=== PATIENT | female | born 1965 | race Caucasian/White ===

== ENCOUNTER 2020-05-30 15:02 | Inpatient (IN) | payer MEDICAID, SELFPAY ==
[2020-05-30] VITALS (7 sets, daily range): BP systolic 109–140; BP diastolic 75–98; PULSE 68–125; RESP 21–35; TEMP 36.6–37.3; O2SAT 91–97; BMI 31.2
--- NOTE | 2020-05-30 15:45 | ECG_ITS ---
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: : [id number] Requested By: Derrick Aguilar Order Number: [id number] Reading MD: HEMA MASON Measurements Intervals [place] Rate: 116 P: 50 MI: 116 QRS: 10 QRSD: 81 T: 3 QT: 279 QTc: 388 Interpretive Statements SINUS TACHYCARDIA WITH SHORT MI INTERVAL MODERATE ST DEPRESSION [0.05+ mV ST DEPRESSION] Compared to ECG 04/20/2019 11:45:52 Short MI interval now present ST (T wave) deviation now present Sinus rhythm no longer present Electronically Signed On 05-30-2020 19:27:54 [employer]AFFING [employer]CH MANAGER by HEMA MASON [email or web address]
--- NOTE | 2020-05-30 15:51 | XRR_ITS ---
PROCEDURE INFORMATION: Exam: XR Chest, 1 View Exam date and time: 05/30/2020 3:54 PM Age: 55 years old Clinical indication: Cough and dyspnea; Additional info: Dyspnea/cough TECHNIQUE: Imaging protocol: XR of the chest Views: 1 view. COMPARISON: CR Chest 1 [place] [id number] 12/14/2017 6:08 PM FINDINGS: Lungs: Bilateral nonspecific infiltrates, left worse than right. The left-sided infiltrate is predominantly airspace disease. The right-sided infiltrate appears mostly interstitial with mild airspace disease at the right lung base. Pleural space: No pleural effusion or pneumothorax noted. Heart/Mediastinum: No cardiomegaly. Bones/joints: Unremarkable. XR/XR chest 1V portable [id number] IMPRESSION: 1. Bilateral nonspecific infiltrates, left worse than right. 2. These infiltrates are new when compared to the previous study.
--- NOTE | 2020-05-30 15:54 | W.ED.SOB ---
Documented by User: Derrick Joyner DO 05/31/20 10:27 HPI - SOB/Dyspnea General: Chief Complaint: Shortness of Breath/Dyspnea Stated Complaint: SOB/ LOW O2 SATS Time Seen by Provider: 05/30/20 15:37 History of Present Illness: HPI Narrative: 55-year-old female presents to the emergency room and tested positive for Covid on 05/13. She is having increasing she reports shortness of breath and nonproductive cough she evidently dropped to 68% on her oxygen saturation on room air. She was recently thought to have pneumonia. Patient has a history of dementia. MD elicited complaint: shortness of breath and cough Pertinent past history: diabetes and other (Dementia) Context: recent illness (COVID-19) Severity: severe Exacerbating factors: exertion and coughing Relieving factors: oxygen and rest Known history of: diabetes Treatment prior to arrival: oxygen Review of Systems General: Reports: ROS unobtainable due to medical condition PFSH ED PFSH: Medical History (Updated 05/31/20 @ 02:17 by Staci Calvillo) B12 deficiency COPD (chronic obstructive pulmonary disease) Dementia GERD (gastroesophageal reflux disease) History of DVT (deep vein thrombosis) Insulin dependent type 2 diabetes mellitus Intellectual disability Surgical History (Updated 05/30/20 @ 23:11 by Teodoro Juarez MD) History of ankle surgery Family History (Updated 05/30/20 @ 23:12 by Teodoro Juarez MD) Grandmother Cancer Breast, lung, cervical Mother Gunshot wound Social History (Updated 05/30/20 @ 23:13 by Teodoro Juarez MD) Smoking and tobacco status: former smoker Alcohol intake: never Substance/Drug Use: never Physical Exam Const: COMMON NORMALS: no acute distress GENERAL APPEARANCE: cooperative and comfortable ORIENTATION/CONSCIOUSNESS: Yes awake, Yes oriented to person, Yes oriented to place and Yes oriented to time HENMT: COMMON NORMALS: normocephalic, atraumatic and hearing grossly normal bilaterally HEAD & SCALP: normocephalic and atraumatic Eye: COMMON NORMALS: Equal, round and reactive pupils present, EOMs intact bilaterally, conjunctivae normal and no scleral icterus CONJUNCTIVA: Yes conjunctivae normal PUPIL: Yes Equal, round and reactive pupils present Neck/C-Spine: COMMON NORMALS: full ROM, no lymphadenopathy, supple and no JVD Lymph: LYMPHATIC: no lymphadenopathy noted and no lymphedema noted Resp: AUSCULTATION: rhonchi and wheezes Cardio: COMMON NORMALS: no JVD, regular rhythm and No murmurs present (Cardio) RATE: tachycardic RHYTHM: regular rhythm GI: COMMON NORMALS: Soft to palpation and No hepatosplenomegaly present AUSCULTATION: Yes normoactive bowel sounds PALPATION: Yes Soft to palpation, No Tenderness to palpation present (GI), No Guarding due to palpation present (GI) and Yes No hepatosplenomegaly present Extremity: COMMON NORMALS: normal to inspection, capillary refill normal, no clubbing, cyanosis or edema, no calf tenderness and no pedal edema Neuro: SENSORIUM/ORIENTATION: Yes oriented to person, Yes oriented to place and Yes oriented to time Skin: COMMON NORMALS: no rashes or lesions noted GENERAL SKIN EXAM: no rashes or lesions noted Course Vital Signs: Vital signs: Vital Signs Temperature 99.4 F 05/31/20 08:00 Pulse Rate 109 H 05/31/20 08:28 Respiratory Rate 24 H 05/31/20 08:28 Blood Pressure 114/71 05/31/20 08:00 Pulse Oximetry 93 05/31/20 08:28 MDM - SOB/Dyspnea MDM Narrative: Medical decision making narrative: Case turned over to Dr. Zaidi at change of shift suspect patient has COVID-[address] pending. See his notes for final diagnosis and disposition. Lab Data: Labs: Lab Results 05/30/20 05/30/20 05/30/20 Range/Units 16:15 16:15 16:15 WBC 12.0 H (4.0-10.0) 10^3/ uL RBC 4.65 (4.1-5.3) 10^6/u L Hgb 12.7 (11.5-15.3) g/dL Hct 43.5 (37.0-47.0) % MCV 93.5 (81-99) fL MCH 27.3 L (28.0-34.0) pg MCHC 29.2 L (30.0-36.0) g/dL RDW 16.6 H (12.1-15.1) % Plt Count 173 (130-400) 10^3/c mm MPV 10.9 H (7.4-10.4) fL Neut % (Auto) 78.8 % Lymph % (Auto) 12.0 % [place] % (Auto) 8.2 % Eos % (Auto) 0.0 % Baso % (Auto) 0.2 % Neut # (Auto) 9.43 H (1.8-7.7) 10^3/u L Lymph # (Auto) 1.4 (0.8-4.8) 10^3/u L [place] # (Auto) 1.0 H (0.2-0.9) 10^3/u L Eos # (Auto) 0.0 (0.0-0.8) 10^3/u L Baso # (Auto) 0.0 (0.0-0.1) 10^3/u L Nucleated RBC % (a uto) 0 % Nucleated RBCs # 0.0 /100WBC Fibrinogen (174-498) mg/dL D-Dimer (0-0.59) ug/mIFE U Specimen Type Sample Site ABG pH (7.35-7.45) ABG pCO2 (35-45) mmHg ABG pO2 (80.0-100.0) mmH g ABG HCO3 (22-26) mmol/L ABG Base Excess (-2.0-2.0) mmol/ L Kamran Test Hematocrit (37-47) % O2 Delivery Device O2 Liters/Min % FiO2 % Digital Communications Manager ID Sodium 144 (136-145) mmol/L Potassium 4.6 (3.5-5.1) mmol/L Chloride 102 (98-107) mmol/L Carbon Dioxide 34 H (22-29) mmol/L Anion Gap 12.6 (5-19) BUN 9 (6-20) mg/dL Creatinine 0.5 (0.5-0.9) mg/dL GFR Calculation 128.1 (90-130) mL/min Glucose 91 (65-115) mg/dL Calculated Osmolal ity 296 H (285-295) mOsm/k g Lactic Acid (0.5-2.2) mmol/L Calcium 8.7 (8.5-10.5) mg/dL Ferritin 124 (15-150) ng/mL Total Bilirubin 0.3 (0.15-1.2) mg/dL AST 27 (0-32) U/L ALT 16 (0-33) U/L Alkaline Phosphata se 148 H (35-105) IU/L Creatine Kinase 72 (26-192) U/L Troponin T Baselin e 1329 H* (0-10) ng/L Troponin T 120 Min [place] (0-10) ng/L Delta Troponin T (0-10) ABS# Troponin T Hi Sens 6Hr (0-10) ng/L Troponin T Hi Sens 6Hr Delta (0-12) ng/L C-Reactive Protein 79.7 H (0.0-4.9) mg/L Total Protein 6.8 (6.6-8.7) g/dL Albumin 2.7 L (3.5-5.2) g/dL Globulin 4.1 (1.3-4.6) g/dL Urine Color (Yellow) Urine Appearance (CLEAR) Urine pH (5-7) Ur Specific Gravit y (1.005-1.030) Urine Protein (Negative) Urine Glucose (UA) (Normal) Urine Ketones (Negative) Urine Blood (Negative) Urine Nitrate (Negative) Urine Bilirubin (Negative) Urine Urobilinogen (Negative) mg/dL Ur Leukocyte Alka ase (Negative) Urine RBC (0-2) /hpf Urine WBC (0-5) /hpf Ur Squamous Epith Cells (0-5) /hpf Amorphous Sediment Urine Bacteria (NONE) /hpf Influenza Type A A g (Negative) Influenza Type B A g (Negative) 05/30/20 05/30/20 05/30/20 Range/Units 16:15 18:25 18:25 WBC (4.0-10.0) 10^3/ uL RBC (4.1-5.3) 10^6/u L Hgb (11.5-15.3) g/dL Hct (37.0-47.0) % MCV (81-99) fL MCH (28.0-34.0) pg MCHC (30.0-36.0) g/dL RDW (12.1-15.1) % Plt Count (130-400) 10^3/c mm MPV (7.4-10.4) fL Neut % (Auto) % Lymph % (Auto) % [place] % (Auto) % Eos % (Auto) % Baso % (Auto) % Neut # (Auto) (1.8-7.7) 10^3/u L Lymph # (Auto) (0.8-4.8) 10^3/u L [place] # (Auto) (0.2-0.9) 10^3/u L Eos # (Auto) (0.0-0.8) 10^3/u L Baso # (Auto) (0.0-0.1) 10^3/u L Nucleated RBC % (a uto) % Nucleated RBCs # /100WBC Fibrinogen 527 H (174-498) mg/dL D-Dimer 10.88 H (0-0.59) ug/mIFE U Specimen Type Sample Site ABG pH (7.35-7.45) ABG pCO2 (35-45) mmHg ABG pO2 (80.0-100.0) mmH g ABG HCO3 (22-26) mmol/L ABG Base Excess (-2.0-2.0) mmol/ L Kamran Test Hematocrit (37-47) % O2 Delivery Device O2 Liters/Min % FiO2 % Digital Communications Manager ID Sodium (136-145) mmol/L Potassium (3.5-5.1) mmol/L Chloride (98-107) mmol/L Carbon Dioxide (22-29) mmol/L Anion Gap (5-19) BUN (6-20) mg/dL Creatinine (0.5-0.9) mg/dL GFR Calculation (90-130) mL/min Glucose (65-115) mg/dL Calculated Osmolal ity (285-295) mOsm/k g Lactic Acid 1.2 (0.5-2.2) mmol/L Calcium (8.5-10.5) mg/dL Ferritin (15-150) ng/mL Total Bilirubin (0.15-1.2) mg/dL AST (0-32) U/L ALT (0-33) U/L Alkaline Phosphata se (35-105) IU/L Creatine Kinase (26-192) U/L Troponin T Baselin e (0-10) ng/L Troponin T 120 Min [place] 1397 H (0-10) ng/L Delta Troponin T 68 H* (0-10) ABS# Troponin T Hi Sens 6Hr (0-10) ng/L Troponin T Hi Sens 6Hr Delta (0-12) ng/L C-Reactive Protein (0.0-4.9) mg/L Total Protein (6.6-8.7) g/dL Albumin (3.5-5.2) g/dL Globulin (1.3-4.6) g/dL Urine Color (Yellow) Urine Appearance (CLEAR) Urine pH (5-7) Ur Specific Gravit y (1.005-1.030) Urine Protein (Negative) Urine Glucose (UA) (Normal) Urine Ketones (Negative) Urine Blood (Negative) Urine Nitrate (Negative) Urine Bilirubin (Negative) Urine Urobilinogen (Negative) mg/dL Ur Leukocyte Alka ase (Negative) Urine RBC (0-2) /hpf Urine WBC (0-5) /hpf Ur Squamous Epith Cells (0-5) /hpf Amorphous Sediment Urine Bacteria (NONE) /hpf Influenza Type A A g (Negative) Influenza Type B A g (Negative) 05/30/20 05/30/20 05/30/20 Range/Units 19:20 19:26 22:02 WBC (4.0-10.0) 10^3/ uL RBC (4.1-5.3) 10^6/u L Hgb (11.5-15.3) g/dL Hct (37.0-47.0) % MCV (81-99) fL MCH (28.0-34.0) pg MCHC (30.0-36.0) g/dL RDW (12.1-15.1) % Plt Count (130-400) 10^3/c mm MPV (7.4-10.4) fL Neut % (Auto) % Lymph % (Auto) % [place] % (Auto) % Eos % (Auto) % Baso % (Auto) % Neut # (Auto) (1.8-7.7) 10^3/u L Lymph # (Auto) (0.8-4.8) 10^3/u L [place] # (Auto) (0.2-0.9) 10^3/u L Eos # (Auto) (0.0-0.8) 10^3/u L Baso # (Auto) (0.0-0.1) 10^3/u L Nucleated RBC % (a uto) % Nucleated RBCs # /100WBC Fibrinogen (174-498) mg/dL D-Dimer (0-0.59) ug/mIFE U Specimen Type Sample Site ABG pH (7.35-7.45) ABG pCO2 (35-45) mmHg ABG pO2 (80.0-100.0) mmH g ABG HCO3 (22-26) mmol/L ABG Base Excess (-2.0-2.0) mmol/ L Kamran Test Hematocrit (37-47) % O2 Delivery Device O2 Liters/Min % FiO2 % Digital Communications Manager ID Sodium (136-145) mmol/L Potassium (3.5-5.1) mmol/L Chloride (98-107) mmol/L Carbon Dioxide (22-29) mmol/L Anion Gap (5-19) BUN (6-20) mg/dL Creatinine (0.5-0.9) mg/dL GFR Calculation (90-130) mL/min Glucose (65-115) mg/dL Calculated Osmolal ity (285-295) mOsm/k g Lactic Acid (0.5-2.2) mmol/L Calcium (8.5-10.5) mg/dL Ferritin (15-150) ng/mL Total Bilirubin (0.15-1.2) mg/dL AST (0-32) U/L ALT (0-33) U/L Alkaline Phosphata se (35-105) IU/L Creatine Kinase (26-192) U/L Troponin T Baselin e (0-10) ng/L Troponin T 120 Min [place] (0-10) ng/L Delta Troponin T (0-10) ABS# Troponin T Hi Sens 6Hr 1270 H (0-10) ng/L Troponin T Hi Sens 6Hr Delta -59 L (0-12) ng/L C-Reactive Protein (0.0-4.9) mg/L Total Protein (6.6-8.7) g/dL Albumin (3.5-5.2) g/dL Globulin (1.3-4.6) g/dL Urine Color Yellow (Yellow) Urine Appearance Cloudy (CLEAR) Urine pH 5 (5-7) Ur Specific Gravit y 1.020 (1.005-1.030) Urine Protein 1+ H (Negative) Urine Glucose (UA) Norm (Normal) Urine Ketones Negative (Negative) Urine Blood 3+ H (Negative) Urine Nitrate Negative (Negative) Urine Bilirubin Neg (Negative) Urine Urobilinogen Norm (Negative) mg/dL Ur Leukocyte Alka ase Negative (Negative) Urine RBC Too numerous to c nt H (0-2) /hpf Urine WBC None (0-5) /hpf Ur Squamous Epith Cells 0-4 H (0-5) /hpf Amorphous Sediment Not Reportable Urine Bacteria 2+ H (NONE) /hpf Influenza Type A A g Negative (Negative) Influenza Type B A g Negative (Negative) 05/30/20 Range/Units 23:30 WBC (4.0-10.0) 10^3/ uL RBC (4.1-5.3) 10^6/u L Hgb (11.5-15.3) g/dL Hct (37.0-47.0) % MCV (81-99) fL MCH (28.0-34.0) pg MCHC (30.0-36.0) g/dL RDW (12.1-15.1) % Plt Count (130-400) 10^3/c mm MPV (7.4-10.4) fL Neut % (Auto) % Lymph % (Auto) % [place] % (Auto) % Eos % (Auto) % Baso % (Auto) % Neut # (Auto) (1.8-7.7) 10^3/u L Lymph # (Auto) (0.8-4.8) 10^3/u L [place] # (Auto) (0.2-0.9) 10^3/u L Eos # (Auto) (0.0-0.8) 10^3/u L Baso # (Auto) (0.0-0.1) 10^3/u L Nucleated RBC % (a uto) % Nucleated RBCs # /100WBC Fibrinogen (174-498) mg/dL D-Dimer (0-0.59) ug/mIFE U Specimen Type Arterial Sample Site Radial, left ABG pH 7.34 L (7.35-7.45) ABG pCO2 66.5 H* (35-45) mmHg ABG pO2 62.1 L (80.0-100.0) mmH g ABG HCO3 35.7 H (22-26) mmol/L ABG Base Excess 7.6 H (-2.0-2.0) mmol/ L Kamran Test Pos Hematocrit 39.8 (37-47) % O2 Delivery Device Nc O2 Liters/Min 6.0 % FiO2 44.0 % Digital Communications Manager ID [email or web address] Sodium (136-145) mmol/L Potassium (3.5-5.1) mmol/L Chloride (98-107) mmol/L Carbon Dioxide (22-29) mmol/L Anion Gap (5-19) BUN (6-20) mg/dL Creatinine (0.5-0.9) mg/dL GFR Calculation (90-130) mL/min Glucose (65-115) mg/dL Calculated Osmolal ity (285-295) mOsm/k g Lactic Acid (0.5-2.2) mmol/L Calcium (8.5-10.5) mg/dL Ferritin (15-150) ng/mL Total Bilirubin (0.15-1.2) mg/dL AST (0-32) U/L ALT (0-33) U/L Alkaline Phosphata se (35-105) IU/L Creatine Kinase (26-192) U/L Troponin T Baselin e (0-10) ng/L Troponin T 120 Min [place] (0-10) ng/L Delta Troponin T (0-10) ABS# Troponin T Hi Sens 6Hr (0-10) ng/L Troponin T Hi Sens 6Hr Delta (0-12) ng/L C-Reactive Protein (0.0-4.9) mg/L Total Protein (6.6-8.7) g/dL Albumin (3.5-5.2) g/dL Globulin (1.3-4.6) g/dL Urine Color (Yellow) Urine Appearance (CLEAR) Urine pH (5-7) Ur Specific Gravit y (1.005-1.030) Urine Protein (Negative) Urine Glucose (UA) (Normal) Urine Ketones (Negative) Urine Blood (Negative) Urine Nitrate (Negative) Urine Bilirubin (Negative) Urine Urobilinogen (Negative) mg/dL Ur Leukocyte Alka ase (Negative) Urine RBC (0-2) /hpf Urine WBC (0-5) /hpf Ur Squamous Epith Cells (0-5) /hpf Amorphous Sediment Urine Bacteria (NONE) /hpf Influenza Type A A g (Negative) Influenza Type B A g (Negative) Discharge Plan Discharge Patient Disposition: Admitted As Inpatient Admit Provider: Teodoro Juarez Clinical Impression: Pneumonia due to COVID-19 virus Condition: Stable Discharge Date/Time: 05/31/20 01:00 Sign Out Sign Out Data: Patient Sign Out occurred on 05/30/20 at 18:57. Patient's care was discussed, and care was transferred from to Staci Calvillo. Coding Level of Care Code ED Driver License Technician for Chg Fwd Exam Comprehensive Documented by User: Staci Calvillo 05/31/20 02:17 HPI - SOB/Dyspnea General: Chief Complaint: Shortness of Breath/Dyspnea Stated Complaint: SOB/ LOW O2 SATS Time Seen by Provider: 05/30/20 15:37 PFSH ED PFSH: Medical History (Updated 05/31/20 @ 02:17 by Staci Calvillo) B12 deficiency COPD (chronic obstructive pulmonary disease) Dementia GERD (gastroesophageal reflux disease) History of DVT (deep vein thrombosis) Insulin dependent type 2 diabetes mellitus Intellectual disability Surgical History (Updated 05/30/20 @ 23:11 by Teodoro Juarez MD) History of ankle surgery Family History (Updated 05/30/20 @ 23:12 by Teodoro Juarez MD) Grandmother Cancer Breast, lung, cervical Mother Gunshot wound Social History (Updated 05/30/20 @ 23:13 by Teodoro Juarez MD) Smoking and tobacco status: former smoker Alcohol intake: never Substance/Drug Use: never Course Vital Signs: Vital signs: Vital Signs Temperature 99.4 F 05/31/20 08:00 Pulse Rate 109 H 05/31/20 08:28 Respiratory Rate 24 H 05/31/20 08:28 Blood Pressure 114/71 05/31/20 08:00 Pulse Oximetry 93 05/31/20 08:28 MDM - SOB/Dyspnea MDM Narrative: Medical decision making narrative: Case turned over to me at change of shift from Dr. Joyner. Please see his note for his history, physical exam and medical decision-making notes. Patient's chest x-ray is CT scan reveals severe viral pneumonitis. No sign of PE. I endorsed the case to Dr. Cohen who agrees to admit for further evaluation and care. Lab Data: Attestation: I reviewed the patient's lab results. Labs: Lab Results 05/30/20 05/30/20 05/30/20 Range/Units 16:15 16:15 16:15 WBC 12.0 H (4.0-10.0) 10^3/ uL RBC 4.65 (4.1-5.3) 10^6/u L Hgb 12.7 (11.5-15.3) g/dL Hct 43.5 (37.0-47.0) % MCV 93.5 (81-99) fL MCH 27.3 L (28.0-34.0) pg MCHC 29.2 L (30.0-36.0) g/dL RDW 16.6 H (12.1-15.1) % Plt Count 173 (130-400) 10^3/c mm MPV 10.9 H (7.4-10.4) fL Neut % (Auto) 78.8 % Lymph % (Auto) 12.0 % [place] % (Auto) 8.2 % Eos % (Auto) 0.0 % Baso % (Auto) 0.2 % Neut # (Auto) 9.43 H (1.8-7.7) 10^3/u L Lymph # (Auto) 1.4 (0.8-4.8) 10^3/u L [place] # (Auto) 1.0 H (0.2-0.9) 10^3/u L Eos # (Auto) 0.0 (0.0-0.8) 10^3/u L Baso # (Auto) 0.0 (0.0-0.1) 10^3/u L Nucleated RBC % (a uto) 0 % Nucleated RBCs # 0.0 /100WBC Fibrinogen (174-498) mg/dL D-Dimer (0-0.59) ug/mIFE U Specimen Type Sample Site ABG pH (7.35-7.45) ABG pCO2 (35-45) mmHg ABG pO2 (80.0-100.0) mmH g ABG HCO3 (22-26) mmol/L ABG Base Excess (-2.0-2.0) mmol/ L Kamran Test Hematocrit (37-47) % O2 Delivery Device O2 Liters/Min % FiO2 % Digital Communications Manager ID Sodium 144 (136-145) mmol/L Potassium 4.6 (3.5-5.1) mmol/L Chloride 102 (98-107) mmol/L Carbon Dioxide 34 H (22-29) mmol/L Anion Gap 12.6 (5-19) BUN 9 (6-20) mg/dL Creatinine 0.5 (0.5-0.9) mg/dL GFR Calculation 128.1 (90-130) mL/min Glucose 91 (65-115) mg/dL Calculated Osmolal ity 296 H (285-295) mOsm/k g Lactic Acid (0.5-2.2) mmol/L Calcium 8.7 (8.5-10.5) mg/dL Ferritin 124 (15-150) ng/mL Total Bilirubin 0.3 (0.15-1.2) mg/dL AST 27 (0-32) U/L ALT 16 (0-33) U/L Alkaline Phosphata se 148 H (35-105) IU/L Creatine Kinase 72 (26-192) U/L Troponin T Baselin e 1329 H* (0-10) ng/L Troponin T 120 Min [place] (0-10) ng/L Delta Troponin T (0-10) ABS# Troponin T Hi Sens 6Hr (0-10) ng/L Troponin T Hi Sens 6Hr Delta (0-12) ng/L C-Reactive Protein 79.7 H (0.0-4.9) mg/L Total Protein 6.8 (6.6-8.7) g/dL Albumin 2.7 L (3.5-5.2) g/dL Globulin 4.1 (1.3-4.6) g/dL Urine Color (Yellow) Urine Appearance (CLEAR) Urine pH (5-7) Ur Specific Gravit y (1.005-1.030) Urine Protein (Negative) Urine Glucose (UA) (Normal) Urine Ketones (Negative) Urine Blood (Negative) Urine Nitrate (Negative) Urine Bilirubin (Negative) Urine Urobilinogen (Negative) mg/dL Ur Leukocyte Alka ase (Negative) Urine RBC (0-2) /hpf Urine WBC (0-5) /hpf Ur Squamous Epith Cells (0-5) /hpf Amorphous Sediment Urine Bacteria (NONE) /hpf Influenza Type A A g (Negative) Influenza Type B A g (Negative) 05/30/20 05/30/20 05/30/20 Range/Units 16:15 18:25 18:25 WBC (4.0-10.0) 10^3/ uL RBC (4.1-5.3) 10^6/u L Hgb (11.5-15.3) g/dL Hct (37.0-47.0) % MCV (81-99) fL MCH (28.0-34.0) pg MCHC (30.0-36.0) g/dL RDW (12.1-15.1) % Plt Count (130-400) 10^3/c mm MPV (7.4-10.4) fL Neut % (Auto) % Lymph % (Auto) % [place] % (Auto) % Eos % (Auto) % Baso % (Auto) % Neut # (Auto) (1.8-7.7) 10^3/u L Lymph # (Auto) (0.8-4.8) 10^3/u L [place] # (Auto) (0.2-0.9) 10^3/u L Eos # (Auto) (0.0-0.8) 10^3/u L Baso # (Auto) (0.0-0.1) 10^3/u L Nucleated RBC % (a uto) % Nucleated RBCs # /100WBC Fibrinogen 527 H (174-498) mg/dL D-Dimer 10.88 H (0-0.59) ug/mIFE U Specimen Type Sample Site ABG pH (7.35-7.45) ABG pCO2 (35-45) mmHg ABG pO2 (80.0-100.0) mmH g ABG HCO3 (22-26) mmol/L ABG Base Excess (-2.0-2.0) mmol/ L Kamran Test Hematocrit (37-47) % O2 Delivery Device O2 Liters/Min % FiO2 % Digital Communications Manager ID Sodium (136-145) mmol/L Potassium (3.5-5.1) mmol/L Chloride (98-107) mmol/L Carbon Dioxide (22-29) mmol/L Anion Gap (5-19) BUN (6-20) mg/dL Creatinine (0.5-0.9) mg/dL GFR Calculation (90-130) mL/min Glucose (65-115) mg/dL Calculated Osmolal ity (285-295) mOsm/k g Lactic Acid 1.2 (0.5-2.2) mmol/L Calcium (8.5-10.5) mg/dL Ferritin (15-150) ng/mL Total Bilirubin (0.15-1.2) mg/dL AST (0-32) U/L ALT (0-33) U/L Alkaline Phosphata se (35-105) IU/L Creatine Kinase (26-192) U/L Troponin T Baselin e (0-10) ng/L Troponin T 120 Min [place] 1397 H (0-10) ng/L Delta Troponin T 68 H* (0-10) ABS# Troponin T Hi Sens 6Hr (0-10) ng/L Troponin T Hi Sens 6Hr Delta (0-12) ng/L C-Reactive Protein (0.0-4.9) mg/L Total Protein (6.6-8.7) g/dL Albumin (3.5-5.2) g/dL Globulin (1.3-4.6) g/dL Urine Color (Yellow) Urine Appearance (CLEAR) Urine pH (5-7) Ur Specific Gravit y (1.005-1.030) Urine Protein (Negative) Urine Glucose (UA) (Normal) Urine Ketones (Negative) Urine Blood (Negative) Urine Nitrate (Negative) Urine Bilirubin (Negative) Urine Urobilinogen (Negative) mg/dL Ur Leukocyte Alka ase (Negative) Urine RBC (0-2) /hpf Urine WBC (0-5) /hpf Ur Squamous Epith Cells (0-5) /hpf Amorphous Sediment Urine Bacteria (NONE) /hpf Influenza Type A A g (Negative) Influenza Type B A g (Negative) 05/30/20 05/30/20 05/30/20 Range/Units 19:20 19:26 22:02 WBC (4.0-10.0) 10^3/ uL RBC (4.1-5.3) 10^6/u L Hgb (11.5-15.3) g/dL Hct (37.0-47.0) % MCV (81-99) fL MCH (28.0-34.0) pg MCHC (30.0-36.0) g/dL RDW (12.1-15.1) % Plt Count (130-400) 10^3/c mm MPV (7.4-10.4) fL Neut % (Auto) % Lymph % (Auto) % [place] % (Auto) % Eos % (Auto) % Baso % (Auto) % Neut # (Auto) (1.8-7.7) 10^3/u L Lymph # (Auto) (0.8-4.8) 10^3/u L [place] # (Auto) (0.2-0.9) 10^3/u L Eos # (Auto) (0.0-0.8) 10^3/u L Baso # (Auto) (0.0-0.1) 10^3/u L Nucleated RBC % (a uto) % Nucleated RBCs # /100WBC Fibrinogen (174-498) mg/dL D-Dimer (0-0.59) ug/mIFE U Specimen Type Sample Site ABG pH (7.35-7.45) ABG pCO2 (35-45) mmHg ABG pO2 (80.0-100.0) mmH g ABG HCO3 (22-26) mmol/L ABG Base Excess (-2.0-2.0) mmol/ L Kamran Test Hematocrit (37-47) % O2 Delivery Device O2 Liters/Min % FiO2 % Digital Communications Manager ID Sodium (136-145) mmol/L Potassium (3.5-5.1) mmol/L Chloride (98-107) mmol/L Carbon Dioxide (22-29) mmol/L Anion Gap (5-19) BUN (6-20) mg/dL Creatinine (0.5-0.9) mg/dL GFR Calculation (90-130) mL/min Glucose (65-115) mg/dL Calculated Osmolal ity (285-295) mOsm/k g Lactic Acid (0.5-2.2) mmol/L Calcium (8.5-10.5) mg/dL Ferritin (15-150) ng/mL Total Bilirubin (0.15-1.2) mg/dL AST (0-32) U/L ALT (0-33) U/L Alkaline Phosphata se (35-105) IU/L Creatine Kinase (26-192) U/L Troponin T Baselin e (0-10) ng/L Troponin T 120 Min [place] (0-10) ng/L Delta Troponin T (0-10) ABS# Troponin T Hi Sens 6Hr 1270 H (0-10) ng/L Troponin T Hi Sens 6Hr Delta -59 L (0-12) ng/L C-Reactive Protein (0.0-4.9) mg/L Total Protein (6.6-8.7) g/dL Albumin (3.5-5.2) g/dL Globulin (1.3-4.6) g/dL Urine Color Yellow (Yellow) Urine Appearance Cloudy (CLEAR) Urine pH 5 (5-7) Ur Specific Gravit y 1.020 (1.005-1.030) Urine Protein 1+ H (Negative) Urine Glucose (UA) Norm (Normal) Urine Ketones Negative (Negative) Urine Blood 3+ H (Negative) Urine Nitrate Negative (Negative) Urine Bilirubin Neg (Negative) Urine Urobilinogen Norm (Negative) mg/dL Ur Leukocyte Al[place] a[place] Negative (Negative) Urine RBC Too numerous to c nt H (0-2) /hpf Urine WBC None (0-5) /hpf Ur Squamous Epith Cells 0-4 H (0-5) /hpf Amorphous Sediment Not Reportable Urine Bacteria 2+ H (NONE) /hpf Influenza Type A A g Negative (Negative) Influenza Type B A g Negative (Negative) 05/30/20 Range/Units 23:30 WBC (4.0-10.0) 10^3/ uL RBC (4.1-5.3) 10^6/u L Hgb (11.5-15.3) g/dL Hct (37.0-47.0) % MCV (81-99) fL MCH (28.0-34.0) pg MCHC (30.0-36.0) g/dL RDW (12.1-15.1) % Plt Count (130-400) 10^3/c mm MPV (7.4-10.4) fL Neut % (Auto) % Lymph % (Auto) % [place] % (Auto) % Eos % (Auto) % Baso % (Auto) % Neut # (Auto) (1.8-7.7) 10^3/u L Lymph # (Auto) (0.8-4.8) 10^3/u L [place] # (Auto) (0.2-0.9) 10^3/u L Eos # (Auto) (0.0-0.8) 10^3/u L Baso # (Auto) (0.0-0.1) 10^3/u L Nucleated RBC % (a uto) % Nucleated RBCs # /100WBC Fibrinogen (174-498) mg/dL D-Dimer (0-0.59) ug/mIFE U Specimen Type Arterial Sample Site Radial, left ABG pH 7.34 L (7.35-7.45) ABG pCO2 66.5 H* (35-45) mmHg ABG pO2 62.1 L (80.0-100.0) mmH g ABG HCO3 35.7 H (22-26) mmol/L ABG Base Excess 7.6 H (-2.0-2.0) mmol/ L Kamran Test Pos Hematocrit 39.8 (37-47) % O2 Delivery Device Nc O2 Liters/Min 6.0 % FiO2 44.0 % Digital Communications Manager ID [email or web address] Sodium (136-145) mmol/L Potassium (3.5-5.1) mmol/L Chloride (98-107) mmol/L Carbon Dioxide (22-29) mmol/L Anion Gap (5-19) BUN (6-20) mg/dL Creatinine (0.5-0.9) mg/dL GFR Calculation (90-130) mL/min Glucose (65-115) mg/dL Calculated Osmolal ity (285-295) mOsm/k g Lactic Acid (0.5-2.2) mmol/L Calcium (8.5-10.5) mg/dL Ferritin (15-150) ng/mL Total Bilirubin (0.15-1.2) mg/dL AST (0-32) U/L ALT (0-33) U/L Alkaline Phosphata se (35-105) IU/L Creatine Kinase (26-192) U/L Troponin T Baselin e (0-10) ng/L Troponin T 120 Min [place] (0-10) ng/L Delta Troponin T (0-10) ABS# Troponin T Hi Sens 6Hr (0-10) ng/L Troponin T Hi Sens 6Hr Delta (0-12) ng/L C-Reactive Protein (0.0-4.9) mg/L Total Protein (6.6-8.7) g/dL Albumin (3.5-5.2) g/dL Globulin (1.3-4.6) g/dL Urine Color (Yellow) Urine Appearance (CLEAR) Urine pH (5-7) Ur Specific Gravit y (1.005-1.030) Urine Protein (Negative) Urine Glucose (UA) (Normal) Urine Ketones (Negative) Urine Blood (Negative) Urine Nitrate (Negative) Urine Bilirubin (Negative) Urine Urobilinogen (Negative) mg/dL Ur Leukocyte [place] a[place] (Negative) Urine RBC (0-2) /hpf Urine WBC (0-5) /hpf Ur Squamous Epith Cells (0-5) /hpf Amorphous Sediment Urine Bacteria (NONE) /hpf Influenza Type A A g (Negative) Influenza Type B A g (Negative) Imaging Data^: CXR: Attestation: I personally reviewed and interpreted this imaging study as follows: My impression: Bilateral infiltrates much worse on the left than right. CT Chest: Radiologist's impression: [place] [id number] CT Scan Report Signed Patient: Emmanuel Corral Unit #: [id number] : 1965 Age/Sex: 55 / F ADM Date: 05/30/20 Loc: ER Room/Bed: Attending Dr: Ordering Provider/Ordering MD: Derrick Joyner DO Date of Service: 05/30/20 Procedure(s): CT angio chest PE protcl [id number] Accession Number(s): [id number] Report Number: [id number] PROCEDURE INFORMATION: Exam: CT Angiography Chest With Contrast Exam date and time: 05/30/2020 7:04 PM Age: 55 years old Clinical indication: Abnormal findings; Abnormal diagnostic tests; Elevated d-dimer; Other: Hypoxia; Additional info: Elevated d dimer, hypoxia TECHNIQUE: Imaging protocol: Computed tomographic angiography of the chest with intravenous contrast. 3D rendering (Not supervised by radiologist): MIP and/or 3D reconstructed images were created by the technologist. Radiation optimization: All CT scans at this facility use at least one of these dose optimization techniques: automated exposure control; mA and/or kV adjustment per patient size (includes targeted exams where dose is matched to clinical indication); or iterative reconstruction. Contrast material: VISI; Contrast volume: 84 ml; Contrast route: INTRAVENOUS (IV); COMPARISON: CR XR chest 1V portable [id number] 05/30/2020 4:57 PM RADIATION DOSE METRICS: Total DLP (mGy-cm): 620.33 FINDINGS: Limitations: The study is limited due to patient respiratory motion. This precludes evaluation of the peripheral pulmonary arteries. Pulmonary arteries: The central pulmonary arteries and primary branches are well opacified. No filling defects to suggest pulmonary embolism. The peripheral arteries are not well demonstrated. Aorta: No aortic aneurysm. No aortic dissection. Veins: There is an IVC filter present. Lungs: Nonspecific pulmonary infiltrates throughout both lungs. The largest infiltrate involves the entire left upper lobe. This is consistent with nonspecific pneumonia. Pleural space: No pleural effusion demonstrated. Heart: No cardiomegaly. No pericardial effusion. Lymph nodes: Calcified subcarinal and right hilar lymph nodes, consistent with old granulomatous disease. Bones/joints: Unremarkable. No acute fracture. Soft tissues: Unremarkable. CT/CT angio chest PE protcl [id number] IMPRESSION: 1. The study is limited due to patient respiratory motion. This precludes evaluation of the peripheral pulmonary arteries. 2. No evidence of pulmonary embolism, within the technical limits of the study. 3. No evidence of aortic dissection. 4. Extensive nonspecific pulmonary infiltrates throughout both lungs. The largest infiltrate involves the entire left upper lobe. This is consistent with nonspecific pneumonia. Radiation Dose CTDIVOL = (mGy): DLP = 620.33 (mGy-cm) Dictated By: Pito Becerril MD Signed By: Pito Becerril MD Signed Date/Time: 05/30/202101 DD/ 00 EKG Data^: EKG 1: Attestation: I personally reviewed and interpreted this EKG as follows: EKG Interpretation Date: 05/30/20 EKG interpretation time: 16:31 Interpretation: Sinus tachycardia at 116 beats a minute, no acute ST-T wave changes. EKG 2: Attestation: I personally reviewed and interpreted this EKG as follows: EKG Interpretation Date: 05/30/20 EKG interpretation time: 18:30 Interpretation: Sinus tachycardia at 102 beats a minute, no acute ST-T wave changes. Discharge Plan Discharge Patient Disposition: Admitted As Inpatient Admit Provider: Teodoro Juarez Clinical Impression: Pneumonia due to COVID-19 virus Condition: Stable Discharge Date/Time: 05/31/20 01:00 Sign Out Sign Out Data: Patient Sign Out occurred on 05/30/20 at 18:57. Patient's care was discussed, and care was transferred from to [facility]. Coding Level of Care Code ED Driver License Technician for Chg Fwd Exam Comprehensive
[2020-05-30 16:45] LABS: Basophils % 0.2 %; Hematocrit 43.5 % (37.0-47.0); Hemoglobin 12.7 g/dL (11.5-15.3); Lymphocytes # 1.4 10^3/uL (0.8-4.8); Mean Corpuscular HGB Conc 29.2 g/dL (30.0-36.0); Mean Corpuscular Hemoglobin 27.3 pg (28.0-34.0); Mean Corpuscular Volume 93.5 fL (81-99); Mean Platelet Volume 10.9 fL (7.4-10.4); Monocytes % 8.2 %; Neutrophils # 9.43 10^3/uL (1.8-7.7); Neutrophils % 78.8 %; Nucleated Red Blood Cells % 0 %; Platelet Count 173 10^3/cmm (130-400); Red Blood Count 4.65 10^6/uL (4.1-5.3); Red Cell Distribution Width 16.6 % (12.1-15.1)
[2020-05-30 17:03] LABS: Fibrinogen 527 mg/dL (174-498)
[2020-05-30 17:12] LABS: D Dimer 10.88 ug/mIFEU (0-0.59)
--- NOTE | 2020-05-30 17:15 | CTR_ITS ---
PROCEDURE INFORMATION: Exam: CT Angiography Chest With Contrast Exam date and time: 05/30/2020 7:04 PM Age: 55 years old Clinical indication: Abnormal findings; Abnormal diagnostic tests; Elevated d-dimer; Other: Hypoxia; Additional info: Elevated d dimer, hypoxia TECHNIQUE: Imaging protocol: Computed tomographic angiography of the chest with intravenous contrast. 3D rendering (Not supervised by radiologist): MIP and/or 3D reconstructed images were created by the technologist. Radiation optimization: All CT scans at this facility use at least one of these dose optimization techniques: automated exposure control; mA and/or kV adjustment per patient size (includes targeted exams where dose is matched to clinical indication); or iterative reconstruction. Contrast material: VISI; Contrast volume: 84 ml; Contrast route: INTRAVENOUS (IV); COMPARISON: CR XR chest 1V portable [id number] 05/30/2020 4:57 PM RADIATION DOSE METRICS: Total DLP (mGy-cm): 620.33 FINDINGS: Limitations: The study is limited due to patient respiratory motion. This precludes evaluation of the peripheral pulmonary arteries. Pulmonary arteries: The central pulmonary arteries and primary branches are well opacified. No filling defects to suggest pulmonary embolism. The peripheral arteries are not well demonstrated. Aorta: No aortic aneurysm. No aortic dissection. Veins: There is an IVC filter present. Lungs: Nonspecific pulmonary infiltrates throughout both lungs. The largest infiltrate involves the entire left upper lobe. This is consistent with nonspecific pneumonia. Pleural space: No pleural effusion demonstrated. Heart: No cardiomegaly. No pericardial effusion. Lymph nodes: Calcified subcarinal and right hilar lymph nodes, consistent with old granulomatous disease. Bones/joints: Unremarkable. No acute fracture. Soft tissues: Unremarkable. CT/CT angio chest PE protcl [id number] IMPRESSION: 1. The study is limited due to patient respiratory motion. This precludes evaluation of the peripheral pulmonary arteries. 2. No evidence of pulmonary embolism, within the technical limits of the study. 3. No evidence of aortic dissection. 4. Extensive nonspecific pulmonary infiltrates throughout both lungs. The largest infiltrate involves the entire left upper lobe. This is consistent with nonspecific pneumonia. Radiation Dose CTDIVOL = (mGy): DLP = 620.33 (mGy-cm)
[2020-05-30 17:26] LABS: Troponin(5th) Baseline 1329 ng/L (0-10)
--- NOTE | 2020-05-30 17:45 | ECG_ITS ---
[facility] Test Date: 2020-05-30 Pat Name: Emmanuel Corral Department: Room: Gender: Female Company Secretary: : 1965 Requested By: Derrick Aguilar Order Number: [id number] Reading MD: HEMA MASON Measurements Intervals [place] Rate: 110 P: 55 HI: 116 QRS: 15 QRSD: 85 T: 18 QT: 291 QTc: 394 Interpretive Statements SINUS TACHYCARDIA WITH SHORT HI INTERVAL MINIMAL ST DEPRESSION [0.025+ mV ST DEPRESSION] ABNORMAL RHYTHM ECG INTERPRETATION BASED ON A DEFAULT AGE OF 40 YEARS Compared to ECG 05/30/2020 16:31:24 No significant changes Electronically Signed On 05-30-2020 19:31:13 SPORTS INSTRUCTOR by HEMA MASON [id number]
[2020-05-30 17:50] LABS: Alanine Aminotransferase 16 U/L (0-33); Albumin Level 2.7 g/dL (3.5-5.2); Alkaline Phosphatase 148 IU/L (35-105); Blood Urea Nitrogen 9 mg/dL (6-20); C Reactive Protein 79.7 mg/L (0.0-4.9); Calcium 8.7 mg/dL (8.5-10.5); Carbon Dioxide 34 mmol/L (22-29); Chloride 102 mmol/L (98-107); Creatine Phosphokinase 72 U/L (26-192); Creatinine Clr Calc Pharmacy 113.0512; Ferritin 124 ng/mL (15-150); Globulin 4.1 g/dL (1.3-4.6); Glomerular Filtration Rate 128.1 mL/min (90-130); Glucose 91 mg/dL (65-115); Osmolality Calculated 296 mOsm/kg (285-295); Sodium 144 mmol/L (136-145); Total Bilirubin 0.3 mg/dL (0.15-1.2); Total Protein 6.8 g/dL (6.6-8.7)
[2020-05-30 18:19] LABS: Anion Gap 12.6 (5-19); Aspartate Amino Transferase 27 U/L (0-32); Potassium 4.6 mmol/L (3.5-5.1)
[2020-05-30 19:06] LABS: Lactic Sepsis W/Reflex 1.2 mmol/L (0.5-2.2)
[2020-05-30] MEDS: diphenhydrAMINE 50 mg/mL SDV 1mL IVP (19:07)
[2020-05-30] MEDS: enoxaparin 80 mg/0.8 mL Syringe 70 MG SUBCUT (19:09)
[2020-05-30] MEDS: hydrocortisone 100 mg/2 mL SDV IVP (19:10)
--- NOTE | 2020-05-30 19:10 | PC.NURSE ---
Received report from RAHAT Rogers.
[2020-05-30] MEDS: piperacillin-tazobactam 3.375 GM in sodium chloride 0.9% (plus) 50 ML IV (19:12)
[2020-05-30 19:13] LABS: Troponin 5 2HR Delta 68 ABS# (0-10)
[2020-05-30 19:14] LABS: Troponin 5 2HR 1397 ng/L (0-10)
[2020-05-30] MEDS: levofloxacin-dextrose 5 % 750 MG/150 ML PREMIX 100 MG IV (19:15)
--- NOTE | 2020-05-30 19:48 | PC.NURSE ---
family continues to call about pt's status. Took names Maria Teresa Sousa at [phone] and Maria Teresa Lars/changed her name to Zora Sousa [phone]. Requested family to assign one person to call and stated to both we would call them back once we get information to give.
--- NOTE | 2020-05-30 19:52 | PC.NURSE ---
Notified provider no IV access, per radiology. Unable to access via radiology. 2nd RN to attempt IV with ultrasound
[2020-05-30 20:03] LABS: Influenza A by IFA Negative (Negative); Influenza B by IFA Negative (Negative)
[2020-05-30 20:06] LABS: Add Urine Microscopic? YES; Bilirubin Urine Neg (Negative); Blood Urine 3+ (Negative); Glucose Urine UA Norm (Normal); Ketones Urine Negative (Negative); Leukocyte Esterase Urine Negative (Negative); Nitrate Urine Negative (Negative); Protein Urine 1+ (Negative); Urine Appearance Cloudy (CLEAR); Urine Color Yellow (Yellow); Urobilinogen Urine Norm (Negative); pH Urine 5 (5-7)
[2020-05-30 20:07] LABS: Add Urine Culture? Yes; Bacteria Urine 2+ /hpf; RBC Urine TOO NUMEROUS TO CNT /hpf (0-2); Squamous Epithelial Cell Urine 0-4 /hpf (0-5)
--- NOTE | 2020-05-30 20:27 | PC.NURSE ---
[facility] UPDATED ON PATIENT STATUS WHEN FACILITY CALLED
[2020-05-30] MEDS: iodixanol 320 mg/mL 100mL Btl IV (20:37)
--- NOTE | 2020-05-30 21:45 | ECG_ITS ---
[facility] Test Date: 2020-05-30 Pat Name: Emmanuel Corral Department: Room: Gender: Female Airport Clerk: : 1965 Requested By: Derrick Aguilar Order Number: [id number] Colby MD: Zulay Cannon M.D. Measurements Intervals [place] Rate: 112 P: 63 NC: 114 QRS: 40 QRSD: 85 T: 40 QT: 294 QTc: 402 Interpretive Statements SINUS TACHYCARDIA WITH SHORT NC INTERVAL ABNORMAL RHYTHM ECG Compared to ECG 05/30/2020 18:30:43 ST (T wave) deviation no longer present Electronically Signed On 05-31-2020 11:37:23 COSMETIC ASSEMBLER by Zulay Cannon M.D. [id number]
--- NOTE | 2020-05-30 21:50 | PC.NURSE ---
Call to Maria Teresa Sousa at [phone]. updated sister on Hypoxia and positive for PNA, questionable [place] vs Cardiomegaly per provider.
--- NOTE | 2020-05-30 22:11 | PC.NURSE ---
EKG done at 2205 and shown to ER doctor
[2020-05-30 22:37] LABS: Troponin 5 6HR 1270 ng/L (0-10); Troponin 5 6HR Delta -59 ng/L (0-12)
[2020-05-30] MEDS: dexamethasone 4 mg/mL INJ 6 MG IVP (22:41)
--- NOTE | 2020-05-30 23:06 | P.HP_ITS ---
Providers/Chief Complaint Primary Care Provider: Carlos Conroy MD Chief Complaint: SOB/ LOW O2 SATS History of Present Illness Emmanuel Corral is a 55 year old female with a past medical history of intellectual disability from anoxic injury, chronic resident of [facility], can carry out conversations, is quite independent, has a history of DVT status post IVC filter placement, B12 deficiency, COPD not oxygen dependent, GERD, due to concerns for thrombocytopenia, insulin-dependent type 2 diabetes mellitus, vitamin D deficiency, major depressive disorder, who presents [facility] due to hypoxia, cough, fevers, shortness of breath, fatigue, malaise, chills. Patient was diagnosed with COVID-19 on around May 13, since then she has had low-grade fevers, chills, has required up to 4 L of oxygen. According to nurse over the last few days, she has had increased shortness of breath with at rest and exertion, just has been feeling well, low-grade fevers, chills, poor appetite. They did a chest x-ray which showed findings concerning for pneumonia so she was brought to the emergency room for further evaluation. During my evaluation, patient does not know what is wrong with her, she is confused, she does follow commands such as squeezing my fingers, wiggling her toes, but she does not really answer appropriately later questioning, most of the history was obtained through long term staff. Review of Systems General: Reports: ROS unobtainable due to medical condition Const: Reports: fever(s), chills, fatigue and malaise Card: Denies: chest pain or palpitations Resp: Reports: dyspnea and non-productive cough GI: Denies: abdominal pain Medications/Allergies Home Medications Medication Instructions Recorded Confirmed Last Taken Type acetaminophen 325 mg PO QID PRN 05/30/20 05/30/20 Unknown History albuterol sulfate 2.5 mg INHALATION Q4H PRN 05/30/20 05/30/20 Unknown History atorvastatin 10 mg PO DAILY 05/30/20 05/30/20 05/30/20 History bisacodyl 5 mg PO DAILY PRN 05/30/20 05/30/20 Unknown History bisacodyl 10 mg RI DAILY PRN 05/30/20 05/30/20 Unknown History budesonide-formoterol [Symbicort] 2 puff INHALATION BID 05/30/20 05/30/20 05/30/20 History cyanocobalamin (vitamin B-12) 1,000 mcg PO DAILY 05/30/20 05/30/20 05/30/20 History escitalopram oxalate 10 mg PO DAILY 05/30/20 05/30/20 05/30/20 History guaifenesin [Tussin] 200 mg PO Q4H PRN 05/30/20 05/30/20 Unknown History hydrocodone-acetaminophen 1 tab PO Q8H PRN 05/30/20 05/30/20 05/30/20 History insulin NPH isoph U-100 human See Rx Instructions .ROUTE .COMPLEX 05/30/20 05/30/20 05/30/20 History [Novolin N Flexpen] insulin glargine [Lantus Solostar See Rx Instructions .ROUTE .COMPLEX 05/30/20 05/30/20 Unknown History U-100 Insulin] levothyroxine 100 mcg PO DAILY 05/30/20 05/30/20 05/30/20 History lorazepam 0.5 mg PO TID 05/30/20 05/30/20 05/30/20 History magnesium hydroxide [Milk of 400 mg PO DAILY PRN 05/30/20 05/30/20 Unknown History Magnesia] metformin 1,000 mg PO BID 05/30/20 05/30/20 05/30/20 History nystatin 1 applic TOPICAL BID 05/30/20 05/30/20 05/30/20 History pantoprazole 20 mg PO DAILY 05/30/20 05/30/20 05/30/20 History sennosides-docusate sodium 1 tab-cap PO DAILY 05/30/20 05/30/20 05/30/20 History [Senna-S] sodium phosphates [Enema 118 ml RI DAILY PRN 05/30/20 05/30/20 Unknown History Disposable] Allergies Allergy/AdvReac Type Severity Reaction Status Date / Time Iodine and Iodide Containing Allergy Unknown Unknown Unverified 04/29/20 09:31 Produc iodine Allergy Unknown Unverified 04/29/20 09:31 PFSH Acute PFSH: Medical History (Updated 05/30/20 @ 23:19 by Teodoro Juarez MD) B12 deficiency COPD (chronic obstructive pulmonary disease) Dementia GERD (gastroesophageal reflux disease) History of DVT (deep vein thrombosis) Insulin dependent type 2 diabetes mellitus Intellectual disability Surgical History (Updated 05/30/20 @ 23:11 by Teodoro Juarez MD) History of ankle surgery Family History (Updated 05/30/20 @ 23:12 by Teodoro Juarez MD) Grandmother Cancer Breast, lung, cervical Mother Gunshot wound Social History (Updated 05/30/20 @ 23:13 by Teodoro Juarez MD) Smoking and tobacco status: former smoker Alcohol intake: never Substance/Drug Use: never Vitals/I&O/Wt Last Vital Signs Temp 97.8 F 05/30/20 20:00 Pulse 112 H 05/30/20 22:00 Resp 24 H 05/30/20 22:00 BP 123/87 05/30/20 22:00 Pulse Ox 96 05/30/20 21:00 05/30/20 05/30/20 05/31/20 14:59 22:59 06:59 Intake Total 50 / 50 Balance 50 / 50 Weight last 48 hrs Weight 72.575 kg Physical Exam Const: COMMON NORMALS: no acute distress GENERAL APPEARANCE: cooperative and comfortable NUTRITIONAL APPEARANCE: obese ORIENTATION/CONSCIOUSNESS: Yes awake, Yes oriented to person and Yes confused; not oriented to place and not oriented to time HENMT: COMMON NORMALS: normocephalic HEAD & SCALP: normocephalic Eye: COMMON NORMALS: Equal, round and reactive pupils present and EOMs intact bilaterally GENERAL EYE: appearance normal, both eyes and all related structures PUPIL: Yes Equal, round and reactive pupils present Neck/C-Spine: COMMON NORMALS: full ROM, no lymphadenopathy, no JVD and Thyroid normal Lymph: LYMPHATIC: no lymphadenopathy noted Resp: COMMON NORMALS: normal respiratory effort, No retractions and No use of accessory muscles AUSCULTATION: crackles, rales and wheezes Cardio: COMMON NORMALS: no JVD, regular rate, regular rhythm, S1 normal heart sound present, S2 normal heart sound present, No gallops present (Cardio), No clicks present (Cardio) and No murmurs present (Cardio) RATE: tachycardic RHYTHM: regular rhythm HEART SOUNDS: S1 normal heart sound present and S2 normal heart sound present GI: COMMON NORMALS: Normal to inspection, nondistended, normoactive bowel sounds present, Soft to palpation, non-tender and No hepatosplenomegaly present PALPATION: Yes Soft to palpation and Yes No hepatosplenomegaly present Extremity: COMMON NORMALS: normal to inspection, full ROM and no pedal edema Neuro: COMMON NORMALS: moves all extremities OTHER: Confused, does follow some commands such as squeezing my fingers bilaterally, wiggling her toes Data : 05/30/20 16:15 05/30/20 16:15 Micro: Microbiology 05/30/20 18:25 Blood Culture - Preliminary Blood SPECIMEN COLLECTED A&P Assessment and plan (1) Acute respiratory failure with hypoxia: -Secondary to COVID-19, pneumonitis, pneumonia -CT angiogram shows significant left upper lobe infiltrate, extensive non specific pulmonary infiltrates throughout both lungs -No pulmonary emboli, does have a history of left lower extremity DVT, has finished anticoagulant therapy, high risk of thromboembolism -Flu negative -No ABG obtained by ER staff -WBC 12, fibrinogen 527, D-dimer 10.88 PLAN: -Admit to VICU -Full code -Given patient's CT findings, she is a high risk of intubation -We will monitor respiratory status closely -Daily chest x-rays, daily ABGs, daily EKGs monitor QT -Decadron -remesdvir -Broad-spectrum antibiotics vancomycin, Zosyn, azithromycin -Full dose Lovenox, given high risk of thromboembolism -Advair, Symbicort, albuterol -Oxygen therapy -Lasix 40 mg IV daily Status: Acute (2) Myocarditis due to COVID-19 virus: -Baseline troponin XIII 29, 120-minute 1397, delta 68, 6-hour 1270, delta 6-hour 59 -Sinus tachycardia, minimal ST depressions in anterior leads plan; -Aspirin, statin, Coreg -Telemetry monitoring -Daily EKGs -Order cardiac echocardiogram -Cardiology on consult -On therapeutic Lovenox Status: Acute (3) Pneumonia due to COVID-19 virus: Status: Acute (4) NSTEMI (non-ST elevated myocardial infarction): Status: Acute (5) GERD (gastroesophageal reflux disease): Status: Acute (6) Insulin dependent type 2 diabetes mellitus: -Low-dose sliding scale Status: Acute (7) Presence of IVC filter: Status: Acute (8) B12 deficiency: Status: Acute (9) Intellectual disability: Status: Acute (10) COPD (chronic obstructive pulmonary disease): Status: Acute (11) Septic encephalopathy: We will need to monitor mental status closely, Status: Acute Attestations Medical Necessity Statement*: Patient requires hospitalization, inpatient, greater than 2 midnights, for acute respiratory failure with hypoxia secondary COVID-19, myocarditis, septic encephalopathy, Coding Level of Care Code Acute Hand Silvering Supervisor for g Fwd Diagnoses Acute respiratory failure with hypoxia J96.01 Myocarditis due to COVID-19 virus U07.1; I40.0 Pneumonia due to COVID-19 virus U07.1; J12.89 NSTEMI (non-ST elevated myocardial infarction) I21.4 GERD (gastroesophageal reflux disease) K21.9 Insulin dependent type 2 diabetes mellitus E11.9; Z79.4 Presence of IVC filter Z95.828 B12 deficiency E53.8 Intellectual disability F79 COPD (chronic obstructive pulmonary disease) J44.9 Septic encephalopathy G93.41
[2020-05-30 23:42] LABS: ABG PH Result 7.34 (7.35-7.45); Arterial Blood Gas Hematocrit 39.8 % (37-47); Base Excess ABG 7.6 mmol/L (-2.0-2.0); Blood Gas Allen Test Pos; Blood Gas Sample Site Radial, left; Blood Gas Sample Type Arterial; HCO3 ABG 35.7 mmol/L (22-26); Oxygen Device NC; PO2 ABG 62.1 mmHg (80.0-100.0)
[2020-05-30 23:44] LABS: ABG PCO2 66.5 mmHg (35-45)
[2020-05-31] VITALS (119 sets, daily range): BP systolic 105–142; BP diastolic 71–95; PULSE 88–123; RESP 19–27; TEMP 37.1–37.4; O2SAT 88–100
--- NOTE | 2020-05-31 00:39 | PC.NURSE ---
Report to RAHAT Adame
[2020-05-31] MEDS: albuterol 8 gm MDI 1 PUFF INHALATION ×5 (01:41→19:19)
--- NOTE | 2020-05-31 02:26 | PC.PHAR ---
Pharmacokinetic dosing service Date: 05/31/20 Time: 229 Objective: Patient: Emmanuel Corral Floor: ICU 19-3 Age: 55 yo Serum creatinine: 0.5 mg/dL Height: 60.0 Inches Weight (kg): 72.575 Diagnosis: Relevant medical/social history: Cultures and sensitivities: Other labs: Assessment: IBW (kg): 45.50 Dosing wt(kg): 72.575 Estimated Creatinine clearance (ml/min): 91.3 CRCL method: Cockcroft and Gault using ibw(default). Drug selected: Vancomycin Loading dose (mg): 0 Vd (liters): 65.3 (factor used: 0.9 L/kg) Justen (hr-1): 0.080 Half life (hrs): 8.66 Recommended dose: 1250 mg Interval: 12 hrs Infusion time (hrs): 1.5 Predicted peak (mcg/mL): 29.2 Predicted trough (mcg/mL): 12.61 Total body weight is being used for vancomycin dosing. Renal function is stable [ ] /unstable [ ] Recommendations: Give Vancomycin 1250 mg q 12 hrs with an expected Cpeak of 29.2 mcg/ml and an expected Ctrough of 12.61 mcg/ml Renal dosing of other antibiotics (review renal dosing of other medications and list guidelines here): Thank you for the consult, will continue to follow. Signature: [facility]
[2020-05-31] MEDS: aspirin 81 mg EC Tablet PO (02:44)
[2020-05-31] MEDS: FUROsemide 10 mg/mL SDV 4mL 40 MG IVP (02:44)
[2020-05-31] MEDS: carvedilol 3.125 mg Tablet PO ×3 (02:44→18:18)
[2020-05-31] MEDS: azithromycin 500 MG in sodium chloride 0.9% 250 ML 250 MG IV (02:45)
[2020-05-31] MEDS: pantoprazole 40 mg SDV IVP (02:45)
[2020-05-31 04:19] LABS: ABG PCO2 50.8 mmHg (35-45); ABG PH Result 7.45 (7.35-7.45); Arterial Blood Gas Hematocrit 39.2 % (37-47); Base Excess ABG 9.5 mmol/L (-2.0-2.0); Blood Gas Allen Test Pos; Blood Gas Operator Identificat HARKR; Blood Gas Sample Site Radial, right; Blood Gas Sample Type Arterial; HCO3 ABG 35.1 mmol/L (22-26); Oxygen Device BIPAP
[2020-05-31 04:58] LABS: Basophils % 0.2 %; Hemoglobin 11.8 g/dL (11.5-15.3); Lymphocytes # 0.5 10^3/uL (0.8-4.8); Lymphocytes % 6.3 %; Mean Corpuscular HGB Conc 28.8 g/dL (30.0-36.0); Mean Corpuscular Hemoglobin 26.7 pg (28.0-34.0); Mean Corpuscular Volume 92.8 fL (81-99); Mean Platelet Volume 11.6 fL (7.4-10.4); Monocytes # 0.1 10^3/uL (0.2-0.9); Monocytes % 1.3 %; Neutrophils # 7.74 10^3/uL (1.8-7.7); Neutrophils % 91.3 %; Nucleated Red Blood Cells % 0 %; Platelet Count 155 10^3/cmm (130-400); Red Blood Count 4.42 10^6/uL (4.1-5.3); Red Cell Distribution Width 16.1 % (12.1-15.1); White Blood Count 8.5 10^3/uL (4.0-10.0)
[2020-05-31 05:18] LABS: Lactic Sepsis W/Reflex 1.3 mmol/L (0.5-2.2)
[2020-05-31 05:28] LABS: Alanine Aminotransferase 14 U/L (0-33); Albumin Level 2.7 g/dL (3.5-5.2); Alkaline Phosphatase 152 IU/L (35-105); Aspartate Amino Transferase 22 U/L (0-32); Blood Urea Nitrogen 9 mg/dL (6-20); C Reactive Protein 70.9 mg/L (0.0-4.9); Calcium 8.3 mg/dL (8.5-10.5); Carbon Dioxide 34 mmol/L (22-29); Chloride 96 mmol/L (98-107); Creatinine Clr Calc Pharmacy 113.0512; Globulin 3.8 g/dL (1.3-4.6); Glomerular Filtration Rate 128.1 mL/min (90-130); Glucose 334 mg/dL (65-115); Magnesium 1.7 mg/dL (1.7-2.3); Osmolality Calculated 308 mOsm/kg (285-295); Phosphorus 3.5 mg/dL (2.5-4.5); Sodium 143 mmol/L (136-145); Total Bilirubin 0.2 mg/dL (0.15-1.2); Total Protein 6.5 g/dL (6.6-8.7)
[2020-05-31 05:37] LABS: Anion Gap 17.7 (5-19); Potassium 4.7 mmol/L (3.5-5.1)
[2020-05-31 05:40] LABS: NT Pro B Type Natriuretic Pept 5032 pg/mL (0-125); Procalcitonin 0.22 ng/mL (0-0.5)
[2020-05-31 05:42] LABS: INR 1.11 (0.8-1.2)
--- NOTE | 2020-05-31 06:00 | ECG_ITS ---
[facility] ED Test Date: 2020-05-31 Pat Name: Emmanuel Corral Department: Room: ICU19 Gender: Female Product Development Engineer: : 1965 Requested By: Teodoro Juarez Order Number: [id number] Colby MD: Zulay Cannon M.D. Measurements Intervals [place] Rate: 110 P: 55 WV: 114 QRS: 22 QRSD: 76 T: 53 QT: 306 QTc: 416 Interpretive Statements SINUS TACHYCARDIA WITH SHORT [place] INTERVAL LOW QRS VOLTAGE IN PRECORDIAL LEADS [QRS DEFLECTION < 1.0 mV IN CHEST LEADS] MINIMAL ST DEPRESSION [0.025+ mV ST DEPRESSION] Compared to ECG 05/30/2020 22:04:41 Low QRS voltage now present ST (T wave) deviation now present Electronically Signed On 05-31-2020 11:33:53 HAND II THERMAL CUTTER by Zulay Cannon M.D. [id number]
[2020-05-31] MEDS: piperacillin-tazobactam 3.375 GM in sodium chloride 0.9% (plus) 50 ML IV ×4 (06:44→22:44)
--- NOTE | 2020-05-31 07:00 | XRR_ITS ---
PROCEDURE INFORMATION: Exam: XR Chest, 1 View Exam date and time: 05/31/2020 5:41 AM Age: 55 years old Clinical indication: Shortness of breath; Patient HX: Covid+; Additional info: SOB TECHNIQUE: Imaging protocol: XR of the chest Views: 1 view. COMPARISON: CR XR chest 1V portable [id number] 05/30/2020 4:57 PM FINDINGS: The heart size is normal. Bilateral heterogenous lung infiltrates are seen more marked on the left side. Some improvement is seen since previous examination. The costophrenic angles are clear. XR/XR chest 1V portable [id number] IMPRESSION: Some improvement is seen.
[2020-05-31 07:16] LABS: Slide Review Slide Review Perform
[2020-05-31 07:42] LABS: Glucose Point of Care 342 mg/dL (70-110)
[2020-05-31] MEDS: enoxaparin 80 mg/0.8 mL Syringe 70 MG SUBCUT ×2 (08:20→18:18)
[2020-05-31] MEDS: atorvastatin 40 mg Tablet PO (09:32)
[2020-05-31] MEDS: cyanocobalamin 1,000 mcg Tablet 1000 MCG PO (09:32)
[2020-05-31] MEDS: dexamethasone 4 mg/mL INJ 6 MG IVP (09:33)
[2020-05-31] MEDS: levothyroxine 100 mcg Tablet PO (09:33)
[2020-05-31] MEDS: escitalopram 10 mg Tablet PO (09:33)
[2020-05-31] MEDS: LORazepam 0.5 mg Tablet PO ×3 (09:35→21:03)
[2020-05-31 11:51] LABS: Glucose Point of Care 258 mg/dL (70-110)
--- NOTE | 2020-05-31 11:55 | PC.RESP ---
Pt on bipap and intolerant of coming off mask at this time
--- NOTE | 2020-05-31 11:56 | PC.RESP ---
Pt on bipap and intolerant of coming off mask at this time
--- NOTE | 2020-05-31 14:17 | P.PN_ITS ---
Subjective Subjective: Interval history: She is sitting up in bed. CPAP mask is on. She reports she is doing well. Denies any chest pain or pressure. Denies shortness of breath. Denies nausea or vomiting. When asked if she could eat something says yes, but may be later . Reported she got a little bit anxious when BiPAP mask was removed earlier, and requested from us to be put on, even though saturation was good. Vitals/I&O/Wt Last Vital Signs Temp 99.4 F 05/31/20 08:00 Pulse 88 05/31/20 12:00 Resp 22 H 05/31/20 12:00 BP 105/79 05/31/20 12:00 Pulse Ox 94 05/31/20 12:00 05/30/20 05/31/20 05/31/20 22:59 06:59 14:59 Intake Total 50 / 50 410.208 / 460.208 50 / 50 Output Total 1999 / 1999 Balance 50 / 50 -1589.792 / -1539.792 50 / 50 Weight last 48 hrs Weight 72.575 kg Physical Exam Const: COMMON NORMALS: no acute distress and patient oriented x3 HENMT: COMMON NORMALS: oropharynx normal TEETH & GINGIVA: Yes edentulous Neck/C-Spine: COMMON NORMALS: no JVD Resp: COMMON NORMALS: normal respiratory effort and clear to auscultation bilaterally AUSCULTATION: clear to auscultation bilaterally and bronchial breath sounds (coarse) Cardio: COMMON NORMALS: no JVD, regular rhythm, S1 normal heart sound present, S2 normal heart sound present and No murmurs present (Cardio) RHYTHM: regular rhythm HEART SOUNDS: S1 normal heart sound present and S2 normal heart sound present GI: COMMON NORMALS: Normal to inspection, nondistended, normoactive bowel sounds present, Soft to palpation and non-tender PALPATION: Yes Soft to palpation Extremity: COMMON NORMALS: no joint enlargement and no pedal edema Neuro: COMMON NORMALS: patient oriented x3 and moves all extremities Skin: COMMON NORMALS: no rashes or lesions noted GENERAL SKIN EXAM: no rashes or lesions noted Urinary Catheter Management^: Riley: Cath Placed During This Visit: yes Reason for Continuing Indwelling Catheter: Acute Urinary Retention or Obstruction Urinary Catheter Date of Insertion: 05/30/20 Urinary Catheter Time of Insertion: 23:30 Data : 05/31/20 04:05 05/31/20 04:05 Micro: Microbiology 05/30/20 20:20 Blood Culture - Preliminary Blood SPECIMEN COLLECTED 05/30/20 18:25 Blood Culture - Preliminary Blood SPECIMEN COLLECTED A&P Assessment and plan (1) Acute respiratory failure with hypoxia: Subjectively she reports she is doing okay. Currently on NIPPV. Tolerating well. In fact actually requested to be put back on as feels more comfortable with it when it was taken off for short time, even though saturation was actually doing okay. We will continue to monitor, wean down as tolerating. Continue remdesivir, Decadron. Left upper lobe pneumonia, continue empiric antibiotics. Follow-up cultures. Does not appear to be edematous. Discussed with her zhou of court. She was concerned that she gets edematous frequently, discussed with her she is on standing Lasix ordered for now. We will continue to monitor volume status. She mentions she has had recurrent pneumonia in the past. Had a very prolonged admission here several years ago. Continue anticoagulation. Reassess D-dimer tomorrow. Leukocytosis resolved. COVID-19, pneumonitis, pneumonia -CT angiogram shows significant left upper lobe infiltrate, extensive nonspecific pulmonary infiltrates throughout both lungs -No pulmonary emboli, does have a history of left lower extremity DVT, has finished anticoagulant therapy, high risk of thromboembolism -Flu negative Prone if tolerating. -Advair, Symbicort, albuterol Status: Acute (2) Myocarditis due to COVID-19 virus: Discussed with cardiology. They are following up. Pending echocardiogram assessment. EKG is not highly suggestive of myopericarditis. Stress-induced cardiomyopathy? Does not appear to be in active CHF currently. Her guardian notes propensity to fluid retention. Currently on Lasix, for now will continue, monitor I&O. At this time continue anticoagulation, aspirin, statin, beta-finn. -Telemetry monitoring -Daily EKGs Status: Acute (3) Pneumonia due to COVID-19 virus: Reported diagnosed on 05/13 Status: Acute (4) NSTEMI (non-ST elevated myocardial infarction): Possible NSTEMI. As above. Status: Acute (5) GERD (gastroesophageal reflux disease): Status: Acute (6) Insulin dependent type 2 diabetes mellitus: -Low-dose sliding scale Status: Acute (7) Presence of IVC filter: Status: Acute (8) B12 deficiency: Status: Acute (9) Intellectual disability: Status: Acute (10) COPD (chronic obstructive pulmonary disease): Status: Acute (11) Septic encephalopathy: She is currently awake, alert, does appear to get anxious around easily. Treat underlying conditions as above. Reassured, reorient if needed. Ativan as needed for anxiety. Status: Acute Attestations Medical Necessity Statement*: Continue admission for assessment management of acute respite failure with pneumonia, COVID-19 severe illness, possible myocarditis, possible non-STEMI, with history of DVT, COPD, diabetes and a number of other comorbidities. 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
--- NOTE | 2020-05-31 16:00 | PC.NURSE ---
Physician notified that patient tolerated prone position for 30 minutes and moved herself to a side lying position. Patient's IV is inaccessible and antibiotics are stopped. Physician notified as vancomycin will meed to be retimed.
--- NOTE | 2020-05-31 17:00 | PC.NURSE ---
Call placed to Dr. Strong regarding inabilty to gain new IV access after multiple attempts by 3 RN and use of ultrasound.
[2020-05-31 17:29] LABS: Glucose Point of Care 271 mg/dL (70-110)
--- NOTE | 2020-05-31 17:40 | PC.NURSE ---
Call placed to patient 's zhou of court, Maria Teresa Sousa, to obtain consent for PICC line.
--- NOTE | 2020-05-31 18:19 | P.CONIM_ITS ---
Providers/Reason For Consult Consulting Physican/Specialty*: Dr. Cannon. Cardiology Reason for Consult*: Elevated troponin, COVID + Attending Physician: Phillip Strong Primary Care Provider: Carlos Conroy MD History of Present Illness History of Present Illness Emmanuel Corral is a 55 year old female with past medical history of intellectual disability from anoxic injury, history of DVT status post IVC filter placement, h/o B12 deficiency, COPD not oxygen dependent, GERD, insulin- dependent type 2 diabetes mellitus, h/o vitamin D deficiency and major depressive disorder. She lives at [facility] and presented to [facility] due to cough, fever, shortness of breath. She was diagnosed with COVID- 19 on May 13. History was obtained mostly from chart. She had a chest x-ray which showed possible pneumonia. She has not had any documented chest pains. Her troponin T on arrival was 1329--> at 2hr 1397--> at 6 hr of 1270 and hence I have been asked to evaluate the patient. She received ASA, lovenox in ER. CTA chest was done and did not show any PE. Review of Systems General: Reports: 10 or more systems reviewed and unremarkable except in HPI and below Const: Reports: fever(s), chills and fatigue Eyes: Denies: change in vision ENMT: Denies: epistaxis Card: Denies: chest pain or edema Resp: Reports: dyspnea GI: Denies: abdominal pain or hematochezia : Denies: hematuria Psych: Reports: anxiety Meds/Allergies Home Medications and Allergies Home Medications Medication Instructions Recorded Confirmed Last Taken Type acetaminophen 325 mg PO QID PRN 05/30/20 05/30/20 Unknown History albuterol sulfate 2.5 mg INHALATION Q4H PRN 05/30/20 05/30/20 Unknown History atorvastatin 10 mg PO DAILY 05/30/20 05/30/20 05/30/20 History bisacodyl 5 mg PO DAILY PRN 05/30/20 05/30/20 Unknown History bisacodyl 10 mg NV DAILY PRN 05/30/20 05/30/20 Unknown History budesonide-formoterol [Symbicort] 2 puff INHALATION BID 05/30/20 05/30/20 05/30/20 History cyanocobalamin (vitamin B-12) 1,000 mcg PO DAILY 05/30/20 05/30/20 05/30/20 History escitalopram oxalate 10 mg PO DAILY 05/30/20 05/30/20 05/30/20 History guaifenesin [Tussin] 200 mg PO Q4H PRN 05/30/20 05/30/20 Unknown History hydrocodone-acetaminophen 1 tab PO Q8H PRN 05/30/20 05/30/20 05/30/20 History insulin NPH isoph U-100 human See Rx Instructions .ROUTE .COMPLEX 05/30/20 05/30/20 05/30/20 History [Novolin N Flexpen] insulin glargine [Lantus Solostar See Rx Instructions .ROUTE .COMPLEX 05/30/20 05/30/20 Unknown History U-100 Insulin] levothyroxine 100 mcg PO DAILY 05/30/20 05/30/20 05/30/20 History lorazepam 0.5 mg PO TID 05/30/20 05/30/20 05/30/20 History magnesium hydroxide [Milk of 400 mg PO DAILY PRN 05/30/20 05/30/20 Unknown History Magnesia] metformin 1,000 mg PO BID 05/30/20 05/30/20 05/30/20 History nystatin 1 applic TOPICAL BID 05/30/20 05/30/20 05/30/20 History pantoprazole 20 mg PO DAILY 05/30/20 05/30/20 05/30/20 History sennosides-docusate sodium 1 tab-cap PO DAILY 05/30/20 05/30/20 05/30/20 History [Senna-S] sodium phosphates [Enema 118 ml NV DAILY PRN 05/30/20 05/30/20 Unknown History Disposable] Allergies Allergy/AdvReac Type Severity Reaction Status Date / Time Iodine and Iodide Containing Allergy Unknown Unknown Verified 05/31/20 01:45 Produc iodine Allergy Unknown Verified 05/31/20 01:45 Current Medications Current Medications Generic Name Dose Route Start Last Admin Trade Name Freq PRN Reason Stop Dose Admin Albuterol Sulfate 1 puff 05/31/20 01:34 05/31/20 16:13 Ventolin INHALATION 1 puff Q4H.RESPIRATORY BRYSON Administration Aspirin 81 mg 05/31/20 01:34 05/31/20 02:44 Aspirin Ec PO 81 mg Q24H BRYSON Administration Atorvastatin Calcium 40 mg 05/31/20 09:00 05/31/20 09:32 Lipitor PO 40 mg DAILY BRYSON Administration Carvedilol 3.125 mg 05/31/20 02:00 05/31/20 18:18 Coreg PO 3.125 mg BID BRYSON Administration Cyanocobalamin 1,000 mcg 05/31/20 09:00 05/31/20 09:32 Vitamin B-12 PO 1,000 mcg DAILY BRYSON Administration Dexamethasone 6 mg 05/31/20 09:00 05/31/20 09:33 Decadron IVP 6 mg Q24H BRYSON Administration Enoxaparin Sodium 70 mg 05/31/20 07:00 05/31/20 18:18 Lovenox SUBCUT 70 mg Q12H BRYSON Administration Escitalopram Oxalate 10 mg 05/31/20 09:00 05/31/20 09:33 Lexapro PO 10 mg DAILY BRYSON Administration Furosemide 40 mg 05/31/20 02:30 05/31/20 02:44 Lasix IVP 40 mg Q24H BRYSON Administration Azithromycin 500 mg/ Sodium 250 mls @ 250 mls/hr 05/31/20 02:00 05/31/20 02:45 Chloride IV 250 mls/hr Q24H BRYSON Administration Protocol Piperacillin Sod/Tazobactam 50 mls @ 12.5 mls/hr 05/31/20 03:00 05/31/20 14:21 Sod 3.375 gm/ Sodium Chloride IV 12.5 mls/hr Q8H BRYSON Administration Protocol Vancomycin HCl 1,250 mg/ 250 mls @ 250 mls/hr 05/31/20 03:00 05/31/20 05:25 Sodium Chloride IV Infused Q12H BRYSON Infusion Insulin Aspart 0 unit 05/31/20 08:00 05/31/20 18:17 Novolog SUBCUT 8 unit TIDWM BRYSON Administration Protocol Levothyroxine Sodium 100 mcg 05/31/20 09:00 05/31/20 09:33 Synthroid PO 100 mcg DAILY BRYSON Administration Lorazepam 0.5 mg 05/31/20 09:00 05/31/20 14:21 Ativan PO 0.5 mg TID BRYSON Administration Pantoprazole Sodium 40 mg 05/31/20 01:34 05/31/20 02:45 Protonix IVP 40 mg Q24H BRYSON Administration Fluticasone/Salmeterol 1 puff 05/31/20 08:00 05/31/20 08:23 Advair Diskus 100-50 INHALATION 1 puff BID.RESPIRATORY BRYSON Administration PFSH Acute PFSH: Medical History B12 deficiency COPD (chronic obstructive pulmonary disease) Dementia GERD (gastroesophageal reflux disease) History of DVT (deep vein thrombosis) Insulin dependent type 2 diabetes mellitus Intellectual disability Surgical History History of ankle surgery Family History Grandmother Cancer Breast, lung, cervical Mother Gunshot wound Social History Smoking and tobacco status: former smoker Alcohol intake: never Substance/Drug Use: never Vitals/I&O/Wt Last Vital Signs Temp 99.4 F 05/31/20 08:00 Pulse 109 H 05/31/20 16:18 Resp 20 H 05/31/20 16:15 BP 105/79 05/31/20 12:00 Pulse Ox 91 05/31/20 16:18 05/31/20 05/31/20 05/31/20 06:59 14:59 22:59 Intake Total 410.208 / 460.208 50 / 50 Output Total 1999 Balance -1589.792 / -1539.792 50 / 50 Weight last 48 hrs Weight 160 lb Physical Exam Urinary Catheter Management^: Riley: Cath Placed During This Visit: yes Reason for Continuing Indwelling Catheter: Acute Urinary Retention or Obstruction Urinary Catheter Date of Insertion: 05/30/20 Urinary Catheter Time of Insertion: 23:30 Data Micro: Micro: Microbiology 05/30/20 20:20 Blood Culture - Pr eliminary Blood SPECIMEN [facility] 05/30/20 18:25 Blood Culture - Pr eliminary Blood SPECIMEN [facility] Imaging^: Other Imaging: I personally reviewed and interpreted this imaging study as follows: My impression: CTA chest IMPRESSION: 1. The study is limited due to patient respiratory motion. This precludes evaluation of the peripheral pulmonary arteries. 2. No evidence of pulmonary embolism, within the technical limits of the study. 3. No evidence of aortic dissection. 4. Extensive nonspecific pulmonary infiltrates throughout both lungs. The largest infiltrate involves the entire left upper lobe. This is consistent with nonspecific pneumonia. Radiologist's impression: CXR (05/30/20) IMPRESSION: 1. Bilateral nonspecific infiltrates, left worse than right. 2. These infiltrates are new when compared to the previous study. CXR (05/31/20) FINDINGS: The heart size is normal. Bilateral heterogenous lung infiltrates are seen more marked on the left side. Some improvement is seen since previous examination. The costophrenic angles are clear. A&P Assessment and plan (1) Acute respiratory failure with hypoxia: Currently on NC and BiPaP. Status: Acute (2) Pneumonia due to COVID-19 virus: Being managed by primary team Status: Acute (3) NSTEMI (non-ST elevated myocardial infarction): Elevated troponin. Initial EKG with sinus tachycardia with short NV interval with mild ST depression in anterolateral leads. This resolved on subsequent EKG's. -No CP. Concern for viral myocarditis vs Takotsubo cardiomyopathy vs NSTEMI. -continue current medications. -f/u on echo. Further changes based on clinical progression and echo findings. Status: Acute (4) Insulin dependent type 2 diabetes mellitus: Status: Acute (5) COPD (chronic obstructive pulmonary disease): Status: Acute Additional A&P Information Tachycardia H/o Intellectual diasbility Chronic [place] resident FRANCESCO Hopper Thank you for allowing me to participate in patient's care. Please feel free to call with questions or concerns Consult Attestations Medical Necessity Statement: As per primary team Coding Level of Care Code Acute Airbrush Painter for [facility] Fwchristiane Diagnoses Acute respiratory failure with hypoxia J96.01 Pneumonia due to COVID-19 virus U07.1; J12.89 NSTEMI (non-ST elevated myocardial infarction) I21.4 Insulin dependent type 2 diabetes mellitus E11.9; Z79.4 COPD (chronic obstructive pulmonary disease) J44.9
[2020-05-31] MEDS: LORazepam 2 mg/mL INJ 1 mL 1 MG IM (18:32)
[2020-05-31] MEDS: LORazepam 0.5 mg Tablet 1 MG PO (18:32)
--- NOTE | 2020-05-31 18:32 | PC.NURSE ---
I witnessed Rosi waste 1mg ativan which was half of the IM order.
--- NOTE | 2020-05-31 19:12 | PC.NURSE ---
Midline placed, ready for use. Primary nurse notified.
[2020-05-31 21:12] LABS: Glucose Point of Care 264 mg/dL (70-110)
[2020-06-01] VITALS (118 sets, daily range): BP systolic 103–147; BP diastolic 59–119; PULSE 81–116; RESP 16–24; TEMP 36.2–37.1; O2SAT 85–100
[2020-06-01] MEDS: pantoprazole 40 mg SDV IVP (02:33)
[2020-06-01] MEDS: FUROsemide 10 mg/mL SDV 4mL 40 MG IVP (02:34)
[2020-06-01] MEDS: azithromycin 500 MG in sodium chloride 0.9% 250 ML 250 MG IV (02:34)
[2020-06-01] MEDS: albuterol 8 gm MDI 1 PUFF INHALATION ×4 (03:18→19:55)
[2020-06-01 03:55] LABS: ABG PH Result 7.45 (7.35-7.45); Base Excess ABG 16.4 mmol/L (-2.0-2.0); Blood Gas Sample Type Arterial; HCO3 ABG 43.6 mmol/L (22-26); PO2 ABG 64.3 mmHg (80.0-100.0)
[2020-06-01 03:59] LABS: Blood Gas Sample Site Radial, left; Oxygen Device BIPAP
[2020-06-01 04:00] LABS: ABG PCO2 63.3 mmHg (35-45)
--- NOTE | 2020-06-01 06:00 | ECG_ITS ---
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 Measurements Intervals Keo Rate: 99 P: 63 NV: 121 QRS: 32 QRSD: 89 T: 3 QT: 327 QTc: 420 Interpretive Statements SINUS RHYTHM NONSPECIFIC ST & T-WAVE ABNORMALITY Compared to ECG 05/31/2020 05:57:12 T-wave abnormality now present Sinus tachycardia no longer present Short NV interval no longer present ST (T wave) deviation no longer present Electronically Signed On 06-01-2020 9:27:04 CHILD PSYCHOLOGY TEACHER by Zulay Cannon M.D. [id number]
[2020-06-01 06:09] LABS: Glucose Point of Care 209 mg/dL (70-110)
[2020-06-01] MEDS: piperacillin-tazobactam 3.375 GM in sodium chloride 0.9% (plus) 50 ML IV ×3 (06:13→21:13)
[2020-06-01 06:20] LABS: Basophils % 0.2 %; Hematocrit 40.3 % (37.0-47.0); Hemoglobin 11.5 g/dL (11.5-15.3); Lymphocytes # 1.6 10^3/uL (0.8-4.8); Lymphocytes % 16.2 %; Mean Corpuscular HGB Conc 28.5 g/dL (30.0-36.0); Mean Corpuscular Hemoglobin 26.7 pg (28.0-34.0); Mean Corpuscular Volume 93.7 fL (81-99); Mean Platelet Volume 10.7 fL (7.4-10.4); Monocytes # 0.8 10^3/uL (0.2-0.9); Monocytes % 8.1 %; Neutrophils # 7.39 10^3/uL (1.8-7.7); Neutrophils % 74.9 %; Nucleated Red Blood Cells % 0 %; Platelet Count 162 10^3/cmm (130-400); Red Cell Distribution Width 16.3 % (12.1-15.1); White Blood Count 9.9 10^3/uL (4.0-10.0)
[2020-06-01 06:31] LABS: INR 1.15 (0.8-1.2)
[2020-06-01] MEDS: enoxaparin 80 mg/0.8 mL Syringe 70 MG SUBCUT ×2 (06:32→17:32)
[2020-06-01 06:40] LABS: Lactic Sepsis W/Reflex 1.6 mmol/L (0.5-2.2)
[2020-06-01 06:41] LABS: D Dimer 3.39 ug/mIFEU (0-0.59)
[2020-06-01 06:46] LABS: Alanine Aminotransferase 11 U/L (0-33); Albumin Level 2.7 g/dL (3.5-5.2); Alkaline Phosphatase 129 IU/L (35-105); Anion Gap 11.5 (5-19); Aspartate Amino Transferase 18 U/L (0-32); Blood Urea Nitrogen 14 mg/dL (6-20); C Reactive Protein 36.4 mg/L (0.0-4.9); Calcium 8.5 mg/dL (8.5-10.5); Chloride 99 mmol/L (98-107); Globulin 3.6 g/dL (1.3-4.6); Glomerular Filtration Rate 103.8 mL/min (90-130); Glucose 219 mg/dL (65-115); Magnesium 1.8 mg/dL (1.7-2.3); Osmolality Calculated 313 mOsm/kg (285-295); Phosphorus 2.8 mg/dL (2.5-4.5); Potassium 3.5 mmol/L (3.5-5.1); Sodium 148 mmol/L (136-145); Total Bilirubin 0.2 mg/dL (0.15-1.2); Total Protein 6.3 g/dL (6.6-8.7)
[2020-06-01 06:51] LABS: NT Pro B Type Natriuretic Pept 2384 pg/mL (0-125)
--- NOTE | 2020-06-01 07:01 | PC.NURSE ---
Report to RAHAT Gunn.
[2020-06-01 07:35] LABS: Glucose Point of Care 212 mg/dL (70-110)
[2020-06-01 08:02] LABS: Carbon Dioxide 41 mmol/L (22-29)
[2020-06-01] MEDS: atorvastatin 40 mg Tablet PO (09:50)
[2020-06-01] MEDS: dexamethasone 4 mg/mL INJ 6 MG IVP (09:51)
[2020-06-01] MEDS: cyanocobalamin 1,000 mcg Tablet 1000 MCG PO (09:51)
[2020-06-01] MEDS: carvedilol 3.125 mg Tablet PO ×2 (09:51→17:31)
[2020-06-01] MEDS: escitalopram 10 mg Tablet PO (09:52)
[2020-06-01] MEDS: LORazepam 0.5 mg Tablet PO ×3 (09:53→21:13)
[2020-06-01] MEDS: levothyroxine 100 mcg Tablet PO (09:53)
--- NOTE | 2020-06-01 10:00 | USCV_ITS ---
Emmanuel Corral Age: 55 Gender: F : 1965 Exam Date: 05/31/2020 16:08 Ordering Phys: Teodoro Juarez MD Technologist: Tigist Matt [place] [facility] [place]: NSTEMI, ? Pericarditis BP: 123 / 74 HR: 96 Rhythm: Sinus Technical Quality: Technically difficult study MEASUREMENTS (Male / Female) Normal Values 2D ECHO LV Diastolic Diameter PLAX 2.7 cm 4.2 - 5.9 / 3.9 - 5.3 cm LV Systolic Diameter PLAX 1.6 cm LV Chamber Size 3.8 cm IVS Diastolic Thickness 1.6 cm 0.6 - 1.0 / 0.6 - 0.9 cm IVS Systolic Thickness 1.9 cm LVPW Diastolic Thickness 1.3 cm 0.6 - 1.0 / 0.6 - 0.9 cm LVPW Systolic Thickness 1.2 cm RV Chamber Size 2.2 cm LVOT Diameter 1.7 cm LV Ejection Fraction 2D Teich 72.8 % LA Diameter 3.1 cm LA Width 2.9 cm LA Height 4.5 cm RA Width 2.2 cm RA Height 4.3 cm Aorta at Sinotubular Diameter 2.2 cm M-MODE LV Diastolic Diameter MM 4.5 cm 4.2 - 5.9 / 3.9 - 5.3 cm LV Systolic Diameter MM 2.4 cm LV Ejection Fraction MM Teich 77.5 % IVS Diastolic Thickness MM 0.9 cm 0.6 - 1.0 / 0.6 - 0.9 cm IVS Systolic Thickness MM 1.4 cm LVPW Diastolic Thickness MM 1.1 cm 0.6 - 1.0 / 0.6 - 0.9 cm LVPW Systolic Thickness MM 1.2 cm Aortic Annulus Diameter 2.8 cm LA Ao Ratio MM 1.4 MV E Point Septal Separation 0.4 cm DOPPLER AV Peak Velocity 115.0 cm/s LVOT Peak Velocity 79.0 cm/s AV Area Cont Eq vti 1.7 cm squared AV Area Cont Eq pk 1.6 cm squared MV Area PHT 3.5 cm squared Mitral E to A Ratio 1.1 MV E' Velocity 52.0 cm/s Mitral E to MV E' Ratio 17.6 Mitral E to LV E' Lateral Ratio 19.3 Mitral E to LV E' Septal Ratio 16.1 TR Peak Velocity 0.0 cm/s TR Peak Gradient 0.0 mmHg TR Mean Velocity 0.0 cm/s TR Mean Gradient 0.0 mmHg TR Velocity Time Integral 0.0 cm TV Peak E Velocity 76.3 cm/s Right Atrial Pressure 15.0 mmHg Pulmonary Artery Systolic Pressu 15.0 mmHg PV Peak Velocity 56.0 cm/s RV Acceleration Time 0.1 s RV Ejection Time 0.2 s RV AcT/ET 0.2 FINDINGS Left Ventricle Normal left ventricular cavity size. Normal left ventricular systolic function. Left ventricular ejection fraction is estimated at 55 %. Although no diagnostic regional wall motion abnormality could be identified, this possibility cannot be completely excluded. Indeterminate diastolic dysfunction. Right Ventricle Normal right ventricular size and systolic function. Right ventricular systolic pressure 15 mmHg. Right Atrium Right atrium not well visualized. Left Atrium Left atrium not well visualized. Mitral Valve Structurally normal mitral valve. No mitral valve stenosis. Trace mitral valve regurgitation. Aortic Valve Structurally normal trileaflet aortic valve. No aortic valve stenosis. No aortic valve regurgitation. Tricuspid Valve Structurally normal tricuspid valve. Pulmonic Valve Pulmonic valve not well visualized. Trace pulmonary valve regurgitation. Pericardium There is possible small pericardial effusion along right ventricle. No evidence of hemodynamic compromise. Aorta Normal sized aortic root. CONCLUSIONS 1.This is a technically very difficult study. 2. Normal left ventricular cavity size and systolic function. Left ventricular ejection fraction is estimated at 55 %. Although no diagnostic regional wall motion abnormality could be identified, this possibility cannot be completely excluded. Indeterminate diastolic dysfunction. 3. Normal pulmonary artery pressure. 4. There is possible small pericardial effusion along right ventricle. No evidence of hemodynamic compromise. 5. No prior similar studies to compare. Zulay Cannon MD (Electronically Signed) Final Date: 02 June 2020 08:00 S
[2020-06-01 11:46] LABS: Glucose Point of Care 323 mg/dL (70-110)
--- NOTE | 2020-06-01 12:30 | PC.NURSE ---
Pt taken off bipap and put on 15 L high flow
[2020-06-01 17:16] LABS: Glucose Point of Care 395 mg/dL (70-110)
--- NOTE | 2020-06-01 19:01 | PC.NURSE ---
Levaquin trough drawn
--- NOTE | 2020-06-01 19:19 | PM.PN ---
Subjective Subjective: Interval history: Today she reports she is doing all right. Denies any chest pain. Has some intermittent cough. Denies nausea. Denies headache. Vitals/I&O/Wt Last Vital Signs Temp 97.1 F L 06/01/20 04:00 Pulse 97 06/01/20 18:15 Resp 18 06/01/20 16:30 BP 103/59 06/01/20 18:15 Pulse Ox 94 06/01/20 18:15 06/01/20 06/01/20 06/01/20 06:59 14:59 22:59 Intake Total 50 / 460 750 / 750 460 / 1210 Output Total 2100 / 3380 Balance -2050 / -2920 750 / 750 460 / 1210 Physical Exam Const: COMMON NORMALS: no acute distress and patient oriented x3 GENERAL APPEARANCE: cooperative HENMT: COMMON NORMALS: oropharynx normal TEETH & GINGIVA: Yes edentulous Neck/C-Spine: COMMON NORMALS: no JVD Resp: COMMON NORMALS: normal respiratory effort and clear to auscultation bilaterally AUSCULTATION: clear to auscultation bilaterally, crackles (Minimal crackle at right base) and bronchial breath sounds Cardio: COMMON NORMALS: no JVD, regular rhythm, S1 normal heart sound present, S2 normal heart sound present and No murmurs present (Cardio) RHYTHM: regular rhythm HEART SOUNDS: S1 normal heart sound present and S2 normal heart sound present GI: COMMON NORMALS: Normal to inspection, nondistended, normoactive bowel sounds present, Soft to palpation and non-tender PALPATION: Yes Soft to palpation Extremity: COMMON NORMALS: no joint enlargement and no pedal edema OTHER: R arm PICC with some bruising at insertion site. No bleeding. No erythema. Neuro: COMMON NORMALS: patient oriented x3 and moves all extremities Skin: COMMON NORMALS: no rashes or lesions noted GENERAL SKIN EXAM: no rashes or lesions noted Urinary Catheter Management^: Riley: Cath Placed During This Visit: yes Reason for Continuing Indwelling Catheter: Accurate Measurement of Urinary Output in Critically Ill Patients Urinary Catheter Date of Insertion: 05/30/20 Urinary Catheter Time of Insertion: 23:30 Data : 06/01/20 06:00 06/01/20 06:00 Micro: Microbiology 05/30/20 19:20 Urine Culture - Preliminary Urine,Clean Catch 05/30/20 20:20 Blood Culture - Preliminary Blood NEGATIVE TO DATE 05/30/20 18:25 Blood Culture - Preliminary Blood NEGATIVE TO DATE A&P Assessment and plan (1) Acute respiratory failure with hypoxia: Subjectively she is doing well. With some hypercapnia noted on ABG this morning. Was continued on BiPAP. Later switched to 10 L high flow cannula. D-dimer is better today. CRP is down. Continue remdesivir, Decadron. Continue anticoagulation. Continue taper down oxygen as tolerating. BiPAP support as needed. Discussed with zhou of court. Prone if tolerating. Reassess volume status with daily Lasix. Measure weight. I&O. -Advair, Symbicort, albuterol Left upper lobe pneumonia, continue empiric antibiotics. Follow-up cultures. Blood culture so far negative. Sputum culture on collected. Check urine bacterial antigens. Leukocytosis resolved. Continued severe COVID-19, pneumonitis, pneumonia -CT angiogram shows significant left upper lobe infiltrate, extensive nonspecific pulmonary infiltrates throughout both lungs -No pulmonary emboli, does have a history of left lower extremity DVT, has finished anticoagulant therapy, high risk of thromboembolism -Flu negative Hx recurrent pneumonia in the past. Had a very prolonged admission here several years ago. Status: Acute (2) Myocarditis due to COVID-19 virus: Discussed with cardiology. Small pericardial effusion noted on echo. No RWMA. From cardiology perspective anticoagulation could be discontinued within 48 hours, however, may continue depending on pulmonary considerations. Her guardian notes propensity to fluid retention. Currently on Lasix, for now will continue, monitor I&O. At this time continue anticoagulation, aspirin, statin, beta-finn. -Telemetry monitoring Status: Acute (3) Pneumonia due to COVID-19 virus: Reported diagnosed on 05/13 Status: Acute (4) NSTEMI (non-ST elevated myocardial infarction): Possible NSTEMI. As above. Status: Acute (5) GERD (gastroesophageal reflux disease): Status: Acute (6) Insulin dependent type 2 diabetes mellitus: -Low-dose sliding scale Status: Acute (7) Presence of IVC filter: Status: Acute (8) B12 deficiency: Status: Acute (9) Intellectual disability: Status: Acute (10) COPD (chronic obstructive pulmonary disease): Status: Acute (11) Septic encephalopathy: Resolved. She is currently awake, alert, does appear to get anxious around easily. Treat underlying conditions as above. Reassured, reorient if needed. Ativan as needed for anxiety. Status: Acute Additional A&P Information PICC line right arm placed due to lost IV access on 05/31 Attestations Medical Necessity Statement*: Continue admission for assessment management of acute hypoxic respiratory failure, severe COVID-19 pneumonia, possible bacterial pneumonia, possible non-STEMI. With underlying COPD, history of VTE, intellectual disability, and other comorbidities. Coding Level of Care Code Acute [place] Shade Assembler for [facility] Fwd Diagnoses Acute respiratory failure with hypoxia J96.01 Myocarditis due to COVID-19 virus U07.1; I40.0 Pneumonia due to COVID-19 virus U07.1; J12.89 NSTEMI (non-ST elevated myocardial infarction) I21.4 GERD (gastroesophageal reflux disease) K21.9 Insulin dependent type 2 diabetes mellitus E11.9; Z79.4 Presence of IVC filter Z95.828 B12 deficiency E53.8 Intellectual disability F79 COPD (chronic obstructive pulmonary disease) J44.9 Septic encephalopathy G93.41
[2020-06-01 19:34] LABS: Vancomycin Trough 18.7 ug/mL (10-15)
--- NOTE | 2020-06-01 21:32 | P.PN_ITS ---
Subjective Subjective: Interval history: Patient was on HFNC at the time of examination. She is hard to understand Medications: Reviewed: Yes Medication Review Details: Current Medications Acetaminophen (Tylenol) 650 mg PO Q6H PRN PRN Reason: Mild/Mod Pain Or Temp >/= 101 Hydrocodone Bitart/Acetaminophen ([place] 5-325 Mg) 1 tab PO Q8H PRN PRN Reason: Pain Albuterol/Ipratropium (Duoneb) 3 ml INHALATION Q6H.RESPIRATORY [facility] Last Admin: 06/01/20 21:54 Dose: Not Given Documented by: Albuterol/Ipratropium (Duoneb) 3 ml INHALATION Q4H PRN PRN Reason: SHORTNESS OF BREATH Aspirin (Aspirin Ec) 81 mg PO Q24H [facility] Last Admin: 06/01/20 02:33 Dose: Not Given Documented by: Atorvastatin Calcium (Lipitor) 40 mg PO DAILY [facility] Last Admin: 06/01/20 09:50 Dose: 40 mg Documented by: Carvedilol (Coreg) 3.125 mg PO BID [facility] Last Admin: 06/01/20 17:31 Dose: 3.125 mg Documented by: Cyanocobalamin (Vitamin B-12) 1,000 mcg PO DAILY [facility] Last Admin: 06/01/20 09:51 Dose: 1,000 mcg Documented by: Dexamethasone (Decadron) 6 mg IVP Q24H [facility] Last Admin: 06/01/20 09:51 Dose: 6 mg Documented by: Dextrose (D50w) 25 ml IVP ONCE PRN; Protocol PRN Reason: hypoglycemia protocol Dextrose (D50w) 50 ml IVP PRN PRN; Protocol PRN Reason: hypoglycemia protocol Enoxaparin Sodium (Lovenox) 70 mg SUBCUT Q12H [facility] Last Admin: 06/01/20 17:32 Dose: 70 mg Documented by: Escitalopram Oxalate (Lexapro) 10 mg PO DAILY [facility] Last Admin: 06/01/20 09:52 Dose: 10 mg Documented by: Furosemide (Lasix) 40 mg IVP Q24H [facility] Last Admin: 06/01/20 02:34 Dose: 40 mg Documented by: Glucagon (Glucagen) 1 mg IM ONCE PRN; Protocol PRN Reason: Adult Acute Hypoglycemia Prot. Guaifenesin (Robitussin Oral Liq) 200 mg PO Q4H PRN PRN Reason: unknown remdesivir (EUA) 100 mg/ (Sodium Chloride) 100 mls @ 100 mls/hr IV Q24H [facility] Stop: 06/03/20 23:14 Last Admin: 06/01/20 21:20 Dose: 100 mls/hr Documented by: Azithromycin 500 mg/ Sodium (Chloride) 250 mls @ 250 mls/hr IV Q24H [facility]; Pro tocol Last Admin: 06/01/20 02:34 Dose: 250 mls/hr Documented by: Dextrose (D5w) 500 mls @ 100 mls/hr IV ONCE PRN; Protocol PRN Reason: Adult Acute Hypoglycemia Prot Piperacillin Sod/Tazobactam (Sod 3.375 gm/ Sodium Chloride) 50 mls @ 12.5 mls/hr IV Q8H [facility]; Protocol Last Admin: 06/01/20 21:13 Dose: 12.5 mls/hr Documented by: Vancomycin HCl 1,250 mg/ (Sodium Chloride) 250 mls @ 250 mls/hr IV Q12H [facility] Last Admin: 06/01/20 20:08 Dose: 250 mls/hr Documented by: Insulin Aspart (Novolog) 0 unit SUBCUT TIDWM [facility]; Protocol Last Admin: 06/01/20 17:31 Dose: 10 unit Documented by: Levothyroxine Sodium (Synthroid) 100 mcg PO DAILY [facility] Last Admin: 06/01/20 09:53 Dose: 100 mcg Documented by: Lorazepam (Ativan) 0.5 mg PO TID [facility] Last Admin: 06/01/20 21:13 Dose: 0.5 mg Documented by: Lorazepam (Ativan) 1 mg IM ONCE PRN PRN Reason: ANXIETY Last Admin: 05/31/20 18:32 Dose: 1 mg Documented by: Naloxone HCl (Narcan) 0.1 mg IVP Q2M PRN PRN Reason: OPIATERV Ondansetron HCl (Zofran) 4 mg IVP Q8H PRN PRN Reason: vomiting, or N/V if npo Pantoprazole Sodium (Protonix) 40 mg IVP Q24H [facility] Last Admin: 06/01/20 02:33 Dose: 40 mg Documented by: Fluticasone/Salmeterol (Advair Diskus 100-50) 1 puff INHALATION BID.RESPIRATORY [facility] Last Admin: 06/01/20 19:55 Dose: 1 puff Documented by: Vitals/I&O/Wt Last Vital Signs Temp 97.1 F L 06/01/20 04:00 Pulse 86 06/01/20 19:55 Resp 16 06/01/20 19:55 BP 103/59 06/01/20 18:15 Pulse Ox 98 06/01/20 19:55 06/01/20 06/01/20 06/01/20 06:59 14:59 22:59 Intake Total 50 / 560 1000 / 1000 510 / 1510 Output Total 2100 / 3380 Balance -2050 / -2820 1000 / 1000 510 / 1510 Physical Exam Narrative: EXAM NARRATIVE: GEN: obese woman laying in bed Neck: short , thick neck Chest: CTA anterior, no rales or wheezes CVS: s1, S2+, No murmur, rub or gallop Ext: warm to touch, no edema or clubbing 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: answering simple questions and following commands, difficult to understand Urinary Catheter Management^: Riley: Cath Placed During This Visit: yes Reason for Continuing Indwelling Catheter: Accurate Measurement of Urinary Output in Critically Ill Patients Urinary Catheter Date of Insertion: 05/30/20 Urinary Catheter Time of Insertion: 23:30 Data : 06/01/20 06:00 06/01/20 06:00 Other Labs: Laboratory Tests 05/30/20 05/30/20 05/31/20 16:15 23:30 04:08 Fibrinogen 527 H D-Dimer 10.88 H ABG pH 7.34 L 7.45 ABG pCO2 66.5 H* 50.8 H ABG pO2 62.1 L 75.0 L ABG HCO3 35.7 H 35.1 H O2 Delivery Device Nc Bipap FiO2 44.0 45.0 Micro: Microbiology 05/30/20 19:20 Urine Culture - Preliminary Urine,Clean Catch 05/30/20 20:20 Blood Culture - Preliminary Blood NEGATIVE TO DATE 05/30/20 18:25 Blood Culture - Preliminary Blood NEGATIVE TO DATE A&P Assessment and plan (1) Acute respiratory failure with hypoxia: Currently on HFNC and BiPaP. Status: Acute (2) Pneumonia due to COVID-19 virus: Being managed by primary team Status: Acute (3) NSTEMI (non-ST elevated myocardial infarction): Elevated troponin. Initial EKG with sinus tachycardia with short VA interval with mild ST depression in anterolateral leads. This resolved on subsequent EKG's. -No CP. Concern for viral myopericarditis. Likely NSTEMI type 2. -continue current medications. -No events on telemetry. Status: Acute (4) Insulin dependent type 2 diabetes mellitus: Status: Acute (5) COPD (chronic obstructive pulmonary disease): Status: Acute Additional A&P Information Tachycardia H/o Intellectual diasbility Chronic [place] resident FRANCESCO Hopper Thank you for allowing me to participate in patient's care. Please feel free to call with questions or concerns Attestations Medical Necessity Statement*: As per primary team Time Spent in Patient Care: 16 - 35 minutes Coding Level of Care Code Acute Post Production Assistant for g Fwd Diagnoses Acute respiratory failure with hypoxia J96.01 Pneumonia due to COVID-19 virus U07.1; J12.89 NSTEMI (non-ST elevated myocardial infarction) I21.4 Insulin dependent type 2 diabetes mellitus E11.9; Z79.4 COPD (chronic obstructive pulmonary disease) J44.9
[2020-06-02] VITALS (58 sets, daily range): BP systolic 106–168; BP diastolic 61–87; PULSE 72–105; RESP 16–27; TEMP 36.2–37.2; O2SAT 78–100; BMI 31.2
[2020-06-02] MEDS: azithromycin 500 MG in sodium chloride 0.9% 250 ML 250 MG IV (01:55)
[2020-06-02] MEDS: aspirin 81 mg EC Tablet PO (01:56)
[2020-06-02] MEDS: pantoprazole 40 mg SDV IVP (01:56)
--- NOTE | 2020-06-02 06:00 | ECG_ITS ---
[facility] ED Test Date: 2020-06-02 Pat Name: Emmanuel Corral Department: Room: ICU19 Gender: Female Mold Making Supervisor: : 1965 Requested By: Teodoro Juarez Order Number: [id number] Colby MD: Zulay Cannon M.D. Measurements Intervals [place] Rate: 86 P: 53 FL: 123 QRS: 22 QRSD: 88 T: -1 QT: 344 QTc: 413 Interpretive Statements SINUS RHYTHM Compared to ECG 06/01/2020 03:59:17 T-wave abnormality no longer present Electronically Signed On 06-02-2020 8:21:29 CHEMISTRY SPECIALIST by Zulay Cannon M.D. [id number]
[2020-06-02 06:10] LABS: Basophils % 0.3 %; Hematocrit 36.3 % (37.0-47.0); Hemoglobin 10.7 g/dL (11.5-15.3); Lymphocytes # 1.5 10^3/uL (0.8-4.8); Lymphocytes % 19.5 %; Mean Corpuscular HGB Conc 29.5 g/dL (30.0-36.0); Mean Corpuscular Volume 91.7 fL (81-99); Mean Platelet Volume 11.1 fL (7.4-10.4); Monocytes # 0.6 10^3/uL (0.2-0.9); Neutrophils # 5.48 10^3/uL (1.8-7.7); Neutrophils % 71.8 %; Nucleated Red Blood Cells % 0 %; Platelet Count 160 10^3/cmm (130-400); Red Blood Count 3.96 10^6/uL (4.1-5.3); Red Cell Distribution Width 16.2 % (12.1-15.1); White Blood Count 7.6 10^3/uL (4.0-10.0)
[2020-06-02 06:16] LABS: ABG PCO2 61.8 mmHg (35-45); ABG PH Result 7.44 (7.35-7.45); Base Excess ABG 14.9 mmol/L (-2.0-2.0); HCO3 ABG 41.6 mmol/L (22-26); PO2 ABG 62.2 mmHg (80.0-100.0)
[2020-06-02 06:17] LABS: Blood Gas Allen Test P; Blood Gas Sample Site LEFT RADIAL; Blood Gas Sample Type ARTERIAL; Oxygen Device NC
[2020-06-02 06:18] LABS: Arterial Blood Gas Hematocrit 33.7 % (37-47)
[2020-06-02] MEDS: piperacillin-tazobactam 3.375 GM in sodium chloride 0.9% (plus) 50 ML IV ×3 (06:27→20:55)
[2020-06-02] MEDS: enoxaparin 80 mg/0.8 mL Syringe 70 MG SUBCUT ×2 (06:27→18:24)
[2020-06-02 06:32] LABS: Lactic Sepsis W/Reflex 1.9 mmol/L (0.5-2.2)
[2020-06-02 06:33] LABS: INR 1.17 (0.8-1.2)
[2020-06-02 06:34] LABS: Fibrinogen 479 mg/dL (174-498)
[2020-06-02 06:37] LABS: D Dimer 2.83 ug/mIFEU (0-0.59)
[2020-06-02 06:57] LABS: Alanine Aminotransferase 8 U/L (0-33); Albumin Level 2.6 g/dL (3.5-5.2); Alkaline Phosphatase 112 IU/L (35-105); Anion Gap 12.7 (5-19); Aspartate Amino Transferase 16 U/L (0-32); Blood Urea Nitrogen 21 mg/dL (6-20); Calcium 7.7 mg/dL (8.5-10.5); Carbon Dioxide 39 mmol/L (22-29); Chloride 100 mmol/L (98-107); Globulin 2.7 g/dL (1.3-4.6); Glomerular Filtration Rate 36.1 mL/min (90-130); Glucose 217 mg/dL (65-115); Magnesium 1.9 mg/dL (1.7-2.3); Osmolality Calculated 316 mOsm/kg (285-295); Phosphorus 4.6 mg/dL (2.5-4.5); Potassium 3.7 mmol/L (3.5-5.1); Sodium 148 mmol/L (136-145); Total Bilirubin 0.2 mg/dL (0.15-1.2); Total Protein 5.3 g/dL (6.6-8.7)
[2020-06-02 07:00] LABS: Thyroid Stimulating Hormone 0.28 uIU/mL (0.27-4.20)
[2020-06-02 07:51] LABS: Glucose Point of Care 194 mg/dL (70-110)
[2020-06-02 08:26] LABS: Procalcitonin 0.25 ng/mL (0-0.5)
[2020-06-02 08:27] LABS: NT Pro B Type Natriuretic Pept 4150 pg/mL (0-125); Procalcitonin 0.24 ng/mL (0-0.5)
[2020-06-02 08:37] LABS: Iron 26 ug/dL (37-145); Percent Saturation 15.3 % (20-50); Total Iron Binding Capacity 169 mcg/dl; Unsaturated Iron Binding 143 ug/dL (112-347)
[2020-06-02 08:38] LABS: Creatine Phosphokinase 33 U/L (26-192); Ferritin 109 ng/mL (15-150); Lactate Dehydrogenase 305 U/L (135-214)
[2020-06-02] MEDS: cyanocobalamin 1,000 mcg Tablet 1000 MCG PO (08:53)
[2020-06-02] MEDS: levothyroxine 100 mcg Tablet PO (08:53)
[2020-06-02] MEDS: escitalopram 10 mg Tablet PO (08:53)
[2020-06-02] MEDS: carvedilol 3.125 mg Tablet PO (08:53)
[2020-06-02] MEDS: guaiFENesin 100 mg/5 mL UDC 10 mL 200 MG PO (08:54)
[2020-06-02] MEDS: zinc gluconate 50 mg Tablet PO (09:03)
[2020-06-02] MEDS: LORazepam 0.5 mg Tablet PO ×3 (09:03→20:55)
[2020-06-02] MEDS: ascorbic acid 500 mg Tablet PO (09:03)
[2020-06-02] MEDS: benzonatate 100 mg Capsule PO ×3 (09:03→20:55)
[2020-06-02] MEDS: dexamethasone 4 mg/mL INJ 6 MG IVP (09:04)
[2020-06-02] MEDS: ipratropium-albuterol 3 mL Neb INHALATION (09:41)
[2020-06-02 11:30] LABS: Glucose Point of Care 206 mg/dL (70-110)
--- NOTE | 2020-06-02 12:11 | P.PN_ITS ---
Subjective Subjective: Interval history: No complaints overnight. Hospital course and labs noted. During the course of the day he reported we know down to 3 L nasal cannula high flow to maintain saturation 90%. She denies any nausea, vomiting, headache. As per the nurse patient is having good oral intake. Denies any nausea, vomiting, headache. Vitals/I&O/Wt Last Vital Signs Temp 98.9 F 06/02/20 10:36 Pulse 74 06/02/20 10:30 Resp 26 H 06/02/20 09:15 BP 108/67 06/02/20 10:30 Pulse Ox 100 06/02/20 10:30 06/01/20 06/02/20 06/02/20 22:59 06:59 14:59 Intake Total 970 / 1970 290 / 2260 1350 / 1350 Output Total 1999 Balance -1030 / -30 290 / 260 1350 / 1350 Weight last 48 hrs Weight 72.575 kg Physical Exam Const: COMMON NORMALS: no acute distress and patient oriented x3 GENERAL APPEARANCE: cooperative and comfortable NUTRITIONAL APPEARANCE: obese ORIENTATION/CONSCIOUSNESS: Yes awake, Yes oriented to person and Yes confused; not oriented to place and not oriented to time HENMT: COMMON NORMALS: normocephalic and oropharynx normal HEAD & SCALP: normocephalic TEETH & GINGIVA: Yes edentulous Eye: COMMON NORMALS: Equal, round and reactive pupils present and EOMs intact bilaterally GENERAL EYE: appearance normal, both eyes and all related structures PUPIL: Yes Equal, round and reactive pupils present Neck/C-Spine: COMMON NORMALS: full ROM, no lymphadenopathy, no JVD and Thyroid normal THYROID: Thyroid normal Lymph: LYMPHATIC: no lymphadenopathy noted Resp: COMMON NORMALS: normal respiratory effort, No retractions, No use of accessory muscles and clear to auscultation bilaterally AUSCULTATION: clear to auscultation bilaterally, crackles (Minimal crackle at right base), rales, wheezes and bronchial breath sounds Cardio: COMMON NORMALS: no JVD, regular rate, regular rhythm, S1 normal heart sound present, S2 normal heart sound present, No gallops present (Cardio), No clicks present (Cardio) and No murmurs present (Cardio) RATE: regular rate and tachycardic RHYTHM: regular rhythm HEART SOUNDS: S1 normal heart sound present and S2 normal heart sound present GI: COMMON NORMALS: Normal to inspection, nondistended, normoactive bowel sounds present, Soft to palpation, non-tender and No hepatosplenomegaly present PALPATION: Yes Soft to palpation and Yes No hepatosplenomegaly present Extremity: COMMON NORMALS: normal to inspection, full ROM, no joint enlargement and no pedal edema OTHER: R arm PICC with some bruising at insertion site. No bleeding. No erythema. Neuro: COMMON NORMALS: patient oriented x3 and moves all extremities SENSORIUM/ORIENTATION: Yes oriented to person, No oriented to place and No oriented to time OTHER: Confused, does follow some commands such as squeezing my fingers bilaterally, wiggling her toes Skin: COMMON NORMALS: no rashes or lesions noted GENERAL SKIN EXAM: no rashes or lesions noted Urinary Catheter Management^: Riley: Cath Placed During This Visit: yes Reason for Continuing Indwelling Catheter: Accurate Measurement of Urinary Output in Critically Ill Patients Urinary Catheter Date of Insertion: 05/30/20 Urinary Catheter Time of Insertion: 23:30 Data : 06/02/20 05:30 06/02/20 05:30 Micro: Microbiology 05/30/20 19:20 Urine Culture - Final Urine,Clean Catch 06/02/20 02:18 Bacterial Antigens - Final Urine,Clean Catch 06/02/20 02:18 Legionella Urinary Antigen - Final Urine Catheterized A&P Assessment and plan (1) Acute respiratory failure with hypoxia: C/w Remdesevir. Dexamethasone 6 mg IV daily. Vit C and Zinc Advair, Symbicort, albuterol. Wean keeping SPO2 over 90% Monitor inflammatory markers C/w lovenox at 1mg/kg Body weight Q12h.Will switch to eliquis tomorrow and continue for atleast 2 weeks on discharge. Procal negative. Afebrile, no leukocytosis. Will d/c vanc and zosyn. Check MRSA swab. C/w Azithromycin. Continue to monitor. Status: Acute (2) Pneumonia due to COVID-19 virus: Reported diagnosed on 05/13 Status: Acute (3) COPD (chronic obstructive pulmonary disease): Status: Acute (4) Myocarditis due to COVID-19 virus: Discussed with cardiology. Small pericardial effusion noted on echo. No RWMA. From cardiology perspective anticoagulation could be discontinued within 48 hours, however, may continue depending on pulmonary considerations. Status: Acute (5) Insulin dependent type 2 diabetes mellitus: Mod dose insulin scale. Lantus 15 U SQ QAM. Continue to monitor Status: Acute (6) Septic encephalopathy: Resolved. She is currently awake, alert, does appear to get anxious around easily. Treat underlying conditions as above. Reassured, reorient if needed. Ativan as needed for anxiety. Status: Acute (7) Hypernatremia: FW deficit 2.1 L. Most likely 2/2 dehydration. Start on d51/2 NS @ 50 cc/hr monitor for fluid overload. Check BMP Q12h Status: Acute (8) DELORES (acute kidney injury): Baseline normal. Creat 1.5 today. Medication reconciliation done for Nephrotoxic drugs. Check urine creat, urine lytes. Fluids as above. Status: Acute (9) B12 deficiency: Status: Acute (10) Intellectual disability: Status: Acute (11) NSTEMI (non-ST elevated myocardial infarction): Possible NSTEMI. As above. Status: Acute (12) GERD (gastroesophageal reflux disease): Status: Acute (13) Presence of IVC filter: Status: Acute Additional A&P Information PICC line right arm placed due to lost IV access on 05/31 FC Protonix for PUD ppx Lovenox for DVT PPx Swallow eval and advance diet accordingly. Attestations Medical Necessity Statement*: Hypoxia 2/2 COVID, hypernatremia, DELORES Time Spent in Patient Care: Greater than 35 minutes Coding Level of Care Code Acute Craft Manager for g Fwd Exam Comprehensive Diagnoses Acute respiratory failure with hypoxia J96.01 Pneumonia due to COVID-19 virus U07.1; J12.89 COPD (chronic obstructive pulmonary disease) J44.9 Myocarditis due to COVID-19 virus U07.1; I40.0 Insulin dependent type 2 diabetes mellitus E11.9; Z79.4 Septic encephalopathy G93.41 Hypernatremia E87.0 DELORES (acute kidney injury) N17.9 B12 deficiency E53.8 Intellectual disability F79 NSTEMI (non-ST elevated myocardial infarction) I21.4 GERD (gastroesophageal reflux disease) K21.9 Presence of IVC filter Z95.828
[2020-06-02] MEDS: dextrose 5%-sod chloride 0.45% 1,000 ML 50 ML IV (13:36)
[2020-06-02 14:48] LABS: Influenza A by IFA Negative (Negative); Influenza B by IFA Negative (Negative)
[2020-06-02 16:14] LABS: Glucose Point of Care 220 mg/dL (70-110)
[2020-06-02] MEDS: ferrous gluconate 324 mg Tablet PO (18:23)
[2020-06-02] MEDS: HYDROcodone-acetaminophen 5-325 mg Tablet 1 TAB PO (19:29)
[2020-06-02] MEDS: atorvastatin 40 mg Tablet PO (20:55)
[2020-06-02 21:19] LABS: Glucose Point of Care 369 mg/dL (70-110)
[2020-06-03] VITALS (25 sets, daily range): BP systolic 131–190; BP diastolic 72–102; PULSE 83–113; RESP 15–29; TEMP 36.7–37.4; O2SAT 88–98
[2020-06-03 00:19] LABS: Glucose Point of Care 217 mg/dL (70-110)
[2020-06-03] MEDS: aspirin 81 mg EC Tablet PO (01:35)
[2020-06-03] MEDS: pantoprazole 40 mg SDV IVP (01:35)
[2020-06-03] MEDS: azithromycin 500 MG in sodium chloride 0.9% 250 ML 250 MG IV (02:33)
[2020-06-03 04:15] LABS: Glucose Point of Care 130 mg/dL (70-110)
[2020-06-03 05:32] LABS: D Dimer 2.53 ug/mIFEU (0-0.59)
[2020-06-03 05:46] LABS: Alanine Aminotransferase 8 U/L (0-33); Albumin Level 2.5 g/dL (3.5-5.2); Alkaline Phosphatase 110 IU/L (35-105); Anion Gap 10.9 (5-19); Aspartate Amino Transferase 19 U/L (0-32); Basophils % 0.3 %; Blood Urea Nitrogen 28 mg/dL (6-20); Calcium 7.7 mg/dL (8.5-10.5); Carbon Dioxide 36 mmol/L (22-29); Chloride 99 mmol/L (98-107); Fibrinogen 422 mg/dL (174-498); Globulin 3.3 g/dL (1.3-4.6); Glomerular Filtration Rate 24.5 mL/min (90-130); Glucose 135 mg/dL (65-115); Hematocrit 36.2 % (37.0-47.0); Hemoglobin 10.5 g/dL (11.5-15.3); Lymphocytes # 1.6 10^3/uL (0.8-4.8); Lymphocytes % 21.9 %; Mean Corpuscular Hemoglobin 26.6 pg (28.0-34.0); Mean Corpuscular Volume 91.6 fL (81-99); Mean Platelet Volume 10.9 fL (7.4-10.4); Monocytes # 0.6 10^3/uL (0.2-0.9); Monocytes % 8.4 %; Neutrophils # 5.16 10^3/uL (1.8-7.7); Nucleated Red Blood Cells % 0 %; Osmolality Calculated 304 mOsm/kg (285-295); Platelet Count 168 10^3/cmm (130-400); Red Blood Count 3.95 10^6/uL (4.1-5.3); Sodium 143 mmol/L (136-145); Total Bilirubin 0.2 mg/dL (0.15-1.2); Total Protein 5.8 g/dL (6.6-8.7); White Blood Count 7.5 10^3/uL (4.0-10.0)
[2020-06-03] MEDS: piperacillin-tazobactam 3.375 GM in sodium chloride 0.9% (plus) 50 ML IV ×3 (05:58→20:50)
--- NOTE | 2020-06-03 06:00 | XR_ITS ---
WS: [id number] XR chest 1V portable [id number] REASON FOR EXAM: covid FINDINGS: Comparison examination 05/31/2020. Previously defined infiltrative changes in both lungs show increasing density and confluence. No new findings. XR/XR chest 1V portable [id number] IMPRESSION: Progression of the infiltrative changes in both lungs as above.
[2020-06-03 06:08] LABS: Potassium 2.9 mmol/L (3.5-5.1)
[2020-06-03 06:09] LABS: C Reactive Protein 36.2 mg/L (0.0-4.9); Chol HDL Ratio 2.52 mg/dL (0.0-4.40); Cholesterol 83 mg/dL (0-200); Creatine Phosphokinase 35 U/L (26-192); Ferritin 92 ng/mL (15-150); HDL Cholesterol 33 mg/dL (60-100); LDL Cholesterol Calculated 20 mg/dL (50-129); Lactate Dehydrogenase 299 U/L (135-214); NT Pro B Type Natriuretic Pept 5772 pg/mL (0-125); Triglycerides 150 mg/dL (0-150); VLDL Cholestrol Calculation 30 mg/dL (0-30)
[2020-06-03] MEDS: insulin glargine 100 units/1 mL 15 UNIT SUBCUT (06:36)
[2020-06-03] MEDS: enoxaparin 80 mg/0.8 mL Syringe 70 MG SUBCUT ×2 (06:37→18:29)
[2020-06-03 06:50] LABS: Estmated Average Glucose 200; Hemoglobin A1C 8.6 % (4.0-6.0)
[2020-06-03] MEDS: levothyroxine 100 mcg Tablet PO (07:14)
[2020-06-03] MEDS: ascorbic acid 500 mg Tablet PO (07:43)
[2020-06-03] MEDS: benzonatate 100 mg Capsule PO ×3 (07:43→20:50)
[2020-06-03] MEDS: ferrous gluconate 324 mg Tablet PO ×2 (07:43→17:16)
[2020-06-03] MEDS: cyanocobalamin 1,000 mcg Tablet 1000 MCG PO (07:44)
[2020-06-03] MEDS: LORazepam 0.5 mg Tablet PO ×3 (07:44→20:50)
[2020-06-03] MEDS: zinc gluconate 50 mg Tablet PO (07:44)
[2020-06-03] MEDS: dexamethasone 4 mg/mL INJ 6 MG IVP (07:44)
[2020-06-03] MEDS: escitalopram 10 mg Tablet PO (07:44)
[2020-06-03 07:55] LABS: Glucose Point of Care 129 mg/dL (70-110)
[2020-06-03] MEDS: dextrose 5%-sod chloride 0.45% 1,000 ML 50 ML IV (10:33)
--- NOTE | 2020-06-03 11:00 | PC.NURSE ---
Assumed care of this patient from RAHAT Gurrola, at this time.
--- NOTE | 2020-06-03 11:06 | P.PN_ITS ---
Subjective Subjective: Interval history: No complaints overnight. Hospital course and labs noted. During the course of the day he reported we know down to 3 L nasal cannula high flow to maintain saturation 90%. She denies any nausea, vomiting, headache. As per the nurse patient is having good oral intake. Denies any nausea, vomiting, headache. Vitals/I&O/Wt Last Vital Signs Temp 99.4 F 06/03/20 07:56 Pulse 89 06/03/20 08:51 Resp 16 06/03/20 08:51 BP 132/83 06/03/20 07:56 Pulse Ox 92 06/03/20 08:51 06/02/20 06/03/20 06/03/20 22:59 06:59 14:59 Intake Total 1110 / 2700 550 / 3250 1410 / 1410 Output Total 1875 / 1875 850 / 2725 550 / 550 Balance -765 / 825 -300 / 525 860 / 860 Weight last 48 hrs Weight 84 kg Weight 72.575 kg Physical Exam Urinary Catheter Management^: Riley: Cath Placed During This Visit: yes Reason for Continuing Indwelling Catheter: Accurate Measurement of Urinary Outpu t in Critically Ill Patients Urinary Catheter Date of Insertion: 05/30/20 Urinary Catheter Time of Insertion: 23:30 Data : 06/03/20 04:10 06/03/20 04:10 Micro: Microbiology 06/02/20 10:20 MRSA Culture - Final Nose 05/30/20 19:20 Urine Culture - Final Urine,Clean Catch 06/02/20 02:18 Bacterial Antigens - Final Urine,Clean Catch 06/02/20 02:18 Legionella Urinary Antigen - Final Urine Catheterized A&P Assessment and plan (1) Acute respiratory failure with hypoxia: Status: Acute (2) Pneumonia due to COVID-19 virus: Reported diagnosed on 05/13 Status: Acute (3) COPD (chronic obstructive pulmonary disease): Status: Acute (4) Myocarditis due to COVID-19 virus: Appreciate cardiology recommendations. Small pericardial effusion noted on echo. No RWMA. From cardiology perspective anticoagulation could be discontinued within 48 hours, however, may continue depending on pulmonary considerations. Status: Acute (5) Insulin dependent type 2 diabetes mellitus: Blood sugars better controlled. Continue with mod dose insulin scale. Lantus 15 U SQ QAM. Continue to monitor Status: Acute (6) Septic encephalopathy: Resolved. She is currently awake, alert, does appear to get anxious around easily. Treat underlying conditions as above. Reassured, reorient if needed. Ativan as needed for anxiety. Status: Acute (7) Hypernatremia: Resolving. Sodium down to 143 today. Most likely 2/2 dehydration. Continue with D5 half NS at 75 cc/h. Monitor for fluid overload. Check BMP Q12h Status: Acute (8) DELORES (acute kidney injury): Baseline normal. Creatinine worsening today to 2.1. Most likely secondary to severe COVID-19 infection along with dehydration and ATN from contrast-induced nephropathy. Patient did have CTA on admission. Medication reconciliation done for Nephrotoxic drugs. Check urine creat, urine lytes. Fluids as above. Status: Acute (9) Hypertension: Status: Acute (10) NSTEMI (non-ST elevated myocardial infarction): Possible NSTEMI. As above. Status: Acute (11) Intellectual disability: Status: Acute (12) Presence of IVC filter: Status: Acute (13) GERD (gastroesophageal reflux disease): Status: Acute Additional A&P Information Hypoxia because of COVID-19 pneumonia: Patient is improving. Currently she is on 2 to 3 L of oxygen supplementation to maintain a saturation more than 90% oksana th at rest and on minimal activity with physical therapy. Continue with dexamethasone 6 mg IV daily. We will switch over to prednisone tomorrow. Advair, Spiriva. Vitamin C, zinc. We will try to wean off oxygen as possible. Stop remdesivir as patient's creatinine is worsening. Patient has already received 4 days of antiviral treatment. Pulmonary toilet with incentive spirometry and flutter valve. Procal negative. Afebrile, no leukocytosis. Will d/c vanc and zosyn. Check MRSA swab. C/w Azithromycin. Continue to monitor. Hypertension: Goal blood pressure less than 140/90 mmHg. Start patient amlodipine 5 mg and metoprolol 25 mg twice daily. We will continue to monitor. Hypokalemia: Potassium 40 mEq oral PICC line right arm placed due to lost IV access on 05/31 Protonix for PUD ppx Lovenox for DVT PPx Dysphagia 1 diet. Patient's care discussed in detail with her sister Ms Blakely. All the questions were answered. Discharge planning: If patient continues to do well can plan to discharge in next 2 to 3 days back to [facility]. Attestations Medical Necessity Statement*: Patient requires continued hospitalization for treatment of hypoxia because of COVID-19 pneumonia. Time Spent in Patient Care: Greater than 35 minutes (>than 50% of time spent in counselling and/or direct pt care on unit) . Coding Level of Care Code Acute Flag Maker for [facility] Fwd Diagnoses Acute respiratory failure with hypoxia J96.01 Pneumonia due to COVID-19 virus U07.1; J12.89 COPD (chronic obstructive pulmonary disease) J44.9 Myocarditis due to COVID-19 virus U07.1; I40.0 Insulin dependent type 2 diabetes mellitus E11.9; Z79.4 Septic encephalopathy G93.41 Hypernatremia E87.0 DELORES (acute kidney injury) N17.9 Hypertension I10 NSTEMI (non-ST elevated myocardial infarction) I21.4 Intellectual disability F79 Presence of IVC filter Z95.828 GERD (gastroesophageal reflux disease) K21.9
[2020-06-03 11:08] LABS: Glucose Point of Care 213 mg/dL (70-110)
[2020-06-03] MEDS: potassium chloride ER 10 mEq Tablet 40 MEQ PO (11:14)
[2020-06-03] MEDS: amlodipine 10 mg Tablet 5 MG PO (11:15)
[2020-06-03] MEDS: metoprolol tartrate 25 mg Tablet PO (15:49)
[2020-06-03 16:31] LABS: Glucose Point of Care 562 mg/dL (70-110)
[2020-06-03 16:42] LABS: Glucose Point of Care 568 mg/dL (70-110)
[2020-06-03 18:25] LABS: Urine Creatinine 22 mg/dL (28-217)
[2020-06-03 18:47] LABS: Potassium, Radom Urine 6 mmol/L; Urine Random Chloride 29 mmol/L; Urine Random Sodium 48 mmol/L
[2020-06-03 20:26] LABS: Glucose Point of Care 451 mg/dL (70-110)
[2020-06-03] MEDS: atorvastatin 40 mg Tablet PO (20:50)
[2020-06-03 23:22] LABS: Glucose Point of Care 305 mg/dL (70-110)
[2020-06-04] VITALS (20 sets, daily range): BP systolic 96–161; BP diastolic 60–115; PULSE 77–95; RESP 17–24; TEMP 36.1–36.8; O2SAT 87–100
[2020-06-04] MEDS: aspirin 81 mg EC Tablet PO (01:16)
[2020-06-04] MEDS: pantoprazole 40 mg SDV IVP (01:17)
[2020-06-04] MEDS: dextrose 5%-sod chloride 0.45% 1,000 ML 75 ML IV ×2 (02:14→17:25)
[2020-06-04 04:07] LABS: C Reactive Protein 32.9 mg/L (0.0-4.9); Creatine Phosphokinase 44 U/L (26-192); Ferritin 86 ng/mL (15-150); Lactate Dehydrogenase 321 U/L (135-214); NT Pro B Type Natriuretic Pept 6486 pg/mL (0-125)
[2020-06-04 04:29] LABS: Fibrinogen 580 mg/dL (174-498)
[2020-06-04 05:07] LABS: Glucose Point of Care 59 mg/dL (70-110)
[2020-06-04 05:07] LABS: Glucose Point of Care 63 mg/dL (70-110)
[2020-06-04] MEDS: piperacillin-tazobactam 3.375 GM in sodium chloride 0.9% (plus) 50 ML IV ×3 (05:10→20:31)
[2020-06-04] MEDS: dextrose 50% syringe 50 mL IVP (05:48)
--- NOTE | 2020-06-04 06:37 | PC.NURSE ---
Addendum entered by Aida Alford RN 06/04/20 07:30: Pt allowed this RN to recheck her BS--was 116--and to give her Lovenox and Lantus shots. Day RN Padmini diaz. Original Note: Pt alert to self only. Fariha. Was up in chair at start of shift. Inc of mod amt loose brown stool. Inc care done and pt assisted w 1 into bed. Is much stronger today than yesterday. Riley intact and draining cloudy yellow/peach urine. BS checks q 4h. Given insulin per protocol at 2000 and 2400 for a total of 26 units. The next check was 59; recheck 63. Given 1/2 amp D50 this AM as she refused to either drink or eat anything. Is wanting to go home--keeps asking to go home and keeps removing her O2 cannula, her O2 sensor has been replaced x3. Reused her Synthroid and Lantus. Will pass onto day shift RN.
[2020-06-04] MEDS: enoxaparin 80 mg/0.8 mL Syringe 70 MG SUBCUT (07:28)
[2020-06-04 07:30] LABS: Glucose Point of Care 116 mg/dL (70-110)
[2020-06-04] MEDS: guaiFENesin 100 mg/5 mL UDC 10 mL 200 MG PO ×2 (09:47→17:28)
[2020-06-04] MEDS: amlodipine 10 mg Tablet 5 MG PO (09:49)
[2020-06-04] MEDS: dexamethasone 4 mg/mL INJ 6 MG IVP (09:50)
[2020-06-04] MEDS: cyanocobalamin 1,000 mcg Tablet 1000 MCG PO (09:50)
[2020-06-04] MEDS: zinc gluconate 50 mg Tablet PO (09:51)
[2020-06-04] MEDS: escitalopram 10 mg Tablet PO (09:53)
[2020-06-04] MEDS: ascorbic acid 500 mg Tablet PO (09:53)
[2020-06-04] MEDS: benzonatate 100 mg Capsule PO ×3 (09:53→20:31)
[2020-06-04] MEDS: ferrous gluconate 324 mg Tablet PO ×2 (09:53→17:28)
[2020-06-04] MEDS: metoprolol tartrate 25 mg Tablet PO ×2 (09:54→17:26)
[2020-06-04] MEDS: LORazepam 0.5 mg Tablet PO ×3 (09:56→20:31)
[2020-06-04 12:14] LABS: Glucose Point of Care 335 mg/dL (70-110)
--- NOTE | 2020-06-04 12:52 | PC.NURSE ---
PATIENTS BS 116 THIS AM DID NOT TREAT WITH NOVALOG. SHE ATE LIGHTLY AT BREAKFAST, SHE STOOLED ON THE BED AND IN THE CHAIR BEFORE 10 AM. SHE GOT UP TO TOILET WITH OT AND WALKED THE HALLS ON 3 LITERS WITH PT BUT ONCE SHE SAT DOWN SHE COULD NOT MAINTAIN SATS AND OVER THE NEXT HOUR I NEEDED TO GO UP TO 8 LITERS TO MAINTAIN A SAT ABOVE 90.
--- NOTE | 2020-06-04 15:13 | P.PN_ITS ---
Subjective Subjective: Interval history: No acute events overnight. Today morning on examination patient is on 3 L nasal cannula saturating 95% sitting in chair. She did test desaturate after walking 100 feet with physical therapy to 88% when she required 6 L high flow nasal cannula to maintain a saturation. She denies any nausea, vomiting, headache, dizziness. Her appetite is good. Her vitals are stable. Vitals/I&O/Wt Last Vital Signs Temp 98.2 F 06/04/20 12:00 Pulse 89 06/04/20 11:00 Resp 24 H 06/04/20 12:00 BP 96/60 06/04/20 12:00 Pulse Ox 88 L 06/04/20 12:51 06/04/20 06/04/20 06/04/20 06:59 14:59 22:59 Intake Total 1255 / 4430 400 / 400 Output Total 1450 / 3925 Balance -195 / 505 400 / 400 Weight last 48 hrs Weight 85.684 kg Weight 84 kg Physical Exam Const: COMMON NORMALS: no acute distress and patient oriented x3 GENERAL APPEARANCE: cooperative and comfortable NUTRITIONAL APPEARANCE: obese ORIENTATION/CONSCIOUSNESS: Yes awake, Yes oriented to person and Yes confused; not oriented to place and not oriented to time HENMT: COMMON NORMALS: normocephalic and oropharynx normal HEAD & SCALP: normocephalic TEETH & GINGIVA: Yes edentulous Eye: COMMON NORMALS: Equal, round and reactive pupils present and EOMs intact bilaterally GENERAL EYE: appearance normal, both eyes and all related struct ures PUPIL: Yes Equal, round and reactive pupils present Neck/C-Spine: COMMON NORMALS: full ROM, no lymphadenopathy, no JVD and Thyroid normal THYROID: Thyroid normal Lymph: LYMPHATIC: no lymphadenopathy noted Resp: COMMON NORMALS: normal respiratory effort, No retractions, No use of accessory muscles and clear to auscultation bilaterally AUSCULTATION: clear to auscultation bilaterally, crackles (Minimal crackle at right base), rales, wheezes and bronchial breath sounds Cardio: COMMON NORMALS: no JVD, regular rate, regular rhythm, S1 normal heart sound present, S2 normal heart sound present, No gallops present (Cardio), No clicks present (Cardio) and No murmurs present (Cardio) RATE: regular rate and tachycardic RHYTHM: regular rhythm HEART SOUNDS: S1 normal heart sound present and S2 normal heart sound present GI: COMMON NORMALS: Normal to inspection, nondistended, normoactive bowel sounds present, Soft to palpation, non-tender and No hepatosplenomegaly present PALPATION: Yes Soft to palpation and Yes No hepatosplenomegaly present Extremity: COMMON NORMALS: normal to inspection, full ROM, no joint enlargement and no pedal edema OTHER: R arm PICC with some bruising at insertion site. No bleeding. No erythema. Neuro: COMMON NORMALS: patient oriented x3 and moves all extremities SENSORIUM/ORIENTATION: Yes oriented to person, No oriented to place and No oriented to time OTHER: Confused, does follow some commands such as squeezing my fingers bilaterally, wiggling her toes Skin: COMMON NORMALS: no rashes or lesions noted GENERAL SKIN EXAM: no rashes or lesions noted Urinary Catheter Management^: Riley: Cath Placed During This Visit: yes Reason for Continuing Indwelling Catheter: Accurate Measurement of Urinary Output in Critically Ill Patients Urinary Catheter Date of Insertion: 05/30/20 Urinary Catheter Time of Insertion: 23:30 Data : 06/03/20 04:10 06/03/20 04:10 Micro: Microbiology 06/02/20 10:20 MRSA Culture - Final Nose A&P Assessment and plan (1) Acute respiratory failure with hypoxia: Status: Acute (2) Pneumonia due to COVID-19 virus: Reported diagnosed on 05/13 Status: Acute (3) COPD (chronic obstructive pulmonary disease): Status: Acute (4) Myocarditis due to COVID-19 virus: Appreciate cardiology recommendations. Small pericardial effusion noted on echo. No RWMA. From cardiology perspective anticoagulation could be discontinued within 48 hours, however, may continue depending on pulmonary considerations. Status: Acute (5) Insulin dependent type 2 diabetes mellitus: Blood sugars better controlled. Continue with mod dose insulin scale. Lantus 15 U SQ QAM. Continue to monitor Status: Acute (6) Septic encephalopathy: Resolved. She is currently awake, alert, does appear to get anxious arou nd easily. Treat underlying conditions as above. Reassured, reorient if needed. Ativan as needed for anxiety. Status: Acute (7) Hypernatremia: Resolving. Sodium down to 143 today. Most likely 2/2 dehydration. Continue with D5 half NS at 75 cc/h. Monitor for fluid overload. Check BMP Q12h Status: Acute (8) DELORES (acute kidney injury): Baseline normal. Creatinine worsening today to 2.1. Most likely secondary to severe COVID-19 infection along with dehydration and ATN from contrast-induced nephropathy. Patient did have CTA on admission. Medication reconciliation done for Nephrotoxic drugs. Check urine creat, urine lytes. Fluids as above. Status: Acute (9) Hypertension: Status: Acute (10) NSTEMI (non-ST elevated myocardial infarction): Possible NSTEMI. As above. Status: Acute (11) Intellectual disability: Status: Acute (12) Presence of IVC filter: Status: Acute (13) GERD (gastroesophageal reflux disease): Status: Acute Additional A&P Information Hypoxia because of COVID-19 pneumonia: Patient is improving. Currently she is on 3 L of oxygen supplementation to maintain a saturation more than 90% both at rest and on minimal activity with physical therapy. Continue with dexamethasone 6 mg IV daily. Advair, Spiriva. Vitamin C, zinc. We will try to wean off oxygen as possible. Stop remdesivir as patient's creatinine is worsening. Patient has already received 4 days of antiviral treatment. Pulmonary toilet with incentive spirometry and flutter valve. Procal negative. Afebrile, no leukocytosis. Patient has finished a course of IV antibiotics. We will continue to monitor. Hypertension: Goal blood pressure less than 140/90 mmHg. Continue with amlodipine 5 mg and metoprolol 25 mg twice daily. We will continue to monitor. Hypokalemia: Potassium 40 mEq oral PICC line right arm placed due to lost IV access on 05/31 FC Protonix for PUD ppx Lovenox for DVT PPx Dysphagia 1 diet. Patient's care discussed in detail with her sister Ms Blakely. All the questions were answered. Discharge planning: If patient continues to do well can plan to discharge in next 2 to 3 days back to [facility]. Plan: Transfer to the floors. Continue with dexamethasone. We will switch to Lovenox to oral Eliquis 5 mg twice daily. We will try to wean off oxygen as possible keeping saturation over 90%. If patient continues to do well can plan to discharge back to [facility] within next 48 hours. Continue to monitor inflammatory markers. Attestations Medical Necessity Statement*: Patient needs further hospitalization for management of hypoxia because of COVID-19 pneumonia Time Spent in Patient Care: Greater than 35 minutes (>than 50% of time spent in counselling and/or direct pt care on unit) . Coding Level of Care Code Acute Commercial Reporter for [facility] Fwd Diagnoses Acute respiratory failure with hypoxia J96.01 Pneumonia due to COVID-19 virus U07.1; J12.89 COPD (chronic obstructive pulmonary disease) J44.9 Myocarditis due to COVID-19 virus U07.1; I40.0 Insulin dependent type 2 diabetes mellitus E11.9; Z79.4 Septic encephalopathy G93.41 Hypernatremia E87.0 DELORES (acute kidney injury) N17.9 Hypertension I10 NSTEMI (non-ST elevated myocardial infarction) I21.4 Intellectual disability F79 Presence of IVC filter Z95.828 GERD (gastroesophageal reflux disease) K21.9
[2020-06-04 16:36] LABS: D Dimer 2.19 ug/mIFEU (0-0.59)
[2020-06-04 17:23] LABS: Glucose Point of Care 371 mg/dL (70-110)
--- NOTE | 2020-06-04 19:20 | PC.NURSE ---
ABOUT 2 HR AFTER HER PT WALK HER SATS STARTED TO IMPROVE AND WE COULD WEAN HER BACK TO 4 LITERS. SHE ATE A GOOD DINNER. ANTICIPATE TRANSFER .
[2020-06-04 20:00] LABS: Glucose Point of Care 364 mg/dL (70-110)
[2020-06-04] MEDS: atorvastatin 40 mg Tablet PO (20:31)
[2020-06-04] MEDS: apixaban 5 mg Tablet PO (22:43)
[2020-06-05] VITALS (9 sets, daily range): BP systolic 103–157; BP diastolic 57–82; PULSE 77–95; RESP 18–22; TEMP 36.4–37.1; O2SAT 90–96
[2020-06-05 00:49] LABS: Glucose Point of Care 186 mg/dL (70-110)
[2020-06-05 00:54] LABS: Basophils % 0.1 %; Hematocrit 37.2 % (37.0-47.0); Hemoglobin 10.7 g/dL (11.5-15.3); Lymphocytes # 1.1 10^3/uL (0.8-4.8); Lymphocytes % 16.1 %; Mean Corpuscular HGB Conc 28.8 g/dL (30.0-36.0); Mean Corpuscular Hemoglobin 26.5 pg (28.0-34.0); Mean Corpuscular Volume 92.1 fL (81-99); Mean Platelet Volume 11.1 fL (7.4-10.4); Monocytes # 0.7 10^3/uL (0.2-0.9); Neutrophils # 5.14 10^3/uL (1.8-7.7); Neutrophils % 73.4 %; Nucleated Red Blood Cells % 0 %; Platelet Count 172 10^3/cmm (130-400); Red Blood Count 4.04 10^6/uL (4.1-5.3); Red Cell Distribution Width 15.7 % (12.1-15.1)
[2020-06-05 01:15] LABS: Alanine Aminotransferase 6 U/L (0-33); Albumin Level 2.5 g/dL (3.5-5.2); Alkaline Phosphatase 106 IU/L (35-105); Anion Gap 10.5 (5-19); Aspartate Amino Transferase 27 U/L (0-32); Blood Urea Nitrogen 32 mg/dL (6-20); Carbon Dioxide 32 mmol/L (22-29); Chloride 103 mmol/L (98-107); Globulin 3.3 g/dL (1.3-4.6); Glucose 210 mg/dL (65-115); Osmolality Calculated 307 mOsm/kg (285-295); Potassium 3.5 mmol/L (3.5-5.1); Sodium 142 mmol/L (136-145); Total Bilirubin 0.2 mg/dL (0.15-1.2); Total Protein 5.8 g/dL (6.6-8.7)
[2020-06-05] MEDS: aspirin 81 mg EC Tablet PO (01:21)
[2020-06-05] MEDS: pantoprazole 40 mg SDV IVP (01:22)
[2020-06-05 04:25] LABS: Glucose Point of Care 165 mg/dL (70-110)
[2020-06-05 04:33] LABS: Basophils % 0.2 %; Hematocrit 35.1 % (37.0-47.0); Hemoglobin 10.1 g/dL (11.5-15.3); Lymphocytes # 1.2 10^3/uL (0.8-4.8); Mean Corpuscular HGB Conc 28.8 g/dL (30.0-36.0); Mean Corpuscular Hemoglobin 26.6 pg (28.0-34.0); Mean Corpuscular Volume 92.4 fL (81-99); Mean Platelet Volume 11.1 fL (7.4-10.4); Monocytes # 0.6 10^3/uL (0.2-0.9); Neutrophils % 71.5 %; Nucleated Red Blood Cells % 0 %; Platelet Count 165 10^3/cmm (130-400); Red Cell Distribution Width 15.7 % (12.1-15.1); White Blood Count 6.4 10^3/uL (4.0-10.0)
[2020-06-05 05:04] LABS: Alanine Aminotransferase 8 U/L (0-33); Albumin Level 2.3 g/dL (3.5-5.2); Alkaline Phosphatase 98 IU/L (35-105); Anion Gap 11.3 (5-19); Aspartate Amino Transferase 14 U/L (0-32); Blood Urea Nitrogen 34 mg/dL (6-20); C Reactive Protein 24.5 mg/L (0.0-4.9); Carbon Dioxide 32 mmol/L (22-29); Chloride 107 mmol/L (98-107); Creatine Phosphokinase 221 U/L (26-192); Ferritin 78 ng/mL (15-150); Glucose 174 mg/dL (65-115); Lactate Dehydrogenase 265 U/L (135-214); Osmolality Calculated 316 mOsm/kg (285-295); Potassium 3.3 mmol/L (3.5-5.1); Sodium 147 mmol/L (136-145); Total Bilirubin 0.2 mg/dL (0.15-1.2); Total Protein 5.3 g/dL (6.6-8.7)
[2020-06-05 05:16] LABS: Fibrinogen 565 mg/dL (174-498)
[2020-06-05 05:18] LABS: D Dimer 1.58 ug/mIFEU (0-0.59)
[2020-06-05] MEDS: piperacillin-tazobactam 3.375 GM in sodium chloride 0.9% (plus) 50 ML IV ×3 (05:23→21:32)
[2020-06-05] MEDS: levothyroxine 100 mcg Tablet PO (05:57)
[2020-06-05] MEDS: insulin glargine 100 units/1 mL 15 UNIT SUBCUT (05:57)
--- NOTE | 2020-06-05 06:00 | XR_ITS ---
WS: [id number] Portable AP upright chest, 06/05/2020 Clinical Data: covid Comparison: Portable chest, 06/03/2020 Findings: The bilateral lung opacities remain the same. There is less opacity in the right upper lobe than in the remainder of the lungs. The heart remains enlarged. Monitor leads are on the chest wall. XR/XR chest 1V portable [id number] Impression: No change in bilateral lung opacities.
[2020-06-05 08:54] LABS: Glucose Point of Care 106 mg/dL (70-110)
[2020-06-05] MEDS: amlodipine 10 mg Tablet 5 MG PO (09:43)
[2020-06-05] MEDS: benzonatate 100 mg Capsule PO ×3 (09:43→21:27)
[2020-06-05] MEDS: apixaban 5 mg Tablet PO ×2 (09:43→17:15)
[2020-06-05] MEDS: ascorbic acid 500 mg Tablet PO (09:43)
[2020-06-05] MEDS: escitalopram 10 mg Tablet PO (09:43)
[2020-06-05] MEDS: LORazepam 0.5 mg Tablet PO ×3 (09:43→21:29)
[2020-06-05] MEDS: cyanocobalamin 1,000 mcg Tablet 1000 MCG PO (09:43)
[2020-06-05] MEDS: zinc gluconate 50 mg Tablet PO (09:43)
[2020-06-05] MEDS: metoprolol tartrate 25 mg Tablet PO ×2 (09:43→17:16)
[2020-06-05] MEDS: ferrous gluconate 324 mg Tablet PO ×2 (09:44→17:16)
[2020-06-05] MEDS: dexamethasone 4 mg/mL INJ 6 MG IVP (09:44)
[2020-06-05] MEDS: potassium chloride ER 20 mEq Tablet 40 MEQ PO (09:47)
[2020-06-05 12:27] LABS: Glucose Point of Care 290 mg/dL (70-110)
--- NOTE | 2020-06-05 13:37 | PM.PN ---
Subjective Subjective: Interval history: This morning patient was examined, she is sitting up in bed actually smiling, she is very happy, says that she is doing okay, has no complaints, overnight remains afebrile, still on 3 L nasal cannula, Vitals/I&O/Wt Last Vital Signs Temp 98.8 F 06/05/20 12:00 Pulse 84 06/05/20 12:00 Resp 20 H 06/05/20 12:00 BP 103/57 06/05/20 12:00 Pulse Ox 93 06/05/20 12:00 06/04/20 06/05/20 06/05/20 22:59 06:59 14:59 Intake Total 1200 / 1600 50 / 1650 170 / 170 Output Total 3300 / 3300 850 / 4150 Balance -2100 / -1700 -800 / -2500 170 / 170 Weight last 48 hrs Weight 83.461 kg Weight 85.684 kg Physical Exam Const: COMMON NORMALS: no acute distress GENERAL APPEARANCE: cooperative and comfortable NUTRITIONAL APPEARANCE: obese ORIENTATION/CONSCIOUSNESS: Yes oriented to person; not oriented to place and not oriented to time HENMT: COMMON NORMALS: normocephalic HEAD & SCALP: normocephalic Eye: COMMON NORMALS: Equal, round and reactive pupils present and EOMs intact bilaterally GENERAL EYE: appearance normal, both eyes and all related structures PUPIL: Yes Equal, round and reactive pupils present Neck/C-Spine: COMMON NORMALS: no JVD and Thyroid normal THYROID: Thyroid normal Lymph: LYMPHATIC: no lymphadenopathy noted Resp: COMMON NORMALS: normal respiratory effort, No retractions, No use of accessory muscles and clear to auscultation bilaterally AUSCULTATION: clear to auscultation bilaterally Cardio: COMMON NORMALS: no JVD, regular rate, regular rhythm, S1 normal heart sound present and S2 normal heart sound present RATE: regular rate RHYTHM: regular rhythm HEART SOUNDS: S1 normal heart sound present and S2 normal heart sound present GI: COMMON NORMALS: Normal to inspection, nondistended, normoactive bowel sounds present, Soft to palpation, non-tender, No hepatosplenomegaly present, no masses and no bruits PALPATION: Yes Soft to palpation and Yes No hepatosplenomegaly present Extremity: COMMON NORMALS: capillary refill normal, no clubbing, cyanosis or edema, no calf tenderness and no pedal edema Neuro: COMMON NORMALS: moves all extremities SENSORIUM/ORIENTATION: Yes alert, Yes oriented to person, No oriented to place and No oriented to time OTHER: Confused, does follow some commands such as squeezing my fingers bilaterally, wiggling her toes Urinary Catheter Management^: Riley: Cath Placed During This Visit: yes Reason for Continuing Indwelling Catheter: Accurate Measurement of Urinary Output in Critically Ill Patients Urinary Catheter Date of Insertion: 05/30/20 Urinary Catheter Time of Insertion: 23:30 Data : 06/05/20 04:20 06/05/20 04:20 Micro: Microbiology 05/30/20 20:20 Blood Culture - Final Blood NO GROWTH AFTER 5 DAYS 05/30/20 18:25 Blood Culture - Final Blood NO GROWTH AFTER 5 DAYS A&P Assessment and plan (1) Acute respiratory failure with hypoxia: Status: Acute (2) Pneumonia due to COVID-19 virus: Reported diagnosed on 05/13 Status: Acute (3) COPD (chronic obstructive pulmonary disease): Status: Acute (4) Myocarditis due to COVID-19 virus: Appreciate cardiology recommendations. Small pericardial effusion noted on echo. No RWMA. From cardiology perspective anticoagulation could be discontinued within 48 hours, however, may continue depending on pulmonary considerations. Status: Acute (5) Insulin dependent type 2 diabetes mellitus: Blood sugars better controlled. Continue with mod dose insulin scale. Lantus 15 U SQ QAM. Continue to monitor Status: Acute (6) Septic encephalopathy: Resolved. She is currently awake, alert, does appear to get anxious around easily. Treat underlying conditions as above. Reassured, reorient if needed. Ativan as needed for anxiety. Status: Acute (7) Hypernatremia: Resolving. Sodium down to 143 today. Most likely 2/2 dehydration. Continue with D5 half NS at 75 cc/h. Monitor for fluid overload. Check BMP Q12h Status: Acute (8) DELORES (acute kidney injury): Baseline normal. Creatinine worsening today to 2.1. Most likely secondary to severe COVID-19 infection along with dehydration and ATN from contrast-induced nephropathy. Patient did have CTA on admission. Medication reconciliation done for Nephrotoxic drugs. Check urine creat, urine lytes. Fluids as above. Status: Acute (9) Hypertension: Status: Acute (10) NSTEMI (non-ST elevated myocardial infarction): Possible NSTEMI. As above. Status: Acute (11) Intellectual disability: Status: Acute (12) Presence of IVC filter: Status: Acute (13) GERD (gastroesophageal reflux disease): Status: Acute Additional A&P Information Hypoxia because of COVID-19 pneumonia: Significantly better, actually sitting up in bed smiling, alert, awake. Currently she is on 3 L of oxygen supplementation to maintain a saturation more than 90% both at rest and on minimal activity with physical therapy. on Zosyn for pneumonia, aspiration pneumonia Continue with dexamethasone 6 mg IV daily. Remdesivir was stopped due to worsening creatinine, received 4 days of treatment On Eliquis 5 mg twice daily Advair, Spiriva. Vitamin C, zinc. We will try to wean off oxygen as possible. Pulmonary toilet with incentive spirometry and flutter valve. Procal negative. Afebrile, no leukocytosis. Patient has finished a course of IV antibiotics. We will continue to monitor. Monitor inflammatory markers D-dimer, fibrinogen Anemia, hemoglobin 10.1, likely secondary to Covid pneumonia, no overt signs of bleeding, continue to monitor, is on Eliquis 5 mg twice daily Myocarditis secondary to COVID-19, -Echo showed ejection fraction 55%, Although no diagnostic regional wall motion abnormality could be identified, this possibility cannot be completely excluded. -6-hour troponin 1270, delta was 59 -On aspirin, statin, beta-finn, Eliquis -Cardiology on consult Hypertension: Goal blood pressure less than 140/90 mmHg. Continue with amlodipine 5 mg and metoprolol 25 mg twice daily. We will continue to monitor. Hypokalemia: Potassium 40 mEq oral today PICC line right arm placed due to lost IV access on 05/31 FC Protonix for PUD ppx Lovenox for DVT PPx Dysphagia 1 diet. Patient's care discussed in detail with her sister Ms Blakely. All the questions were answered. Discharge planning: If patient continues to do well can plan to discharge in next 2 to 3 days back to [facility]. Plan: Continue antibiotics, continue Decadron, encouraged to get up out of bed, encourage ambulation, monitor hemoglobin, monitor respiratory status, plan for discharge in the next 24 to 48 hours Attestations Medical Necessity Statement*: Patient requires hospitalization for acute respiratory failure with hypoxia secondary to COVID-19, myocarditis Coding Level of Care Code Acute Pre Parole Counseling Aide for [facility] Fwd Diagnoses Acute respiratory failure with hypoxia J96.01 Pneumonia due to COVID-19 virus U07.1; J12.89 COPD (chronic obstructive pulmonary disease) J44.9 Myocarditis due to COVID-19 virus U07.1; I40.0 Insulin dependent type 2 diabetes mellitus E11.9; Z79.4 Septic encephalopathy G93.41 Hypernatremia E87.0 DELORES (acute kidney injury) N17.9 Hypertension I10 NSTEMI (non-ST elevated myocardial infarction) I21.4 Intellectual disability F79 Presence of IVC filter Z95.828 GERD (gastroesophageal reflux disease) K21.9
[2020-06-05 17:58] LABS: Glucose Point of Care 405 mg/dL (70-110)
[2020-06-05 21:10] LABS: Glucose Point of Care 435 mg/dL (70-110)
[2020-06-05] MEDS: atorvastatin 40 mg Tablet PO (21:27)
[2020-06-06] VITALS (8 sets, daily range): BP systolic 101–141; BP diastolic 59–73; PULSE 71–91; RESP 18–22; TEMP 36.7–37.3; O2SAT 86–98
[2020-06-06 01:10] LABS: Glucose Point of Care 167 mg/dL (70-110)
[2020-06-06] MEDS: aspirin 81 mg EC Tablet PO (01:25)
[2020-06-06] MEDS: pantoprazole 40 mg SDV IVP (01:27)
[2020-06-06 04:54] LABS: Alanine Aminotransferase 10 U/L (0-33); Albumin Level 2.8 g/dL (3.5-5.2); Alkaline Phosphatase 106 IU/L (35-105); Aspartate Amino Transferase 31 U/L (0-32); Blood Urea Nitrogen 34 mg/dL (6-20); C Reactive Protein 14.6 mg/L (0.0-4.9); Calcium 8.6 mg/dL (8.5-10.5); Carbon Dioxide 34 mmol/L (22-29); Chloride 113 mmol/L (98-107); Glucose 53 mg/dL (65-115); Magnesium 2.2 mg/dL (1.7-2.3); Osmolality Calculated 323 mOsm/kg (285-295); Phosphorus 3.1 mg/dL (2.5-4.5); Sodium 154 mmol/L (136-145); Total Bilirubin 0.2 mg/dL (0.15-1.2); Total Protein 5.8 g/dL (6.6-8.7)
[2020-06-06 04:59] LABS: Basophils % 0.2 %; Hematocrit 38.7 % (37.0-47.0); Hemoglobin 11.1 g/dL (11.5-15.3); Lymphocytes # 1.6 10^3/uL (0.8-4.8); Lymphocytes % 19.7 %; Mean Corpuscular HGB Conc 28.7 g/dL (30.0-36.0); Mean Corpuscular Hemoglobin 26.5 pg (28.0-34.0); Mean Corpuscular Volume 92.4 fL (81-99); Mean Platelet Volume 11.3 fL (7.4-10.4); Monocytes # 0.8 10^3/uL (0.2-0.9); Monocytes % 9.7 %; Neutrophils # 5.81 10^3/uL (1.8-7.7); Nucleated Red Blood Cells % 0 %; Platelet Count 169 10^3/cmm (130-400); Red Blood Count 4.19 10^6/uL (4.1-5.3); Red Cell Distribution Width 15.8 % (12.1-15.1); White Blood Count 8.3 10^3/uL (4.0-10.0)
[2020-06-06 05:03] LABS: NT Pro B Type Natriuretic Pept 5322 pg/mL (0-125)
[2020-06-06] MEDS: levothyroxine 100 mcg Tablet PO (05:19)
[2020-06-06] MEDS: piperacillin-tazobactam 3.375 GM in sodium chloride 0.9% (plus) 50 ML IV ×3 (05:19→21:59)
[2020-06-06 06:36] LABS: Glucose Point of Care 86 mg/dL (70-110)
[2020-06-06 06:36] LABS: Glucose Point of Care 59 mg/dL (70-110)
--- NOTE | 2020-06-06 07:00 | XR_ITS ---
WS: [id number] Portable AP upright chest, 06/06/2020 Clinical Data: sob Comparison: Portable chest, 06/05/2020 Findings: The bilateral lung opacities remain the same. Again there is less opacity in the right uppe r lobe. Heart remains enlarged. Monitor leads are on the chest wall. XR/XR chest 1V portable [id number] Impression: No change from yesterday's portable chest.
[2020-06-06 09:13] LABS: Procalcitonin 0.21 ng/mL (0-0.5)
[2020-06-06] MEDS: ferrous gluconate 324 mg Tablet PO ×2 (10:44→18:44)
[2020-06-06] MEDS: metoprolol tartrate 25 mg Tablet PO ×2 (10:44→18:45)
[2020-06-06] MEDS: cyanocobalamin 1,000 mcg Tablet 1000 MCG PO (10:44)
[2020-06-06] MEDS: apixaban 5 mg Tablet PO ×2 (10:45→18:44)
[2020-06-06] MEDS: zinc gluconate 50 mg Tablet PO (10:45)
[2020-06-06] MEDS: pantoprazole DR 40 mg Tablet PO (10:45)
[2020-06-06] MEDS: LORazepam 0.5 mg Tablet PO ×3 (10:45→21:59)
[2020-06-06] MEDS: benzonatate 100 mg Capsule PO ×3 (10:45→21:59)
[2020-06-06] MEDS: escitalopram 10 mg Tablet PO (10:45)
[2020-06-06] MEDS: ascorbic acid 500 mg Tablet PO (10:45)
[2020-06-06] MEDS: amlodipine 10 mg Tablet 5 MG PO (10:46)
[2020-06-06] MEDS: dexamethasone 4 mg/mL INJ 6 MG IVP (11:41)
[2020-06-06] MEDS: dextrose 5% 1,000 ML 100 ML IV ×2 (11:41→22:00)
[2020-06-06 12:32] LABS: Glucose Point of Care 177 mg/dL (70-110)
--- NOTE | 2020-06-06 13:45 | P.PN_ITS ---
Subjective Subjective: Interval history: Patient was examined this morning, she is eating breakfast, she is a bit anxious, she says she wants to get out of the hospital, states that she is doing fine otherwise, no fevers overnight, Vitals/I&O/Wt Last Vital Signs Temp 98.6 F 06/06/20 12:00 Pulse 71 06/06/20 12:00 Resp 18 06/06/20 12:00 BP 101/70 06/06/20 12:00 Pulse Ox 95 06/06/20 12:00 06/05/20 06/06/20 06/06/20 22:59 06:59 14:59 Intake Total 170 / 340 1250 / 1590 240 / 240 Output Total 2700 / 2700 Balance 170 / 340 -1450 / -1110 240 / 240 Weight last 48 hrs Weight 83.943 kg Weight 83.461 kg Physical Exam Const: COMMON NORMALS: no acute distress and alert GENERAL APPEARANCE: cooperative and comfortable NUTRITIONAL APPEARANCE: obese ORIENTATION/CONSCIOUSNESS: Yes awake, Yes oriented to person and Yes confused; not oriented to place and not oriented to time HENMT: COMMON NORMALS: normocephalic HEAD & SCALP: normocephalic Eye: COMMON NORMALS: Equal, round and reactive pupils present and EOMs intact bilaterally GENERAL EYE: appearance normal, both eyes and all related structures PUPIL: Yes Equal, round and reactive pupils present Neck/C-Spine: COMMON NORMALS: no JVD and Thyroid normal THYROID: Thyroid normal Lymph: LYMPHATIC: no lymphadenopathy noted Resp: COMMON NORMALS: normal respiratory effort, No retractions, No use of accessory muscles and clear to auscultation bilaterally AUSCULTATION: clear to auscultation bilaterally Cardio: COMMON NORMALS: no JVD, regular rate, regular rhythm, S1 normal heart sound present and S2 normal heart sound present RATE: regular rate RHYTHM: regular rhythm HEART SOUNDS: S1 normal heart sound present and S2 normal heart sound present GI: COMMON NORMALS: Normal to inspection, nondistended, normoactive bowel sounds present, Soft to palpation, non-tender, No hepatosplenomegaly present, no masses and no bruits PALPATION: Yes Soft to palpation and Yes No hepatosplenomegaly present Extremity: COMMON NORMALS: capillary refill normal, no clubbing, cyanosis or edema, no calf tenderness and no pedal edema Neuro: COMMON NORMALS: moves all extremities SENSORIUM/ORIENTATION: Yes alert, Yes oriented to person, No oriented to place and No oriented to time OTHER: Confused, does follow some commands such as squeezing my fingers bilaterally, wiggling her toes Urinary Catheter Management^: Riley: Cath Placed During This Visit: yes Reason for Continuing Indwelling Catheter: Acute Urinary Retention or Obstruction Urinary Catheter Date of Insertion: 05/30/20 Urinary Catheter Time of Insertion: 23:30 Data : 06/06/20 03:20 06/06/20 03:20 A&P Assessment and plan (1) Acute respiratory failure with hypoxia: Status: Acute (2) Pneumonia due to COVID-19 virus: Reported diagnosed on 05/13 Status: Acute (3) COPD (chronic obstructive pulmonary disease): Status: Acute (4) Myocarditis due to COVID-19 virus: Appreciate cardiology recommendations. Small pericardial effusion noted on echo. No RWMA. From cardiology perspective anticoagulation could be discontinued within 48 hours, however, may continue depending on pulmonary considerations. Status: Acute (5) Insulin dependent type 2 diabetes mellitus: Blood sugars better controlled. Continue with mod dose insulin scale. Lantus 15 U SQ QAM. Continue to monitor Status: Acute (6) Septic encephalopathy: Resolved. She is currently awake, alert, does appear to get anxious around easily. Treat underlying conditions as above. Reassured, reorient if needed. Ativan as needed for anxiety. Status: Acute (7) Hypernatremia: Resolving. Sodium down to 143 today. Most likely 2/2 dehydration. Continue with D5 half NS at 75 cc/h. Monitor for fluid overload. Check BMP Q12h Status: Acute (8) DELORES (acute kidney injury): Baseline normal. Creatinine worsening today to 2.1. Most likely secondary to severe COVID-19 infection along with dehydration and ATN from contrast-induced nephropathy. Patient did have CTA on admission. Medication reconciliation done for Nephrotoxic drugs. Check urine creat, urine lytes. Fluids as above. Status: Acute (9) Hypertension: Status: Acute (10) NSTEMI (non-ST elevated myocardial infarction): Possible NSTEMI. As above. Status: Acute (11) Intellectual disability: Status: Acute (12) Presence of IVC filter: Status: Acute (13) GERD (gastroesophageal reflux disease): Status: Acute Additional A&P Information Hypoxia because of COVID-19 pneumonia: Significantly better, actually sitting up in bed smiling, alert, awake. Currently she is on 3 L of oxygen supplementation to maintain a saturation more than 90% both at rest and on minimal activity with physical therapy. on Zosyn for pneumonia, aspiration pneumonia Continue with dexamethasone 6 mg IV daily. Remdesivir was stopped due to worsening creatinine, received 4 days of treatment On Eliquis 5 mg twice daily Advair, Spiriva. Vitamin C, zinc. We will try to wean off oxygen as possible. Pulmonary toilet with incentive spirometry and flutter valve. Procal negative. Afebrile, no leukocytosis. Patient has finished a course of IV antibiotics. We will continue to monitor. Monitor inflammatory markers D-dimer, fibrinogen Hypovolemic hypernatremia: Free water deficit roughly 2 L, serum sodium 154, start D5 water at 100 cc an hour, serum sodiums every 6 hours, stop after serum sodium less than 145 Anemia, hemoglobin 11.1, likely secondary to Covid pneumonia, no overt signs of bleeding, continue to monitor, is on Eliquis 5 mg twice daily Myocarditis secondary to COVID-19, -Echo showed ejection fraction 55%, Although no diagnostic regional wall motion abnormality could be identified, this possibility cannot be completely excluded. -6-hour troponin 1270, delta was 59 -On aspirin, statin, beta-finn, Eliquis -Cardiology on consult Hypertension: Goal blood pressure less than 140/90 mmHg. Continue with amlodipine 5 mg and metoprolol 25 mg twice daily. We will c ontinue to monitor. Hypokalemia: Resolved 4.0 PICC line right arm placed due to lost IV access on 05/31 FC Protonix for PUD ppx Lovenox for DVT PPx Dysphagia 1 diet. Patient's care discussed in detail with her sister Ms Blakely. All the questions were answered. Plan: Continue antibiotics, continue Decadron, encouraged to get up out of bed, encourage ambulation, monitor hemoglobin, monitor respiratory status, on D5 water for hypernatremia, hopefully discharge the next 24 to 48 hours Attestations Medical Necessity Statement*: Patient requires hospitalization due to COVID-19 pneumonia, acute respiratory failure, hypernatremia Coding Level of Care Code Acute Health Claims Examiner for [facility] Maria G Diagnoses Acute respiratory failure with hypoxia J96.01 Pneumonia due to COVID-19 virus U07.1; J12.89 COPD (chronic obstructive pulmonary disease) J44.9 Myocarditis due to COVID-19 virus U07.1; I40.0 Insulin dependent type 2 diabetes mellitus E11.9; Z79.4 Septic encephalopathy G93.41 Hypernatremia E87.0 DELORES (acute kidney injury) N17.9 Hypertension I10 NSTEMI (non-ST elevated myocardial infarction) I21.4 Intellectual disability F79 Presence of IVC filter Z95.828 GERD (gastroesophageal reflux disease) K21.9
[2020-06-06 18:15] LABS: Glucose Point of Care 301 mg/dL (70-110)
[2020-06-06 19:07] LABS: Sodium 144 mmol/L (136-145)
[2020-06-06] MEDS: atorvastatin 40 mg Tablet PO (21:59)
[2020-06-06 22:09] LABS: Glucose Point of Care 207 mg/dL (70-110)
[2020-06-07] VITALS: BP 128/70; PULSE 72; RESP 17; TEMP 36.7; O2SAT 92
[2020-06-07 00:45] LABS: Glucose Point of Care 193 mg/dL (70-110)
[2020-06-07] MEDS: aspirin 81 mg EC Tablet PO (00:57)
[2020-06-07 01:37] LABS: Sodium 148 mmol/L (136-145)
[2020-06-07 04:00] VITALS: BP 105/70; PULSE 66; RESP 18; TEMP 36.9; O2SAT 98
[2020-06-07 05:00] LABS: Glucose Point of Care 108 mg/dL (70-110)
[2020-06-07] MEDS: levothyroxine 100 mcg Tablet PO (05:30)
[2020-06-07] MEDS: piperacillin-tazobactam 3.375 GM in sodium chloride 0.9% (plus) 50 ML IV (05:30)
--- NOTE | 2020-06-07 06:00 | XRR_ITS ---
PROCEDURE INFORMATION: Exam: XR Chest, 1 View Exam date and time: 06/06/2020 11:59 PM Age: 55 years old Clinical indication: Dyspnea; Additional info: Covid TECHNIQUE: Imaging protocol: XR of the chest Views: 1 view. COMPARISON: CR XR chest 1V portable [id number] 06/06/2020 6:01 AM FINDINGS: Lungs: There are prominent extensive pulmonary infiltrates throughout the left lung but specially in the upper lobe. There is also prominent infiltration in the right base. Allowing for differences in patient positioning these infiltrates have not significantly changed since 06/06/2020. Pleural space: Unremarkable. No pleural effusion. No pneumothorax. Heart/Mediastinum: The cardiac silhouette is enlarged but unchanged. Bones/joints: Unremarkable. XR/XR chest 1V portable [id number] IMPRESSION: 1. Stable cardiomegaly. 2. Extensive bilateral pulmonary infiltrates especially in the left lung. No significant change.
[2020-06-07 06:03] LABS: Basophils % 0.3 %; Hematocrit 35.3 % (37.0-47.0); Hemoglobin 10.4 g/dL (11.5-15.3); Lymphocytes # 1.6 10^3/uL (0.8-4.8); Lymphocytes % 21.3 %; Mean Corpuscular HGB Conc 29.5 g/dL (30.0-36.0); Mean Corpuscular Hemoglobin 26.5 pg (28.0-34.0); Mean Corpuscular Volume 89.8 fL (81-99); Mean Platelet Volume 11.4 fL (7.4-10.4); Monocytes # 0.6 10^3/uL (0.2-0.9); Monocytes % 7.9 %; Neutrophils # 5.18 10^3/uL (1.8-7.7); Neutrophils % 70.2 %; Nucleated Red Blood Cells % 0 %; Platelet Count 173 10^3/cmm (130-400); Red Blood Count 3.93 10^6/uL (4.1-5.3); Red Cell Distribution Width 15.7 % (12.1-15.1); White Blood Count 7.4 10^3/uL (4.0-10.0)
[2020-06-07 06:56] LABS: Alanine Aminotransferase 8 U/L (0-33); Albumin Level 2.6 g/dL (3.5-5.2); Alkaline Phosphatase 95 IU/L (35-105); Anion Gap 11.2 (5-19); Aspartate Amino Transferase 16 U/L (0-32); Blood Urea Nitrogen 28 mg/dL (6-20); C Reactive Protein 8.7 mg/L (0.0-4.9); Calcium 8.2 mg/dL (8.5-10.5); Carbon Dioxide 30 mmol/L (22-29); Chloride 106 mmol/L (98-107); Globulin 2.8 g/dL (1.3-4.6); Glucose 113 mg/dL (65-115); Magnesium 1.8 mg/dL (1.7-2.3); Osmolality Calculated 304 mOsm/kg (285-295); Phosphorus 3.5 mg/dL (2.5-4.5); Potassium 3.2 mmol/L (3.5-5.1); Sodium 144 mmol/L (136-145); Total Bilirubin 0.2 mg/dL (0.15-1.2); Total Protein 5.4 g/dL (6.6-8.7)
[2020-06-07 08:00] VITALS: BP 115/74; PULSE 67; RESP 18; TEMP 37.2; O2SAT 96
[2020-06-07 09:17] LABS: NT Pro B Type Natriuretic Pept 3786 pg/mL (0-125); Procalcitonin 0.14 ng/mL (0-0.5)
[2020-06-07 09:27] LABS: Sodium 144 mmol/L (136-145)
[2020-06-07 12:00] VITALS: BP 120/71; PULSE 68; RESP 18; TEMP 37.1; O2SAT 97
[2020-06-07] MEDS: zinc gluconate 50 mg Tablet PO (12:24)
[2020-06-07] MEDS: ascorbic acid 500 mg Tablet PO (12:24)
[2020-06-07] MEDS: cyanocobalamin 1,000 mcg Tablet 1000 MCG PO (12:24)
[2020-06-07] MEDS: ferrous gluconate 324 mg Tablet PO (12:25)
[2020-06-07] MEDS: apixaban 5 mg Tablet PO (12:25)
[2020-06-07] MEDS: benzonatate 100 mg Capsule PO (12:25)
[2020-06-07] MEDS: pantoprazole DR 40 mg Tablet PO (12:27)
[2020-06-07] MEDS: escitalopram 10 mg Tablet PO (12:27)
[2020-06-07] MEDS: metoprolol tartrate 25 mg Tablet PO (12:27)
[2020-06-07] MEDS: amlodipine 10 mg Tablet 5 MG PO (12:27)
[2020-06-07 12:28] LABS: Glucose Point of Care 284 mg/dL (70-110)
[2020-06-07] MEDS: dexamethasone 4 mg/mL INJ 6 MG IVP (12:29)
--- NOTE | 2020-06-07 12:39 | PM.DCS ---
Discharge Providers Date of Admission: 05/31/20 00:25 Date of Discharge: June 07, 2020 Attending Provider at Admission: Teodoro Juarez MD Attending Provider at Discharge: Teodoro Juarez MD Primary Care Provider: Carlos Conroy MD Diagnoses at Discharge Discharge Diagnosis (1) Acute respiratory failure with hypoxia: Status: Acute (2) Pneumonia due to COVID-19 virus: Status: Acute (3) COPD (chronic obstructive pulmonary disease): Status: Acute (4) Myocarditis due to COVID-19 virus: Status: Acute (5) Insulin dependent type 2 diabetes mellitus: Status: Acute (6) Septic encephalopathy: Status: Acute (7) Hypernatremia: Status: Acute (8) DELORES (acute kidney injury): Status: Acute (9) Hypertension: Status: Acute (10) NSTEMI (non-ST elevated myocardial infarction): Status: Acute (11) Intellectual disability: Status: Acute (12) Presence of IVC filter: Status: Acute (13) GERD (gastroesophageal reflux disease): Status: Acute Reason for Visit Reason for Visit: SOB/ LOW O2 [facility] Hospital Course Hospital Course This is a 55-year-old female with past medical history of 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, history of DVT status post IVC filter placement, B12 deficiency, COPD not on oxygen, GERD, insulin-dependent type 2 diabetes mellitus, vitamin D deficiency, major depressive disorder, who presents to [facility] due to hypoxia, cough, fevers, shortness of breath, fatigue, malaise, chills. Patient tested positive for COVID-19 on May 13 Patient was admitted to the Covid ICU, for acute hypoxic respiratory failure secondary to COVID-19 pneumonia, secondary bacterial pneumonia, septic encephalopathy, received Decadron, remdesivir, Eliquis, oxygen therapy, broad-spectrum antibiotic therapy, aggressive pulmonary toilet, Advair, Spiriva, albuterol. Patient clinically improved, she only received 4 days of remdesivir due to developing acute kidney injury. Patient was de-escalated to the general medical floors, she clinically did well, discharged on Spiriva, Symbicort, albuterol, Augmentin, prednisone taper, 3 L oxygen.. Of note I have discharged patient on Eliquis 2.5 mg twice daily for hypercoagulability related to COVID-19, reassess need at 3 months, and possibly could be discontinued. During her hospitalization, she also developed myocarditis/pericarditis from COVID-19, echo showed EF of 55%, no regional wall motion abnormalities, 6-hour troponin 1270, she had no complaints of chest pain, kept on aspirin, statin, beta-finn, Eliquis. Patient will be discharged with previous medications, with close follow-up with cardiology in 1 month. Patient developed acute kidney injury during her hospitalization, likely related to hypovolemia, and sepsis, continues to have robust urine output, creatinine on discharge 2.3, urine output on discharge 3350cc. Avoid nephrotoxic agents, avoid Lasix, for now monitor serum creatinine, monitor urine output During her hospitalization she also developed hypovolemic hyponatremia, likely secondary to hypovolemia and dehydration as above, corrected with D5 water, serum sodium at discharge 145 Physical Exam Const: COMMON NORMALS: no acute distress and patient oriented x3 HENMT: COMMON NORMALS: normocephalic HEAD & SCALP: normocephalic Neck/C-Spine: COMMON NORMALS: no JVD Resp: COMMON NORMALS: normal respiratory effort, No retractions, No use of accessory muscles and clear to auscultation bilaterally AUSCULTATION: clear to auscultation bilaterally Cardio: COMMON NORMALS: no JVD, regular rate, regular rhythm, S1 normal heart sound present and S2 normal heart sound present RATE: regular rate RHYTHM: regular rhythm HEART SOUNDS: S1 normal heart sound present and S2 normal heart sound present GI: COMMON NORMALS: Normal to inspection, nondistended, normoactive bowel sounds present, Soft to palpation, non-tender, No hepatosplenomegaly present, no masses and no bruits PALPATION: Yes Soft to palpation and Yes No hepatosplenomegaly present Extremity: COMMON NORMALS: capillary refill normal, no clubbing, cyanosis or edema, no calf tenderness and no pedal edema Neuro: COMMON NORMALS: patient oriented x3 Psych: COMMON NORMALS: mental status grossly normal Urinary Catheter Management^: Riley: Cath Placed During This Visit: yes Reason for Continuing Indwelling Catheter: Accurate Measurement of Urinary Output in Critically Ill Patients Urinary Catheter Date of Insertion: 05/30/20 Urinary Catheter Time of Insertion: 23:30 Discharge Data Data Completed and Pending: Completed Studies During Hospitalization Category Date Time Status CT angio chest PE protcl [id number] Stat Cat Scan 11/06/20 17:15 Completed XR chest 1V elliott ble [id number] Q48H Exams 06/03/20 06:00 Completed XR chest 1V elliott ble [id number] Q48H Exams 06/05/20 06:00 Completed XR chest 1V elliott ble [id number] Q48H Exams 06/07/20 06:00 Completed XR chest 1V elliott ble [id number] Routine Exams 05/31/20 07:00 Completed XR chest 1V elliott ble [id number] Routine Exams 06/06/20 07:00 Completed XR chest 1V elliott ble [id number] Stat Exams 05/30/20 15:51 Completed CV echo complete* [id number] Routine Ultrasound 06/01/20 10:00 Completed Pending at discharge Category Date Time Status Arterial Blood Ga s W/O Coox AM LABS Lab 06/02/20 03:25 Results C Reactive Protei n AM LABS Lab 06/08/20 04:00 Ordered Complete Blood Co unt w/Auto AM LABS Lab 06/08/20 04:00 Ordered Comprehensive Met abolic Panel AM LA BS Lab 06/08/20 04:00 Ordered Magnesium AM LABS Lab 06/08/20 04:00 Ordered NT Pro B Type Brianne riuretic Pept QAM Lab 06/08/20 06:00 Ordered Phosphorus AM LAB S Lab 06/08/20 04:00 Ordered Procalcitonin AM LABS Lab 06/08/20 04:00 Ordered Sputum Culture an d Gram Stain Stat Lab 05/30/20 15:51 Uncollected Labs from last 24 hours 06/07/20 06/07/20 06/07/20 11:51 05:37 05:37 WBC RBC Hgb Hct MCV MCH MCHC RDW Plt Count MPV Neut % (Auto) Lymph % (Auto) [place] % (Auto) Eos % (Auto) Baso % (Auto) Neut # (Auto) Lymph # (Auto) [place] # (Auto) Eos # (Auto) Baso # (Auto) Nucleated RBC % (a uto) Nucleated RBCs # Sodium 144 144 Potassium 3.2 L Chloride 106 Carbon Dioxide 30 H Anion Gap 11.2 BUN 28 H Creatinine 2.3 H GFR Calculation 22.0 L Glucose 113 POC Glucose 284 Calculated Osmolal ity 304 H Calcium 8.2 L Phosphorus 3.5 Magnesium 1.8 Total Bilirubin 0.2 AST 16 ALT 8 Alkaline Phosphata se 95 C-Reactive Protein 8.7 H NT-Pro-B Natriuret Pep 3786 H Total Protein 5.4 L Albumin 2.6 L Globulin 2.8 Procalcitonin 0.14 06/07/20 06/07/20 06/07/20 05:37 04:56 00:35 WBC 7.4 RBC 3.93 L Hgb 10.4 L Hct 35.3 L MCV 89.8 MCH 26.5 L MCHC 29.5 L RDW 15.7 H Plt Count 173 MPV 11.4 H Neut % (Auto) 70.2 Lymph % (Auto) 21.3 [place] % (Auto) 7.9 Eos % (Auto) 0.0 Baso % (Auto) 0.3 Neut # (Auto) 5.18 Lymph # (Auto) 1.6 [place] # (Auto) 0.6 Eos # (Auto) 0.0 Baso # (Auto) 0.0 Nucleated RBC % (a uto) 0 Nucleated RBCs # 0.0 Sodium 148 H Potassium Chloride Carbon Dioxide Anion Gap BUN Creatinine GFR Calculation Glucose POC Glucose 108 Calculated Osmolal ity Calcium Phosphorus Magnesium Total Bilirubin AST ALT Alkaline Phosphata se C-Reactive Protein NT-Pro-B Natriuret Pep Total Protein Albumin Globulin Procalcitonin 06/07/20 06/06/20 06/06/20 00:28 22:00 18:35 WBC RBC Hgb Hct MCV MCH MCHC RDW Plt Count MPV Neut % (Auto) Lymph % (Auto) [place] % (Auto) Eos % (Auto) Baso % (Auto) Neut # (Auto) Lymph # (Auto) [place] # (Auto) Eos # (Auto) Baso # (Auto) Nucleated RBC % (a uto) Nucleated RBCs # Sodium 144 Potassium Chloride Carbon Dioxide Anion Gap BUN Creatinine GFR Calculation Glucose POC Glucose 193 207 Calculated Osmolal ity Calcium Phosphorus Magnesium Total Bilirubin AST ALT Alkaline Phosphata se C-Reactive Protein NT-Pro-B Natriuret Pep Total Protein Albumin Globulin Procalcitonin 06/06/20 16:47 WBC RBC Hgb Hct MCV MCH MCHC RDW Plt Count MPV Neut % (Auto) Lymph % (Auto) [place] % (Auto) Eos % (Auto) Baso % (Auto) Neut # (Auto) Lymph # (Auto) [place] # (Auto) Eos # (Auto) Baso # (Auto) Nucleated RBC % (a uto) Nucleated RBCs # Sodium Potassium Chloride Carbon Dioxide Anion Gap BUN Creatinine GFR Calculation Glucose POC Glucose 301 Calculated Osmolal ity Calcium Phosphorus Magnesium Total Bilirubin AST ALT Alkaline Phosphata se C-Reactive Protein NT-Pro-B Natriuret Pep Total Protein Albumin Globulin Procalcitonin Vitals: Last Vital Signs Temp 98.9 F 06/07/20 08:00 Pulse 67 06/07/20 08:00 Resp 18 06/07/20 08:00 BP 115/74 06/07/20 08:00 Pulse Ox 96 06/07/20 08:00 Discharge Plan Discharge Patient Disposition: Xfer SNF Condition: Stable Prescriptions: New aspirin 81 mg Tablet,Delayed Release (Dr/Ec) 81 mg PO Q24H 30 Days Qty: 30 RF: 0 Vitamin C 500 mg Tablet 500 mg PO DAILY 30 Days Qty: 30 RF: 0 amlodipine 10 mg Tablet 5 mg PO DAILY 30 Days Qty: 30 RF: 0 benzonatate 100 mg Capsule 100 mg PO TID PRN (Reason: cough) 30 Days Qty: 30 RF: 0 Eliquis 5 mg Tablet 2.5 mg PO BID 30 Days Qty: 30 RF: 0 Advair Diskus 100-50 mcg/dose Blister With Device 1 ea inhalation BID.RESPIRATORY Qty: 60 RF: 0 ferrous gluconate 324 mg (37.5 mg iron) Tablet 324 mg PO BIDWM 30 Days Qty: 30 RF: 0 Levemir U-100 Insulin 100 unit/mL Solution 10 unit SUBCUT Q12H Qty: 10 RF: 0 Novolog U-100 Insulin aspart 100 unit/mL Solution See Rx Instructions .ROUTE .COMPLEX Qty: 10 RF: 0 pantoprazole 40 mg Tablet,Delayed Release (Dr/Ec) 40 mg PO DAILY 30 Days Qty: 30 RF: 0 metoprolol tartrate 25 mg Tablet 25 mg PO BID 30 Days Qty: 60 RF: 0 Spiriva with HandiHaler 18 mcg Capsule, W/Inhalation Device 18 mcg inhalation DAILY.RESPIRATORY Qty: 30 RF: 0 Augmentin 875-125 mg tablet 1 tab PO Q12H 7 Days Qty: 14 RF: 0 prednisone 10 mg tablet See Rx Instructions .ROUTE .COMPLEX Qty: 53 RF: 0 Continued acetaminophen 325 mg Tablet 325 mg PO QID PRN (Reason: Pain) RF: 0 Senna-S 8.6-50 mg Tablet 1 tab-cap PO DAILY RF: 0 pantoprazole 20 mg Tablet,Delayed Release (Dr/Ec) 20 mg PO DAILY RF: 0 lorazepam 0.5 mg Tablet 0.5 mg PO TID RF: 0 Milk of Magnesia 400 mg/5 mL Suspension 400 mg PO DAILY PRN (Reason: Constipation) RF: 0 bisacodyl 10 mg Suppository 10 mg ME DAILY PRN (Reason: Constipation) RF: 0 Enema Disposable 19-7 gram/118 mL Enema 118 ml ME DAILY PRN (Reason: cinstipation) RF: 0 Symbicort 80-4.5 mcg/actuation Hfa Aerosol Inhaler 2 puff INHALATION BID RF: 0 albuterol sulfate 2.5 mg /3 mL (0.083 %) Solution For Nebulization 2.5 mg INHALATION Q4H PRN (Reason: unknown) RF: 0 atorvastatin 10 mg Tablet 10 mg PO DAILY RF: 0 hydrocodone-acetaminophen 5-325 mg Tablet 1 tab PO Q8H PRN (Reason: Pain) RF: 0 cyanocobalamin (vitamin B-12) 1,000 mcg Tablet 1,000 mcg PO DAILY RF: 0 Tussin 100 mg/5 mL Liquid 200 mg PO Q4H PRN (Reason: unknown) RF: 0 levothyroxine 100 mcg Tablet 100 mcg PO DAILY RF: 0 nystatin 100,000 unit/gram Cream 1 applic TOPICAL BID RF: 0 bisacodyl 5 mg Tablet,Delayed Release (Dr/Ec) 5 mg PO DAILY PRN (Reason: Constipation) RF: 0 escitalopram oxalate 10 mg Tablet 10 mg PO DAILY RF: 0 metformin 1,000 mg Tablet Extended Release 24hr 1,000 mg PO BID RF: 0 Discontinued Novolin N Flexpen 100 unit/mL (3 mL) Insulin Pen See Rx Instructions .ROUTE .COMPLEX RF: 0 Lantus Solostar U-100 Insulin 100 unit/mL (3 mL) Insulin Pen See Rx Instructions .ROUTE .COMPLEX RF: 0 Discharge Orders: Discharge Order (Routine); Ordered 06/07/20 Ordered By: Teodoro Juarez Other Ambulatory Orders: Complete Blood Count w/Auto (Routine) Timeframe: 1 Day Location: Determined by Patient Ordered By: Teodoro Juarez Comprehensive Metabolic Panel (Routine) Timeframe: 1 Day Facility: [facility] - Location: Lab - Main Lab Ordered By: Teodoro Juarez Referrals: [facility] [Outside] Zulay Canonn MD [Physician] - 1 month (COVID-19 myopericarditis) Discharge Diet: Cardiac Discharge Activity: Resume usual activity Activity Restrictions/Additional Instructions: -Continue to hydrate well -Monitor blood sugars 3 times daily, moderate dose sliding scale, Levemir 10 units twice daily -Prednisone taper -Monitor for fevers -Continue Augmentin for the next 7 days -Monitor serum sodium, creatinine -Eliquis 2.5 mg twice daily for hypercoagulability prophylaxis for COVID-19, consider stopping after 3 months of therapy Needs to follow-up with cardiology for COVID-19 myocarditis/pericarditis Discharge Attestations Time Spent in Discharge Care*: less than 30 min Quality Metrics Clinical Quality Measures During this hospital stay, did patient experience: None Coding Level of Care Code 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
--- NOTE | 2020-06-07 15:38 | PC.NURSE ---
SHIFT SUMMARY PLAN IS FOR PT TO DISCHARGE TO [facility]. PT APPEARS TO BE DOING WELL TODAY. PT HAS EATEN A GOOD AMOUNT WITH HELP FROM STAFF. PT HAS HAD NO COMPLAINTS OF PAIN AND HAS NOT APPEARED TO BE AGITATED TODAY. PT HAS BEEN UP TO THE CHAIR, WATCHING TV. THE DOCTOR COME IN AND EXAMINED HER AND DECIDED TO D/C HER TODAY. LATIF CATHETER WAS REMOVED AND INTACT. MIDLINE WAS REMOVED AND INTACT AND SEMI-OCCLUSIVE DRESSING WAS APPLIED AND BLEEDING STOPPED, NO HARDNESS UNDERNEATH THE SITE NOTED. REPORT WAS CALLED AT APPROXIMATELY 1450 TO RAHAT JUDGE AT [facility]. PT IS READY FOR D/C PENDING RIDE. WILL CONTINUE TO MONITOR.
[2020-06-07 15:52] VITALS: BP 123/71; PULSE 71; RESP 18; TEMP 36.9; O2SAT 96
[2020-06-07 17:50] VITALS: BP 123/71; PULSE 71; RESP 18; TEMP 36.9; O2SAT 96
== END 2020-06-07 14:50 | disposition skilled nursing facility (03) | DRG 177 ==
LOC: ER 18:57 → ICU 05-31 00:25 → MEDSURG 06-04 22:00
PROVIDERS: Family Medicine; Internal Medicine; Student in an Organized Health Care Education/Training Program; Admitting Provider Family Medicine; Emergency Provider Emergency Medicine; PCP Internal Medicine Gastroenterology; Visit Provider Family Medicine
DX: U07.1 COVID-19 (principal); J12.89 Other viral pneumonia; J96.01 Acute respiratory failure with hypoxia; I40.0 Infective myocarditis; I21.4 Non-ST elevation (NSTEMI) myocardial infarction; J15.9 Unspecified bacterial pneumonia; N17.0 Acute kidney failure with tubular necrosis; G93.41 Metabolic encephalopathy; G93.1 Anoxic brain damage, not elsewhere classified; E87.1 Hypo-osmolality and hyponatremia; F79 Unspecified intellectual disabilities; Z86.718 Personal history of other venous thrombosis and embolism; Z95.828 Presence of other vascular implants and grafts; E53.8 Deficiency of other specified B group vitamins; J44.9 Chronic obstructive pulmonary disease, unspecified; Z99.81 Dependence on supplemental oxygen; K21.9 Gastro-esophageal reflux disease without esophagitis; D69.6 Thrombocytopenia, unspecified; Z79.4 Long term (current) use of insulin; E11.9 Type 2 diabetes mellitus without complications; E55.9 Vitamin D deficiency, unspecified; F32.9 Major depressive disorder, single episode, unspecified; F03.90 Unspecified dementia, unspecified severity, without behavioral disturbance, psychotic disturbance, mood disturbance, and anxiety; Z87.891 Personal history of nicotine dependence; Z79.891 Long term (current) use of opiate analgesic; D64.9 Anemia, unspecified; N14.1 Nephropathy induced by other drugs, medicaments and biological substances; T50.8X5A Adverse effect of diagnostic agents, initial encounter; E86.0 Dehydration
CPT/HCPCS: 12345; 36415; 36416; 36569; 36592; 36600; 51702; 71045; 71275; 80053; 80061; 80202; 81001; 82436; 82550; 82570; 82728; 82803; 82962; 83036; 83540; 83550; 83605; 83615; 83735; 83880; 84100; 84133; 84145; 84295; 84300; 84443; 84484; 85025; 85378; 85384; 85610; 86140; 86403; 87040; 87086; 87449; 87641; 87804; 92526; 92610; 93005; 93306; 94640; 94660; 94760; 96372; 96375; 97110; 97161; 97167; 97530; 97535; 99284; 99291; C9113; J0456; J1100; J1200; J1650; J1720; J1815 ×2; J1940; J1956; J2060; J2543; J3370; J3535; J7050; J7799; Q9967

== ENCOUNTER 2020-07-28 14:23 | Outpatient (CLI) | payer MEDICAID, SELFPAY ==
[2020-07-28 14:38] LABS: Basophils % 0.3 %; Hematocrit 30.8 % (37.0-47.0); Lymphocytes # 1.5 10^3/uL (0.8-4.8); Lymphocytes % 16.7 %; Mean Corpuscular HGB Conc 29.2 g/dL (30.0-36.0); Mean Corpuscular Hemoglobin 29.4 pg (28.0-34.0); Mean Corpuscular Volume 100.7 fL (81-99); Mean Platelet Volume 10.2 fL (7.4-10.4); Monocytes # 0.6 10^3/uL (0.2-0.9); Monocytes % 6.7 %; Neutrophils # 6.61 10^3/uL (1.8-7.7); Neutrophils % 75.2 %; Nucleated Red Blood Cells % 0.2 %; Platelet Count 271 10^3/cmm (130-400); Red Blood Count 3.06 10^6/uL (4.1-5.3); White Blood Count 8.8 10^3/uL (4.0-10.0)
[2020-07-28 15:08] LABS: Alanine Aminotransferase 10 U/L (0-33); Albumin Level 2.9 g/dL (3.5-5.2); Alkaline Phosphatase 138 IU/L (35-105); Anion Gap 13.1 (5-19); Aspartate Amino Transferase 14 U/L (0-32); Blood Urea Nitrogen 9 mg/dL (6-20); Calcium 8.3 mg/dL (8.5-10.5); Carbon Dioxide 29 mmol/L (22-29); Chloride 101 mmol/L (98-107); Globulin 3.1 g/dL (1.3-4.6); Glomerular Filtration Rate 103.8 mL/min (90-130); Glucose 337 mg/dL (65-115); Osmolality Calculated 300 mOsm/kg (285-295); Potassium 4.1 mmol/L (3.5-5.1); Sodium 139 mmol/L (136-145); Total Bilirubin 0.3 mg/dL (0.15-1.2)
[2020-07-28 17:08] LABS: NT Pro B Type Natriuretic Pept 2354 pg/mL (0-125)
== END 2020-07-28 14:24 | disposition home or self-care (01) ==
LOC: LAB 14:25
PROVIDERS: Family Medicine; Visit Provider Internal Medicine
DX: I50.9 Heart failure, unspecified (principal)
CPT/HCPCS: 80053; 83880; 85025

== ENCOUNTER 2021-04-13 13:26 | Outpatient (CLI) | payer MEDICAID, SELFPAY ==
[2021-04-13 14:38] LABS: Anion Gap 15.6 (5-19); Blood Urea Nitrogen 18 mg/dL (6-20); Calcium 8.6 mg/dL (8.5-10.5); Carbon Dioxide 32 mmol/L (22-29); Chloride 98 mmol/L (98-107); Glomerular Filtration Rate 74.5 mL/min (90-130); Glucose 90 mg/dL (65-115); NT Pro B Type Natriuretic Pept 4954 pg/mL (0-125); Osmolality Calculated 295 mOsm/kg (285-295); Potassium 3.6 mmol/L (3.5-5.1); Sodium 142 mmol/L (136-145)
== END 2021-04-13 13:27 | disposition home or self-care (01) ==
LOC: LAB 13:30
PROVIDERS: PCP Nurse Practitioner Family; Visit Provider Nurse Practitioner Family
DX: R06.02 Shortness of breath (principal)
CPT/HCPCS: 80048; 83880

== ENCOUNTER 2021-11-16 08:56 | Outpatient (CLI) | payer MEDICAID, SELFPAY ==
--- NOTE | 2021-11-16 09:04 | FL_ITS ---
WS: [id number] Modified barium swallow, 11/16/2021 Clinical Data: Other dysphagia Comparison: None. Fluoroscopy time: 2min [id number] # of spot films: 0 Findings: The patient had difficulty in chewing. There are multiple swallows to clear residues with solids and there is premature spillage. The pharynx demonstrated minimal residue in the piriformis with trace pe netration but no aspiration FL/FL barium swallow modifd [id number] Impression: 1. Chewing difficulty. 2. Premature spillage. 3. Minimal residue in the piriformis with a trace trace of penetration.
== END 2021-11-16 08:57 | disposition home or self-care (01) ==
PROVIDERS: PCP Nurse Practitioner Family; Visit Provider Nurse Practitioner Family
DX: R13.10 Dysphagia, unspecified (principal)
CPT/HCPCS: 74230; 92611

== ENCOUNTER 2022-04-13 18:30 | Emergency (ER) | payer MEDICAID, SELFPAY ==
[2022-04-13] VITALS (9 sets, daily range): BP systolic 76–175; BP diastolic 45–90; PULSE 98–120; RESP 16–18; TEMP 36.8; O2SAT 97–100; BMI 29.2
--- NOTE | 2022-04-13 18:44 | CTR_ITS ---
PROCEDURE INFORMATION: Exam: CT Abdomen And Pelvis Without Contrast Exam date and time: 04/13/2022 7:51 PM Age: 56 years old Clinical indication: Abdominal pain; Patient HX: Bilateral flank pain; Additional info: Abd pain TECHNIQUE: Imaging protocol: Computed tomography of the abdomen and pelvis without contrast. Radiation optimization: All CT scans at this facility use at least one of these dose optimization techniques: automated exposure control; mA and/or kV adjustment per patient size (includes targeted exams where dose is matched to clinical indication); or iterative reconstruction. COMPARISON: CT abdomen pelvis wo con [id number] 04/03/2019 2:34 AM RADIATION DOSE METRICS: Total DLP (mGy-cm): 959.24 FINDINGS: Liver: Mild hepatomegaly with steatosis. No cirrhosis. Gallbladder and bile ducts: Mild extrahepatic bile duct dilatation with CBD measuring 10 mm proximally (versus 7 mm previously) and 6 mm distally. Pancreas: Normal. No ductal dilation. Spleen: Normal. No splenomegaly. Adrenal glands: Normal. No mass. Kidneys and ureters: There is minimal right hydronephrosis and minimal right hydroureter to the level of UVJ which could be related to partial right UVJ obstruction. Stomach and bowel: See Soft tissues finding. Appendix: No evidence of appendicitis. Intraperitoneal space: See Soft tissues finding. Vasculature: IVC filter with the tip near the or renal vein origin. Lymph nodes: No enlarged lymph nodes. Urinary bladder: Distended urinary bladder with mild diffuse wall thickening however there is also a discrete nodular soft tissue density at the right posterolateral bladder wall which may represent bladder neoplasm, measuring 2.7 by 1.8 cm. Another area of mild bladder wall thickening versus high-density luminal dependent debris in the left posterior aspect is also present. Reproductive: Unremarkable as visualized. Bones/joints: No acute fracture. Soft tissues: Exam is limited due to streak artifacts arising from patient's arms. Next item calcified granuloma right lung base. Again seen is midline ventral hernia containing fat and small bowel. Mildly distended small bowel is noted in the hernia sac which may represent partial obstruction/intermittent incarceration. Clinical correlation is needed. The hernia sac size now measures about 13 by 8 cm, increased in size versus prior exam of 10.4 x 5 cm. Moderate stool burden. No obvious bowel wall thickening however assessment is limited due to lack of contrast. Next item no free air or drainable fluid collection. CT/CT abdomen pelvis wo con [id number] IMPRESSION: 1. Comparison CT 04/03/2019. Somewhat limited exam due to lack of contrast. 2. New focal right posterior bladder wall thickening which is somewhat suspicious for bladder neoplasm. There is possible mild partial right UVJ obstruction resulting in minimal right hydronephrosis and right hydroureter. Urologic consultation should be considered for cystoscopy. Assessment by CT urogram with and without IV contrast may also be considered. 3. Midline ventral hernia containing fat and small bowel with mild small bowel distension. This may represent partial obstruction/incarceration. No free air or pneumatosis. Surgical consultation may also be considered. 4. Mild hepatomegaly with mild steatosis. 5. Extrahepatic biliary ductal dilatation which could be related to normal status post cholecystectomy. This has slightly increased since prior exam and distal CBD obstruction cannot be excluded. Clinical/LFT correlation should be obtained. Followup imaging may also be considered if clinically indicated. COMMENTS: For patients with an IVC filter, recommend assessment for a management plan for the patient's IVC filter. If there is no established management plan, recommend referral to an interventional clinician on a nonemergent basis for evaluation.
--- NOTE | 2022-04-13 18:57 | ED_ITS ---
HPI - General Adult General: Chief complaint: Vaginal Bleeding Stated complaint: abd pain,vag bleeding Time Seen by Provider: 04/13/22 18:33 History of Present Illness: 56-year-old female sent in with some abdominal pain and vaginal bleeding. Patient comes to the retirement and has some underlying developmental delay. half-way reports that last night she started act like she was having abdominal pain and having some vaginal bleeding. Patient asked like her stomach cramps and is having pain with it. Patient herself denies any pain. Patient just states that she wants to go home however do not believe she understands the situation. No reports of fevers chills cough or other systemic complaints. Patient has known abdominal hernias that are unchanged. Review of Systems General: Reports: ROS unobtainable due to mental status GI: Reports: abdominal pain : Reports: vaginal bleeding and pelvic pain PFS ED PFSH: Medical History (Updated 04/13/22 @ 21:33 by Ruben Hu DO) B12 deficiency COPD (chronic obstructive pulmonary disease) Dementia GERD (gastroesophageal reflux disease) History of DVT (deep vein thrombosis) Hypertension Insulin dependent type 2 diabetes mellitus Intellectual disability Surgical History History of ankle surgery Family History Grandmother Cancer Breast, lung, cervical Mother Gunshot wound Social History Smoking and tobacco status: former smoker Alcohol intake: never Physical Exam Const: COMMON NORMALS: alert EXAM LIMITATIONS: behavioral limitations HENMT: COMMON NORMALS: hearing grossly normal bilaterally and moist oral mucous membranes Resp: COMMON NORMALS: normal respiratory effort, No use of accessory muscles and clear to auscultation bilaterally AUSCULTATION: clear to auscultation bilaterally Cardio: COMMON NORMALS: regular rhythm RATE: tachycardic RHYTHM: regular rhythm GI: COMMON NORMALS: Soft to palpation PALPATION: Yes Soft to palpation, Yes Hernia present and Yes Other GI palpation findings present (Patient seems to be tensing up with abdominal pain. ) : EXTERNAL FEMALE EXAM: Yes Hernia present Extremity: COMMON NORMALS: full ROM and capillary refill normal Neuro: SENSORIUM/ORIENTATION: Yes alert OTHER: Patient with developmental delay but at baseline per EMS Psych: COMMON NORMALS: cooperative Course Vital Signs: Vital signs: Vital Signs Temperature 98.3 F 04/13/22 18:34 Pulse Rate 99 04/13/22 22:47 Respiratory Rate 16 04/13/22 21:39 Blood Pressure 97/56 04/13/22 22:47 Pulse Oximetry 100 04/13/22 22:47 Oxygen Delivery Me thod 04/13/22 22:47 Oxygen Flow Rate 3 04/13/22 22:47 MDM - General Adult Medical Decision Making Patient's bleeding is urinary incontinence. Patient with significant hematuria and likely urinary tract infection. Patient CT shows concerning bladder mass. Patient will be discharged back to the retirement with antibiotics and recommendation to follow-up with urology in the next couple days for recheck and further outpatient evaluation. Patient stable upon discharge Lab Data : 04/13/22 19:20 04/13/22 19:20 Radiology Impressions Abdomen/Pelvis CT 04/13/22 18:44 IMPRESSION: 1. Comparison CT 04/03/2019. Somewhat limited exam due to lack of contrast. 2. New focal right posterior bladder wall thickening which is somewhat suspicious for bladder neoplasm. There is possible mild partial right UVJ obstruction resulting in minimal right hydronephrosis and right hydroureter. Urologic consultation should be considered for cystoscopy. Assessment by CT urogram with and without IV contrast may also be considered. 3. Midline ventral hernia containing fat and small bowel with mild small bowel distension. This may represent partial obstruction/incarceration. No free air or pneumatosis. Surgical consultation may also be considered. 4. Mild hepatomegaly with mild steatosis. 5. Extrahepatic biliary ductal dilatation which could be related to normal status post cholecystectomy. This has slightly increased since prior exam and distal CBD obstruction cannot be excluded. Clinical/LFT correlation should be obtained. Followup imaging may also be considered if clinically indicated. COMMENTS: For patients with an IVC filter, recommend assessment for a management plan for the patient's IVC filter. If there is no established management plan, recommend referral to an interventional clinician on a nonemergent basis for evaluation. Laboratory Results WBC 24.1 10^3/uL (4.0-10.0) H 04/13/22 19:20 RBC 4.56 10^6/uL (4.1-5.3) 04/13/22 19:20 Hgb 14.1 g/dL (11.5-15.3) 04/13/22 19:20 Hct 42.2 % (37.0-47.0) 04/13/22 19:20 MCV 92.5 fl (81-99) 04/13/22 19:20 MCH 30.9 pg (28.0-34.0) 04/13/22 19:20 MCHC 33.4 g/dL (30.0-36.0) 04/13/22 19:20 RDW 13.8 % (12.1-15.1) 04/13/22 19:20 Plt Count 223 10^3/cmm (130-400) 04/13/22 19:20 MPV 10.7 fL (7.4-10.4) H 04/13/22 19:20 Neut % (Auto) 88.2 % 04/13/22 19:20 Lymph % (Auto) 6.0 % 04/13/22 19:20 Collier % (Auto) 4.2 % 04/13/22 19:20 Eos % (Auto) 0.0 % 04/13/22 19:20 Baso % (Auto) 0.3 % 04/13/22 19:20 Neut # (Auto) 21.23 10^3/uL (1.8-7.7) H 04/13/22 19:20 Lymph # (Auto) 1.4 10^3/uL (0.8-4.8) 04/13/22 19:20 Collier # (Auto) 1.0 10^3/uL (0.2-0.9) H 04/13/22 19:20 Eos # (Auto) 0.0 10^3/uL (0.0-0.8) 04/13/22 19:20 Baso # (Auto) 0.1 10^3/uL (0.0-0.1) 04/13/22 19:20 Nucleated RBC % (auto) 0 % 04/13/22: Nucleated RBCs # 0.0 /100WBC 04/13/22 19:20 Sodium 137 mmol/L (136-145) 04/13/22 19:20 Potassium 4.6 mmol/L (3.5-5.1) 04/13/22 19:20 Chloride 93 mmol/L (98-107) L 04/13/22 19:20 Carbon Dioxide 28 mmol/L (22-29) 04/13/22 19:20 Anion Gap 20.6 (5-19) H 04/13/22 19:20 BUN 35 mg/dL (6-20) H 04/13/22 19:20 Creatinine 1.3 mg/dL (0.5-0.9) H 04/13/22 19:20 GFR Calculation 42.4 mL/min (90-130) L 04/13/22 19:20 Glucose 352 mg/dL (65-115) H 04/13/22 19:20 Calculated Osmolality 306 mOsm/kg (285-295) H 04/13/22 19:20 Calcium 9.0 mg/dL (8.5-10.5) 04/13/22 19:20 Total Bilirubin 0.3 mg/dL (0.15-1.2) 04/13/22 19:20 AST 17 U/L (0-32) 04/13/22 19:20 ALT 10 U/L (0-33) 04/13/22 19:20 Alkaline Phosphatase 138 U/L (35-105) H 04/13/22 19:20 Total Protein 7.3 g/dL (6.6-8.7) 04/13/22 19:20 Albumin 3.8 g/dL (3.5-5.2) 04/13/22 19:20 Globulin 3.5 g/dL (1.3-4.6) 04/13/22 19:20 Urine Color Cancelled 04/13/22 21:04 Urine Appearance Cancelled 04/13/22 21:04 Urine pH Cancelled 04/13/22 21:04 Ur Specific Agency Cancelled 04/13/22 21:04 Urine Protein Cancelled 04/13/22 21:04 Urine Glucose (UA) Cancelled 04/13/22 21:04 Urine Ketones Cancelled 04/13/22 21:04 Urine Blood Cancelled 04/13/22 21:04 Urine Nitrate Cancelled 04/13/22 21:04 Urine Bilirubin Cancelled 04/13/22 21:04 Prot Sulfosalicylic Acd Cancelled 04/13/22 21:04 Urine Urobilinogen Cancelled 04/13/22 21:04 Ur Leukocyte Esterase Cancelled 04/13/22 21:04 Discharge Plan Discharge Patient Disposition: Home Clinical Impression: UTI (urinary tract infection), Abnormal radiologic findings on diagnostic imaging of renal pelvis, ureter, or bladder Condition: Stable Prescriptions: New cephalexin 500 mg capsule 500 mg PO Q6H 7 Days Qty: 28 0RF No Action acetaminophen 325 mg Tablet 325 mg PO QID PRN (Reason: Pain) Rx Instructions: pt unable to confirm medications. Confirmed medications with her medication list from [facility] and [facility]. Senna-S 8.6-50 mg Tablet 1 tab-cap PO DAILY Rx Instructions: pt unable to confirm medications. Confirmed medications with her medication list from [facility] and [facility]. pantoprazole 20 mg Tablet,Delayed Release (Dr/Ec) 20 mg PO DAILY Rx Instructions: pt unable to confirm medications. Confirmed medications with her medication list from [facility] and [facility]. lorazepam 0.5 mg Tablet 0.5 mg PO TID Rx Instructions: pt unable to confirm medications. Confirmed medications with her medication list from [facility] and [facility]. Milk of Magnesia 400 mg/5 mL Suspension 400 mg PO DAILY PRN (Reason: Constipation) Rx Instructions: pt unable to confirm medications. i was speaking with [facility] from [facility] about her medications when their computer went down. i am going by the sep, but the times might not be exact. bisacodyl 10 mg Suppository 10 mg AL DAILY PRN (Reason: Constipation) Rx Instructions: pt unable to confirm medications. Confirmed medications with her medication list from [facility] and [facility]. Enema Disposable 19-7 gram/118 mL Enema 118 ml AL DAILY PRN (Reason: cinstipation) Rx Instructions: pt unable to confirm medications. Confirmed medications with her medication list from [facility] and [facility]. Symbicort 80-4.5 mcg/actuation Hfa Aerosol Inhaler 2 puff INHALATION BID Rx Instructions: pt unable to confirm medications. Confirmed medications with her medication list from [facility] and [facility]. albuterol sulfate 2.5 mg /3 mL (0.083 %) Solution For Nebulization 2.5 mg INHALATION Q4H PRN (Reason: unknown) Rx Instructions: pt unable to confirm medications. Confirmed medications with her medication list from [facility] and [facility]. atorvastatin 10 mg Tablet 10 mg PO DAILY Rx Instructions: pt unable to confirm medications. Confirmed medications with her medication list from [facility] and [facility]. hydrocodone-acetaminophen 5-325 mg Tablet 1 tab PO Q8H PRN (Reason: Pain) Rx Instructions: pt unable to confirm medications. Confirmed medications with her medication list from [facility] and [facility]. cyanocobalamin (vitamin B-12) 1,000 mcg Tablet 1,000 mcg PO DAILY Rx Instructions: pt unable to confirm medications. Confirmed medications with her medication list from [facility] and [facility]. Tussin 100 mg/5 mL Liquid 200 mg PO Q4H PRN (Reason: unknown) Rx Instructions: pt unable to confirm medications. Confirmed medications with her medication list from [facility] and [facility]. levothyroxine 100 mcg Tablet 100 mcg PO DAILY Rx Instructions: pt unable to confirm medications. Confirmed medications with her medication list from [facility] and [facility]. nystatin 100,000 unit/gram Cream 1 applic TOPICAL BID Rx Instructions: pt unable to confirm medications. Confirmed medications with her medication list from [facility] and [facility]. bisacodyl 5 mg Tablet,Delayed Release (Dr/Ec) 5 mg PO DAILY PRN (Reason: Constipation) Rx Instructions: pt unable to confirm medications. Confirmed medications with her medication list from [facility] and [facility]. escitalopram oxalate 10 mg Tablet 10 mg PO DAILY Rx Instructions: pt unable to confirm medications. Confirmed medications with her medication list from [facility] and [facility]. metformin 1,000 mg Tablet Extended Release 24hr 1,000 mg PO BID Rx Instructions: pt unable to confirm medications. Confirmed medications with her medication list from [facility] and [facility]. Advair Diskus 100-50 mcg/dose Blister With Device 1 ea inhalation BID.RESPIRATORY Qty: 60 0RF Levemir U-100 Insulin 100 unit/mL Solution 10 unit SUBCUT Q12H Qty: 10 0RF Novolog U-100 Insulin aspart 100 unit/mL Solution See Rx Instructions .ROUTE .COMPLEX Qty: 10 0RF Rx Instructions: Moderate dose sliding scale, subcut, 3 times daily with meals Spiriva with HandiHaler 18 mcg Capsule, W/Inhalation Device 18 mcg inhalation DAILY.RESPIRATORY Qty: 30 0RF prednisone 10 mg tablet See Rx Instructions .ROUTE .COMPLEX Qty: 53 0RF Rx Instructions: 4 tabs a day for 5 days, 3 tabs a day for 5 days, 2 tabs a day for 5 days, 1 tab a day for 5 days, 0.5 tabs a day for 5 days Discharge Orders: Discharge ED (Routine); Ordered 04/13/22 Ordered By: Ruben Hu Referrals: Kaitlynn Almonte CLINICAL STAFF EDUCATOR [Primary Care Provider] - Discharge Diet: Advance as tolerated Discharge Activity: Resume usual activity Patient Instructions: Phenazopyridine (By mouth) (Pyridium, Pyridiate, Azo Standard), Urinary Tract Infection in Women (DC), Opioid Safety, Pain Management Activity Restrictions/Additional Instructions: Please make follow-up with a urologist in the next couple days for review of abnormal imaging and further management as directed by urology Encourage plenty of fluids Coding Level of Care Code ED Board Hammer Operator for Chg Fwd Exam Detailed
[2022-04-13] MEDS: morphine 4 mg/mL SDV 1 mL 2 MG IVP (19:24)
[2022-04-13] MEDS: ondansetron 2 mg/ML SDV 2 mL 4 MG IVP (19:24)
[2022-04-13] MEDS: sodium chloride 0.9% 1,000 ML 999 ML IV ×2 (19:25→21:54)
[2022-04-13 19:26] LABS: Basophils # 0.1 10^3/uL (0.0-0.1); Basophils % 0.3 %; Hematocrit 42.2 % (37.0-47.0); Hemoglobin 14.1 g/dL (11.5-15.3); Lymphocytes # 1.4 10^3/uL (0.8-4.8); Mean Corpuscular HGB Conc 33.4 g/dL (30.0-36.0); Mean Corpuscular Hemoglobin 30.9 pg (28.0-34.0); Mean Corpuscular Volume 92.5 fl (81-99); Mean Platelet Volume 10.7 fL (7.4-10.4); Monocytes % 4.2 %; Neutrophils # 21.23 10^3/uL (1.8-7.7); Neutrophils % 88.2 %; Nucleated Red Blood Cells % 0 %; Platelet Count 223 10^3/cmm (130-400); Red Blood Count 4.56 10^6/uL (4.1-5.3); Red Cell Distribution Width 13.8 % (12.1-15.1); White Blood Count 24.1 10^3/uL (4.0-10.0)
[2022-04-13 19:45] LABS: Alanine Aminotransferase 10 U/L (0-33); Albumin Level 3.8 g/dL (3.5-5.2); Alkaline Phosphatase 138 U/L (35-105); Anion Gap 20.6 (5-19); Aspartate Amino Transferase 17 U/L (0-32); Blood Urea Nitrogen 35 mg/dL (6-20); Carbon Dioxide 28 mmol/L (22-29); Chloride 93 mmol/L (98-107); Globulin 3.5 g/dL (1.3-4.6); Glomerular Filtration Rate 42.4 mL/min (90-130); Glucose 352 mg/dL (65-115); Osmolality Calculated 306 mOsm/kg (285-295); Potassium 4.6 mmol/L (3.5-5.1); Sodium 137 mmol/L (136-145); Total Bilirubin 0.3 mg/dL (0.15-1.2); Total Protein 7.3 g/dL (6.6-8.7)
--- NOTE | 2022-04-13 21:08 | PC.NURSE ---
Assisted pt to bedside commode. Pt tolerated well. Brief changed. Brief saturated with what appears to be bloody urine with foul smell. MD notified. Family at bedside updated.
--- NOTE | 2022-04-13 21:10 | PC.NURSE ---
Call from lab stating urine so bad it wont even read it. notified.
[2022-04-13] MEDS: cefTRIAXone 1,000 MG in sodium chloride 0.9% (plus) 50 ML 100 MG IV (21:33)
[2022-04-13] MEDS: ketorolac 30 mg/mL INJ 15 MG IVP (21:33)
--- NOTE | 2022-04-13 21:42 | PC.NURSE ---
Discharge order given, however BP was 84/55. Repeat was 91/52. MD and charge nurse notified. Holding DC at this time.
--- NOTE | 2022-04-14 00:23 | PC.NURSE ---
Brief changed and pt repositioned. Tolerated well. Pt is awake, alert and follows commands. Alert to person and .
--- NOTE | 2022-04-14 00:30 | PC.NURSE ---
Report called to Martina nurse at [facility]. Verbalized understanding
[2022-04-14 00:54] VITALS: BP 92/56; RESP 16; O2SAT 98
== END 2022-04-14 00:56 | disposition home or self-care (01) ==
PROVIDERS: Emergency Provider Student in an Organized Health Care Education/Training Program; PCP Nurse Practitioner Family
DX: N39.0 Urinary tract infection, site not specified (principal); R93.41 Abnormal radiologic findings on diagnostic imaging of renal pelvis, ureter, or bladder; Z87.891 Personal history of nicotine dependence; J44.9 Chronic obstructive pulmonary disease, unspecified; F03.90 Unspecified dementia, unspecified severity, without behavioral disturbance, psychotic disturbance, mood disturbance, and anxiety; I10 Essential (primary) hypertension; E11.9 Type 2 diabetes mellitus without complications
CPT/HCPCS: 74176; 80053; 85025; 96361; 96365; 96375; 99285; J0696; J1885; J2270; J2405; J7030

== ENCOUNTER 2022-05-04 13:26 | Outpatient (CLI) | payer MEDICAID, SELFPAY ==
[2022-05-04 13:50] LABS: Basophils # 0.1 10^3/uL (0.0-0.1); Basophils % 0.4 %; Hematocrit 43.3 % (37.0-47.0); Hemoglobin 14.5 g/dL (11.5-15.3); Lymphocytes % 25.7 %; Mean Corpuscular HGB Conc 33.5 g/dL (30.0-36.0); Mean Corpuscular Hemoglobin 31.3 pg (28.0-34.0); Mean Corpuscular Volume 93.5 fl (81-99); Mean Platelet Volume 11.3 fL (7.4-10.4); Monocytes # 0.9 10^3/uL (0.2-0.9); Monocytes % 5.7 %; Neutrophils # 10.36 10^3/uL (1.8-7.7); Neutrophils % 67.5 %; Nucleated Red Blood Cells % 0 %; Platelet Count 188 10^3/cmm (130-400); Red Blood Count 4.63 10^6/uL (4.1-5.3); Red Cell Distribution Width 13.8 % (12.1-15.1); White Blood Count 15.4 10^3/uL (4.0-10.0)
[2022-05-04 14:37] LABS: Potassium 4.2 mmol/L (3.5-5.1)
== END 2022-05-04 13:27 | disposition home or self-care (01) ==
LOC: LAB 13:27
PROVIDERS: PCP Nurse Practitioner Family; Visit Provider Nurse Practitioner Family
DX: Z01.89 Encounter for other specified special examinations (principal)
CPT/HCPCS: 84132; 85025

== ENCOUNTER 2022-05-11 10:28 | Inpatient (IN) | payer MEDICAID, SELFPAY ==
[2022-05-11] VITALS (10 sets, daily range): BP systolic 104–169; BP diastolic 65–97; PULSE 110–119; RESP 16–18; TEMP 36.2–36.6; O2SAT 90–97; BMI 26.4; BMI 33.5
--- NOTE | 2022-05-11 10:33 | ECG_ITS ---
[facility] Test Date: 2022-05-11 Pat Name: Emmanuel Corral Department: Room: Gender: Female Merchandise Clerk: : 1965 Requested By: Derrick Aguilar Order Number: [id number] Colby MD: Zulay Cannon M.D. Measurements Intervals [place] Rate: 114 P: 58 VA: 129 QRS: -4 QRSD: 77 T: 61 QT: 289 QTc: 398 Interpretive Statements SINUS TACHYCARDIA POSSIBLE LEFT ATRIAL ENLARGEMENT [-0.1mV P-WAVE IN V1/V2] INFERIOR MYOCARDIAL INFARCTION , PROBABLY OLD [40+ ms Q WAVE AND/OR ST/T ABNORMALITY IN II/aVF] Compared to ECG 06/02/2020 03:41:25 Myocardial infarct finding now present Sinus rhythm no longer present Electronically Signed On 05-12-2022 5:53:31 CDT by Zulay Cannon M.D. [id number]
--- NOTE | 2022-05-11 10:34 | CT_ITS ---
WS: [id number] CT ABDOMEN PELVIS TECHNIQUE: Contrast-enhanced CT of the abdomen and pelvis with coronal and sagittal reformatted image s. CLINICAL INFORMATION: abd pain COMPARISON: CT April 13, 2022 DLP: 757.[address] scans at [facility] use at least one of these dose optimization techniques: automated e xposure control; mA and/or kV adjustment per patient size (includes targeted exams where dose is matc hed to clinical indication); or iterative reconstruction. FINDINGS:[place] ventral abdominal wall hernia appears similar to the prior examinations with herni ation of small and large bowel loops. Evidence of obstruction with proximal small bowel dilatation an d air-fluid levels. Diffuse thickening and enhancement involving some of the herniated bowel loops wi th associated fluid and edema. No perforation or free air. Diffuse fatty infiltration the liver. Prior cholecystectomy. Lung bases are well aerated. Normal sple en. Normal GE junction. Stomach appears normal. Proximal duodenum appears normal. Intussusception inv olving the 2nd portion the duodenum. Distal duodenum is normal in appearance. This was likely present on previous examinations better seen today with contrast. This can be further evaluated with endosco py. Adrenal glands are normal. Normal renal parenchymal enhancement. Moderate RIGHT hydronephrosis has pr ogressed compared to previous. Hydroureter. Ureter is dilated to the UVJ. Diffuse bladder wall thicke eduardo with enhancement. No visualized obstructing renal or ureteral calculi. Diffuse bladder wall thic kening with nodular configuration eccentric to the RIGHT suspicious for obstructing bladder neoplasm. This can be further evaluated with cystoscopy. This is progressed compared to prior examinations. No hydronephrosis in the LEFT kidney. Normal caliber abdominal aorta. Celiac and SMA are patent. Adre nal glands are normal. Small bilateral renal cysts. Normal portal vein and splenic vein. IVC filter. CT/CT abdomen pelvis w con* [id number] IMPRESSION: 1. Wide mouth incarcerated ventral abdominal wall hernia with evidence of prox imal small bowel obstruction. In addition herniated bowel loops demonstrate wal l thickening with surrounding edema and mucosal enhancement. No perforation. 2. Diffuse circumferential enhancing bladder wall thickening suspicious for bl adder neoplasm. This appears to result in obstruction of the RIGHT ureter with moderate RIGHT hydronephrosis progressed compared to previous. More focal RIGHT eccentric bladder wall mass measuring 1.6 x 1.4 CM obstructs the RIGHT ureter compatible with neoplasm. Recommend further evaluation with cystoscopy. 3. Intussusception involving the 2nd portion of the duodenum likely present on prior examinations. This may be incidental but can be followed up with endosco py. 4. Prior cholecystectomy.
--- NOTE | 2022-05-11 11:08 | ED_ITS ---
HPI - GI Bleed General: Chief complaint: GI Bleed Stated complaint: GI bleed Time Seen by Provider: 05/11/22 10:31 Source: family and EMS Mode of arrival: EMS History of Present Illness: 56-year-old female who has severe mental dis ability is not able to answer any questions or provide any history all history is from old records retirement reports and EMS reports. She is brought to the emergency room with a complaint of coffee-ground emesis at the retirement. No hematochezia no melena. She has not had any bowel movements for some time. She normally is able to have adequate p.o. intake but has had significantly decrea sed p.o. intake and seemed to be in more pain. 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 Dementia Depression Epilepsy GERD (gastroesophageal reflux disease) History of DVT (deep vein thrombosis) Hypertension Hypothyroidism Insulin dependent type 2 diabetes mellitus Intellectual disability Mild intermittent asthma Mixed hyperlipidemia Presence of IVC filter Ventral hernia Vitamin D deficiency Surgical History History of ankle surgery History of cholecystectomy Family History Grandmother Cancer Breast, lung, cervical Mother Gunshot wound Social History Smoking and tobacco status: former smoker Alcohol intake: never Physical Exam HENMT: COMMON NORMALS: normocephalic and atraumatic HEAD & SCALP: normocephalic and atraumatic Resp: COMMON NORMALS: normal respiratory effort, No retractions, No use of accessory muscles and clear to auscultation bilaterally AUSCULTATION: clear to auscultation bilaterally Cardio: COMMON NORMALS: regular rate, regular rhythm and No murmurs present (Cardio) RATE: regular rate RHYTHM: regular rhythm GI: COMMON NORMALS: No hepatosplenomegaly present INSPECTION: Yes abdominal distension and Yes visible herniation AUSCULTATION: Yes Absent bowel sounds PALPATION: No Tenderness to palpation present (GI), No Guarding due to palpation present (GI) and Yes No hepatosplenomegaly present PERCUSSION: tympanic to percussion Extremity: COMMON NORMALS: normal to inspection, capillary refill normal, no clubbing, cyanosis or edema, no calf tenderness and no pedal edema Skin: COMMON NORMALS: no rashes or lesions noted GENERAL SKIN EXAM: no rashes or lesions noted Course Vital Signs: Vital signs: Vital Signs Temperature 99.4 F 05/14/22 03:32 Pulse Rate 83 05/14/22 03:32 Respiratory Rate 18 05/14/22 03:32 Blood Pressure 99/63 05/14/22 03:32 Pulse Oximetry 91 05/14/22 03:32 Oxygen Delivery Me thod 05/14/22 03:32 Oxygen Flow Rate 2 05/11/22 15:50 MDM - GI Bleed Medical Decision Making Also beenSmall bowel obstruction. There is a evidence of intussusception but it appears to have been chronic its been denied identified in the past. She also has an incarcerated ventral hernia chronic. Moderate acute kidney injury with bladder mass causing hydronephrosis concerning for nephrolithiasis. NG placed in the emergency room with sedation to so patient will tolerate. We will admit consult surgery and urology. Medical Records I reviewed the patient's medical records. Lab Data I reviewed the patient's lab results. : 05/13/22 02:03 05/14/22 04:54 Radiology Impressions Abdomen/Pelvis CT 05/11/22 10:34 IMPRESSION: 1. Wide mouth incarcerated ventral abdominal wall hernia with evidence of proximal small bowel obstruction. In addition herniated bowel loops demonstrate wall thickening with surrounding edema and mucosal enhancement. No perforation. 2. Diffuse circumferential enhancing bladder wall thickening suspicious for bladder neoplasm. This appears to result in obstruction of the RIGHT ureter with moderate RIGHT hydronephrosis progressed compared to previous. More focal RIGHT eccentric bladder wall mass measuring 1.6 x 1.4 CM obstructs the RIGHT ureter co mpatible with neoplasm. Recommend further evaluation with cystoscopy. 3. Intussusception involving the 2nd portion of the duodenum likely present on prior examinations. This may be incidental but can be followed up with endoscopy. 4. Prior cholecystectomy. Chest X-Ray 05/12/22 10:26 IMPRESSION: Tip of the nasogastric tube projects on the body of the stomach. Abdomen X-Ray 05/12/22 13:45 IMPRESSION: No complete obstruction identified. Nonspecific bowel gas pattern. COMMENTS: For patients with an IVC filter, recommend assessment for a management plan for the patient's IVC filter. If there is no established management plan, recommend referral to an interventional clinician on a nonemergent basis for evaluation. KUB X-Ray 05/13/22 04:00 IMPRESSION: Interval progression of contrast material in the colon, as noted above. No abnormal dilatation of small bowel loops. COMMENTS: For patients with an IVC filter, recommend assessment for a management plan for the patient's IVC filter. If there is no established management plan, recommend referral to an interventional clinician on a nonemergent basis for evaluation. Laboratory Results WBC 21.9 10^3/uL (4.0-10.0) H 05/11/22 11:10 RBC 5.03 10^6/uL (4.1-5.3) 05/11/22 11:10 Hgb 15.5 g/dL (11.5-15.3) H 05/11/22 11:10 Hct 46.3 % (37.0-47.0) 05/11/22 11:10 MCV 92.0 fl (81-99) 05/11/22 11:10 MCH 30.8 pg (28.0-34.0) 05/11/22 11:10 MCHC 33.5 g/dL (30.0-36.0) 05/11/22 11:10 RDW 13.6 % (12.1-15.1) 05/11/22 11:10 Plt Count 299 10^3/cmm (130-400) 05/11/22 11:10 MPV 11.2 fL (7.4-10.4) H 05/11/22 11:10 Neut % (Auto) 80.7 % 05/11/22 11:10 Lymph % (Auto) 12.1 % 05/11/22 11:10 [place] % (Auto) 5.8 % 05/11/22 11:10 Eos % (Auto) 0.0 % 05/11/22 11:10 Baso % (Auto) 0.2 % 05/11/22 11:10 Neut # (Auto) 17.69 10^3/uL (1.8-7.7) H 05/11/22 11:10 Lymph # (Auto) 2.6 10^3/uL (0.8-4.8) 05/11/22 11:10 [place] # (Auto) 1.3 10^3/uL (0.2-0.9) H 05/11/22 11:10 Eos # (Auto) 0.0 10^3/uL (0.0-0.8) 05/11/22 11:10 Baso # (Auto) 0.0 10^3/uL (0.0-0.1) 05/11/22 11:10 Nucleated RBC % (auto) 0 % 05/11/22 11:10 Nucleated RBCs # 0.0 /100WBC 05/11/22 11:10 PT 13.60 SECONDS (12.1-14.9) 05/11/22 11:10 INR 1.01 (0.8-1.2) 05/11/22 11:10 APTT 22.6 SECONDS (23.9-36.7) L 05/11/22 11:10 Sodium 132 mmol/L (136-145) L 05/11/22 11:10 Potassium 6.4 mmol/L (3.5-5.1) H 05/11/22 11:10 Chloride 88 mmol/L (98-107) L 05/11/22 11:10 Carbon Dioxide 29 mmol/L (22-29) 05/11/22 11:10 Anion Gap 21.4 (5-19) H 05/11/22 11:10 BUN 58 mg/dL (6-20) H 05/11/22 11:10 Creatinine 2.1 mg/dL (0.5-0.9) H 05/11/22 11:10 GFR Calculation 24.4 mL/min (90-130) L 05/11/22 11:10 Glucose 160 mg/dL (65-115) H 05/11/22 11:10 Calculated Osmolality 294 mOsm/kg (285-295) 05/11/22 11:10 Calcium 9.4 mg/dL (8.5-10.5) 05/11/22 11:10 Total Bilirubin 0.7 mg/dL (0.15-1.2) 05/11/22 11:10 AST 16 U/L (0-32) 05/11/22 11:10 ALT 8 U/L (0-33) 05/11/22 11:10 Alkaline Phosphatase 122 U/L (35-105) H 05/11/22 11:10 Total Protein 7.2 g/dL (6.6-8.7) 05/11/22 11:10 Albumin 4.1 g/dL (3.5-5.2) 05/11/22 11:10 Globulin 3.1 g/dL (1.3-4.6) 05/11/22 11:10 Discharge Plan Discharge Patient Disposition: Admitted As Inpatient Admit Provider: Melissa Kent Clinical Impression: Small bowel obstruction, DELORES (acute kidney injury), Intussusception, Incarcerated ventral hernia, Mass of bladder Condition: Stable Discharge Diet: GI Soft Coding Level of Care Code ED [place] Shift Superintendent for Chg Maria G
[2022-05-11 11:20] LABS: Basophils % 0.2 %; Hematocrit 46.3 % (37.0-47.0); Hemoglobin 15.5 g/dL (11.5-15.3); Lymphocytes # 2.6 10^3/uL (0.8-4.8); Lymphocytes % 12.1 %; Mean Corpuscular HGB Conc 33.5 g/dL (30.0-36.0); Mean Corpuscular Hemoglobin 30.8 pg (28.0-34.0); Mean Platelet Volume 11.2 fL (7.4-10.4); Monocytes # 1.3 10^3/uL (0.2-0.9); Monocytes % 5.8 %; Neutrophils # 17.69 10^3/uL (1.8-7.7); Neutrophils % 80.7 %; Nucleated Red Blood Cells % 0 %; Platelet Count 299 10^3/cmm (130-400); Red Blood Count 5.03 10^6/uL (4.1-5.3); Red Cell Distribution Width 13.6 % (12.1-15.1); White Blood Count 21.9 10^3/uL (4.0-10.0)
[2022-05-11 11:34] LABS: INR 1.01 (0.8-1.2); Partial Thromboplastin Time 22.6 SECONDS (23.9-36.7)
[2022-05-11 11:39] LABS: Alanine Aminotransferase 8 U/L (0-33); Albumin Level 4.1 g/dL (3.5-5.2); Alkaline Phosphatase 122 U/L (35-105); Blood Urea Nitrogen 58 mg/dL (6-20); Calcium 9.4 mg/dL (8.5-10.5); Carbon Dioxide 29 mmol/L (22-29); Chloride 88 mmol/L (98-107); Globulin 3.1 g/dL (1.3-4.6); Glomerular Filtration Rate 24.4 mL/min (90-130); Glucose 160 mg/dL (65-115); Osmolality Calculated 294 mOsm/kg (285-295); Sodium 132 mmol/L (136-145); Total Bilirubin 0.7 mg/dL (0.15-1.2); Total Protein 7.2 g/dL (6.6-8.7)
[2022-05-11 11:41] LABS: Anion Gap 21.4 (5-19); Aspartate Amino Transferase 16 U/L (0-32); Potassium 6.4 mmol/L (3.5-5.1)
[2022-05-11] MEDS: diphenhydrAMINE 50 mg/mL SDV 1mL IVP (12:01)
[2022-05-11] MEDS: sodium chloride 0.9% 1,000 ML 999 ML IV ×3 (12:45→15:02)
[2022-05-11] MEDS: iohexol 350 mg/mL 100 mL Btl IV (12:49)
[2022-05-11] MEDS: midazolam 1 mg/mL INJ 2 mL IVP (14:00)
[2022-05-11] MEDS: morphine 4 mg/mL SDV 1 mL 2 MG IVP (14:00)
[2022-05-11] MEDS: midazolam 1 mg/mL INJ 2 mL 2 MG IVP (15:02)
--- NOTE | 2022-05-11 15:19 | PC.PHAR ---
PT IS [facility] [place] [facility] [place] MEDS EXCEPT FOR INSULIN-METOPROLOL [id number]-OLOLPATADINE SOLUTION
[2022-05-11] MEDS: calcium chloride 10% Syr 10 mL 2 GM IVP (15:25)
[2022-05-11] MEDS: sodium bicarbonate 8.4% 1 mEq/mL 50mL Syr 100 MEQ IVP (15:34)
[2022-05-11] MEDS: dextrose 10% 1,000 ML 50 ML IV (15:44)
[2022-05-11] MEDS: insulin regular-human 100 units/1 mL 10 UNIT IVP (15:44)
[2022-05-11 15:51] LABS: Glucose Point of Care 81 mg/dL (70-110)
--- NOTE | 2022-05-11 16:15 | P.HP_ITS ---
Providers/Chief Complaint Admitting Physician: Melissa Kent MD Primary Care Provider: Kaitlynn Almonte NP Chief Complaint: Vomiting fecal material History of Present Illness Emmanuel Corral is a 56 year old female with intellectual disability/cognitive age around 5 or 6 along with dementia with behavioral disturbance who presented to the emergency room after witnessed episode of vomiting of fecal material this morning. I spoke with the nurse at [facility] where she is in the special care unit. They described that at baseline its not unusual for Maggie to vomit after drinking a large volume of liquids quickly which she is prone to do. Over the last week or so however she has had episodes of vomiting that did not appear to be definitively within her usual pattern off and on. Her vital signs had been stable and recurrent episodes of vomiting (that were not just clear liquids as per her usual) did not occur within the same day. This morning however she had 1 episode of emesis before breakfast. This was followed later this morning by an episode of emesis of what appeared to be fecal material. The nurse described as like diarrhea . No blood was noted. Her belly may be a bit more distended than baseline. No report of any fever. Unclear exactly when her last bowel movement was. History is not able to be obtained from Mrs. Lovett herself. Facility records and prior hospital records were reviewed in addition to speaking with staff. Work-up in the emergency room revealed evidence of partial small bowel obstruction proximal to a chronic ventral hernia with some incarcerated bowel. In addition she had bladder wall thickening and an apparent bladder mass with right ureter obstruction and hydronephrosis. Acute kidney injury was also identified. She is being admitted for further evaluation and treatment as indicated. Review of Systems General: Reports: ROS unobtainable due to mental status Medications/Allergies Home Medications Medication Instructions Recorded Confirmed Last Taken Type atorvastatin 10 mg tablet 10 mg PO DAILY@08 05/30/20 05/11/22 05/11/22 History bisacodyl 10 mg rectal suppository 10 mg RI DAILY PRN Constipation 05/30/20 05/11/22 Unknown History bisacodyl 5 mg tablet,delayed 10 mg PO DAILY PRN Constipation 05/30/20 05/11/22 Unknown History release hydrocodone 5 mg-acetaminophen 325 1 tab PO Q8H PRN Pain 05/30/20 05/11/22 05/11/22 08:15 History mg tablet levothyroxine 100 mcg tablet 100 mcg PO QAM 05/30/20 05/11/22 05/11/22 History lorazepam 0.5 mg tablet 0.5 mg PO TID@,,05/30/20 05/11/22 05/11/22 History magnesium hydroxide 400 mg/5 mL 30 ml PO DAILY PRN Constipation 05/30/20 05/11/22 Unknown History oral suspension (Milk of Magnesia) nystatin 100,000 unit/gram topical See Rx Instructions .Route .COMPLEX 05/30/20 05/11/22 05/30/20 History cream pantoprazole 20 mg tablet,delayed 20 mg PO QAM 05/30/20 05/11/22 05/11/22 History release insulin aspart U-100 100 unit/mL See Rx Instructions .Route 06/07/20 05/11/22 Unknown Rx subcutaneous solution (Novolog .COMPLEX #10 mL U-100 Insulin aspart) acetaminophen 650 mg 650 mg PO Q6H PRN Pain 05/11/22 05/11/22 Unknown History tablet,extended release aluminum-mag hydroxide-simethicone 10 ml PO Q4H PRN Indigestion 05/11/22 05/11/22 Unknown History 400 mg-400 mg-40 mg/5 mL oral susp aspirin 81 mg tablet,delayed 81 mg PO DAILY@05/11/22 05/11/22 05/11/22 History release furosemide 80 mg tablet (Lasix) 80 mg PO DAILY@08 05/11/22 05/11/22 05/11/22 History hydroxyzine HCl 25 mg tablet 25 mg PO TID@,,05/11/22 05/11/22 05/11/22 History insulin detemir U-100 100 unit/mL 40 unit SUBCUT BEDTIME 05/11/22 05/11/22 Unknown History subcutaneous solution (Levemir U-100 Insulin) magnesium oxide 400 mg PO BID 05/11/22 05/11/22 05/11/22 History metformin 1,000 mg tablet 1,000 mg PO BID 05/11/22 05/11/22 05/11/22 History metolazone 2.5 mg tablet 2.5 mg PO QAM 05/11/22 05/11/22 05/11/22 History metoprolol tartrate 25 mg tablet 12.5 mg PO BID 05/11/22 05/11/22 05/10/22 History olopatadine 0.1 % eye drops 1 drp ophthalmic (eye) BID 05/11/22 05/11/22 05/10/22 History polyethylene glycol 3350 17 gram 17 g PO QAM 05/11/22 05/11/22 05/11/22 History oral powder packet (Miralax) potassium chloride 20 mEq 20 meq PO TID@08,13,20 05/11/22 05/11/22 05/11/22 History tablet,extended release sennosides 8.6 mg tablet (senna) 8.6 mg PO QAM 05/11/22 05/11/22 05/10/22 History sitagliptin 50 mg tablet (Januvia) 50 mg PO DAILY@08 05/11/22 05/11/22 05/11/22 History Allergies Allergy/AdvReac Type Severity Reaction Status Date / Time Iodine and Iodide Containing Allergy Unknown Unknown Verified 05/11/22 12:44 Produc iodine Allergy Unknown Verified 05/11/22 12:44 PFSH Acute PFSH: Medical History (Updated 05/11/22 @ 16:58 by Melissa Kent MD) Anxiety B12 deficiency Cataract COPD (chronic obstructive pulmonary disease) COVID-19 (~05/2020) 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 Dementia Depression Epilepsy GERD (gastroesophageal reflux disease) History of DVT (deep vein thrombosis) Hypertension Hypothyroidism Insulin dependent type 2 diabetes mellitus Intellectual disability Mild intermittent asthma Mixed hyperlipidemia Presence of IVC filter Ventral hernia Vitamin D deficiency Surgical History (Updated 05/11/22 @ 16:48 by Melissa Kent MD) History of ankle surgery History of cholecystectomy Family History Grandmother Cancer Breast, lung, cervical Mother Gunshot wound Social History Smoking and tobacco status: former smoker Alcohol intake: never Vitals/I&O/Wt Last Vital Signs Temp 97.9 F 05/11/22 10:31 Pulse 117 H 05/11/22 15:50 Resp 17 05/11/22 15:50 BP 169/86 05/11/22 15:50 Pulse Ox 97 05/11/22 15:50 O2 Del Method 05/11/22 15:50 O2 Flow Rate 2 05/11/22 15:50 05/11/22 05/11/22 05/11/22 06:59 14:59 22:59 Intake Total 1000 / 1000 Balance 1000 / 1000 Weight last 48 hrs Weight 61.235 kg Physical Exam Narrative: Constitutional: Awake and alert, asks for pop which equates to soda pop for her constantly, does not want to be touched and tries to push hands away HEENT: Normocephalic, extraocular movements are grossly intact, oropharynx is dry Neck: Supple Respiratory: Clear to auscultation without any wheezes or rails noted Cardiovascular: Regular rhythm, distant heart sounds Abdomen: Distended, ventral hernia is soft, not fully reducible, positive bowel sounds predominantly within the ventral hernia itself otherwise decreased bowel sounds, appears tender particularly right flank and right-sided quadrants : Normal external, no Riley catheter Extremities: No pitting edema, no calf tenderness Skin: Skin is quite dry Neuro: Face is symmetric, moves all extremities, no involuntary movements noted Psych: Flat affect though can get animated asking for pop when told she cant have it right now Data : 05/11/22 11:10 05/11/22 11:10 Other Labs: Radiology Impressions Abdomen/Pelvis CT 05/11/22 10:34 IMPRESSION: 1. Wide mouth incarcerated ventral abdominal wall hernia with evidence of proximal small bowel obstruction. In addition herniated bowel loops demonstrate wall thickening with surrounding edema and mucosal enhancement. No perforation. 2. Diffuse circumferential enhancing bladder wall thickening suspicious for bladder neoplasm. This appears to result in obstruction of the RIGHT ureter with moderate RIGHT hydronephrosis progressed compared to previous. More focal RIGHT eccentric bladder wall mass measuring 1.6 x 1.4 CM obstructs the RIGHT ureter compatible with neoplasm. Recommend further evaluation with cystoscopy. 3. Intussusception involving the 2nd portion of the duodenum likely present on prior examinations. This may be incidental but can be followed up with endoscopy. 4. Prior cholecystectomy. Laboratory Results WBC 21.9 10^3/uL (4.0-10.0) H 05/11/22 11:10 RBC 5.03 10^6/uL (4.1-5.3) 05/11/22 11:10 Hgb 15.5 g/dL (11.5-15.3) H 05/11/22 11:10 Hct 46.3 % (37.0-47.0) 05/11/22 11:10 MCV 92.0 fl (81-99) 05/11/22 11:10 MCH 30.8 pg (28.0-34.0) 05/11/22 11:10 MCHC 33.5 g/dL (30.0-36.0) 05/11/22 11:10 RDW 13.6 % (12.1-15.1) 05/11/22 11:10 Plt Count 299 10^3/cmm (130-400) 05/11/22 11:10 MPV 11.2 fL (7.4-10.4) H 05/11/22 11:10 Neut % (Auto) 80.7 % 05/11/22 11:10 Lymph % (Auto) 12.1 % 05/11/22 11:10 [place] % (Auto) 5.8 % 05/11/22 11:10 Eos % (Auto) 0.0 % 05/11/22 11:10 Baso % (Auto) 0.2 % 05/11/22 11:10 Neut # (Auto) 17.69 10^3/uL (1.8-7.7) H 05/11/22 11:10 Lymph # (Auto) 2.6 10^3/uL (0.8-4.8) 05/11/22 11:10 [place] # (Auto) 1.3 10^3/uL (0.2-0.9) H 05/11/22 11:10 Eos # (Auto) 0.0 10^3/uL (0.0-0.8) 05/11/22 11:10 Baso # (Auto) 0.0 10^3/uL (0.0-0.1) 05/11/22 11:10 Nucleated RBC % (auto) 0 % 05/11/22 11:10 Nucleated RBCs # 0.0 /100WBC 05/11/22 11:10 PT 13.60 SECONDS (12.1-14.9) 05/11/22 11:10 INR 1.01 (0.8-1.2) 05/11/22 11:10 APTT 22.6 SECONDS (23.9-36.7) L 05/11/22 11:10 Sodium 132 mmol/L (136-145) L 05/11/22 11:10 Potassium 6.4 mmol/L (3.5-5.1) H 05/11/22 11:10 Chloride 88 mmol/L (98-107) L 05/11/22 11:10 Carbon Dioxide 29 mmol/L (22-29) 05/11/22 11:10 Anion Gap 21.4 (5-19) H 05/11/22 11:10 BUN 58 mg/dL (6-20) H 05/11/22 11:10 Creatinine 2.1 mg/dL (0.5-0.9) H 05/11/22 11:10 GFR Calculation 24.4 mL/min (90-130) L 05/11/22 11:10 Glucose 160 mg/dL (65-115) H 05/11/22 11:10 POC Glucose 81 mg/dL (70-110) 05/11/22 15:28 Calculated Osmolality 294 mOsm/kg (285-295) 05/11/22 11:10 Calcium 9.4 mg/dL (8.5-10.5) 05/11/22 11:10 Total Bilirubin 0.7 mg/dL (0.15-1.2) 05/11/22 11:10 AST 16 U/L (0-32) 05/11/22 11:10 ALT 8 U/L (0-33) 05/11/22 11:10 Alkaline Phosphatase 122 U/L (35-105) H 05/11/22 11:10 Total Protein 7.2 g/dL (6.6-8.7) 05/11/22 11:10 Albumin 4.1 g/dL (3.5-5.2) 05/11/22 11:10 Globulin 3.1 g/dL (1.3-4.6) 05/11/22 11:10 A&P Assessment and plan (1) Vomiting of fecal matter: One episode today at facility as described; no recurrence noted since arrival to the emergency room Qualifiers: Nausea presence: with nausea Qualified Code(s): R11.13 - Vomiting of fecal matter (2) Partial small bowel obstruction: Proximal, noted on imaging, difficult to ascertain if patient is having abdominal discomfort but abdomen by description is possibly more distended than usual (3) Ventral hernia: Longstanding with incarceration (4) DELORES (acute kidney injury): With associated hyperkalemia, combination of prerenal and postobstructive along with medication effect from diuretics and potassium replacement, has a slight anion gap without hyperglycemia (5) Hydronephrosis, right: Appears to be from bladder wall thickening/eccentric bladder mass causing obstruction of the right ureter (6) Bladder wall thickening: With focal area concerning for neoplasm on CT imaging (7) Intussusception: Of the second part of the duodenum that is described as being present on prior examinations and may be incidental (8) Insulin dependent type 2 diabetes mellitus: With hyperglycemia; may have chronic kidney disease although when not sick it appears renal function is normal. In addition to insulin therapy, chronically on Januvia and metformin (9) Hypertension: Primary hypertension, chronically on Lasix, metolazone, metoprolol. 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 Takes aspirin chronically as well. (10) COPD (chronic obstructive pulmonary disease): Along with mild intermittent asthma, not clinically acute (11) Epilepsy: Diagnosis as per facility problem list although does not appear to be on any chronic management for this (12) Presence of IVC filter: Due to history of DVT, details otherwise unknown (13) GERD (gastroesophageal reflux disease): Chronically on PPI (14) Intellectual disability: Along with dementia with behavioral disturbance Per facility records is independent in eating, requires assistance with dressing, toileting and transfers and is dependent on bathing. When she asks for Pop she is requesting a soda pop. When she does not want you to bother her she will repeatedly say no. Has a fluid restriction as she will typically drink liquids too fast and then vomit the liquids back up. She is incontinent of bowel and bladder. Plan Hypothyroidism on chronic levothyroxine replacement Mixed hyperlipidemia on chronic statin therapy Hypothyroidism on chronic levothyroxine Other chronic diagnoses as noted above Inpatient admission Surgical consultation for small bowel obstruction Maintain n.p.o. status Attempt replacement of NG tube Antiemetics as needed Check lactic acid Blood cultures Urological consultation due to hydronephrosis and bladder wall thickening Empiric Zosyn Riley catheter to allow close monitoring of urine output Check urinalysis Stat repeat BMP Continue IV fluids Hold all home oral medications except for will provide Ativan Intensol every 12 hours rather than every 8 hours as she normally takes given the current shortage of IV lorazepam As needed IV metoprolol Diuretics currently held Monitor I's and O's closely Insulin therapy As needed breathing treatments Fall precautions, seizure precautions IV PPI SCDs, no pharmacological DVT prophylaxis currently secondary to potential need for invasive intervention Anticipate disposition back to special care unit at [facility] versus need for temporary skilled placement depending on clinical course Full code as per paperwork from facility Patient's sister, Maria Teresa Sousa, is Mrs. Lovett's guardian, phone number [phone] Attestations Medical Necessity Statement*: Anticipated stay greater than 2 midnights in a patient with vomiting of fecal matter found to have partial small bowel obstruction. She has a chronic ventral hernia with some incarcerated bowel. Obstruction is proximal to this. She also has acute kidney injury with electrolyte abnormalities, right-sided hydronephrosis that is progressed from CT a month ago, bladder wall thickening and is in a known diabetic. Comorbid conditions as described. Plans as noted. Coding Level of Care Code Acute Fire Prevention Inspector for g Fwd Diagnoses Vomiting of fecal matter R11.13 Nausea presence: with nausea Partial small bowel obstruction K56.600 Ventral hernia K43.9 DELORES (acute kidney injury) N17.9 Hydronephrosis, right N13.30 Bladder wall thickening N32.89 Intussusception K56.1 Insulin dependent type 2 diabetes mellitus E11.9; Z79.4 Hypertension I10 COPD (chronic obstructive pulmonary disease) J44.9 Epilepsy G40.909 Presence of IVC filter Z95.828 GERD (gastroesophageal reflux disease) K21.9 Intellectual disability F79
[2022-05-11] MEDS: piperacillin-tazobactam 3.375 GM in sodium chloride 0.9% (plus) 50 ML IV (18:47)
[2022-05-11 19:06] LABS: Lactic Sepsis W/Reflex 0.8 mmol/L (0.5-2.2)
--- NOTE | 2022-05-11 19:34 | P.CONIM_ITS ---
Providers/Reason For Consult Consulting Physician/Specialty*: General Surgery/Arnulfo Faulkner MD, FACS, RPVI Reason for Consult*: Bowel obstruction Attending Physician: Melissa Kent MD Primary Care Provider: Kaitlynn Almonte NP History of Present Illness History of Present Illness Emmanuel Corral is a 56 year old female She has chronic mental disability. She is not able to provide any information about her condition. Per discussion with other healthcare providers, the patient was vomiting on and off for some time, today she vomited food and subsequently feculent matter, this is per nursing report. She was taken to the emergency room for evaluation. The patient has a chronic incarcerated hernia. She was recently admitted with acute kidney injury. NG tube was placed on admission, however, the patient pulled it out Unable to obtain review of system given patient's mental status Medications/Allergies Home Medications Medication Instructions Recorded Confirmed Last Taken Type atorvastatin 10 mg tablet 10 mg PO DAILY@08 05/30/20 05/11/22 05/11/22 History bisacodyl 10 mg rectal suppository 10 mg DC DAILY PRN Constipation 05/30/20 05/11/22 Unknown History bisacodyl 5 mg tablet,delayed 10 mg PO DAILY PRN Constipation 05/30/20 05/11/22 Unknown History release hydrocodone 5 mg-acetaminophen 325 1 tab PO Q8H PRN Pain 05/30/20 05/11/22 05/11/22 08:15 History mg tablet levothyroxine 100 mcg tablet 100 mcg PO QAM 05/30/20 05/11/22 05/11/22 History lorazepam 0.5 mg tablet 0.5 mg PO TID@09,14,21 05/30/20 05/11/22 05/11/22 History magnesium hydroxide 400 mg/5 mL 30 ml PO DAILY PRN Constipation 05/30/20 05/11/22 Unknown History oral suspension (Milk of Magnesia) nystatin 100,000 unit/gram topical See Rx Instructions .Route .COMPLEX 05/30/20 05/11/22 05/30/20 History cream pantoprazole 20 mg tablet,delayed 20 mg PO QAM 05/30/20 05/11/22 05/11/22 History release insulin aspart U-100 100 unit/mL See Rx Instructions .Route 06/07/20 05/11/22 Unknown Rx subcutaneous solution (Novolog .COMPLEX #10 mL U-100 Insulin aspart) acetaminophen 650 mg 650 mg PO Q6H PRN Pain 05/11/22 05/11/22 Unknown History tablet,extended release aluminum-mag hydroxide-simethicone 10 ml PO Q4H PRN Indigestion 05/11/22 05/11/22 Unknown History 400 mg-400 mg-40 mg/5 mL oral susp aspirin 81 mg tablet,delayed 81 mg PO DAILY@08 05/11/22 05/11/22 05/11/22 History release furosemide 80 mg tablet (Lasix) 80 mg PO DAILY@08 05/11/22 05/11/22 05/11/22 History hydroxyzine HCl 25 mg tablet 25 mg PO TID@,,05/11/22 05/11/22 05/11/22 History insulin detemir U-100 100 unit/mL 40 unit SUBCUT BEDTIME 05/11/22 05/11/22 Un known History subcutaneous solution (Levemir U-100 Insulin) magnesium oxide 400 mg PO BID 05/11/22 05/11/22 05/11/22 History metformin 1,000 mg tablet 1,000 mg PO BID 05/11/22 05/11/22 05/11/22 History metolazone 2.5 mg tablet 2.5 mg PO QAM 05/11/22 05/11/22 05/11/22 History metoprolol tartrate 25 mg tablet 12.5 mg PO BID 05/11/22 05/11/22 05/10/22 History olopatadine 0.1 % eye drops 1 drp ophthalmic (eye) BID 05/11/22 05/11/22 05/10/22 History polyethylene glycol 3350 17 gram 17 g PO QAM 05/11/22 05/11/22 05/11/22 History oral powder packet (Miralax) potassium chloride 20 mEq 20 meq PO TID@08,13,20 05/11/22 05/11/22 05/11/22 History tablet,extended release sennosides 8.6 mg tablet (senna) 8.6 mg PO QAM 05/11/22 05/11/22 05/10/22 History sitagliptin 50 mg tablet (Januvia) 50 mg PO DAILY@08 05/11/22 05/11/22 05/11/22 History Allergies Allergy/AdvReac Type Severity Reaction Status Date / Time Iodine and Iodide Containing Allergy Unknown Unknown Verified 05/11/22 12:44 Produc iodine Allergy Unknown Verified 05/11/22 12:44 Current Medications Generic Name Dose Route Start Last Admin Trade Name Eddi PRN Reason Stop Dose Admin Dextrose 1,000 mls @ 50 mls/hr 05/11/22 15:00 05/11/22 15:44 D10w IV 50 mls/hr .Q20H BRYSON Administration Piperacillin Sod/Tazobactam 50 mls @ 12.5 mls/hr 05/11/22 18:00 05/11/22 18:47 Sod 3.375 gm/ Sodium Chloride IV 12.5 mls/hr Q8H BRYSON Administration PFSH Acute PFSH: Medical History (Updated 05/11/22 @ 19:43 by Arnulfo Faulkner MD) Anxiety B12 deficiency Cataract COPD (chronic obstructive pulmonary disease) COVID-19 (~05/2020) 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 Dementia Depression Epilepsy GERD (gastroesophageal reflux disease) History of DVT (deep vein thrombosis) Hypertension Hypothyroidism Insulin dependent type 2 diabetes mellitus Intellectual disability Mild intermittent asthma Mixed hyperlipidemia Presence of IVC filter Ventral hernia Vitamin D deficiency Surgical History (Updated 05/11/22 @ 16:48 by Melissa Kent MD) History of ankle surgery History of cholecystectomy Family History Grandmother Cancer Breast, lung, cervical Mother Gunshot wound Social History Smoking and tobacco status: former smoker Alcohol intake: never Vitals/I&O/Wt Last Vital Signs Temp 97.9 F 05/11/22 10:31 Pulse 118 H 05/11/22 19:16 Resp 17 05/11/22 19:16 BP 104/71 05/11/22 19:16 Pulse Ox 90 05/11/22 19:16 O2 Del Method 05/11/22 15:50 O2 Flow Rate 2 05/11/22 15:50 05/11/22 05/11/22 05/11/22 06:59 14:59 22:59 Intake Total 1000 / 1000 2000 / 3000 Balance 1000 / 1000 2000 / 3000 Weight last 48 hrs Weight 135 lb Physical Exam Narrative: General: No acute distress Psych: [AAOx3] Eyes: [sclerae are white] Head/ENT: [normocephalic, symmetric] CV: [regular] pulse, [tachychardic], no JVD Lungs: [symmetrical chest rise] Abdomen: [soft, ND, the patient does not react to palpation. Chronic incarcerated hernia in the midline. Not reducible. The hernia is soft, it does not appear to be acutely distended]. Ext: [no obvious traumatic deformities] Skin: warm Urinary Catheter Management: Riley: Cath Placed During This Visit: yes Reason for Continuing Indwelling Catheter: Accurate Measurement of Urinary Output in Critically Ill Patients Urinary Catheter Date of Insertion: 05/11/22 Data : 05/11/22 11:10 05/11/22 11:10 Micro: Microbiology 05/11/22 18:40 Blood Culture - Preliminary Blood SPECIMEN COLLECTED 05/11/22 18:31 Blood Culture - Preliminary Blood SPECIMEN COLLECTED Other data: I reviewed CT scan from today as well and the CT scan from March. The hernia does have some 3 fluid in the hernia sac which is not present on a CT scan from March. There is proximal small bowel loop dilation. A&P Assessment and plan (1) Ventral hernia: (2) Small bowel obstruction: (3) Intussusception: (4) DELORES (acute kidney injury): Plan It is possible that the chronically incarcerated hernia became to the point of bowel obstruction. Reportedly, the patient vomited twice today. Her abdomen is not distended. The hernia is soft. I think it is possible to attempt nonoperative management and see if bowel obstruction will resolve. If not, the patient will need laparotomy repair of the hernia. She already pulled out NG tube. Discussed with the nursing staff and primary team. She will need mittens, one-to-one observation, NG tube need to be replaced. Plan for Gastrografin study tomorrow. Still has NG tube output is not high. - Continue with serial abdominal exam, n.p.o., NG tube to suction, pain control. Intussusception of the second part of the duodenum, present on the previous CT scan, appears to be asymptomatic AC accidental finding. No indications for any intervention. Acute kidney injury is most likely multifactorial. Urology was consulted to evaluate questionable bladder mass. Vomiting bowel obstruction may contribute to DELORES, in this case expected to improve with rehydration. Coding Level of Care Code Acute Maid Housekeeper for g Fwd Diagnoses Ventral hernia K43.9 Small bowel obstruction K56.609 Intussusception K56.1 DELORES (acute kidney injury) N17.9
[2022-05-11 19:50] LABS: Blood Urea Nitrogen 51 mg/dL (6-20); Calcium 10.5 mg/dL (8.5-10.5); Carbon Dioxide 26 mmol/L (22-29); Chloride 102 mmol/L (98-107); Glomerular Filtration Rate 33.3 mL/min (90-130); Glucose 136 mg/dL (65-115); Osmolality Calculated 308 mOsm/kg (285-295); Sodium 141 mmol/L (136-145)
[2022-05-11 19:57] LABS: Anion Gap 17.1 (5-19); Potassium 4.1 mmol/L (3.5-5.1)
[2022-05-11 19:59] LABS: Add Urine Microscopic? NO; Charge for UA Resulting for Rev
[2022-05-11 20:01] LABS: Bilirubin Urine Neg (Negative); Blood Urine Neg (Negative); Glucose Urine UA Norm (Normal); Ketones Urine Negative (Negative); Leukocyte Esterase Urine Negative (Negative); Nitrate Urine Negative (Negative); Protein Urine Neg (Negative); Specific Gravity, Urine 1.005 (1.005-1.030); Urine Appearance Clear (CLEAR); Urine Color Yellow (Yellow); Urobilinogen Urine Norm (Negative); pH Urine 7 (5-7)
--- NOTE | 2022-05-11 20:30 | PC.NURSE ---
Received in report from RAHAT Osman in ed. Patient has pulled out 2 NG tubes at this time. Patient is not cooperative in leaving one in. Informed Dr Robbins. Waiting for orders.
[2022-05-11 22:00] LABS: Glucose Point of Care 199 mg/dL (70-110)
[2022-05-11] MEDS: LORazepam 2 mg/mL oral liquid (mL) 0.5 MG PO (22:26)
[2022-05-11] MEDS: insulin lispro 100 unit/1 mL SUBCUT (22:27)
[2022-05-11] MEDS: pantoprazole 40 mg SDV IVP (22:27)
[2022-05-11] MEDS: lanolin oint 7 gm 1 APPLIC TOPICAL (22:27)
[2022-05-11] MEDS: sodium chloride 0.9% 1,000 ML 75 ML IV (22:28)
[2022-05-12] VITALS (7 sets, daily range): BP systolic 113–129; BP diastolic 71–77; PULSE 106–117; RESP 18; TEMP 36.4–37; O2SAT 90–94
[2022-05-12] MEDS: piperacillin-tazobactam 3.375 GM in sodium chloride 0.9% (plus) 50 ML IV ×3 (01:17→18:35)
--- NOTE | 2022-05-12 05:38 | PC.NURSE ---
Patient fighting to have NG tube placed. Very agitated and attempting to bite. Patient is in soft wrist restraints at this time per Dr Faulkner. Informed doctor of patient's aggression at attempt to place NG. Received onetime order for Ativan 1mg IVP.
[2022-05-12] MEDS: LORazepam 2 mg/mL INJ 1 mL 1 MG IVP (05:49)
--- NOTE | 2022-05-12 06:31 | XRR_ITS ---
PROCEDURE INFORMATION: Exam: XR Chest Exam date and time: 05/12/2022 6:38 AM Age: 56 years old Clinical indication: Device placement; Ng tube; Additional info: Ng tube placement TECHNIQUE: Imaging protocol: Radiologic exam of the chest. Views: 1 view. COMPARISON: CR XR chest 1V portable [id number] 06/07/2020 6:45 AM FINDINGS: Tubes, catheters and devices: A nasogastric tube is present with tip projecting in the stomach. Lungs: Unremarkable. No consolidation. Pleural spaces: Unremarkable. No pleural effusion. No pneumothorax. Heart/Mediastinum: Unremarkable. No cardiomegaly. Bones/joints: Unremarkable. XR/XR chest 1V portable [id number] IMPRESSION: 1. The tip of the nasogastric tube projects on the body of the stomach. 2. No significant cardiopulmonary abnormality.
[2022-05-12 06:40] LABS: Glucose Point of Care 121 mg/dL (70-110)
--- NOTE | 2022-05-12 08:05 | P.PN_ITS ---
Subjective Subjective: NG tube was not placed until this AM. It was pulled out in about 40 minutes after it was placed. Despite the sitter present in the room and patient given restraints. No episodes of nausea or vomiting overnight. The patient remains NPO. Serum creatinine improved. Vitals/I&O/Wt Last Vital Signs Temp 98.0 F 05/12/22 04:00 Pulse 115 H 05/12/22 07:57 Resp 18 05/12/22 04:00 BP 113/73 05/12/22 04:00 Pulse Ox 94 05/12/22 07:57 O2 Del Method 05/12/22 07:57 O2 Flow Rate 2 05/11/22 15:50 05/11/22 05/12/22 05/12/22 22:59 06:59 14:59 Intake Total 2397.5 / 3397.5 50 / 3447.5 Output Total 750 / 750 Balance 2397.5 / 3397.5 -700 / 2697.5 Weight last 48 hrs Weight 171 lb 6.4 oz Weight 135 lb Physical Exam Narrative: General: No acute distress Psych: Patient is not following commands, not able to participate in any meaningful conversation Eyes: [sclerae are white] Head/ENT: [normocephalic, symmetric] CV: [regular] pulse, [tachychardic], no JVD Lungs: [symmetrical chest rise] Abdomen: [soft, ND, the patient does not react to palpation. Chronic incarcerated hernia in the midline. Not reducible. The hernia is soft, it does not appear to be acutely distended]. Ext: [no obvious traumatic deformities] Skin: warm Urinary Catheter Management: Riley: Cath Placed During This Visit: yes Reason for Continuing Indwelling Catheter: Acute Urinary Retention or Obstruction Urinary Catheter Date of Insertion: 05/11/22 Data : 05/11/22 11:10 05/11/22 19:09 Micro: Microbiology 05/11/22 18:40 Blood Culture - Preliminary Blood SPECIMEN COLLECTED 05/11/22 18:31 Blood Culture - Preliminary Blood SPECIMEN COLLECTED A&P Assessment and plan (1) Ventral hernia: (2) Small bowel obstruction: (3) Intussusception: (4) DELORES (acute kidney injury): Plan So far, her abdominal exam remains benign, hernia is very soft, no more episodes of vomiting despite stomach not being drained with NG tube. No indications for urgent surgical intervention. Continue observation, serial abdominal exam. -Continue n.p.o., IV fluids, NG tube to low intermittent suction. Discussed with the bedside nurse. Management of this patient without NG tube may be quite challenging, it must be placed and reassess with an x-ray. Attestations Medical Necessity Statement*: Bowel obstruction, ventral hernia Coding Level of Care Code Acute Welding Production Supervisor for [facility] Fwd Diagnoses Ventral hernia K43.9 Small bowel obstruction K56.609 Intussusception K56.1 DELORES (acute kidney injury) N17.9
[2022-05-12] MEDS: LORazepam 2 mg/mL oral liquid (mL) 0.5 MG PO ×2 (08:25→21:37)
[2022-05-12] MEDS: pantoprazole 40 mg SDV IVP ×2 (08:26→23:09)
[2022-05-12] MEDS: olopatadine 0.1% Op Soln 5 mL Btl 1 DROP EYE-BOTH ×2 (08:49→18:15)
[2022-05-12 09:48] LABS: Basophils % 0.3 %; Hematocrit 35.8 % (37.0-47.0); Hemoglobin 11.6 g/dL (11.5-15.3); Lymphocytes # 2.3 10^3/uL (0.8-4.8); Lymphocytes % 20.4 %; Mean Corpuscular HGB Conc 32.4 g/dL (30.0-36.0); Mean Corpuscular Hemoglobin 30.8 pg (28.0-34.0); Mean Platelet Volume 10.7 fL (7.4-10.4); Monocytes % 8.5 %; Neutrophils # 7.81 10^3/uL (1.8-7.7); Neutrophils % 70.1 %; Nucleated Red Blood Cells % 0 %; Platelet Count 195 10^3/cmm (130-400); Red Blood Count 3.77 10^6/uL (4.1-5.3); Red Cell Distribution Width 13.4 % (12.1-15.1); White Blood Count 11.2 10^3/uL (4.0-10.0)
[2022-05-12 10:03] LABS: Estmated Average Glucose 177; Hemoglobin A1C 7.8 % (4.0-6.0)
[2022-05-12 10:16] LABS: Anion Gap 13.9 (5-19); Blood Urea Nitrogen 35 mg/dL (6-20); Calcium 8.8 mg/dL (8.5-10.5); Carbon Dioxide 30 mmol/L (22-29); Chloride 101 mmol/L (98-107); Creatinine Clr Calc Pharmacy 38.6078; Glomerular Filtration Rate 35.9 mL/min (90-130); Glucose 122 mg/dL (65-115); Magnesium 1.9 mg/dL (1.7-2.3); Osmolality Calculated 303 mOsm/kg (285-295); Phosphorus 3.7 mg/dL (2.5-4.5); Potassium 2.9 mmol/L (3.5-5.1); Sodium 142 mmol/L (136-145); Thyroid Stimulating Hormone 2.84 uIU/mL (0.27-4.20)
--- NOTE | 2022-05-12 10:26 | XRR_ITS ---
PROCEDURE INFORMATION: Exam: XR Chest Exam date and time: 05/12/2022 10:38 AM Age: 56 years old Clinical indication: Device placement; Ng tube; Additional info: Post ng tube TECHNIQUE: Imaging protocol: Radiologic exam of the chest. Views: 1 view. COMPARISON: CR XR chest 1V portable [id number] 05/12/2022 6:38 AM FINDINGS: Tubes, catheters and devices: A nasogastric tube is present with the tip projecting in the body of the stomach. Lungs: Unremarkable. No consolidation. Pleural spaces: Unremarkable. No pleural effusion. No pneumothorax. Heart/Mediastinum: Unremarkable. No cardiomegaly. Bones/joints: Unremarkable. XR/XR chest 1V portable [id number] IMPRESSION: Tip of the nasogastric tube projects on the body of the stomach.
--- NOTE | 2022-05-12 10:28 | PM.PN ---
Subjective Subjective: Patient has removed her NG tube twice I discussed this case with our surgeon We are waiting on Gastrografin study to decide further course of action Patient is asking for Pop Mild leukocytosis noted Afebrile Vitals/I&O/Wt Last Vital Signs Temp 98.3 F 05/12/22 08:00 Pulse 111 H 05/12/22 08:00 Resp 18 05/12/22 08:00 BP 121/77 05/12/22 08:00 Pulse Ox 90 05/12/22 08:00 O2 Del Method 05/12/22 08:00 O2 Flow Rate 2 05/11/22 15:50 05/11/22 05/12/22 05/12/22 22:59 06:59 14:59 Intake Total 2397.5 / 3397.5 50 / 3447.5 Output Total 750 / 750 Balance 2397.5 / 3397.5 -700 / 2697.5 Weight last 48 hrs Weight 77.746 kg Weight 61.235 kg Physical Exam Narrative: Patient is not a good reliable historian Her abdomen is soft However mild tenderness noticed with facial grimacing around her hernia No active signs of peritonitis Looks dehydrated S1, S2 sinus tachycardia Low extremity no edema Patient is asking for water and pop She is able to make eye contact Urinary Catheter Management: Riley: Cath Placed During This Visit: yes Reason for Continuing Indwelling Catheter: Acute Urinary Retention or Obstruction Urinary Catheter Date of Insertion: 05/11/22 Data : 05/12/22 09:16 05/12/22 09:16 Micro: Microbiology 05/11/22 18:40 Blood Culture - Preliminary Blood SPECIMEN COLLECTED 05/11/22 18:31 Blood Culture - Preliminary Blood SPECIMEN COLLECTED A&P Assessment and plan (1) Dementia: (2) COPD (chronic obstructive pulmonary disease): (3) Intellectual disability: (4) B12 deficiency: (5) Presence of IVC filter: (6) Insulin dependent type 2 diabetes mellitus: (7) GERD (gastroesophageal reflux disease): (8) Intussusception: (9) Vomiting of fecal matter: Qualifiers: Nausea presence: with nausea Qualified Code(s): R11.13 - Vomiting of fecal matter (10) Partial small bowel obstruction: (11) Ventral hernia: (12) DELORES (acute kidney injury): Plan Concern for partial bowel obstruction Gastrografin study has been recommended by the surgeon She has pulled her NG tube twice Will get another NG tube to get the study to decide further course of action She is n.p.o. for now Afebrile Mild leukocytosis noted Intussusception of duodenum We will follow-up with general surgery recommendations Exam is benign NG tube to low intermittent suction Continue IV fluids replenish electrolytes Hypokalemia: Repleted Check magnesium level Intellectual disability, patient is full code Holding DVT prophylaxis in anticipation of any surgical intervention N.p.o. for now DELORES improving with IV fluid hydration, Dr. Thorpe has been consulted for exophytic bladder mass, urine output 750 mL for now patient is showing signs of alkalosis bicarb is 30 Attestations Medical Necessity Statement*: Continue medical management Time Spent in Patient Care: 30 Coding Level of Care Code Acute Documentation Designer for g Fwd Diagnoses Dementia F03.90 COPD (chronic obstructive pulmonary disease) J44.9 Intellectual disability F79 B12 deficiency E53.8 Presence of IVC filter Z95.828 Insulin dependent type 2 diabetes mellitus E11.9; Z79.4 GERD (gastroesophageal reflux disease) K21.9 Intussusception K56.1 Vomiting of fecal matter R11.13 Nausea presence: with nausea Partial small bowel obstruction K56.600 Ventral hernia K43.9 DELORES (acute kidney injury) N17.9
--- NOTE | 2022-05-12 10:32 | PC.CHAP ---
Pastoral Care Encounter/Spiritual Assessment Type of Contact [] Declined metal grader visit [] Patient/Family/Request visit [] Outpatient visit [] Follow-up visit [] Physician referral [] Code/Alert [x] Routine visit [] Staff referral [] Actively dying [x] Patient sleeping [] Family support [] [] Out of room [] Palliative care [] [x] Receiving care in room [] Pre-surgical visit [] Trauma [] Long length of stay [] ICU visit [] Other: Relational/Emotional Strength [] Patient feels connected with others/family/visitors/staff [] Distress [] Loneliness/isolation [] Abandonment Spirituality of Patient [] Person of Karen [] Attends Gnosticist of their Karen [] Believes in Prayer [] Reads Bible or Buddhism materials [] There are Spiritual issues to be addressed Paper Bag Making Machinist Interventions [x] Prayer [] Active listening [] Non-anxious presence [] Spiritual/emotional support [] Crisis/trauma care [] Spiritual counseling [] Bereavement support [] Provided bereavement packet [] Provided Bible/devotional materials [] Provided toy/stuffed animal, coloring book to patient or family member [] Provided Communion [] Anointing/[place] [] Salvation [] Completed spiritual assessment [] Other: Impact on Illness or Injury [] Angry [] Fearful [] Anxious [] Often cries [] Exhaustion [] Unable to work [] Unable to attend faith [] Unable to walk/stand [] Unable to read [] Unable to drive [] Unable to eat/drink [] Unable to sleep [] Unable to be with family [] Patient intubated [] Other: Summary Time spent with patient
[2022-05-12 12:00] LABS: Glucose Point of Care 157 mg/dL (70-110)
--- NOTE | 2022-05-12 12:05 | PC.NURSE ---
PTS CHART LISTS ALLERGY TO IODINE, PT UNABLE TO CONFIRM. CONFIRMED WITH PTS SISTER VINEET. SHE STATED, SHE HAS HAD IMAGING IN THE PAST, WITH NO ISSUES.
--- NOTE | 2022-05-12 12:34 | PC.NURSE ---
AT APPROX. [id number] 100ML IODINE CONTRAST ADMINISTERED VIA PTS NG TUBE
[2022-05-12] MEDS: insulin lispro 100 unit/1 mL SUBCUT ×3 (13:30→18:14)
--- NOTE | 2022-05-12 13:45 | XRR_ITS ---
PROCEDURE INFORMATION: Exam: XR Abdomen Exam date and time: 05/12/2022 1:47 PM Age: 56 years old Clinical indication: Condition or disease; Other: Bowel obstruction; Patient HX: History--image taken 1 hr after gastro was given. Gastro was injected at 12:35/the nurse. ; Additional info: Bowel obstruction, , need 1 hr film also per radiologist TECHNIQUE: Imaging protocol: Radiologic exam of the abdomen. Views: Frontal supine view of the abdomen. 1 View. COMPARISON: CT abdomen pelvis w con* [id number] 05/11/2022 12:32 PM FINDINGS: Tubes, catheters and devices: High position of feeding tube, with distal tip at the level of the GE junction. Gastrointestinal tract: Nonspecific bowel gas pattern. Oral contrast is seen within the small bowel and colon. Organs: Cholecystectomy clips project over the right upper quadrant. Vasculature: An IVC filter is in place. Bones/joints: Degenerative changes of the spine seen. XR/XR abdomen 1V* [id number] IMPRESSION: No complete obstruction identified. Nonspecific bowel gas pattern. COMMENTS: For patients with an IVC filter, recommend assessment for a management plan for the patient's IVC filter. If there is no established management plan, recommend referral to an interventional clinician on a nonemergent basis for evaluation.
[2022-05-12] MEDS: dextrose 5%-ns + KCl 20 20 MEQ/1,000 ML BAG 75 MEQ IV (14:04)
[2022-05-12] MEDS: lidocaine 1% 5 ML in potassium chloride premix 100 ML 25 ML IV ×2 (15:08→19:24)
[2022-05-12 16:37] LABS: Glucose Point of Care 147 mg/dL (70-110)
--- NOTE | 2022-05-12 16:54 | PM.CONSULT ---
Providers/Reason For Consult Consulting Physician/Specialty*: Urology/[place] Reason for Consult*: Hematuria, abnormal bladder on CT scan Requesting Physician: Dr. Wakefield Attending Physician: Bereket Rust MD Primary Care Provider: Kaitlynn Almonte NP History of Present Illness History of Present Illness Emmanuel Corral is a 56 year old female with poor performance of baseline who was admitted for evidence of a small bowel obstruction. Apparently also was thought to have vaginal bleeding but it turned out to be from her urine. CT scan done for evaluation of her vomiting feculent material showed new onset of right hydronephrosis, confirmed prior findings of abnormal bladder with possible mass, and increased enhancing and thickness of the bladder wall fairly diffusely that was not seen on CT scan approximately 1 month prior to this admission. Urinalysis obtained on 05/11/2022 was clear though. She now has a Riley catheter in place. Creatinine was 1.5 which looks to be in the middle of her range. Over the last couple years she has had creatinines ranging from 2.3 down to 0.6. She was found to have on CT scan in addition to the bladder abnormality, large ventral hernia that appear to be [place]. There was evidence of a small bowel obstruction she has been decompressed with an NG tube and is being evaluated for that. Patient was not able to provide much in the way of history. She denied having any blood in her urine. She had been seen in the ED in March with a CT scan showing what appeared to be an isolated bladder mass and there was mention of urology outpatient follow-up. Review of Systems General: Reports: ROS unobtainable due to mental status Narrative: Does state that she is thirsty Able to respond to questions but is not cognitively intact. Medications/Allergies Home Medications Medication Instructions Recorded Confirmed Last Taken Type atorvastatin 10 mg tablet 10 mg PO DAILY@08 05/30/20 05/11/22 05/11/22 History bisacodyl 10 mg rectal suppository 10 mg LA DAILY PRN Constipation 05/30/20 05/11/22 Unknown History bisacodyl 5 mg tablet,delayed 10 mg PO DAILY PRN Constipation 05/30/20 05/11/22 Unknown History release hydrocodone 5 mg-acetaminophen 325 1 tab PO Q8H PRN Pain 05/30/20 05/11/22 05/11/22 08:15 History mg tablet levothyroxine 100 mcg tablet 100 mcg PO QAM 05/30/20 05/11/22 05/11/22 History lorazepam 0.5 mg tablet 0.5 mg PO TID@,,05/30/20 05/11/22 05/11/22 History magnesium hydroxide 400 mg/5 mL 30 ml PO DAILY PRN Constipation 05/30/20 05/11/22 Unknown History oral suspension (Milk of Magnesia) nystatin 100,000 unit/gram topical See Rx Instructions .Route .COMPLEX 05/30/20 05/11/22 05/30/20 History cream pantoprazole 20 mg tablet,delayed 20 mg PO QAM 05/30/20 05/11/22 05/11/22 History release insulin aspart U-100 100 unit/mL See Rx Instructions .Route 06/07/20 05/11/22 Unknown Rx subcutaneous solution (Novolog .COMPLEX #10 mL U-100 Insulin aspart) acetaminophen 650 mg 650 mg PO Q6H PRN Pain 05/11/22 05/11/22 Unknown History tablet,extended release aluminum-mag hydroxide-simethicone 10 ml PO Q4H PRN Indigestion 05/11/22 05/11/22 Unknown History 400 mg-400 mg-40 mg/5 mL oral susp aspirin 81 mg tablet,delayed 81 mg PO DAILY@05/11/22 05/11/22 05/11/22 History release furosemide 80 mg tablet (Lasix) 80 mg PO DAILY@08 05/11/22 05/11/22 05/11/22 History hydroxyzine HCl 25 mg tablet 25 mg PO TID@05/11/22 05/11/22 05/11/22 History insulin detemir U-100 100 unit/mL 40 unit SUBCUT BEDTIME 05/11/22 05/11/22 Unknown History subcutaneous solution (Levemir U-100 Insulin) magnesium oxide 400 mg PO BID 05/11/22 05/11/22 05/11/22 History metformin 1,000 mg tablet 1,000 mg PO BID 05/11/22 05/11/22 05/11/22 History metolazone 2.5 mg tablet 2.5 mg PO QAM 05/11/22 05/11/22 05/11/22 History metoprolol tartrate 25 mg tablet 12.5 mg PO BID 05/11/22 05/11/22 05/10/22 History olopatadine 0.1 % eye drops 1 drp ophthalmic (eye) BID 05/11/22 05/11/22 05/10/22 History polyethylene glycol 3350 17 gram 17 g PO QAM 05/11/22 05/11/22 05/11/22 History oral powder packet (Miralax) potassium chloride 20 mEq 20 meq PO TID@08,13,20 05/11/22 05/11/22 05/11/22 History tablet,extended release sennosides 8.6 mg tablet (senna) 8.6 mg PO QAM 05/11/22 05/11/22 05/10/22 History sitagliptin 50 mg tablet (Januvia) 50 mg PO DAILY@08 05/11/22 05/11/22 05/11/22 History Current Medications Generic Name Dose Route Start Last Admin Trade Name Freq PRN Reason Stop Dose Admin Piperacillin Sod/Tazobactam 50 mls @ 12.5 mls/hr 05/11/22 18:00 05/12/22 15:42 Sod 3.375 gm/ Sodium Chloride IV Infused Q8H BRYSON Infusion Lidocaine HCl 5 ml/ Potassium 105 mls @ 25 mls/hr 05/12/22 11:15 05/12/22 15:08 Chloride IV 05/12/22 22:59 25 mls/hr Q4H BRYSON Administration Potassium Chloride/Dextrose/Sod Cl 20 meq in 1,000 mls @ 75 mls/hr 05/12/22 10:45 05/12/22 14:04 Dextrose 5%-Ns + Kcl 20 IV 75 mls/hr .[id number] BRYSON Administration Insulin Detemir 5 unit 05/11/22 21:00 05/11/22 22:36 Insulin Detemir 100 Units/1 Ml SUBCUT Not Given BEDTIME BRYSON Insulin Human Lispro 0 unit 05/11/22 21:00 05/12/22 14:17 Insulin Lispro 100 Unit/1 Ml SUBCUT 2 unit BEDTIME BRYSON Administration Protocol Insulin Human Lispro 0 unit 05/11/22 20:25 05/12/22 13:30 Insulin Lispro 100 Unit/1 Ml SUBCUT 2 unit TIDWM BRYSON Administration Protocol Lanolin 1 applic 05/11/22 20:36 05/11/22 22:27 Lanolin Oint 7 Gm TOPICAL 1 applic PRN PRN Administration DRYNESS Lorazepam 0.5 mg 05/11/22 20:25 05/12/22 08:25 Lorazepam 2 Mg/Ml Oral Liquid (Ml) PO 0.5 mg Q12H BRYSON Administration Olopatadine HCl 1 drop 05/11/22 22:00 05/12/22 08:49 Olopatadine 0.1% Op Soln 5 Ml Btl EYE-BOTH 1 drop BID BRYSON Administration Pantoprazole Sodium 40 mg 05/11/22 20:25 05/12/22 08:26 Pantoprazole 40 Mg Sdv IVP 40 mg Q12H BRYSON Administration PFSH Acute PFSH: Medical History Anxiety B12 deficiency Cataract COPD (chronic obstructive pulmonary disease) COVID-19 (~05/2020) 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 Dementia Depression Epilepsy GERD (gastroesophageal reflux disease) History of DVT (deep vein thrombosis) Hypertension Hypothyroidism Insulin dependent type 2 diabetes mellitus Intellectual disability Mild intermittent asthma Mixed hyperlipidemia Presence of IVC filter Ventral hernia Vitamin D deficiency Surgical History History of ankle surgery History of cholecystectomy Family History Grandmother Cancer Breast, lung, cervical Mother Gunshot wound Social History Smoking and tobacco status: former smoker Alcohol intake: never Vitals/I&O/Wt Last Vital Signs Temp 98.6 F 05/12/22 15:56 Pulse 112 H 05/12/22 15:56 Resp 18 05/12/22 15:56 BP 129/71 05/12/22 15:56 Pulse Ox 92 05/12/22 15:56 O2 Del Method 05/12/22 15:56 O2 Flow Rate 2 05/11/22 15:50 05/12/22 05/12/22 05/12/22 06:59 14:59 22:59 Intake Total 50 / 3447.5 1050 / 1050 Output Total 750 / 750 Balance -700 / 2697.5 1050 / 1050 Weight last 48 hrs Weight 171 lb 6.4 oz Weight 135 lb Physical Exam Narrative: She is alert and responsive. Not cognitively intact. NG tube in place. Currently clamped due to Gastrografin study ongoing Abdomen is soft. She does have a palpable hernia. Catheter in place draining clear yellow urine Very anxious. Has been pulling at her tubes. In soft restraints now. Urinary Catheter Management: Riley: Cath Placed During This Visit: yes Reason for Continuing Indwelling Catheter: Acute Urinary Retention or Obstruction Urinary Catheter Date of Insertion: 05/11/22 Data : 05/12/22 09:16 05/12/22 09:16 Micro: Microbiology 05/11/22 18:40 Blood Culture - Preliminary Blood SPECIMEN COLLECTED 05/11/22 18:31 Blood Culture - Preliminary Blood SPECIMEN COLLECTED A&P Assessment and plan (1) Hydronephrosis, right: Appears to be related to thickening of the bladder wall. Extends down to the UVJ on the right side. (2) Bladder wall thickening: Suspicious for underlying mass but also for fairly aggressive thickening and enhancing changes possibly related to infection. Cultures are pending. (3) Gross hematuria: Plan 1. She will need a cystoscopy. 2. Do recommend continuing antibiotics. Consult Attestations Medical Necessity Statement: See attending Coding Level of Care Code Acute Printing Press Operator Apprentice for Alex Cummins Diagnoses Hydronephrosis, right N13.30 Bladder wall thickening N32.89 Gross hematuria R31.0
--- NOTE | 2022-05-12 20:00 | XRR_ITS ---
PROCEDURE INFORMATION: Exam: XR Abdomen Exam date and time: 05/12/2022 7:56 PM Age: 56 years old Clinical indication: Other: Ng tube placement; Additional info: Small bowel obstruction, inject 100cc gastrografin through ng tube, take x-ray 8 hrs after injection TECHNIQUE: Imaging protocol: Radiologic exam of the abdomen. Views: Frontal supine view of the abdomen. 1 View. COMPARISON: CR XR abdomen 1V* [id number] 05/12/2022 1:47 PM FINDINGS: Tubes, catheters and devices: Gastric tube with tip in the proximal stomach. Gastrointestinal tract: Hyperdense material/stool scattered throughout the colon. No small bowel distention or obstruction. Organs: Cholecystectomy clips. Vasculature: IVC filter. Bones/joints: Unremarkable. XR/XR KUB portable [id number] IMPRESSION: Gastric tube tip in the proximal stomach. COMMENTS: For patients with an IVC filter, recommend assessment for a management plan for the patient's IVC filter. If there is no established management plan, recommend referral to an interventional clinician on a nonemergent basis for evaluation.
[2022-05-12 21:06] LABS: Glucose Point of Care 129 mg/dL (70-110)
--- NOTE | 2022-05-12 21:21 | PM.PN ---
Subjective Subjective: KUB was reviewed. Contrast made it all the way to the rectum. No evidence of small bowel obstruction. Discussed with the bedside nurse. The patient remains asymptomatic. Watching TV, does not have any complaints. -Remove NG tube, advance to clear liquid diet, will reassess in the morning. Vitals/I&O/Wt Last Vital Signs Temp 98.6 F 05/12/22 15:56 Pulse 109 H 05/12/22 19:59 Resp 18 05/12/22 19:59 BP 129/71 05/12/22 15:56 Pulse Ox 93 05/12/22 19:59 O2 Del Method 05/12/22 19:59 O2 Flow Rate 2 05/11/22 15:50 05/12/22 05/12/22 05/12/22 06:59 14:59 22:59 Intake Total 50 / 3447.5 1155 / 1155 Output Total 750 / 750 Balance -700 / 2697.5 1155 / 1155 Weight last 48 hrs Weight 171 lb 6.4 oz Weight 135 lb Physical Exam Urinary Catheter Management: Riley: Cath Placed During This Visit: yes Reason for Continuing Indwelling Catheter: Other Urinary Catheter Date of Insertion: 05/11/22 Data : 05/12/22 09:16 05/12/22 09:16 Micro: Microbiology 05/11/22 18:40 Blood Culture - Preliminary Blood NEGATIVE TO DATE 05/11/22 18:31 Blood Culture - Preliminary Blood NEGATIVE TO DATE Attestations Medical Necessity Statement*: SBO Coding Level of Care Code Acute Facility Maintenance Manager for Alex Cummins
[2022-05-13] VITALS (9 sets, daily range): BP systolic 96–137; BP diastolic 56–82; PULSE 89–108; RESP 12–22; TEMP 36.7–37.6; O2SAT 92–94
[2022-05-13] MEDS: dextrose 5%-ns + KCl 20 20 MEQ/1,000 ML BAG 75 MEQ IV (01:33)
[2022-05-13] MEDS: piperacillin-tazobactam 3.375 GM in sodium chloride 0.9% (plus) 50 ML IV ×2 (01:33→11:04)
--- NOTE | 2022-05-13 01:37 | PC.NURSE ---
Addendum entered by Chandrika James RN 05/13/22 01:38: One-on-one sitter discontinued at this time as well. Original Note: NG tube and restraints removed at 2130 by LEROY Berg.
[2022-05-13 02:14] LABS: Basophils # 0.1 10^3/uL (0.0-0.1); Basophils % 0.4 %; Hematocrit 37.6 % (37.0-47.0); Hemoglobin 11.8 g/dL (11.5-15.3); Lymphocytes # 2.4 10^3/uL (0.8-4.8); Mean Corpuscular HGB Conc 31.4 g/dL (30.0-36.0); Mean Corpuscular Volume 98.7 fl (81-99); Mean Platelet Volume 10.2 fL (7.4-10.4); Monocytes # 0.9 10^3/uL (0.2-0.9); Monocytes % 7.7 %; Neutrophils # 7.99 10^3/uL (1.8-7.7); Neutrophils % 70.2 %; Nucleated Red Blood Cells % 0 %; Platelet Count 184 10^3/cmm (130-400); Red Blood Count 3.81 10^6/uL (4.1-5.3); Red Cell Distribution Width 13.4 % (12.1-15.1); White Blood Count 11.4 10^3/uL (4.0-10.0)
[2022-05-13 02:35] LABS: Anion Gap 14.8 (5-19); Blood Urea Nitrogen 24 mg/dL (6-20); Calcium 8.4 mg/dL (8.5-10.5); Carbon Dioxide 27 mmol/L (22-29); Chloride 102 mmol/L (98-107); Glomerular Filtration Rate 38.9 mL/min (90-130); Glucose 191 mg/dL (65-115); Osmolality Calculated 299 mOsm/kg (285-295); Potassium 3.8 mmol/L (3.5-5.1); Sodium 140 mmol/L (136-145)
--- NOTE | 2022-05-13 04:00 | XRR_ITS ---
PROCEDURE INFORMATION: Exam: XR Abdomen Exam date and time: 05/13/2022 4:26 AM Age: 56 years old Clinical indication: Other: Sbo; Patient HX: Follow up small bowel obstruction. Done portably. Patient very uncooperative TECHNIQUE: Imaging protocol: Radiologic exam of the abdomen. Views: Frontal supine view of the abdomen. 1 View. COMPARISON: CR (ABDOMEN, ) 05/12/2022 7:56 PM FINDINGS: Tubes, catheters and devices: The previously noted nasogastric tube is no longer seen. Gastrointestinal tract: Interval progression of contrast material in the colon with residual contrast material seen in the descending colon, sigmoid colon and rectum. Some air seen in the transverse colon. There is no abnormal dilatation of small bowel loops. There is no pneumatosis or mass effect. There is no organomegaly. Intraperitoneal space: No definite free air on the portable supine view exam. Bones/joints: There are no acute osseous abnormalities noted. Soft tissues: IVC filter is once again seen. Surgical clips are seen in the right upper quadrant of the abdomen, likely related to prior cholecystectomy. XR/XR KUB portable [id number] IMPRESSION: Interval progression of contrast material in the colon, as noted above. No abnormal dilatation of small bowel loops. COMMENTS: For patients with an IVC filter, recommend assessment for a management plan for the patient's IVC filter. If there is no established management plan, recommend referral to an interventional clinician on a nonemergent basis for evaluation.
--- NOTE | 2022-05-13 04:54 | PC.NURSE ---
Dr. Robbisn notified of blood culture results.
[2022-05-13 06:29] LABS: Glucose Point of Care 172 mg/dL (70-110)
[2022-05-13] MEDS: LORazepam 2 mg/mL oral liquid (mL) 0.5 MG PO ×2 (07:48→20:30)
[2022-05-13] MEDS: olopatadine 0.1% Op Soln 5 mL Btl 1 DROP EYE-BOTH (07:48)
[2022-05-13] MEDS: pantoprazole 40 mg SDV IVP (07:48)
[2022-05-13] MEDS: insulin lispro 100 unit/1 mL SUBCUT ×3 (07:48→22:13)
[2022-05-13 10:11] LABS: Bacillus cereus group Not Detected (NOT DETECT); Bacillus subtillis group Not Detected (NOT DETECT); Corynebacterium Not Detected (NOT DETECT); Cutibacterium acnes (P.acnes) Not Detected (NOT DETECT); Enterococcus Not Detected (NOT DETECT); Enterococcus faecalis Not Detected (NOT DETECT); Enterococcus faecium Not Detected (NOT DETECT); Lactobacillus species Not Detected (NOT DETECT); Listeria Not Detected (NOT DETECT); Listeria monocytogenes Not Detected (NOT DETECT); Micrococcus Detected (NOT DETECT); Pan Candida Not Detected (NOT DETECT); Pan Gram-Negative Not Detected (NOT DETECT); Staphylococcus epidermidis Not Detected (NOT DETECT); Staphylococcus lugdunensis Not Detected (NOT DETECT); Staphylococcus species Not Detected (NOT DETECT); Streptococcus agalactiae Not Detected (NOT DETECT); Streptococcus anginosus group Not Detected (NOT DETECT); Streptococcus pneumoniae Not Detected (NOT DETECT); Streptococcus pyogenes Not Detected (NOT DETECT); Streptococcus species Not Detected (NOT DETECT)
--- NOTE | 2022-05-13 10:23 | PM.DCS ---
Discharge Providers Date of Admission: 05/11/22 14:37 Date of Discharge: May 13, 2022 Attending Provider at Admission: Melissa Kent MD Attending Provider at Discharge: Bereket Rust MD Primary Care Provider: Kaitlynn Almonte NP Diagnoses at Discharge Discharge Diagnosis (1) Hydronephrosis, right: Status: Acute (2) Bladder wall thickening: Status: Acute (3) Gross hematuria: Status: Acute Reason for Visit Reason for Visit: Vomiting fecal material Hospital Course Hospital Course 56-year-old female who presented to the hospital for feculent material vomiting at the time of admission, there was concern for bowel obstruction at the site of chronic incarcerated hernia there were no signs of strangulation or ischemic peritonitis, intussusception was also noticed on the CAT scan of the abdomen pelvis, general surgery manage her conservatively, Gastrografin study was done after we placed her NG tube in case patient was not very cooperative and pulled her two NG tube, contrast travel all the way down to her rectum, she had 1 bowel movement 05/13, tolerating her diet, she will be discharged back on bowel regimen, she is still at risk of bowel obstruction, Patient is full code Her diet could be advanced to GI soft, she should get lactulose on daily as needed basis Physical Exam Narrative: Patient is awake and alert Asking for Pap, soda Clinically looks euvolemic Abdomen soft, bowel sound present Currently on room air Hemodynamically stable Urinary Catheter Management: Riley: Cath Placed During This Visit: yes Reason for Continuing Indwelling Catheter: Other Urinary Catheter Date of Insertion: 05/11/22 Discharge Data Studies Completed and Pending Completed Studies During Hospitalization Category Date Time Status CT abdomen pelvis w con* [id number] Stat Cat Scan 05/11/22 10:34 Completed CXRP [XR chest 1V portable [id number]] Stat Exams 05/12/22 06:31 Completed XR KUB portable [id number] Routine Exams 05/12/22 20:00 Completed XR KUB portable [id number] Routine Exams 05/13/22 04:00 Completed XR abdomen 1V* [id number] Routine Exams 05/12/22 13:45 Completed XR chest 1V portable [id number] Stat Exams 05/12/22 10:26 Completed Pending at discharge Category Date Time Status Blood Culture Stat Lab 05/11/22 18:40 Results Radiology Impressions Abdomen/Pelvis CT 05/11/22 10:34 IMPRESSION: 1. Wide mouth incarcerated ventral abdominal wall hernia with evidence of proximal small bowel obstruction. In addition herniated bowel loops demonstrate wall thickening with surrounding edema and mucosal enhancement. No perforation. 2. Diffuse circumferential enhancing bladder wall thickening suspicious for bladder neoplasm. This appears to result in obstruction of the RIGHT ureter with moderate RIGHT hydronephrosis progressed compared to previous. More focal RIGHT eccentric bladder wall mass measuring 1.6 x 1.4 CM obstructs the RIGHT ureter compatible with neoplasm. Recommend further evaluation with cystoscopy. 3. Intussusception involving the 2nd portion of the duodenum likely present on prior examinations. This may be incidental but can be followed up with endoscopy. 4. Prior cholecystectomy. Chest X-Ray 05/12/22 10:26 IMPRESSION: Tip of the nasogastric tube projects on the body of the stomach. Abdomen X-Ray 05/12/22 13:45 IMPRESSION: No complete obstruction identified. Nonspecific bowel gas pattern. COMMENTS: For patients with an IVC filter, recommend assessment for a management plan for the patient's IVC filter. If there is no established management plan, recommend referral to an interventional clinician on a nonemergent basis for evaluation. KUB X-Ray 05/13/22 04:00 IMPRESSION: Interval progression of contrast material in the colon, as noted above. No abnormal dilatation of small bowel loops. COMMENTS: For patients with an IVC filter, recommend assessment for a management plan for the patient's IVC filter. If there is no established management plan, recommend referral to an interventional clinician on a nonemergent basis for evaluation. Laboratory Results WBC 11.4 10^3/uL (4.0-10.0) H 05/13/22 02:03 RBC 3.81 10^6/uL (4.1-5.3) L 05/13/22 02:03 Hgb 11.8 g/dL (11.5-15.3) 05/13/22 02:03 Hct 37.6 % (37.0-47.0) 05/13/22 02:03 MCV 98.7 fl (81-99) 05/13/22 02:03 MCH 31.0 pg (28.0-34.0) 05/13/22 02:03 MCHC 31.4 g/dL (30.0-36.0) 05/13/22 02:03 RDW 13.4 % (12.1-15.1) 05/13/22 02:03 Plt Count 184 10^3/cmm (130-400) 05/13/22 02:03 MPV 10.2 fL (7.4-10.4) 05/13/22 02:03 Neut % (Auto) 70.2 % 05/13/22 02:03 Lymph % (Auto) 21.0 % 05/13/22 02:03 Emanuel % (Auto) 7.7 % 05/13/22 02:03 Eos % (Auto) 0.0 % 05/13/22 02:03 Baso % (Auto) 0.4 % 05/13/22 02:03 Neut # (Auto) 7.99 10^3/uL (1.8-7.7) H 05/13/22 02:03 Lymph # (Auto) 2.4 10^3/uL (0.8-4.8) 05/13/22 02:03 Emanuel # (Auto) 0.9 10^3/uL (0.2-0.9) 05/13/22 02:03 Eos # (Auto) 0.0 10^3/uL (0.0-0.8) 05/13/22 02:03 Baso # (Auto) 0.1 10^3/uL (0.0-0.1) 05/13/22 02:03 Nucleated RBC % (auto) 0 % 05/13/22 02:03 Nucleated RBCs # 0.0 /100WBC 05/13/22 02:03 PT 13.60 SECONDS (12.1-14.9) 05/11/22 11:10 INR 1.01 (0.8-1.2) 05/11/22 11:10 APTT 22.6 SECONDS (23.9-36.7) L 05/11/22 11:10 Sodium 140 mmol/L (136-145) 05/13/22 02:03 Potassium 3.8 mmol/L (3.5-5.1) 05/13/22 02:03 Chloride 102 mmol/L (98-107) 05/13/22 02:03 Carbon Dioxide 27 mmol/L (22-29) 05/13/22 02:03 Anion Gap 14.8 (5-19) 05/13/22 02:03 BUN 24 mg/dL (6-20) H 05/13/22 02:03 Creatinine 1.4 mg/dL (0.5-0.9) H 05/13/22 02:03 GFR Calculation 38.9 mL/min (90-130) L 05/13/22 02:03 Glucose 191 mg/dL (65-115) H 05/13/22 02:03 POC Glucose 172 mg/dL (70-110) H 05/13/22 06:22 Estimat Average Glucose 177 05/12/22 09:16 Hemoglobin A1c 7.8 % (4.0-6.0) H 05/12/22 09:16 Calculated Osmolality 299 mOsm/kg (285-295) H 05/13/22 02:03 Lactic Acid 0.8 mmol/L (0.5-2.2) 05/11/22 18:40 Calcium 8.4 mg/dL (8.5-10.5) L 05/13/22 02:03 Phosphorus 3.7 mg/dL (2.5-4.5) 05/12/22 09:16 Magnesium 1.9 mg/dL (1.7-2.3) 05/12/22 09:16 Total Bilirubin 0.7 mg/dL (0.15-1.2) 05/11/22 11:10 AST 16 U/L (0-32) 05/11/22 11:10 ALT 8 U/L (0-33) 05/11/22 11:10 Alkaline Phosphatase 122 U/L (35-105) H 05/11/22 11:10 Total Protein 7.2 g/dL (6.6-8.7) 05/11/22 11:10 Albumin 4.1 g/dL (3.5-5.2) 05/11/22 11:10 Globulin 3.1 g/dL (1.3-4.6) 05/11/22 11:10 TSH 2.84 uIU/mL (0.27-4.20) 05/12/22 09:16 Urine Color Yellow (Yellow) 05/11/22 18:28 Urine Appearance Clear (CLEAR) 05/11/22 18:28 Urine pH 7 (5-7) 05/11/22 18:28 Ur Specific [place] 1.005 (1.005-1.030) 05/11/22 18:28 Urine Protein Neg (Negative) 05/11/22 18:28 Urine Glucose (UA) Norm (Normal) 05/11/22 18:28 Urine Ketones Negative (Negative) 05/11/22 18:28 Urine Blood Neg (Negative) 05/11/22 18:28 Urine Nitrate Negative (Negative) 05/11/22 18:28 Urine Bilirubin Neg (Negative) 05/11/22 18:28 Urine Urobilinogen Norm mg/dL (Negative) 05/11/22 18:28 Ur Leukocyte Esterase Negative (Negative) 05/11/22 18:28 Vitals Last Vital Signs Temp 98.3 F 05/13/22 08:00 Pulse 102 H 05/13/22 08:46 Resp 18 05/13/22 08:46 BP 137/77 05/13/22 08:00 Pulse Ox 92 05/13/22 08:46 O2 Del Method 05/13/22 08:46 O2 Flow Rate 2 05/11/22 15:50 Discharge Plan Discharge Patient Disposition: Xfer SNF Condition: Stable Prescriptions: New lactulose 10 gram/15 mL (15 mL) solution 15 ml PO DAILY PRN (Reason: constipation) Qty: 750 1RF Continued pantoprazole 20 mg Tablet,Delayed Release (Dr/Ec) 20 mg PO QAM lorazepam 0.5 mg Tablet 0.5 mg PO TID@09,14,21 magnesium hydroxide [Milk of Magnesia] 400 mg/5 mL Suspension 30 ml PO DAILY PRN (Reason: Constipation) bisacodyl 10 mg Suppository 10 mg MA DAILY PRN (Reason: Constipation) atorvastatin 10 mg Tablet 10 mg PO DAILY@08 hydrocodone-acetaminophen 5-325 mg Tablet 1 tab PO Q8H PRN (Reason: Pain) levothyroxine 100 mcg Tablet 100 mcg PO QAM nystatin 100,000 unit/gram Cream See Rx Instructions .ROUTE .COMPLEX Rx Instructions: APPLY TO YAN AREA AND ABDOMINAL TOPICALLY EVERY 8 HOURS PRN RASH (CLEANSE AREA WITH SOAP AND WATER PAT DRY AND APPLY CREAM bisacodyl 5 mg Tablet,Delayed Release (Dr/Ec) 10 mg PO DAILY PRN (Reason: Constipation) insulin aspart U-100 [Novolog U-100 Insulin aspart] 100 unit/mL Solution See Rx Instructions .ROUTE .COMPLEX Qty: 10 0RF Rx Instructions: INJECT PER SLIDING SCALE BEFORE MEALS 150-200=3 UNITS 201-250=5 UNITS 251-300=7 UNITS 301-350=9 UNITS 351-400=11 UNITS 401-450= 13 UNITS 451-500=15 UNITS metolazone 2.5 mg Tablet 2.5 mg PO QAM Aspir-81 81 mg Tablet,Delayed Release (Dr/Ec) 81 mg PO DAILY@08 acetaminophen 650 mg Tablet Extended Release 650 mg PO Q6H PRN (Reason: Pain) Lasix 80 mg Tablet 80 mg PO DAILY@08 metformin 1,000 mg Tablet 1,000 mg PO BID hydroxyzine HCl 25 mg Tablet 25 mg PO TID@,, alum-mag hydroxide-simeth 400-400-40 mg/5 mL Suspension 10 ml PO Q4H PRN (Reason: Indigestion) metoprolol tartrate 25 mg Tablet 12.5 mg PO BID Januvia 50 mg Tablet 50 mg PO DAILY@08 magnesium oxide 400 mg magnesium Tablet 400 mg PO BID Levemir U-100 Insulin 100 unit/mL solution 40 unit SUBCUT BEDTIME senna 8.6 mg Tablet 8.6 mg PO QAM Miralax 17 gram Powder In Packet 17 g PO QAM olopatadine 0.1 % Drops 1 drp OPHTHALMIC (EYE) BID Rx Instructions: separate doses by at least 6-8 hours potassium chloride 20 mEq Tablet Extended Release 20 meq PO TID@,,20 Referrals: Kaitlynn Almonte FACTORY MAINTENANCE TECHNICIAN [Primary Care Provider] - Discharge Diet: GI Soft Coding Level of Care Code Acute Chg [facility] note Diagnoses Hydronephrosis, right N13.30 Bladder wall thickening N32.89 Gross hematuria R31.0
--- NOTE | 2022-05-13 10:33 | PM.PN ---
Subjective Subjective: Patient is tolerating her diet Had 1 bowel movement last night NG has been removed Will touch base with the surgeon if she is okay to be discharged today Vitals/I&O/Wt Last Vital Signs Temp 98.3 F 05/13/22 08:00 Pulse 102 H 05/13/22 08:46 Resp 18 05/13/22 08:46 BP 137/77 05/13/22 08:00 Pulse Ox 92 05/13/22 08:46 O2 Del Method 05/13/22 08:46 O2 Flow Rate 2 05/11/22 15:50 05/12/22 05/13/22 05/13/22 22:59 06:59 14:59 Intake Total 1205 / 1205 2216.25 / 3421.25 120 / 120 Output Total 1550 / 1550 650 / 2200 Balance -345 / -345 1566.25 / 1221.25 120 / 120 Weight last 48 hrs Weight 77.746 kg Physical Exam Narrative: Awake and alert Euvolemic Abdomen soft Asking for food and pop Nonfocal neuro exam Currently on room air Abdomen soft bowel sound present Urinary Catheter Management: Riley: Cath Placed During This Visit: yes Reason for Continuing Indwelling Catheter: Other Urinary Catheter Date of Insertion: 05/11/22 Data : 05/13/22 02:03 05/13/22 02:03 Micro: Microbiology 05/11/22 18:31 Blood Culture - Preliminary Blood 05/11/22 18:40 Blood Culture - Preliminary Blood NEGATIVE TO DATE A&P Assessment and plan (1) Dementia: (2) COPD (chronic obstructive pulmonary disease): (3) Partial small bowel obstruction: Plan Partial SBO: Resolved Tolerating diet Will touch base with Dr. Thorpe whether he is planning for cystoscopy while she is here versus outpatient Creatinine improved with IV fluid hydration Will touch base with the surgeon Will add lactulose at the time of discharge Attestations Medical Necessity Statement*: Will test base with Dr. Thorpe Time Spent in Patient Care: 10 Coding Level of Care Code Acute Speech Communication Professor for Chg Fwd Diagnoses Dementia F03.90 COPD (chronic obstructive pulmonary disease) J44.9 Partial small bowel obstruction K56.600
[2022-05-13 11:21] LABS: Glucose Point of Care 306 mg/dL (70-110)
--- NOTE | 2022-05-13 13:50 | PM.DCS ---
Discharge Providers Date of Admission: 05/11/22 14:37 Date of Discharge: May 13, 2022 Attending Provider at Admission: Melissa Kent MD Attending Provider at Discharge: Bereket Rust MD Primary Care Provider: Kaitlynn Almonte NP Diagnoses at Discharge Discharge Diagnosis (1) Dementia: Status: Chronic (2) COPD (chronic obstructive pulmonary disease): Status: Chronic (3) Partial small bowel obstruction: Status: Acute Reason for Visit Reason for Visit: Vomiting fecal material Hospital Course Hospital Course 56-year-old female who presented to the hospital for feculent material vomiting at the time of admission, there was concern for bowel obstruction at the site of chronic incarcerated hernia there were no signs of strangulation or ischemic peritonitis, intussusception was also noticed on the CAT scan of the abdomen pelvis, general surgery manage her conservatively, Gastrografin study was done after we placed her NG tube in case patient was not very cooperative and pulled her two NG tube, contrast travel all the way down to her rectum, she had 1 bowel movement 05/13, tolerating her diet, she will be discharged back on bowel regimen, she is still at risk of bowel obstruction, Patient is full code Her diet could be advanced to GI soft, she should get lactulose on daily as needed basis Dr Thorpe recommended outpt cystoscopy Physical Exam Narrative: Awake and alert Euvolemic Abdomen soft Asking for food and pop Nonfocal neuro exam Currently on room air Abdomen soft bowel sound presen Urinary Catheter Management: Riley: Cath Placed During This Visit: yes Reason for Continuing Indwelling Catheter: Other Urinary Catheter Date of Insertion: 05/11/22 Discharge Data Studies Completed and Pending Completed Studies During Hospitalization Category Date Time Status CT abdomen pelvis w con* [id number] Stat Cat Scan 05/11/22 10:34 Completed CXRP [XR chest 1V portable [id number]] Stat Exams 05/12/22 06:31 Completed XR KUB portable [id number] Routine Exams 05/12/22 20:00 Completed XR KUB portable [id number] Routine Exams 05/13/22 04:00 Completed XR abdomen 1V* [id number] Routine Exams 05/12/22 13:45 Completed XR chest 1V portable [id number] Stat Exams 05/12/22 10:26 Completed Pending at discharge Category Date Time Status Basic Metabolic Panel AM LABS Lab 05/14/22 04:00 Ordered Blood Culture Stat Lab 05/11/22 18:40 Results COVID [SARS Covid-2 Antigen] Routine Lab 05/13/22 13:41 Uncollected Radiology Impressions Abdomen/Pelvis CT 05/11/22 10:34 IMPRESSION: 1. Wide mouth incarcerated ventral abdominal wall hernia with evidence of proximal small bowel obstruction. In addition herniated bowel loops demonstrate wall thickening with surrounding edema and mucosal enhancement. No perforation. 2. Diffuse circumferential enhancing bladder wall thickening suspicious for bladder neoplasm. This appears to result in obstruction of the RIGHT ureter with moderate RIGHT hydronephrosis progressed compared to previous. More focal RIGHT eccentric bladder wall mass measuring 1.6 x 1.4 CM obstructs the RIGHT ureter compatible with neoplasm. Recommend further evaluation with cystoscopy. 3. Intussusception involving the 2nd portion of the duodenum likely present on prior examinations. This may be incidental but can be followed up with endoscopy. 4. Prior cholecystectomy. Chest X-Ray 05/12/22 10:26 IMPRESSION: Tip of the nasogastric tube projects on the body of the stomach. Abdomen X-Ray 05/12/22 13:45 IMPRESSION: No complete obstruction identified. Nonspecific bowel gas pattern. COMMENTS: For patients with an IVC filter, recommend assessment for a management plan for the patient's IVC filter. If there is no established management plan, recommend referral to an interventional clinician on a nonemergent basis for evaluation. KUB X-Ray 05/13/22 04:00 IMPRESSION: Interval progression of contrast material in the colon, as noted above. No abnormal dilatation of small bowel loops. COMMENTS: For patients with an IVC filter, recommend assessment for a management plan for the patient's IVC filter. If there is no established management plan, recommend referral to an interventional clinician on a nonemergent basis for evaluation. Laboratory Results WBC 11.4 10^3/uL (4.0-10.0) H 05/13/22 02:03 RBC 3.81 10^6/uL (4.1-5.3) L 05/13/22 02:03 Hgb 11.8 g/dL (11.5-15.3) 05/13/22 02:03 Hct 37.6 % (37.0-47.0) 05/13/22 02:03 MCV 98.7 fl (81-99) 05/13/22 02:03 MCH 31.0 pg (28.0-34.0) 05/13/22 02:03 MCHC 31.4 g/dL (30.0-36.0) 05/13/22 02:03 RDW 13.4 % (12.1-15.1) 05/13/22 02:03 Plt Count 184 10^3/cmm (130-400) 05/13/22 02:03 MPV 10.2 fL (7.4-10.4) 05/13/22 02:03 Neut % (Auto) 70.2 % 05/13/22 02:03 Lymph % (Auto) 21.0 % 05/13/22 02:03 [place] % (Auto) 7.7 % 05/13/22 02:03 Eos % (Auto) 0.0 % 05/13/22 02:03 Baso % (Auto) 0.4 % 05/13/22 02:03 Neut # (Auto) 7.99 10^3/uL (1.8-7.7) H 05/13/22 02:03 Lymph # (Auto) 2.4 10^3/uL (0.8-4.8) 05/13/22 02:03 [place] # (Auto) 0.9 10^3/uL (0.2-0.9) 05/13/22 02:03 Eos # (Auto) 0.0 10^3/uL (0.0-0.8) 05/13/22 02:03 Baso # (Auto) 0.1 10^3/uL (0.0-0.1) 05/13/22 02:03 Nucleated RBC % (auto) 0 % 05/13/22 02:03 Nucleated RBCs # 0.0 /100WBC 05/13/22 02:03 PT 13.60 SECONDS (12.1-14.9) 05/11/22 11:10 INR 1.01 (0.8-1.2) 05/11/22 11:10 APTT 22.6 SECONDS (23.9-36.7) L 05/11/22 11:10 Sodium 140 mmol/L (136-145) 05/13/22 02:03 Potassium 3.8 mmol/L (3.5-5.1) 05/13/22 02:03 Chloride 102 mmol/L (98-107) 05/13/22 02:03 Carbon Dioxide 27 mmol/L (22-29) 05/13/22 02:03 Anion Gap 14.8 (5-19) 05/13/22 02:03 BUN 24 mg/dL (6-20) H 05/13/22 02:03 Creatinine 1.4 mg/dL (0.5-0.9) H 05/13/22 02:03 GFR Calculation 38.9 mL/min (90-130) L 05/13/22 02:03 Glucose 191 mg/dL (65-115) H 05/13/22 02:03 POC Glucose 306 mg/dL (70-110) H 05/13/22 10:53 Estimat Average Glucose 177 05/12/22 09:16 Hemoglobin A1c 7.8 % (4.0-6.0) H 05/12/22 09:16 Calculated Osmolality 299 mOsm/kg (285-295) H 05/13/22 02:03 Lactic Acid 0.8 mmol/L (0.5-2.2) 05/11/22 18:40 Calcium 8.4 mg/dL (8.5-10.5) L 05/13/22 02:03 Phosphorus 3.7 mg/dL (2.5-4.5) 05/12/22 09:16 Magnesium 1.9 mg/dL (1.7-2.3) 05/12/22 09:16 Total Bilirubin 0.7 mg/dL (0.15-1.2) 05/11/22 11:10 AST 16 U/L (0-32) 05/11/22 11:10 ALT 8 U/L (0-33) 05/11/22 11:10 Alkaline Phosphatase 122 U/L (35-105) H 05/11/22 11:10 Total Protein 7.2 g/dL (6.6-8.7) 05/11/22 11:10 Albumin 4.1 g/dL (3.5-5.2) 05/11/22 11:10 Globulin 3.1 g/dL (1.3-4.6) 05/11/22 11:10 TSH 2.84 uIU/mL (0.27-4.20) 05/12/22 09:16 Urine Color Yellow (Yellow) 05/11/22 18:28 Urine Appearance Clear (CLEAR) 05/11/22 18:28 Urine pH 7 (5-7) 05/11/22 18: Ur Specific [place] 1.005 (1.005-1.030) 05/11/22 18: Urine Protein Neg (Negative) 05/11/22 18: Urine Glucose (UA) Norm (Normal) 05/11/22 18:28 Urine Ketones Negative (Negative) 05/11/22 18: Urine Blood Neg (Negative) 05/11/22 18: Urine Nitrate Negative (Negative) 05/11/22 18: Urine Bilirubin Neg (Negative) 05/11/22 18: Urine Urobilinogen Norm mg/dL (Negative) 05/11/22 18: Ur Leukocyte Esterase Negative (Negative) 05/11/22 18: Vitals Last Vital Signs Temp 98.1 F 05/13/22 12:00 Pulse 102 H 05/13/22 12:00 Resp 18 05/13/22 12:00 BP 120/73 05/13/22 12:00 Pulse Ox 94 05/13/22 12:00 O2 Del Method 05/13/22 08:46 O2 Flow Rate 2 05/11/22 15:50 Discharge Plan Discharge Patient Disposition: Xfer SNF Condition: Stable Prescriptions: New lactulose 10 gram/15 mL (15 mL) solution 15 ml PO DAILY PRN (Reason: constipation) Qty: 750 1RF Continued pantoprazole 20 mg Tablet,Delayed Release (Dr/Ec) 20 mg PO QAM lorazepam 0.5 mg Tablet 0.5 mg PO TID@09,14,21 magnesium hydroxide [Milk of Magnesia] 400 mg/5 mL Suspension 30 ml PO DAILY PRN (Reason: Constipation) bisacodyl 10 mg Suppository 10 mg ND DAILY PRN (Reason: Constipation) atorvastatin 10 mg Tablet 10 mg PO DAILY@08 hydrocodone-acetaminophen 5-325 mg Tablet 1 tab PO Q8H PRN (Reason: Pain) levothyroxine 100 mcg Tablet 100 mcg PO QAM nystatin 100,000 unit/gram Cream See Rx Instructions .ROUTE .COMPLEX Rx Instructions: APPLY TO YAN AREA AND ABDOMINAL TOPICALLY EVERY 8 HOURS PRN RASH (CLEANSE AREA WITH SOAP AND WATER PAT DRY AND APPLY CREAM bisacodyl 5 mg Tablet,Delayed Release (Dr/Ec) 10 mg PO DAILY PRN (Reason: Constipation) insulin aspart U-100 [Novolog U-100 Insulin aspart] 100 unit/mL Solution See Rx Instructions .ROUTE .COMPLEX Qty: 10 0RF Rx Instructions: INJECT PER SLIDING SCALE BEFORE MEALS 150-200=3 UNITS 201-250=5 UNITS 251-300=7 UNITS 301-350=9 UNITS 351-400=11 UNITS 401-450= 13 UNITS 451-500=15 UNITS metolazone 2.5 mg Tablet 2.5 mg PO QAM Aspir-81 81 mg Tablet,Delayed Release (Dr/Ec) 81 mg PO DAILY@08 acetaminophen 650 mg Tablet Extended Release 650 mg PO Q6H PRN (Reason: Pain) Lasix 80 mg Tablet 80 mg PO DAILY@08 metformin 1,000 mg Tablet 1,000 mg PO BID hydroxyzine HCl 25 mg Tablet 25 mg PO TID@,, alum-mag hydroxide-simeth 400-400-40 mg/5 mL Suspension 10 ml PO Q4H PRN (Reason: Indigestion) metoprolol tartrate 25 mg Tablet 12.5 mg PO BID Januvia 50 mg Tablet 50 mg PO DAILY@08 magnesium oxide 400 mg magnesium Tablet 400 mg PO BID Levemir U-100 Insulin 100 unit/mL solution 40 unit SUBCUT BEDTIME senna 8.6 mg Tablet 8.6 mg PO QAM Miralax 17 gram Powder In Packet 17 g PO QAM olopatadine 0.1 % Drops 1 drp OPHTHALMIC (EYE) BID Rx Instructions: separate doses by at least 6-8 hours potassium chloride 20 mEq Tablet Extended Release 20 meq PO TID@08,,20 Discharge Orders: Discharge Order (Routine); Ordered 05/13/22 Ordered By: Bereket Rust Referrals: Kaitlynn Almonte [employer] [Primary Care Provider] - Discharge Diet: GI Soft Discharge Attestations Time Spent in Discharge Care*: less than 30 min Quality Metrics Clinical Quality Measures [ No reported AMI, CVA or VTE this stay] Coding Level of Care Code Acute [facility] note Diagnoses Dementia F03.90 COPD (chronic obstructive pulmonary disease) J44.9 Partial small bowel obstruction K56.600
--- NOTE | 2022-05-13 15:09 | P.PN_ITS ---
Subjective Subjective: No acute events overnight. Tolerated clears well. Seems to to have no complaints, however, it is difficult to tell for sure because patient is not communicating efficiently. Vitals/I&O/Wt Last Vital Signs Temp 98.1 F 05/13/22 12:00 Pulse 102 H 05/13/22 12:00 Resp 18 05/13/22 12:00 BP 120/73 05/13/22 12:00 Pulse Ox 94 05/13/22 12:00 O2 Del Method 05/13/22 08:46 O2 Flow Rate 2 05/11/22 15:50 05/13/22 05/13/22 05/13/22 06:59 14:59 22:59 Intake Total 2216.25 / 3421.25 120 / 120 Output Total 650 / 2200 Balance 1566.25 / 1221.25 120 / 120 Weight last 48 hrs Weight 171 lb 6.4 oz Physical Exam Narrative: General: No acute distress Psych: She is slightly more conversational today. However, not able to make any reasonable conversation. Eyes: [sclerae are white] Head/ENT: [normocephalic, symmetric] CV: [regular] pulse, [tachychardic], no JVD Lungs: [symmetrical chest rise] Abdomen: [soft, ND, the patient does not react to palpation. Chronic incarcerated hernia in the midline. Not reducible. The hernia is soft, it does not appear to be acutely distended]. Ext: [no obvious traumatic deformities] Skin: warm Urinary Catheter Management: Riley: Cath Placed During This Visit: yes Reason for Continuing Indwelling Catheter: Other Urinary Catheter Date of Insertion: 05/11/22 Data : 05/13/22 02:03 05/13/22 02:03 Micro: Microbiology 05/11/22 18:31 Blood Culture - Preliminary Blood Micrococcus and related genera 05/11/22 18:40 Blood Culture - Preliminary Blood NEGATIVE TO DATE A&P Assessment and plan (1) Ventral hernia: (2) Small bowel obstruction: (3) Intussusception: (4) DELORES (acute kidney injury): Plan Advance diet as tolerated. No evidence of any obstruction. For chronically incarcerated hernia is a recurrent problem. She has a history of on the end of vomiting, partial chronic obstruction of the hernia may contribute to it. I think her hernia needs to be fixed in a elective way. Follow-up with one of the local general surgeons to evaluate for elective hernia repair as outpatient. This time general surgery will sign off. Please call with questions or concerns. Attestations Medical Necessity Statement*: per primary team Coding Level of Care Code Acute Gl[employer] Wiper for Chg Fwd Diagnoses Ventral hernia K43.9 Small bowel obstruction K56.609 Intussusception K56.1 DELORES (acute kidney injury) N17.9
[2022-05-13 15:33] LABS: SARS Covid-2 Antigen negative (Negative)
[2022-05-13 17:41] LABS: Glucose Point of Care 146 mg/dL (70-110)
--- NOTE | 2022-05-13 18:36 | PC.NURSE ---
Riley was removed at 1630
[2022-05-13 21:52] LABS: Glucose Point of Care 155 mg/dL (70-110)
[2022-05-14 03:32] VITALS: BP 99/63; PULSE 83; RESP 18; TEMP 37.4; O2SAT 91
[2022-05-14 05:56] LABS: Anion Gap 13.4 (5-19); Blood Urea Nitrogen 13 mg/dL (6-20); Calcium 8.7 mg/dL (8.5-10.5); Carbon Dioxide 30 mmol/L (22-29); Chloride 102 mmol/L (98-107); Glomerular Filtration Rate 46.5 mL/min (90-130); Glucose 130 mg/dL (65-115); Osmolality Calculated 296 mOsm/kg (285-295); Potassium 3.4 mmol/L (3.5-5.1); Sodium 142 mmol/L (136-145)
[2022-05-14 06:49] LABS: Glucose Point of Care 147 mg/dL (70-110)
[2022-05-14 08:00] VITALS: BP 134/81; PULSE 102; RESP 17; TEMP 36.7; O2SAT 95
--- NOTE | 2022-05-14 10:31 | PC.NURSE ---
Received verbal orders from Dr. Rust to hold morning medications. See MAR documentation.
[2022-05-14] MEDS: LORazepam 2 mg/mL oral liquid (mL) 0.5 MG PO (10:33)
--- NOTE | 2022-05-14 10:35 | PC.NURSE ---
At this time patient is resting in bed watching TV. States she is anxious and given 0.5 ativan PO liquid. Patent currently awaiting transportation for discharge.
[2022-05-14 11:31] LABS: Glucose Point of Care 186 mg/dL (70-110)
[2022-05-14] MEDS: insulin lispro 100 unit/1 mL SUBCUT (12:12)
[2022-05-14 12:23] VITALS: BP 105/67; PULSE 96; RESP 14; TEMP 37; O2SAT 93
--- NOTE | 2022-05-14 12:38 | PC.NURSE ---
Report called to Inge at [facility]. Awaiting Transportation.
[2022-05-14 12:50] VITALS: BP 105/67; PULSE 96; RESP 16; TEMP 37; O2SAT 93
--- NOTE | 2022-05-14 12:52 | PC.NURSE ---
Patient discharged in care of transportation to [facility]. [facility] called and notified of patients departure from [facility]. Patient ambulated to wheelchair and assisted to transport vehicle by Marty BENSON. Patient had no questions at time of discharge.
== END 2022-05-14 12:55 | disposition skilled nursing facility (03) | DRG 389 ==
LOC: ER 16:35 → MEDSURG 16:53
PROVIDERS: Admitting Provider Hospitalist; Emergency Provider Family Medicine; PCP Nurse Practitioner Family; Visit Provider Internal Medicine
DX: K56.690 Other partial intestinal obstruction (principal); F03.918 Unspecified dementia, unspecified severity, with other behavioral disturbance; K43.6 Other and unspecified ventral hernia with obstruction, without gangrene; N13.1 Hydronephrosis with ureteral stricture, not elsewhere classified; N17.9 Acute kidney failure, unspecified; F79 Unspecified intellectual disabilities; N32.9 Bladder disorder, unspecified; J44.9 Chronic obstructive pulmonary disease, unspecified; J45.20 Mild intermittent asthma, uncomplicated; Z86.16 Personal history of COVID-19; F32.A Depression, unspecified; G40.909 Epilepsy, unspecified, not intractable, without status epilepticus; K21.9 Gastro-esophageal reflux disease without esophagitis; Z86.718 Personal history of other venous thrombosis and embolism; I10 Essential (primary) hypertension; E03.9 Hypothyroidism, unspecified; E11.65 Type 2 diabetes mellitus with hyperglycemia; E78.2 Mixed hyperlipidemia; Z79.84 Long term (current) use of oral hypoglycemic drugs; Z79.82 Long term (current) use of aspirin; Z79.4 Long term (current) use of insulin; Z79.891 Long term (current) use of opiate analgesic; K56.1 Intussusception; Z95.828 Presence of other vascular implants and grafts; E87.6 Hypokalemia; Z87.891 Personal history of nicotine dependence
CPT/HCPCS: 12345; 36415; 36416; 51702; 71045; 74018; 74177; 80048; 80053; 81003; 82962; 83036; 83605; 83735; 84100; 84443; 85025; 85610; 85730; 87040; 87150; 87205; 87426; 93005; 96365; 96372; 96375; 99285; C9113; J1200; J1815; J2060; J2250; J2270; J2543; J2920; J3480; J3490; J7030; J9352; Q9967

== ENCOUNTER → 2022-05-21 09:36 | Outpatient (BNVA) | payer MEDICAID, SELFPAY | PROVIDERS: PCP Internal Medicine; Visit Provider Urology | DX: N32.89 Other specified disorders of bladder (principal); N13.30 Unspecified hydronephrosis; F41.9 Anxiety disorder, unspecified; R41.89 Other symptoms and signs involving cognitive functions and awareness; E03.9 Hypothyroidism, unspecified; K43.6 Other and unspecified ventral hernia with obstruction, without gangrene | CPT/HCPCS: 99214 ==

== ENCOUNTER 2022-05-31 11:03 | Observation (INO) | payer MEDICAID, SELFPAY ==
[2022-05-27 13:28] VITALS: BMI 33.7
--- NOTE | 2022-05-27 13:33 | P.ANESASSM_ITS ---
Pre-Anesthetic Assessment Height/Weight: Height 1.5 m Weight 75.75 kg Preop Diagnosis: Bladder mass, right hydronephrosis Operation Date: 05/31/22 09:35 Proposed Procedures p CYSTOSCOPY POSSIBLE RIGHT RETROGRADE URETEROSCOPY BIOPSY TUMOR RESECTION 75154 [facility] 26 27359,N32.89(Not Applicable) - Lorenzo Thorpe MD s Retrograde Pyelogram(Right) - MD narendra Marti Ureteroscopy(Right) - Lorenzo Thorpe MD s Transurethral Resection Bladder Tumor(Not Applicable) - Lorenzo Thorpe MD Familial anesthetic complications: None Social No alcohol and No tobacco Exam alert, oriented x 3, clear to auscultation bilaterally and regular rate & rhythm Airway Mallampati: Class III Dentition: other (no teeth) Pulmonary Asthma and Chronic Obstructive Pulmonary Disease CV/HEM Deep Vein Thrombosis 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 GI Gastroesophageal Reflux Disease Metabolic Diabetes Mellitus and Thyroid Disease Neuropsych Seizure 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, has had multiple surgeries since with no issues Anesthetic Plan ASA status: 3 Anesthesia: General Risk of > 500 ml blood loss (7ml/kg in children): No Medications/Allergies Home Medications Medication Instructions Recorded Confirmed Last Taken Type atorvastatin 10 mg tablet 10 mg PO DAILY@08 05/30/20 05/21/22 05/11/22 History bisacodyl 10 mg rectal suppository 10 mg SC DAILY PRN Constipation 05/30/20 05/21/22 Unknown History bisacodyl 5 mg tablet,delayed 10 mg PO DAILY PRN Constipation 05/30/20 05/21/22 Unknown History release hydrocodone 5 mg-acetaminophen 325 1 tab PO Q8H PRN Pain 05/30/20 05/21/22 05/11/22 08:15 History mg tablet levothyroxine 100 mcg tablet 100 mcg PO QAM 05/30/20 05/21/22 05/11/22 History lorazepam 0.5 mg tablet 0.5 mg PO TID@09,14,21 05/30/20 05/21/22 05/11/22 History magnesium hydroxide 400 mg/5 mL 30 ml PO DAILY PRN Constipation 05/30/20 05/21/22 Unknown History oral suspension (Milk of Magnesia) nystatin 100,000 unit/gram topical See Rx Instructions .Route .COMPLEX 1105/21/22 05/30/20 History cream pantoprazole 20 mg tablet,delayed 20 mg PO QAM 05/30/20 05/21/22 05/11/22 History release insulin aspart U-100 100 unit/mL See Rx Instructions .Route 06/07/20 05/21/22 Unknown Rx subcutaneous solution (Novolog .COMPLEX #10 mL U-100 Insulin aspart) acetaminophen 650 mg 650 mg PO Q6H PRN Pain 05/11/22 05/21/22 Unknown History tablet,extended release aluminum-mag hydroxide-simethicone 10 ml PO Q4H PRN Indigestion 05/11/22 05/21/22 Unknown History 400 mg-400 mg-40 mg/5 mL oral susp aspirin 81 mg tablet,delayed 81 mg PO DAILY@08 05/11/22 05/21/22 05/11/22 His tory release furosemide 80 mg tablet (Lasix) 80 mg PO DAILY@08 05/11/22 05/21/22 05/11/22 Hi story hydroxyzine HCl 25 mg tablet 25 mg PO TID@09,,05/11/22 05/21/22 05/11/22 History insulin detemir U-100 100 unit/mL 40 unit SUBCUT BEDTIME 05/11/22 05/21/22 Unknown History subcutaneous solution (Levemir U-100 Insulin) magnesium oxide 400 mg PO BID 05/11/22 05/21/22 05/11/22 History metformin 1,000 mg tablet 1,000 mg PO BID 05/11/22 05/21/22 05/11/22 History metolazone 2.5 mg tablet 2.5 mg PO QAM 05/11/22 05/21/22 05/11/22 History metoprolol tartrate 25 mg tablet 12.5 mg PO BID 05/11/22 05/21/22 05/10/22 History olopatadine 0.1 % eye drops 1 drp ophthalmic (eye) BID 05/11/22 05/21/22 05/10/22 History polyethylene glycol 3350 17 gram 17 g PO QAM 05/11/22 05/21/22 05/11/22 History oral powder packet (Miralax) potassium chloride 20 mEq 20 meq PO TID@08,13,20 05/11/22 05/21/22 05/11/22 History tablet,extended release sennosides 8.6 mg tablet (senna) 8.6 mg PO QAM 05/11/22 05/21/22 05/10/22 History sitagliptin 50 mg tablet (Januvia) 50 mg PO DAILY@08 05/11/22 05/21/22 05/11/22 History lactulose 10 gram/15 mL (15 mL) 15 ml PO DAILY PRN constipation 05/13/22 05/21/22 Unknown Rx oral solution #750 mL Allergies Allergy/AdvReac Type Severity Reaction Status Date / Time No Known Allergies Allergy Verified 05/27/22 13:21 [facility] Anesthesia Medical History (Updated 05/21/22 @ 10:52 by Lorenzo Thorpe MD) DELORES (acute kidney injury) Anxiety B12 deficiency Bladder wall thickening Cataract COPD (chronic obstructive pulmonary disease) COVID-19 (~05/2020) 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 Dementia Depression Epilepsy GERD (gastroesophageal reflux disease) Gross hematuria History of DVT (deep vein thrombosis) Hydronephrosis, right Hypertension Hypothyroidism Insulin dependent type 2 diabetes mellitus Intellectual disability Intussusception 2nd part of duodenum Mild intermittent asthma Mixed hyperlipidemia Partial small bowel obstruction Presence of IVC filter Small bowel obstruction Ventral hernia Vitamin D deficiency Vomiting of fecal matter Surgical History History of ankle surgery History of cholecystectomy Family History Grandmother Cancer Breast, lung, cervical Mother , AT AGE 26 Gunshot wound Father , AT AGE 65 Pneumonia Social History Smoking and tobacco status: former smoker Alcohol intake: never Marital status: Single Current occupational status: disabled History of recent travel: No Data Anesthesia : 05/27/22 13:50 05/27/22 13:50 Cardiac Studies: Echocardiogram Ultrasound 06/01/20
--- NOTE | 2022-05-27 13:39 | ECG_ITS ---
[facility] Test Date: 2022-05-27 Pat Name: Emmanuel Corral Department: Room: Gender: Female Wrist Liner: : 1965 Requested By: Lorenzo Thorpe Order Number: [id number] Colby MD: Mariano Larson M.D. Measurements Intervals [place] Rate: 97 P: 51 FL: 129 QRS: -3 QRSD: 86 T: 53 QT: 330 QTc: 419 Interpretive Statements SINUS RHYTHM POSSIBLE ANTERIOR MYOCARDIAL INFARCTION , PROBABLY OLD [30 ms Q WAVE IN V3/V4, OR R < 0.2 mV IN V4] Compared to ECG 05/11/2022 11:17:29 Sinus tachycardia no longer present Myocardial infarct finding still present Electronically Signed On 05-27-2022 15:07:43 CDT by Mariano Larson M.D. [email or web address]
[2022-05-27 14:05] LABS: Basophils # 0.1 10^3/uL (0.0-0.1); Basophils % 0.5 %; Hematocrit 38.4 % (37.0-47.0); Hemoglobin 12.6 g/dL (11.5-15.3); Lymphocytes # 2.6 10^3/uL (0.8-4.8); Lymphocytes % 20.6 %; Mean Corpuscular HGB Conc 32.8 g/dL (30.0-36.0); Mean Corpuscular Hemoglobin 29.7 pg (28.0-34.0); Mean Corpuscular Volume 90.6 fl (81-99); Mean Platelet Volume 10.7 fL (7.4-10.4); Monocytes # 0.6 10^3/uL (0.2-0.9); Monocytes % 4.7 %; Neutrophils # 9.25 10^3/uL (1.8-7.7); Neutrophils % 73.3 %; Nucleated Red Blood Cells % 0 %; Platelet Count 222 10^3/cmm (130-400); Red Blood Count 4.24 10^6/uL (4.1-5.3); Red Cell Distribution Width 13.5 % (12.1-15.1); White Blood Count 12.6 10^3/uL (4.0-10.0)
[2022-05-27 14:30] LABS: Alanine Aminotransferase 8 U/L (0-33); Alkaline Phosphatase 115 U/L (35-105); Anion Gap 20.1 (5-19); Aspartate Amino Transferase 14 U/L (0-32); Blood Urea Nitrogen 41 mg/dL (6-20); Calcium 9.2 mg/dL (8.5-10.5); Carbon Dioxide 26 mmol/L (22-29); Chloride 93 mmol/L (98-107); Globulin 2.7 g/dL (1.3-4.6); Glomerular Filtration Rate 29.1 mL/min (90-130); Glucose 250 mg/dL (65-115); Osmolality Calculated 299 mOsm/kg (285-295); Potassium 4.1 mmol/L (3.5-5.1); Sodium 135 mmol/L (136-145); Total Bilirubin 0.3 mg/dL (0.15-1.2); Total Protein 6.7 g/dL (6.6-8.7)
[2022-05-31] VITALS (23 sets, daily range): BP systolic 100–174; BP diastolic 62–95; PULSE 95–107; RESP 14–21; TEMP 36.6–37.2; O2SAT 90–100
--- NOTE | 2022-05-31 06:25 | P.HPUD_ITS ---
Surgery/Procedure H&P Update DATE OF PROCEDURE: May 31, 2022 DATE H&P PERFORMED: 05/21/22 H&P UPDATE INFORMATION: I have reviewed H&P completed within last 30 days, I have examined patient prior to procedure, No changes to prior documentation and H&P is in [facility] E[facility] on date indicated PREOP DIAGNOSIS: Bladder mass, right hydronephrosis PLANNED PROCEDURE: Operation Date: 05/31/22 09:25 Proposed Procedures p CYSTOSCOPY POSSIBLE RIGHT RETROGRADE URETEROSCOPY BIOPSY TUMOR RESECTION [address] [facility] 26 68083,N32.89(Not Applicable) - Lorenzo Thorpe MD s Retrograde Pyelogram(Right) - Lorenzo Thorpe MD s Ureteroscopy(Right) - Lorenzo Thorpe MD s Transurethral Resection Bladder Tumor(Not Applicable) - Lorenzo Thorpe MD
[2022-05-31 08:22] LABS: Glucose Point of Care 205 mg/dL (70-110)
--- NOTE | 2022-05-31 09:38 | P.OP_ITS ---
Operative Report Date of procedure: May 31, 2022 Pre-op diagnosis: Bladder mass, right hydronephrosis Post-op diagnosis: Bladder mass, right hydronephrosis Procedure done: 1. Cystoscopy, transurethral section of bladder tumor large Specimens removed/disposition: Right trigone tumor Left lateral bladder wall tumor Pathology: Right trigone tumor Left lateral bladder wall tumor Surgeon: Maurilio Estimated blood loss: Less than 25 cc Urine output: Not measured Complications: None Findings: Anesthesia: General Condition: Stable Disposition: PACU Intraoperative findings: * Large invasive appearing sessile tumor obliterating the right trigone. Resected deep into the bladder wall. Could not identify the right ureteral orifice * Some papillary tumors on the left lateral wall also resected * The left ureteral orifice could never completely be identified either due to significant diffuse bladder inflammatory changes but no resection was performed anywhere close to that area. The left bladder wall tumor was more anteriorly positioned * Hemostatic at the completion of the procedure. Brief History: Emmanuel is a disabled 57-year-old white female hospitalized in April for small bowel obstruction apparently associated with an incarcerated umbilical hernia. A CT scan showed what appeared to be an increasing abnormality in her bladder first noticed on CT scan 04/13/2022. At that CT scan there appeared to be a mass near the right trigone causing partial obstruction of the ureter. On the CT scan in April there appeared to be increased hydroureteronephrosis down to the UVJ and new evidence of enhancement of the mucosa with more thickened appearance of the bladder wall of unclear etiology. She was also having hematuria. The plan was to consider a bedside cystoscopy while she was hospitalized but family felt that that would not be doable due to the patient's behavior and she is admitted now for cystoscopy under anesthesia with plans for transurethral resection of lesion if appropriate, possible attempted unroofing of the ureter, possible ureteroscopy. I learned today that the patient's mother had an early demise and was found to have fairly diffuse cancer. Exact etiology was unclear Procedure: After routine preoperative evaluation examination and obtaining of informed consent she was taken to the operating suite on 05/31/2022 where general anesthesia was administered without difficulty after appropriate timeout was performed, SCDs confirmed to be functioning, preoperative antibiotics administered, beta-finn protocol confirmed. Prepped and draped in usual sterile fashion in dorsolithotomy position paying careful attention to avoiding pressure points. 21 Namibian cystoscope with 30 degree lens was introduced into the urethra meatus and advanced into the bladder under videoscopy. Bladder was systematically examined. There was a large blood clot over the right trigone and this was manipulated free which exposed a large sessile based tumor completely distorting the right trigone. I could not clearly see the left ureter or but in the area of the left trigone there was no obvious tumor. There were some changes on the left lateral more anteriorly positioned bladder wall that appeared to be papillary transitional cell as well. A 25 Namibian continuous-flow resectoscope sheath with visual obturator in place was advanced into the bladder without difficulty. Gyrus bipolar system with super loop and button probe were used for the resection. The large tumor obliterating the right trigone was then resected deep into the bladder wall. There was tumor still at the base. I could not unroofed the right ureteral orifice. Total resection was >5 cm including a base of mucosa extending beyond the tumor The left lateral wall papillary tumors were resected as well. Left lateral wall bladder tumor base was fulgurated with a button probe. Pinpoint electrocautery was performed on the right side. Reinspection again for orifice yielded no obvious orifice. The specimens were collected and sent separately. Bladder was drained with a 22 Namibian three-way Riley catheter with 30 cc placed in the balloon and light flow CBI with normal saline was initiated and efflux was clear. Catheter was placed to drainage. She tolerated the procedure well without complications and was awakened in the operating room and returned to the care of room in stable condition. Plans: 1. Admit to observation status 2. Consult hospitalist service for assistance with medical management
[2022-05-31] MEDS: levofloxacin-dextrose 5 % 500 MG/100 ML PREMIX 100 MG IV (09:39)
--- NOTE | 2022-05-31 09:49 | P.ANESUD_ITS ---
Pre-Anesthetic Update Pre-Anesthetic Assessment: Date of Surgery/Procedure: 05/31/22 Preop Mariah gnosis: Bladder mass, right hydronephrosis Proposed Procedure: Operation Date: 05/31/22 09:25 Proposed Procedures p CYSTOSCOPY POSSIBLE RIGHT RETROGRADE URETEROSCOPY BIOPSY TUMOR RESECTION 31857 MODIFIER 26 54988,N32.89(Not Applicable) - Lorenzo Thorpe MD s Retrograde Pyelogram(Right) - MD narendra Marti Ureteroscopy(Right) - Lorenzo Thorpe MD s Transurethral Resection Bladder Tumor(Not Applicable) - Lorenzo Thorpe MD Any changes to Pre-Anesthetic Assessment?: No Last Intake: Intake Last Liquid Date 05/30/22 Last Liquid Time 11:30 Last Solid Date 05/30/22 Last Solid Time 18:00 Vitals: Oxygen Delivery Me thod 05/31/22 08:05 Exam: Pre-Anes Outpt Exam: alert, oriented x 3, clear to auscultation bilaterally and regular rate & rhythm Cardiac Studies: Echocardiogram Ultrasound 06/01/20
--- NOTE | 2022-05-31 11:05 | SUR.PHASEI ---
1049 PT TO PACU 5 PT AWAKE COUGHS STRONGLY OCCASIONALLY, MONITOR SR TO ST WITH NO ECTOPY, VSS IV TO LT WRIST #22 PATENT TO NS 800ML AT KVO RATE, ID BAND TO RT WRIST PT ID'D WITH 2 IDENTIFIERS, PT HAS #[address] ,SECURED WITH LEELA STRAP TO LT INNER THIGH WITH CBI INFUSING AT MOD RATE, NS, LATIF WITH CLEAR URINE TO TUBING AND BAG HAS PINK TINGED URINE WITH NO CLOTS. BILAT SCDS ON AND HOB AT 30 DEGREES. PT VERBALIZED YES AND NO OTHERWISE JIBBERISH, PT COUGHING AND ATTEMPTING TO CLEAR AIRWAY, PT SX WITH YANKER SX PT TOLERATED WELL, 1055 PT ON RA HOB AT 45 DEGREES, PT GIVEN OCC ICE CHIPS TO HELP WITH SECRETIONS. VSS
--- NOTE | 2022-05-31 11:23 | SUR.PHASEI ---
PT ALERT SAYS YES AND NO BUT DOES NOT ALWAYS SEEM APPROPRIATE, SOME JIBBERISH, VSS LATIF PATENT OF CLEAR URINE, ASSESSMENT UNCHANGED PT DOZING OFF AND ON , NO OBVIOUS S/S OF PAIN,
--- NOTE | 2022-05-31 11:27 | SUR.PHASEI ---
PT NOW OUT OF PHASE 1 AND IN HOLDING TO GIVE REPORT TO FLOOR , PT WILL REQUIRE A SITTER AT BEDSIDE, FLOOR NURSE TO TALKE TO CHARGE ON FLOOR BEFORE TAKING REPORT.
--- NOTE | 2022-05-31 11:33 | SUR.PHASEI ---
PT MORE ALERT DR IBARRA AT BEDSIDE, PT ANSWERED NO TO ICE CHIPS AND NO TO PAIN , AND NO TO QUESTION ( ARE YOU COLD?)
--- NOTE | 2022-05-31 11:36 | SUR.PHASEI ---
FAMILY IN CONFERENCE ROOM, FAMILY CRYING LOUDLY, AND ATTEMPTED TO COMFORT, FAMILY DENIES NEEDING ANYTHING, WILL GO TO FIND HER SISTER, UPDATED PT AWAKE ALERT IN PACU AND WITHOUT COMPLAINT, VSS.
[2022-05-31 12:05] LABS: Glucose Point of Care 216 mg/dL (70-110)
--- NOTE | 2022-05-31 12:08 | SUR.PHASEI ---
FAMILY UPDATED AGAIN IN WAITING ROOM, REPORT CALLED TO GO TO 268 WHEN ROOM IS CLEANED, PT RESTING QUIETLY, WITH NO COMPLAINTS VSS. URINE CLEAR TO LT PINK, NO CLOTS NOTED
--- NOTE | 2022-05-31 12:21 | P.CONIM_ITS ---
Providers/Reason For Consult Consulting Physician/Specialty*: Jericho Conroy MD, hospitalist Reason for Consult*: Medical management Requesting Physician: Dr. Thorpe Attending Physician: Lorenzo Thorpe MD Primary Care Provider: Jericho Conroy MD History of Present Illness History of Present Illness Emmanuel Corral is a 57 year old female who underwent cystoscopy for bladder tumor and right hydronephrosis today. Biopsy occurred.. Resection of some papillary tumors was also completed. Left ureteral orifice was unable to be identified. I was called secondary to her multiple comorbidities. She will be observed at least overnight. The recovery nurse reports she is doing well. She is alert, and able to answer a few simple questions consistent with her baseline. No complications have been noted and her vital signs are stable, she is on room air. Family is not available at bedside currently. She was recently in the hospital May 11 for small bowel obstruction, partial, secondary to intussusception which was managed conservatively. Review of Systems General: Reports: ROS unobtainable due to mental status Medications/Allergies Home Medications Medication Instructions Recorded Confirmed Last Taken Type atorvastatin 10 mg tablet 10 mg PO DAILY@08 05/30/20 05/31/22 05/30/22 History bisacodyl 10 mg rectal suppository 10 mg DE DAILY PRN Constipation 05/30/20 05/27/22 Unknown History bisacodyl 5 mg tablet,delayed 10 mg PO DAILY PRN Constipation 05/30/20 05/27/22 Unknown History release hydrocodone 5 mg-acetaminophen 325 1 tab PO Q8H PRN Pain 05/30/20 05/27/22 05/11/22 08:15 History mg tablet levothyroxine 100 mcg tablet 100 mcg PO QAM 05/30/20 05/31/22 05/31/22 History lorazepam 0.5 mg tablet 0.5 mg PO TID@09,14,21 05/30/20 05/31/22 05/30/22 History magnesium hydroxide 400 mg/5 mL 30 ml PO DAILY PRN Constipation 05/30/20 05/27/22 Unknown History oral suspension (Milk of Magnesia) nystatin 100,000 unit/gram topical See Rx Instructions .Route .COMPLEX 05/30/20 05/27/22 05/30/20 History cream pantoprazole 20 mg tablet,delayed 20 mg PO QAM 05/30/20 05/31/22 05/31/22 History release insulin aspart U-100 100 unit/mL See Rx Instructions .Route 06/07/20 05/31/22 05/30/22 Rx subcutaneous solution (Novolog .COMPLEX #10 mL U-100 Insulin aspart) acetaminophen 650 mg 650 mg PO Q6H PRN Pain 05/11/22 05/27/22 Unknown History tablet,extended release aluminum-mag hydroxide-simethicone 10 ml PO Q4H PRN Indigestion 05/11/22 05/27/22 Unknown History 400 mg-400 mg-40 mg/5 mL oral susp aspirin 81 mg tablet,delayed 81 mg PO DAILY@08 05/11/22 05/31/22 05/29/22 His tory release furosemide 80 mg tablet (Lasix) 80 mg PO DAILY@05/11/22 05/31/22 05/30/22 Hi story hydroxyzine HCl 25 mg tablet 25 mg PO TID@09,,05/11/22 05/31/22 05/30/22 History insulin detemir U-100 100 unit/mL 40 unit SUBCUT BEDTIME 05/11/22 05/27/22 Unknown History subcutaneous solution (Levemir U-100 Insulin) magnesium oxide 400 mg PO BID 05/11/22 05/31/22 05/30/22 History metformin 1,000 mg tablet 1,000 mg PO BID 05/11/22 05/31/22 05/30/22 History metolazone 2.5 mg tablet 2.5 mg PO QAM 05/11/22 05/31/22 05/30/22 History metoprolol tartrate 25 mg tablet 12.5 mg PO BID 05/11/22 05/31/22 05/31/22 History olopatadine 0.1 % eye drops 1 drp ophthalmic (eye) BID 05/11/22 05/31/22 05/30/22 History polyethylene glycol 3350 17 gram 17 g PO QAM 05/11/22 05/31/22 05/30/22 History oral powder packet (Miralax) potassium chloride 20 mEq 20 meq PO TID@08,13,20 05/11/22 05/31/22 05/30/22 History tablet,extended release sennosides 8.6 mg tablet (senna) 8.6 mg PO QAM 05/11/22 05/31/22 05/30/22 History sitagliptin 50 mg tablet (Januvia) 50 mg PO DAILY@08 05/11/22 05/31/22 05/30/22 History lactulose 10 gram/15 mL (15 mL) 15 ml PO DAILY PRN constipation 05/13/22 05/27/22 Unknown Rx oral solution #750 mL Allergies Allergy/AdvReac Type Severity Reaction Status Date / Time No Known Allergies Allergy Verified 05/27/22 13:21 PFSH Acute PFSH: Medical History (Updated 05/31/22 @ 12:26 by Jericho Conroy MD) DELORES (acute kidney injury) Anxiety B12 deficiency Bladder wall thickening Cataract Chronic kidney disease COPD (chronic obstructive pulmonary disease) COVID-19 (~05/2020) 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 Dementia Depression Epilepsy GERD (gastroesophageal reflux disease) Gross hematuria History of DVT (deep vein thrombosis) Hydronephrosis, right Hypertension Hypothyroidism Insulin dependent type 2 diabetes mellitus Intellectual disability Intussusception 2nd part of duodenum Mild intermittent asthma Mixed hyperlipidemia Partial small bowel obstruction Presence of IVC filter Small bowel obstruction Ventral hernia Vitamin D deficiency Vomiting of fecal matter Surgical History History of ankle surgery History of cholecystectomy Family History Grandmother Cancer Breast, lung, cervical Mother , AT AGE 26 Gunshot wound Father , AT AGE 65 Pneumonia Social History Smoking and tobacco status: former smoker Alcohol intake: never Marital status: Single Current occupational status: disabled History of recent travel: No Vitals/I&O/Wt Last Vital Signs Temp 98.9 F 05/31/22 12:00 Pulse 103 H 05/31/22 12:10 Resp 18 05/31/22 12:10 BP 131/89 05/31/22 12:10 Pulse Ox 92 05/31/22 12:10 O2 Del Method 05/31/22 12:10 O2 Flow Rate 8 05/31/22 10:55 05/30/22 05/31/22 05/31/22 22:59 06:59 14:59 Intake Total 200 / 200 Output Total 2325 / 2325 Balance -2124 / -2124 Physical Exam Narrative: General exam is a white female, who can answer few simple questions, in no distress. HEENT: Atraumatic and normocephalic. Oropharynx clear. Neck is supple no lymphadenopathy or thyromegaly Cardiovascular regular rate and rhythm without murmur Lungs clear no wheezing no crackles Abdomen is soft with positive bowel sounds. Midline hernia is noted easily reducible. exam demonstrates Riley. She is getting CBI currently and urine is slightly pink Extremities no cyanosis clubbing or edema, cap refill brisk Skin no rash Neuro no obvious focal deficits. Urinary Catheter Management: 3-way Urethral CBI: Cath Placed During This Visit: yes Urinary Catheter Date of Insertion: 05/31/22 Urinary Catheter Time of Insertion: 10:40 Data : 05/27/22 13:50 05/27/22 13:50 A&P Assessment and plan (1) Mass of bladder: Transurethral resection of the bladder tumor occurred, along with some small papillary tumor removal. Patient has been placed on CBI, with close monitoring Urology intends on observing her at least overnight CBC in the morning (2) Hydronephrosis: Patient with history of hydronephrosis, on the right. This is occurring secondary to her bladder tumor. Orifice of ureter was not able to be identified during cystoscopy today. Continue to monitor renal function (3) Chronic kidney disease: Check BMP tomorrow (4) Insulin dependent type 2 diabetes mellitus: Initiate consistent carb diet Initiate sliding scale insulin (5) Dementia: Secondary to her current mental state, will need a one-to-one sitter while in the hospital to avoid removing Riley, getting out of bed and falling. Plan Multiple other medical problems as outlined in past medical history Thank you for this consultation SCDs for DVT prophylaxis, anticoagulation contraindicated as directly postoperative, with hematuria. Consult Attestations Medical Necessity Statement: As per primary Coding Level of Care Code Acute Winch Truck Operator for Ivonneg Fwchristiane Diagnoses Mass of bladder N32.89 Hydronephrosis N13.30 Chronic kidney disease N18.9 Insulin dependent type 2 diabetes mellitus E11.9; Z79.4 Dementia F03.90
--- NOTE | 2022-05-31 12:51 | SUR.PHASEI ---
PT TO FLOOR PER CART, PT MOVED TO BED WITH ASSIST OF 4 PT AWAKE ALERT AND IN NO OBVIOUS DISTRESS, LATIF PATENT OF CLEAR TO LT CLEAR PINK URINE, CBI INFUSING, MARKED AND COUNTED AMOUNTS IN AND OUT. IV PATENT AT KVO REATE. LATIF SECURED WITH LEELA STRAP TO LT INNER THIGH. HANDOFF AT BEDISDE TO FLOOR NURSE GIUSEPPE
[2022-05-31] MEDS: hyDROXYzine 25 mg Capsule PO ×2 (14:21→21:30)
[2022-05-31 16:41] LABS: Glucose Point of Care 187 mg/dL (70-110)
--- NOTE | 2022-05-31 16:44 | ANE.PACU2 ---
Inpatient post-anesthesia follow up: Airway intact: Yes Vital signs: Temperature 98.2 F Pulse Rate 106 Respiratory Rate 18 Blood Pressure 123/76 Pulse Oximetry 96 Oxygen Delivery Me thod Nasal Cannula Oxygen Flow Rate 3 Fraction of Inspir ed Oxygen Hydration adequate: Yes Nausea and vomiting: No Pain level: 2 Mental status: Baseline
[2022-05-31] MEDS: olopatadine 0.1% Op Soln 5 mL Btl 1 DROP EYE-BOTH (16:52)
[2022-05-31] MEDS: magnesium oxide 400 mg tablet PO (16:53)
[2022-05-31] MEDS: metoprolol tartrate 25 mg Tablet 12.5 MG PO (16:53)
[2022-05-31] MEDS: insulin lispro 100 unit/1 mL SUBCUT ×2 (16:53→21:30)
--- NOTE | 2022-05-31 18:15 | PC.NURSE ---
PATIENT HAS DONE WELL SINCE COMING FROM THE OR. PATIENT HAS BEEN CALM AND RESTING. GOOD PO INTAKE. GOOD OUTPUT. CBI RUNNING AT A SLOW DRIP, ALMOST TITRATED OFF. MANUAL IRRIGATION NOT NEEDED AT THIS TIME. PATIENT HAS NO COMPLAINTS OF PAIN AT THIS TIME.
[2022-05-31 20:54] LABS: Glucose Point of Care 155 mg/dL (70-110)
[2022-06-01 03:13] LABS: Basophils % 0.3 %; Hematocrit 33.9 % (37.0-47.0); Hemoglobin 10.7 g/dL (11.5-15.3); Lymphocytes # 2.3 10^3/uL (0.8-4.8); Lymphocytes % 19.9 %; Mean Corpuscular HGB Conc 31.6 g/dL (30.0-36.0); Mean Corpuscular Hemoglobin 29.7 pg (28.0-34.0); Mean Corpuscular Volume 94.2 fl (81-99); Mean Platelet Volume 10.3 fL (7.4-10.4); Monocytes # 0.7 10^3/uL (0.2-0.9); Monocytes % 5.9 %; Neutrophils # 8.57 10^3/uL (1.8-7.7); Neutrophils % 73.1 %; Nucleated Red Blood Cells % 0 %; Platelet Count 167 10^3/cmm (130-400); Red Cell Distribution Width 13.6 % (12.1-15.1); White Blood Count 11.7 10^3/uL (4.0-10.0)
[2022-06-01 03:41] LABS: Anion Gap 13.7 (5-19); Blood Urea Nitrogen 19 mg/dL (6-20); Calcium 8.5 mg/dL (8.5-10.5); Carbon Dioxide 28 mmol/L (22-29); Chloride 101 mmol/L (98-107); Glomerular Filtration Rate 38.8 mL/min (90-130); Glucose 89 mg/dL (65-115); Osmolality Calculated 292 mOsm/kg (285-295); Sodium 140 mmol/L (136-145)
[2022-06-01 04:00] VITALS: BP 105/65; PULSE 92; RESP 17; TEMP 36.7; O2SAT 98
[2022-06-01 04:16] LABS: Potassium 2.7 mmol/L (3.5-5.1)
[2022-06-01] MEDS: potassium chloride ER 20 mEq Tablet 40 MEQ PO ×3 (04:30→12:03)
[2022-06-01] MEDS: levothyroxine 100 mcg Tablet PO (05:56)
[2022-06-01] MEDS: pantoprazole DR 40 mg Tablet 20 MG PO (05:57)
[2022-06-01] MEDS: polyethylene glycol 3350 Pkt 17 gm PO (05:57)
[2022-06-01 06:44] LABS: Glucose Point of Care 97 mg/dL (70-110)
[2022-06-01 08:00] VITALS: BP 106/69; PULSE 93; RESP 16; TEMP 36.6; O2SAT 97
[2022-06-01] MEDS: magnesium oxide 400 mg tablet PO (08:31)
[2022-06-01] MEDS: hyDROXYzine 25 mg Capsule PO ×2 (08:31→14:07)
[2022-06-01] MEDS: olopatadine 0.1% Op Soln 5 mL Btl 1 DROP EYE-BOTH (08:31)
[2022-06-01] MEDS: atorvastatin 40 mg Tablet 20 MG PO (08:31)
[2022-06-01] MEDS: metoprolol tartrate 25 mg Tablet 12.5 MG PO (08:31)
[2022-06-01] MEDS: FUROsemide 40 mg Tablet PO (08:31)
--- NOTE | 2022-06-01 09:09 | P.PN_ITS ---
Subjective Subjective: No significant issues overnight. Potassium was low this morning and supplemented. I do not get the sense the patient has any pain when questioning her. Riley has been removed this morning as urine has cleared. Medications: Reviewed: Yes Vitals/I&O/Wt Last Vital Signs Temp 97.9 F 06/01/22 08:00 Pulse 93 06/01/22 08:00 Resp 16 06/01/22 08:00 BP 106/69 06/01/22 08:00 Pulse Ox 97 06/01/22 08:00 O2 Del Method 06/01/22 08:00 O2 Flow Rate 2 05/31/22 20:00 05/31/22 06/01/22 06/01/22 22:59 06:59 14:59 Intake Total 360 / 560 Output Total 750 / 3075 800 / 3875 Balance -390 / -2515 -800 / -3315 Physical Exam Narrative: General exam no distress Neck is supple no lymphadenopathy or thyromegaly Cardiovascular regular rate and rhythm without murmur Lungs clear no wheezing no crackles Abdomen is soft with positive bowel sounds. Midline hernia is noted easily reducible. exam demonstrates Riley. Preparation underway to remove this. Urine is clear Extremities no cyanosis clubbing or edema, cap refill brisk Skin no rash Urinary Catheter Management: 3-way Urethral CBI: Cath Placed During This Visit: yes, but has since been removed by the nurse Reason for Continuing Indwelling Catheter: Decision to DC Catheter Urinary Catheter Date of Insertion: 05/31/22 Urinary Catheter Time of Insertion: 10:40 Date Urinary Catheter Removed: 06/01/22 Time Urinary Catheter Discontinued: 08:23 Data : 06/01/22 02:40 06/01/22 02:40 A&P Assessment and plan (1) Mass of bladder: Transurethral resection of the bladder tumor occurred, along with some small papillary tumor removal. CBI has been discontinued. Riley being removed Hemoglobin acceptable (2) Hydronephrosis: Patient with history of hydronephrosis, on the right. This is occurring secondary to her bladder tumor. Orifice of ureter was not able to be identified during cystoscopy today. Renal function improved from last check (3) Chronic kidney disease: Renal function stable (4) Insulin dependent type 2 diabetes mellitus: Continue consistent carb diet and sliding scale insulin (5) Dementia: Secondary to her current mental state, will need a one-to-one sitter while in the hospital to avoid removing Riley, getting out of bed and falling. Plan Hypokalemia. Supplementation written. Multiple other medical problems as outlined in past medical history Thank you for this consultation SCDs for DVT prophylaxis, anticoagulation contraindicated as directly postoperative, with hematuria. Attestations Medical Necessity Statement*: As per primary Coding Level of Care Code Acute Vending Machine Filler for g Fwd Diagnoses Mass of bladder N32.89 Hydronephrosis N13.30 Chronic kidney disease N18.9 Insulin dependent type 2 diabetes mellitus E11.9; Z79.4 Dementia F03.90
[2022-06-01 10:35] LABS: SARS Covid-2 Antigen negative (Negative)
[2022-06-01 11:26] LABS: Potassium 3.4 mmol/L (3.5-5.1)
[2022-06-01 12:00] VITALS: BP 179/118; PULSE 139; RESP 22; TEMP 36.7; O2SAT 90
[2022-06-01] MEDS: HYDROcodone-acetaminophen 5-325 mg Tablet 1 TAB PO (12:05)
--- NOTE | 2022-06-01 12:18 | PC.NURSE ---
I reported to the nurse. [id number]
[2022-06-01] MEDS: insulin lispro 100 unit/1 mL SUBCUT (12:22)
--- NOTE | 2022-06-01 12:29 | PC.NURSE ---
BLADDER SCAN 125ML AFTER VOID
[2022-06-01 12:32] LABS: Glucose Point of Care 252 mg/dL (70-110)
--- NOTE | 2022-06-01 12:42 | PC.NURSE ---
BP AND HEART RATE ELEVATED. PATIENT AGITATED AND APPEARS TO BE IN SOME PAIN. THIS NURSE ADMINISTERED A HYDROCODONE AND INFORMED DR. IBARRA. CONTINUING TO MONITOR.
--- NOTE | 2022-06-01 14:25 | PC.NURSE ---
REPORT CALLED TO [facility].
[2022-06-01 15:42] VITALS: BP 179/118; PULSE 139; RESP 22; TEMP 36.7; O2SAT 90
--- NOTE | 2022-06-01 17:16 | PM.DCS ---
Discharge Providers Date of Admission: 05/31/22 11:03 Date of Discharge: June 01, 2022 Attending Provider at Admission: Lorenzo Thorpe MD Attending Provider at Discharge: Lorenzo Thorpe MD Primary Care Provider: Jericho Conroy MD Diagnoses at Discharge Discharge Diagnosis (1) Mass of bladder: Status: Acute (2) Hydronephrosis: Status: Acute (3) Chronic kidney disease: Status: Acute (4) Insulin dependent type 2 diabetes mellitus: Status: Acute (5) Dementia: Status: Acute Reason for Visit Reason for Visit: N32.89 Brief History: Discovered on CT scan to have a mass in the bladder that appeared to be causing progressive obstruction of the right distal ureter. Mass was suspicious for transitional cell carcinoma. She would normally have had a flexible cystoscopy in clinic but family felt that she was not capable of tolerating that under usual circumstances because of her mental deterioration. Admitted for TURBT possible ureteroscopy if the right ureteral orifice could be unroofed. Hospital Course Hospital Course Admitted through Outpatient Surgery on 05/31/2022. In the operating room she was found to have a large sessile high-grade appearing invasive appearing mass consistent with TCCA obliterating the right ureteral orifice and extending onto the bladder neck and right lateral wall. She also had papillary lesions along the left lateral wall. The right trigone tumor was resected deep into the bladder wall. The right ureteral orifice was never exposed. Sampling of the papillary lesions on the left lateral wall was conducted. Riley catheter remained clear and was removed on postop day #1. She voided spontaneously without difficulty. Was discharged on postop day #1 in stable condition. Dis[facility] back [facility] [place] [facility]. Plans were made to talk to the family after the pathology report was available Physical Exam Const: COMMON NORMALS: well nourished; apparent distress, negative for patient oriented x3, limitations and negative for healthy appearing Chest: OTHER: Normal chest movements Resp: COMMON NORMALS: normal respiratory effort and clear to auscultation bilaterally AUSCULTATION: clear to auscultation bilaterally GI: OTHER: Soft nontender : OTHER: Urine pink no clots Neuro: COMMON NORMALS: negative for patient oriented x3 Urinary Catheter Management: 3-way Urethral CBI: Cath Placed During This Visit: yes, but has since been removed by the nurse Reason for Continuing Indwelling Catheter: Decision to DC Catheter Urinary Catheter Date of Insertion: 05/31/22 Urinary Catheter Time of Insertion: 10:40 Date Urinary Catheter Removed: 06/01/22 Time Urinary Catheter Discontinued: 08:23 Discharge Data Studies Completed and Pending Completed Studies During Hospitalization Category Date Time Status Pathology: Surgical [PTH] Routine Pth 05/31/22 11:03 Completed Laboratory Results WBC 11.7 10^3/uL (4.0-10.0) H 06/01/22 02:40 RBC 3.60 10^6/uL (4.1-5.3) L 06/01/22 02:40 Hgb 10.7 g/dL (11.5-15.3) L 06/01/22 02:40 Hct 33.9 % (37.0-47.0) L 06/01/22 02:40 MCV 94.2 fl (81-99) 06/01/22 02:40 MCH 29.7 pg (28.0-34.0) 06/01/22 02:40 MCHC 31.6 g/dL (30.0-36.0) 06/01/22 02:40 RDW 13.6 % (12.1-15.1) 06/01/22 02:40 Plt Count 167 10^3/cmm (130-400) 06/01/22 02:40 MPV 10.3 fL (7.4-10.4) 06/01/22 02:40 Neut % (Auto) 73.1 % 06/01/22 02:40 Lymph % (Auto) 19.9 % 06/01/22 02:40 Sanborn % (Auto) 5.9 % 06/01/22 02:40 Eos % (Auto) 0.0 % 06/01/22 02:40 Baso % (Auto) 0.3 % 06/01/22 02:40 Neut # (Auto) 8.57 10^3/uL (1.8-7.7) H 06/01/22 02:40 Lymph # (Auto) 2.3 10^3/uL (0.8-4.8) 06/01/22 02:40 Sanborn # (Auto) 0.7 10^3/uL (0.2-0.9) 06/01/22 02:40 Eos # (Auto) 0.0 10^3/uL (0.0-0.8) 06/01/22 02:40 Baso # (Auto) 0.0 10^3/uL (0.0-0.1) 06/01/22 02:40 Nucleated RBC % (auto) 0 % 06/01/22 02:40 Nucleated RBCs # 0.0 /100WBC 06/01/22 02:40 Sodium 140 mmol/L (136-145) 06/01/22 02:40 Potassium 3.4 mmol/L (3.5-5.1) L 06/01/22 10:49 Chloride 101 mmol/L (98-107) 06/01/22 02:40 Carbon Dioxide 28 mmol/L (22-29) 06/01/22 02:40 Anion Gap 13.7 (5-19) 06/01/22 02:40 BUN 19 mg/dL (6-20) 06/01/22 02:40 Creatinine 1.4 mg/dL (0.5-0.9) H 06/01/22 02:40 GFR Calculation 38.8 mL/min (90-130) L 06/01/22 02:40 Glucose 89 mg/dL (65-115) 06/01/22 02:40 POC Glucose 252 mg/dL (70-110) H 06/01/22 12:16 Calculated Osmolality 292 mOsm/kg (285-295) 06/01/22 02:40 Calcium 8.5 mg/dL (8.5-10.5) 06/01/22 02:40 Total Bilirubin 0.3 mg/dL (0.15-1.2) 05/27/22 13:50 AST 14 U/L (0-32) 05/27/22 13:50 ALT 8 U/L (0-33) 05/27/22 13:50 Alkaline Phosphatase 115 U/L (35-105) H 05/27/22 13:50 Total Protein 6.7 g/dL (6.6-8.7) 05/27/22 13:50 Albumin 4.0 g/dL (3.5-5.2) 05/27/22 13:50 Globulin 2.7 g/dL (1.3-4.6) 05/27/22 13:50 SARS-CoV-2 Ag (Rapid) negative (Negative) 06/01/22 10:08 Procedures Performed Cystoscopy, transurethral section of bladder tumor large Vitals Last Vital Signs Temp 98.0 F 06/01/22 15:42 Pulse 139 H 06/01/22 15:42 Resp 22 H 06/01/22 15:42 BP 179/118 06/01/22 15:42 Pulse Ox 90 06/01/22 15:42 O2 Del Method 06/01/22 12:00 O2 Flow Rate 2 05/31/22 20:00 Discharge Plan Discharge Patient Disposition: Xfer [facility] Prescriptions: Continued pantoprazole 20 mg Tablet,Delayed Release (Dr/Ec) 20 mg PO QAM lorazepam 0.5 mg Tablet 0.5 mg PO TID@, magnesium hydroxide [Milk of Magnesia] 400 mg/5 mL Suspension 30 ml PO DAILY PRN (Reason: Constipation) bisacodyl 10 mg Suppository 10 mg MA DAILY PRN (Reason: Constipation) atorvastatin 10 mg Tablet 10 mg PO DAILY@08 hydrocodone-acetaminophen 5-325 mg Tablet 1 tab PO Q8H PRN (Reason: Pain) levothyroxine 100 mcg Tablet 100 mcg PO QAM nystatin 100,000 unit/gram Cream See Rx Instructions .ROUTE .COMPLEX Rx Instructions: APPLY TO YAN AREA AND ABDOMINAL TOPICALLY EVERY 8 HOURS PRN RASH (CLEANSE AREA WITH SOAP AND WATER PAT DRY AND APPLY CREAM bisacodyl 5 mg Tablet,Delayed Release (Dr/Ec) 10 mg PO DAILY PRN (Reason: Constipation) insulin aspart U-100 [Novolog U-100 Insulin aspart] 100 unit/mL Solution See Rx Instructions .ROUTE .COMPLEX Qty: 10 0RF Rx Instructions: INJECT PER SLIDING SCALE BEFORE MEALS 150-200=3 UNITS 201-250=5 UNITS 251-300=7 UNITS 301-350=9 UNITS 351-400=11 UNITS 401-450= 13 UNITS 451-500=15 UNITS metolazone 2.5 mg Tablet 2.5 mg PO QAM acetaminophen 650 mg Tablet Extended Release 650 mg PO Q6H PRN (Reason: Pain) furosemide [Lasix] 80 mg Tablet 80 mg PO DAILY@08 metformin 1,000 mg Tablet 1,000 mg PO BID hydroxyzine HCl 25 mg Tablet 25 mg PO TID@,, alum-mag hydroxide-simeth 400-400-40 mg/5 mL Suspension 10 ml PO Q4H PRN (Reason: Indigestion) metoprolol tartrate 25 mg Tablet 12.5 mg PO BID Januvia 50 mg Tablet 50 mg PO DAILY@08 magnesium oxide 400 mg magnesium Tablet 400 mg PO BID Levemir U-100 Insulin 100 unit/mL solution 40 unit SUBCUT BEDTIME sennosides [senna] 8.6 mg Tablet 8.6 mg PO QAM polyethylene glycol 3350 [Miralax] 17 gram Powder In Packet 17 g PO QAM olopatadine 0.1 % Drops 1 drp OPHTHALMIC (EYE) BID Rx Instructions: separate doses by at least 6-8 hours potassium chloride 20 mEq Tablet Extended Release 20 meq PO TID@08,13,20 lactulose 10 gram/15 mL (15 mL) solution 15 ml PO DAILY PRN (Reason: constipation) Qty: 750 1RF Held aspirin 81 mg Tablet,Delayed Release (Dr/Ec) 81 mg PO DAILY@08 Hold Instructions: Resume on 06/08/22. Discharge Orders: Discharge Order (Routine); Ordered 06/01/22 Ordered By: Lorenzo Thorpe Referrals: [facility] [Outside] Lorenzo Thorpe MD [Physician] - (please call for appointment ) Discharge Diet: Usual diet Discharge Activity: Resume usual activity Patient Instructions: Opioid Safety Activity Restrictions/Additional Instructions: 1. We will communicate with the family in approximately 1 week regarding the pathology report 2. Have instructed the family to consider their options. It is very likely that this will be a muscle invasive high risk bladder cancer that would require very aggressive treatment to cure. That would likely entail cystectomy and ileal loop diversion. 3. There are some other forms of treatment such as chemotherapy or immunotherapy radiation. 4. No decisions have been made about that. 5. Once the pathology is known and we can make a decision over the phone as to which path to pursue. I would at least recommend consultation with oncology to determine their opinion. Discharge Attestations Time Spent in Discharge Care*: less than 30 min Quality Metrics Clinical Quality Measures [ No reported AMI, CVA or VTE this stay] Coding Level of Care Code Acute Chg FW DC note Diagnoses Mass of bladder N32.89 Hydronephrosis N13.30 Chronic kidney disease N18.9 Insulin dependent type 2 diabetes mellitus E11.9; Z79.4 Dementia F03.90
== END 2022-06-01 15:43 | disposition skilled nursing facility (03) ==
LOC: MEDSURG 11:03
PROVIDERS: Internal Medicine; Admitting Provider Urology; PCP Internal Medicine; Visit Provider Urology
PROC: 0TJ98ZZ Inspection of Ureter, Via Natural or Artificial Opening Endoscopic (ICD-10-PCS; CPT 52351; 2022-05-31 09:15)
PROC: 0TBB8ZZ Excision of Bladder, Via Natural or Artificial Opening Endoscopic (ICD-10-PCS; CPT 52240; 2022-05-31 09:15)
PROC: 0TJB8ZZ Inspection of Bladder, Via Natural or Artificial Opening Endoscopic (ICD-10-PCS; CPT 52000; 2022-05-31 09:15)
DX: N32.89 Other specified disorders of bladder (principal); N13.30 Unspecified hydronephrosis; E11.22 Type 2 diabetes mellitus with diabetic chronic kidney disease; N18.9 Chronic kidney disease, unspecified; Z79.4 Long term (current) use of insulin; F03.90 Unspecified dementia, unspecified severity, without behavioral disturbance, psychotic disturbance, mood disturbance, and anxiety; Z79.82 Long term (current) use of aspirin; F41.9 Anxiety disorder, unspecified; J44.9 Chronic obstructive pulmonary disease, unspecified; Z86.16 Personal history of COVID-19; F32.A Depression, unspecified; Z86.718 Personal history of other venous thrombosis and embolism; E03.9 Hypothyroidism, unspecified; E78.2 Mixed hyperlipidemia; Z87.891 Personal history of nicotine dependence
CPT/HCPCS: 52240; 36415; 36416; 80048; 80053; 82962; 84132; 85025; 87426; 88307; 93005; 96372; G0378; J1100; J1815; J1956; J2250; J2405; J2704; J3010; J3490

== ENCOUNTER 2022-06-29 07:43 | Oncology outpatient (recurring) (ONCR) | payer MEDICAID, SELFPAY ==
--- NOTE | 2022-06-29 08:50 | N.ONRAD NP_ITS ---
Radiation Oncology Consultation Patient Name: Emmanuel Corral Date of : 1965 Date of Service: 06/29/2022 Attending Physician: Efrem Aguilar M.D. Emmanuel Corral was seen in consultation this afternoon at the request of Brayden Castillo M.D. for consideration of bladder preservation radiotherapy in the management of a recently diagnosed bladder cancer. She was evaluated at the [facility] Emergency Department in March for abdominal pain and vaginal bleeding. An abdominopelvic CT scan (independently reviewed in [facility]) described right hydronephrosis and right hydroureter, diffuse wall thickening of the bladder, a soft tissue density at the right posterolateral bladder wall measuring 2.7 cm x 1.8 cm, a ventral hernia with distended small bowel within the hernia sac. She was admitted in April to the [facility] due to a small bowel obstruction. A nasogastric tube was placed. A gastrografin study identified passage of contrast to the distal bowel. During her admission, she was evaluated by Lorenzo Thorpe M.D. for gross hematuria. Cystoscopy was recommended as an outpatient. A cystoscopy with transurethral resection of the bladder tumor performed on May 31, 2022. Intraoperative findings described a sessile tumor obliterating the right trigone. The TURBT specimen diagnosed a high-grade papillary urothelial carcinoma. Muscularis propria invasion was identified. She was referred for bladder preservation treatment options. I discussed The [place] [employer] on Cancer Staging for bladder cancer and specifically the patient's probable clinical stage II (T2aN0 vs T2bN0) corresponding to her disease. I also reviewed the National Comprehensive Cancer Network Guidelines recommending neoadjuvant chemotherapy followed by radical cystectomy or organ preservation with concurrent chemoradiotherapy (both medical treatment options are category 1). Organ preservation was predicated on the RTOG 89???03 Trial that evaluated concurrent chemoradiotherapy with cisplatin with or without induction MCV and the Study that compared (hypofractionation or standard fractionation) with or without synchronous chemotherapy (5-FU and Mitomycin-C). The RTOG study revealed equivalent overall survival and the trial confirmed improve local regional control with concurrent chemoradiotherapy. If organ preservation is pursued, I would endorse hypofractionated radiotherapy. The patient's medical treatment plan has been discussed with Rogerio Cano M.D. Signed by: Dr. Efrem Aguilar 06/29/2022 8:51:17 AM
== END 2022-07-24 23:59 | disposition home or self-care (01) ==
LOC: ONCMED 07:44
PROVIDERS: PCP Internal Medicine; Visit Provider Internal Medicine Medical Oncology
DX: C67.0 Malignant neoplasm of trigone of bladder (principal); F03.90 Unspecified dementia, unspecified severity, without behavioral disturbance, psychotic disturbance, mood disturbance, and anxiety; Z90.6 Acquired absence of other parts of urinary tract; G89.3 Neoplasm related pain (acute) (chronic); R11.2 Nausea with vomiting, unspecified; Z79.899 Other long term (current) drug therapy; N13.30 Unspecified hydronephrosis; N13.4 Hydroureter; K43.9 Ventral hernia without obstruction or gangrene; K56.609 Unspecified intestinal obstruction, unspecified as to partial versus complete obstruction
CPT/HCPCS: 99205

== ENCOUNTER 2022-09-20 15:53 | Oncology outpatient (recurring) (ONCR) | payer MEDICAID, SELFPAY | END 2022-09-21 23:59 | disposition home or self-care (01) | LOC: ONCMED 15:53 | PROVIDERS: PCP Internal Medicine; Visit Provider Internal Medicine Medical Oncology | DX: C67.2 Malignant neoplasm of lateral wall of bladder (principal); C67.0 Malignant neoplasm of trigone of bladder | CPT/HCPCS: 99215 ==

== ENCOUNTER 2022-10-28 13:11 | Outpatient (CLI) | payer MEDICAID, SELFPAY ==
--- NOTE | 2022-10-28 13:30 | USCV_ITS ---
Emmanuel Corral Age: 57 Gender: F : 1965 Exam Date: 10/28/2022 14:20 Ordering Phys: Rogerio Cano MD Technologist: Brooke Duong Exam Location: [facility] Indication: EVALUATE EF BEFORE CHEMO BP: 105 / 69 HR: 103 Rhythm: Sinus Technical Quality: Adequate MEASUREMENTS (Male / Female) Normal Values 2D ECHO LV Diastolic Diameter PLAX 3.0 cm 4.2 - 5.9 / 3.9 - 5.3 cm LV Systolic Diameter PLAX 2.3 cm LV Chamber Size 2.9 cm IVS Diastolic Thickness 0.9 cm 0.6 - 1.0 / 0.6 - 0.9 cm IVS Systolic Thickness 1.3 cm LVPW Diastolic Thickness 1.2 cm 0.6 - 1.0 / 0.6 - 0.9 cm LVPW Systolic Thickness 1.6 cm RV Chamber Size 3.6 cm LVOT Diameter 2.0 cm LV Ejection Fraction 2D Teich 51.9 % LV Ejection Fraction MOD 2C 46.6 % LV Ejection Fraction 2C AL 45.2 % LA Diameter 3.4 cm LA Width 2.1 cm LA Height 4.6 cm RA Width 3.0 cm RA Height 3.8 cm Aorta at Sinotubular Diameter 2.7 cm IVC Diameter 1.7 cm M-MODE Aortic Annulus Diameter 2.8 cm LA Ao Ratio MM 1.5 MV E Point Septal Separation 0.4 cm DOPPLER RV Acceleration Time 0.1 s RV Ejection Time 0.3 s RV AcT/ET 0.4 FINDINGS Left Ventricle Normal left ventricular size and systolic function, EF 61 %. No regional wall motion abnormalities. Right Ventricle The right ventricle is normal in size and function. Right Atrium The right atrium is normal in size. Left Atrium The left atrium is normal in size. Mitral Valve No gross abnormalities noted Aortic Valve No gross abnormalities noted Tricuspid Valve No gross abnormalities noted Pulmonic Valve No gross abnormalities noted Pericardium Normal pericardium without effusion. Aorta Normal ascending aorta dimension. IVC Normal inferior vena cava. CONCLUSIONS Normal left ventricular size and systolic function, EF 61 %. No regional wall motion abnormalities. Normal cardiac chamber sizes No significant stenotic or regurgitant valvular lesions There is no pericardial effusion. There are no intracardiac masses. Compared to the study from 05/31/2020, there may not be a significant change Dr Grace Howard MD FACC (Electronically Signed) Final Date: 03 November 2022 09:09 S
[2022-10-28 15:02] LABS: Basophils # 0.1 10^3/uL (0.0-0.1); Basophils % 0.4 %; Hematocrit 32.7 % (37.0-47.0); Hemoglobin 10.6 g/dL (11.5-15.3); Lymphocytes # 2.2 10^3/uL (0.8-4.8); Lymphocytes % 16.1 %; Mean Corpuscular HGB Conc 32.4 g/dL (30.0-36.0); Mean Corpuscular Volume 86.5 fl (81-99); Mean Platelet Volume 10.5 fL (7.4-10.4); Monocytes # 0.9 10^3/uL (0.2-0.9); Monocytes % 6.5 %; Neutrophils # 10.38 10^3/uL (1.8-7.7); Neutrophils % 76.3 %; Nucleated Red Blood Cells % 0 %; Platelet Count 196 10^3/cmm (130-400); Red Blood Count 3.78 10^6/uL (4.1-5.3); Red Cell Distribution Width 14.3 % (12.1-15.1); White Blood Count 13.6 10^3/uL (4.0-10.0)
[2022-10-28 15:27] LABS: Alanine Aminotransferase 7 U/L (0-33); Albumin Level 3.7 g/dL (3.5-5.2); Alkaline Phosphatase 188 U/L (35-105); Anion Gap 15.5 (5-19); Aspartate Amino Transferase 12 U/L (0-32); Blood Urea Nitrogen 41 mg/dL (6-20); Calcium 8.3 mg/dL (8.5-10.5); Carbon Dioxide 30 mmol/L (22-29); Chloride 87 mmol/L (98-107); Globulin 3.2 g/dL (1.3-4.6); Glucose 380 mg/dL (65-115); Osmolality Calculated 294 mOsm/kg (285-295); Potassium 3.5 mmol/L (3.5-5.1); Sodium 129 mmol/L (136-145); Total Bilirubin 0.3 mg/dL (0.15-1.2); Total Protein 6.9 g/dL (6.6-8.7)
== END 2022-10-28 13:12 | disposition home or self-care (01) ==
LOC: RAD 13:16
PROVIDERS: PCP Internal Medicine; Visit Provider Internal Medicine Medical Oncology
DX: C67.9 Malignant neoplasm of bladder, unspecified (principal)
CPT/HCPCS: 36415; 80053; 85025; 93308

== ENCOUNTER → 2022-11-02 10:03 | Outpatient (BNVA) | payer MEDICAID, SELFPAY | PROVIDERS: PCP Internal Medicine; Visit Provider Surgery | DX: C67.9 Malignant neoplasm of bladder, unspecified (principal) | CPT/HCPCS: 99203 ==

== ENCOUNTER 2022-11-05 08:55 | Outpatient (CLI) | payer MEDICAID, SELFPAY ==
[2022-11-05] MEDS: iohexol 350 mg/mL 500 mL Btl (per mL) IV (09:24)
[2022-11-05] MEDS: iohexol 350 mg/mL 500 mL Btl (per mL) PO (09:24)
--- NOTE | 2022-11-05 10:14 | CT_ITS ---
WS: [id number] CT CHEST, ABDOMEN AND PELVIS NONCONTRAST. HISTORY: pretreatment scanning, bladder cancer, chronic kidney disease. TECHNIQUE: Contiguous 5 mm axial imaging performed through the chest, abdomen and pelvis without IV c ontrast, oral contrast has been provided. Coronal and sagittal reformats chest. Coronal and sagittal reformats through the abdomen and pelvis. All CT scans at [facility] use at least one of thes e dose optimization techniques: automated exposure control; mA and/or kV adjustment per patient size (includes targeted exams where dose is matched to clinical indication); or iterative reconstruction. CONTRAST: None DLP: 708.83 mGy.cm COMPARISON: 05/11/2022 and 05/30/[address]: Breathing artifact. Hazy attenuation over both lungs. Linear area of atelectasis at the RIG HT lung base. No mass identified. Small nodules or subcentimeter metastatic lesions may be difficult to completely exclude. Mild atherosclerosis aorta. Mildly dilated pulmonary artery. No adenopathy. He art size is very minimally enlarged. Small hiatal hernia. Abdomen CT: Mild enlargement of the liver. No bile duct dilatation or mass. Prior cholecystectomy. No rmal pancreas. Normal spleen. Very minimal bilateral thickening of each adrenal gland. Mild atheroscl erosis aorta. IVC filter. RIGHT kidney: Mild to moderate dilatation of the RIGHT renal pelvis and RIGHT ureter. RIGHT ureter is tortuous and dilated to the urinary bladder as noted on the prior study. LEFT kidney: Normal. No obvious hydronephrosis. Urinary bladder: There is marked thickening of the urinary bladder wall. This is asymmetric and great est on the RIGHT measuring up to 2.0 cm in diameter. Mass and neoplastic changes were noted on the pr ior CT from 08/11/2021. These changes appear to have progressed. Neoplasm in the bladder wall is causi ng obstruction of the RIGHT ureter. No GI tract obstruction. Previously described incarcerated and strangulated abdominal wall hernia has resolved. The hernia is still present but the bowel loops are not dilated and there is no wall thick ening or enhancement or ischemic changes. This is a large [place] hernia. Normal appendix. There ar e a few scattered diverticula in the distal colon. No acute diverticulitis. Pelvic CT: RIGHT pelvic mass with enhancement and lobulated borders measures 3.3 x 3.6 cm. This is ju st posterior and lateral to the urinary bladder and adjacent to the cervix. New since the prior study . There are a few additional small iliac chain lymph nodes but these are much smaller. LEFT iliac angy in lymph node measures 1.0 cm. Additional smaller lymph nodes. Mild curvature lumbar spine. CT/[place] [id number] IMPRESSION: 1. Marked asymmetric bladder wall thickening has progressed since 05/11/2022. Consistent with uroepithelial neoplasm. 2. Moderate RIGHT hydroureteronephrosis similar to the prior study. Ureter is obstructed by the bladder lesion. 3. New metastatic implant in the RIGHT pelvis measuring 3.3 x 3.6 cm. The dist al smaller bilateral iliac chain lymph nodes. The largest measures 10 mm on the LEFT. 4. No pulmonary masses or nodules identified but there is significant motion a rtifact. 5. Prior cholecystectomy. 6. Large abdominal wall hernia containing small bowel. No incarceration or str angulation.
== END 2022-11-05 08:56 | disposition home or self-care (01) ==
LOC: RAD 08:57
PROVIDERS: PCP Internal Medicine; Visit Provider Internal Medicine Medical Oncology
DX: C67.9 Malignant neoplasm of bladder, unspecified (principal); N13.30 Unspecified hydronephrosis
CPT/HCPCS: 71250; 74176; Q9967

== ENCOUNTER 2022-11-08 11:00 | Day surgery (SDC) | payer MEDICAID, SELFPAY ==
[2022-11-05 13:25] VITALS: BMI 36.3
--- NOTE | 2022-11-08 | SC_ITS ---
C-arm fluoroscopy for left infusion port placement, 11/08/2022 Clinical Data: mediport placement Comparison: None. Findings: Dr. Diaz inserted the left infusion port via the left subclavian vein. The distal portion of the port is not imaged on this exam. Impression: Insertion left infusion port via the left subclavian vein. MTDSaritha
--- NOTE | 2022-11-08 11:03 | XR_ITS ---
WS: [id number] Portable AP upright chest, 11/08/2022 Clinical Data: postop mediport placement Comparison: Portable chest, 05/12/2022 Findings: A left infusion port enters the left subclavian vein and ends in the superior vena cava. No nodules, masses or effusions are seen. The heart is normal. The pulmonary vascularity is not increas ed. No pneumonia or pneumothorax is seen. XR/XR chest 1V portable [id number] Impression: Satisfactory placement of left infusion port.
[2022-11-08 11:21] VITALS: BP 135/87; PULSE 88; RESP 18; TEMP 36.3; O2SAT 94
[2022-11-08] MEDS: sodium chloride 0.9% 1,000 ML 30 ML IV (12:04)
--- NOTE | 2022-11-08 12:24 | W.PM.OPSUD ---
Surgery/Procedure H&P Update DATE OF PROCEDURE: November 08, 2022 DATE H&P PERFORMED: 11/02/22 H&P UPDATE INFORMATION: I have reviewed H&P completed within last 30 days, I have examined patient prior to procedure and No changes to prior documentation PREOP DIAGNOSIS: Bladder cancer PLANNED PROCEDURE: Operation Date: 11/08/22 12:25 Proposed Procedures p [id number] port placement C67.9(Not Applicable) - Shant Diaz DO
[2022-11-08] MEDS: ceFAZolin 2,000 MG in sodium chloride 0.9% (plus) 50 ML 100 MG IV (12:35)
[2022-11-08] MEDS: heparin, porcine 1,000 unit/mL INJ 10 mL 10000 UNIT IRRIGATION (13:02)
[2022-11-08] MEDS: sodium chloride 0.9% 100 mL Bag XX (13:02)
[2022-11-08] MEDS: lidocaine-epi 2% 20 mL INJ INJECTION (13:03)
--- NOTE | 2022-11-08 13:20 | PM.OP ---
Operative Report Date of procedure: November 08, 2022 Pre-op diagnosis: Preop Diagnosis Bladder cancer Post-op diagnosis: same Procedure done: Mediport insertion Implants: PowerPort Specimens removed/disposition: None Surgeon: Dr. Shant Diaz DO Anesthesia: MAC Estimated blood loss (mL): 5 Complications: None apparent Brief History: This is a very pleasant 37-year-old female with bladder cancer. Mediport insertion was requested for chemotherapy access. The risk and benefits were explained and documented. Procedure: They put another order I will do right now things the patient was taken to the operating room and placed supine on the operating room table. All bony prominences were padded. She was given IV sedation and monitored throughout the case by the anesthesia personnel. SCDs were placed and turned on. The arms were tucked to the side. Patient received Ancef 2 g preoperatively IV. The bilateral chest wall was prepped and draped in usual sterile fashion using chlorhexidine base prep. Sterile drapes were applied. We did procedure pause prior to beginning. An 18 gauge needle was placed in the left subclavian vein. Dark, nonpulsatile blood was aspirated. A guidewire was placed through the needle centrally toward the atrial/vena caval junction. Fluoroscopy visualized good placement. The needle was removed and the guidewire was clipped to the drape with a hemostat. Further local anesthetic was infiltrated in the soft tissues of the left chest wall and a #15 blade was used to make a horizontal skin incision. A subcutaneous Mediport pocket was created using Bovie cautery, dissecting down through the skin and subcutaneous tissues. Meticulous hemostasis was achieved. The Mediport was sutured in position using 3-0 vicryl suture x2 stitches. A #15 blade was used to make a small skin kecia around the guidewire insertion area. The Mediport tubing was tunneled through the subcutaneous tissues up to the needle insertion location. A dilator with a peel-away sheath was placed over the guidewire and placed centrally. After measuring the Mediport tubing was cut to length so that the tip would end at the atrial/vena caval junction. The inner cannula and the guidewire were removed, leaving the dilator sheath in place. The Mediport was flushed. The tip of the catheter was inserted through the peel-away sheath and the peel-away sheath removed in the standard fashion. The Mediport was accessed with a straight Hung needle and dark, nonpulsatile blood was aspirated and flushed using heparinized saline to hep-lock the Mediport. Final fluoroscopy visualization showed no kink in the catheter and the tip of the Mediport tubing near the atrial/vena caval junction. Both skin incisions were thoroughly irrigated and suctioned dry. Meticulous hemostasis noted. The dermis was approximated with 3-0 Vicryl in an interrupted fashion. Skin was closed with Dermabond. Patient was awakened from anesthesia and transferred via her cart to the recovery room in stable condition. All needle, sponge, and instrument counts were correct per the operating personnel x2 counts.
[2022-11-08 13:21] VITALS: BP 92/55; PULSE 78; RESP 14; TEMP 36.1; O2SAT 100
--- NOTE | 2022-11-08 13:22 | ANES.PREANE2 ---
Pre-Anesthetic Assessment Height/Weight: Height 1.5 m Weight 81.647 kg Temp Pulse Resp BP Pulse Ox O2 Del Method O2 Flow Rate 97.0 F L 78 14 92/55 100 Simple Mask 6 11/08/22 13:21 11/08/22 13:21 11/08/22 13:21 11/08/22 13:21 11/08/22 13:21 11/08/22 13:21 11/08/22 13:21 Preop Diagnosis: Bladder cancer Operation Date: 11/08/22 12:25 Proposed Procedures p [id number] port placement C67.9(Not Applicable) - Shant Diaz DO Familial anesthetic complications: none Was Beta Caty taken within 24 hours: Yes Was Clonidine taken within 24 hours: N/A Last intake: Intake Last Liquid Date 11/08/22 Last Solid Date 11/07/22 Social No alcohol and No tobacco Exam alert, oriented x 3, clear to auscultation bilaterally and regular rate & rhythm Airway Submandibular: within normal limits Cervical ROM: within normal limits Mallampati: Class II Dentition: false Pulmonary Chronic Obstructive Pulmonary Disease CV/HEM Hypertension Chronic Renal Insufficiency Metabolic Diabetes Mellitus, Hyperlipidemia, Morbid Obesity and Thyroid Disease Neuropsych Anxiety, Dementia and Depression anoxic brain inj Anesthetic Plan ASA status: 3 Anesthesia: Choice Medications/Allergies Home Medications Medication Instructions Recorded Confirmed Last Taken Type atorvastatin 10 mg tablet 10 mg PO DAILY@08 05/30/20 11/05/22 11/07/22 History bisacodyl 10 mg rectal suppository 10 mg IA DAILY PRN Constipation 05/30/20 11/05/22 11/07/22 History bisacodyl 5 mg tablet,delayed 10 mg PO DAILY PRN Constipation 05/30/20 11/05/22 11/04/22 History release hydrocodone 5 mg-acetaminophen 325 1 tab PO Q8H PRN Pain 05/30/20 11/05/22 11/07/22 History mg tablet levothyroxine 100 mcg tablet 100 mcg PO QAM 05/30/20 11/05/22 11/07/22 History lorazepam 0.5 mg tablet 0.5 mg PO TID@,,05/30/20 11/05/22 11/08/22 06:00 History magnesium hydroxide 400 mg/5 mL 30 ml PO DAILY PRN Constipation 05/30/20 11/05/22 11/06/22 History oral suspension (Milk of Magnesia) nystatin 100,000 unit/gram topical See Rx Instructions .Route .COMPLEX 05/30/20 11/05/22 05/30/20 History cream pantoprazole 20 mg tablet,delayed 20 mg PO QAM 05/30/20 11/05/22 11/07/22 History release insulin aspart U-100 100 unit/mL See Rx Instructions .Route 06/07/20 11/08/22 11/07/22 Rx subcutaneous solution (Novolog .COMPLEX #10 mL U-100 Insulin aspart) acetaminophen 650 mg 650 mg PO Q6H PRN Pain 05/11/22 11/05/22 11/07/22 History tablet,extended release aluminum-mag hydroxide-simethicone 10 ml PO Q4H PRN Indigestion 05/11/22 11/05/22 Unknown History 400 mg-400 mg-40 mg/5 mL oral susp aspirin 81 mg tablet,delayed 81 mg PO DAILY@08 05/11/22 11/05/22 11/04/22 History release furosemide 80 mg tablet (Lasix) 80 mg PO DAILY@08 05/11/22 11/05/22 11/07/22 History hydroxyzine HCl 25 mg tablet 25 mg PO TID@,,05/11/22 11/05/22 11/07/22 History insulin detemir U-100 100 unit/mL 35 unit SUBCUT BEDTIME 05/11/22 11/05/22 11/06/22 History subcutaneous solution (Levemir U-100 Insulin) magnesium oxide 400 mg PO BID 05/11/22 11/05/22 11/07/22 History metolazone 2.5 mg tablet 2.5 mg PO QAM 05/11/22 11/05/22 11/07/22 History metoprolol tartrate 25 mg tablet 12.5 mg PO BID 05/11/22 11/05/22 11/07/22 History olopatadine 0.1 % eye drops 1 drp ophthalmic (eye) BID 05/11/22 11/05/22 11/07/22 History polyethylene glycol 3350 17 gram 17 g PO QAM 05/11/22 11/05/22 11/07/22 History oral powder packet (Miralax) potassium chloride 20 mEq 40 meq PO BID@08,,20 05/11/22 11/05/22 11/07/22 History tablet,extended release sennosides 8.6 mg tablet (senna) 8.6 mg PO QAM 05/11/22 11/05/22 11/07/22 History sitagliptin phosphate 50 mg tablet 25 mg PO DAILY@08 05/11/22 11/05/22 11/07/22 History (Januvia) lactulose 10 gram/15 mL (15 mL) 15 ml PO DAILY PRN constipation 05/13/22 11/05/22 Unknown Rx oral solution #750 mL ondansetron HCl 4 mg tablet 4 mg PO Q4H PRN nausea and 06/29/22 11/05/22 Unknown Rx vomiting #30 tabs phenazopyridine 200 mg tablet 200 mg PO TID PRN pain 6 doses #30 06/29/22 11/05/22 11/07/22 Rx (Pyridium) tabs albuterol sulfate 1.25 mg/3 mL 1.25 mg inhalation QID 11/05/22 11/05/22 11/07/22 History solution for nebulization Allergies Allergy/AdvReac Type Severity Reaction Status Date / Time No Known Allergies Allergy Verified 11/02/22 10:05 Current Medications Generic Name Dose Route Start Last Admin Trade Name Freq PRN Reason Stop Dose Admin Sodium Chloride 1,000 mls @ 30 mls/hr 11/08/22 11:15 11/08/22 12:04 Sodium Chloride 0.9% IV 11/09/22 11:14 30 mls/hr .Q24H BRYSON Administration PFSH Anesthesia Medical History DELORES (acute kidney injury) Anxiety B12 deficiency Bladder cancer Cataract Chronic kidney disease COPD (chronic obstructive pulmonary disease) Dementia Depression Epilepsy GERD (gastroesophageal reflux disease) History of 2019 novel coronavirus disease (COVID-19) (05/2020) with associated myocarditis/pericarditis History of DVT (deep vein thrombosis) Hydronephrosis, right Hypertension Hypothyroidism Insulin dependent type 2 diabetes mellitus Intellectual disability Intussusception 2nd part of duodenum Mild intermittent asthma Mixed hyperlipidemia Presence of IVC filter Ventral hernia (04/2022) Incarcerated ventral hernia with proximal small bowel obstruction Vitamin D deficiency Surgical History H/O hernia repair ABDOMINAL History of ankle surgery History of cholecystectomy S/P insertion of inferior vena caval filter Family History Grandmother Cancer Breast, lung, cervical Mother , AT AGE 26 Gunshot wound Father , AT AGE 65 Pneumonia Social History Smoking and tobacco status: former smoker Alcohol intake: never Marital status: Single Current occupational status: disabled Data Anesthesia Cardiac Studies: Echocardiogram Limited Views 10/28/22 Echocardiogram Ultrasound 06/01/20
[2022-11-08 13:25] VITALS: BP 118/60; PULSE 81; RESP 15; O2SAT 100
[2022-11-08 13:30] VITALS: BP 129/75; PULSE 84; RESP 15; TEMP 36.1; O2SAT 98
[2022-11-08 13:36] VITALS: BP 123/81; PULSE 87; RESP 18; TEMP 36.3; O2SAT 94
[2022-11-08 13:45] VITALS: BP 126/79; PULSE 85; RESP 18; O2SAT 96
--- NOTE | 2022-11-08 15:09 | ANE.PACU2 ---
Inpatient post-anesthesia follow up: Airway intact: Yes Vital signs: Temperature 97.3 F Pulse Rate 85 Respiratory Rate 18 Blood Pressure 126/79 Pulse Oximetry 96 Oxygen Delivery Me thod Room Air Oxygen Flow Rate 6 Fraction of Inspir ed Oxygen Hydration adequate: Yes Nausea and vomiting: No Pain level: 1 Mental status: Baseline
[2022-11-10 05:41] LABS: Glucose Point of Care 238 mg/dL (70-110)
== END 2022-11-08 14:04 | disposition home or self-care (01) ==
PROVIDERS: PCP Internal Medicine; Visit Provider Surgery
PROC: (CPT 36561; principal; 2022-11-08 12:15)
DX: C67.9 Malignant neoplasm of bladder, unspecified (principal); F03.90 Unspecified dementia, unspecified severity, without behavioral disturbance, psychotic disturbance, mood disturbance, and anxiety; Z79.4 Long term (current) use of insulin; Z79.84 Long term (current) use of oral hypoglycemic drugs; Z79.82 Long term (current) use of aspirin; F32.A Depression, unspecified; F41.9 Anxiety disorder, unspecified; K21.9 Gastro-esophageal reflux disease without esophagitis; I12.9 Hypertensive chronic kidney disease with stage 1 through stage 4 chronic kidney disease, or unspecified chronic kidney disease; N18.9 Chronic kidney disease, unspecified; Z86.718 Personal history of other venous thrombosis and embolism; E03.9 Hypothyroidism, unspecified; J45.20 Mild intermittent asthma, uncomplicated; E11.9 Type 2 diabetes mellitus without complications; E78.2 Mixed hyperlipidemia; Z87.891 Personal history of nicotine dependence; E66.01 Morbid (severe) obesity due to excess calories; Z68.36 Body mass index [BMI] 36.0-36.9, adult
CPT/HCPCS: 36561; 36416; 71045; 77001; 82962; C1788; J0690; J1644; J2704; J3010; J7030

== ENCOUNTER → 2022-11-10 07:49 | Outpatient (BNVA) | payer MEDICAID, SELFPAY | PROVIDERS: PCP Internal Medicine; Visit Provider Nurse Practitioner | DX: C67.9 Malignant neoplasm of bladder, unspecified (principal) | CPT/HCPCS: 99215 ==

== ENCOUNTER 2022-11-18 09:00 | Oncology outpatient (recurring) (ONCR) | payer MEDICAID, SELFPAY ==
[2022-11-10 07:56] VITALS: BP 109/59; PULSE 85; TEMP 36.6; O2SAT 93
[2022-11-10 08:18] LABS: Basophils % 0.3 %; Hematocrit 33.6 % (37.0-47.0); Hemoglobin 10.3 g/dL (11.5-15.3); Lymphocytes % 19.1 %; Mean Corpuscular HGB Conc 30.7 g/dL (30.0-36.0); Mean Corpuscular Hemoglobin 27.1 pg (28.0-34.0); Mean Corpuscular Volume 88.4 fl (81-99); Mean Platelet Volume 10.3 fL (7.4-10.4); Monocytes # 0.8 10^3/uL (0.2-0.9); Monocytes % 7.4 %; Neutrophils # 7.55 10^3/uL (1.8-7.7); Neutrophils % 72.6 %; Nucleated Red Blood Cells % 0 %; Platelet Count 207 10^3/cmm (130-400); Red Cell Distribution Width 13.8 % (12.1-15.1); White Blood Count 10.4 10^3/uL (4.0-10.0)
[2022-11-10 08:43] LABS: Alanine Aminotransferase < 5 U/L (0-33); Albumin Level 3.4 g/dL (3.5-5.2); Alkaline Phosphatase 175 U/L (35-105); Anion Gap 15.8 (5-19); Aspartate Amino Transferase 14 U/L (0-32); Blood Urea Nitrogen 33 mg/dL (6-20); Calcium 8.7 mg/dL (8.5-10.5); Carbon Dioxide 32 mmol/L (22-29); Chloride 96 mmol/L (98-107); Globulin 3.3 g/dL (1.3-4.6); Glomerular Filtration Rate 33.2 mL/min (90-130); Glucose 292 mg/dL (65-115); Osmolality Calculated 308 mOsm/kg (285-295); Potassium 3.8 mmol/L (3.5-5.1); Sodium 140 mmol/L (136-145); Total Bilirubin 0.2 mg/dL (0.15-1.2); Total Protein 6.7 g/dL (6.6-8.7)
[2022-11-10] MEDS: sodium chloride 0.9% 250 ML IV ×2 (11:50→13:30)
[2022-11-10] MEDS: diphenhydrAMINE 50 mg/mL SDV 1mL 25 MG IVP (11:52)
[2022-11-10] MEDS: famotidine 20 mg/2 mL INJ IVP (11:52)
[2022-11-10] MEDS: OLANZapine 5 mg TABLET PO (11:56)
[2022-11-10] MEDS: palonosetron 0.25 mg/5 mL SDV IVP (11:58)
[2022-11-10] MEDS: fosaprepitant 150 MG in sodium chloride 0.9% 150 ML 300 MG IV (12:00)
[2022-11-10] MEDS: [UNRECOGNIZED DRUG - OTHER] IVP (13:03)
[2022-11-10] MEDS: METHOTREXATE 50 MG/2 ML IVP (13:03)
[2022-11-10] MEDS: potassium chloride 20 MEQ in sodium chloride 0.9% 500 ML 500 MEQ IV (15:15)
[2022-11-10] MEDS: pegfilgrastim 6 mg/0.6 mL Kit (onpro) SUBCUT (16:17)
[2022-11-10 16:58] VITALS: BP 95/65; PULSE 88; TEMP 36.7; O2SAT 90
[2022-11-18 09:00] VITALS: BP 90/48; PULSE 84; TEMP 37.2; O2SAT 97
[2022-11-18 10:29] LABS: Hematocrit 31.7 % (37.0-47.0); Hemoglobin 10.3 g/dL (11.5-15.3); Lymphocytes # 0.3 10^3/uL (0.8-4.8); Lymphocytes % 76.9 %; Mean Corpuscular HGB Conc 32.5 g/dL (30.0-36.0); Mean Corpuscular Hemoglobin 26.8 pg (28.0-34.0); Mean Corpuscular Volume 82.3 fl (81-99); Mean Platelet Volume 10.8 fL (7.4-10.4); Monocytes % 7.7 %; Neutrophils % 15.4 %; Nucleated Red Blood Cells % 0 %; Platelet Count 55 10^3/cmm (130-400); Red Blood Count 3.85 10^6/uL (4.1-5.3); Red Cell Distribution Width 13.8 % (12.1-15.1)
[2022-11-18 10:39] LABS: Neutrophils # 0.06 10^3/uL (1.8-7.7); White Blood Count 0.4 10^3/uL (4.0-10.0)
[2022-11-18 10:43] LABS: Alanine Aminotransferase 41 U/L (0-33); Albumin Level 3.6 g/dL (3.5-5.2); Alkaline Phosphatase 292 U/L (35-105); Anion Gap 17.3 (5-19); Aspartate Amino Transferase 40 U/L (0-32); Blood Urea Nitrogen 77 mg/dL (6-20); Calcium 7.8 mg/dL (8.5-10.5); Carbon Dioxide 28 mmol/L (22-29); Chloride 95 mmol/L (98-107); Globulin 3.1 g/dL (1.3-4.6); Glomerular Filtration Rate 20.8 mL/min (90-130); Glucose 162 mg/dL (65-115); Osmolality Calculated 311 mOsm/kg (285-295); Potassium 3.3 mmol/L (3.5-5.1); Sodium 137 mmol/L (136-145); Total Bilirubin 0.2 mg/dL (0.15-1.2); Total Protein 6.7 g/dL (6.6-8.7)
== END 2022-11-21 23:59 | disposition home or self-care (01) ==
PROVIDERS: Nurse Practitioner; PCP Internal Medicine; Visit Provider Internal Medicine Medical Oncology
DX: C67.0 Malignant neoplasm of trigone of bladder (principal); C77.5 Secondary and unspecified malignant neoplasm of intrapelvic lymph nodes; Z90.6 Acquired absence of other parts of urinary tract; D70.1 Agranulocytosis secondary to cancer chemotherapy; T45.1X5A Adverse effect of antineoplastic and immunosuppressive drugs, initial encounter; I10 Essential (primary) hypertension; N28.89 Other specified disorders of kidney and ureter; Z79.2 Long term (current) use of antibiotics; Z79.899 Other long term (current) drug therapy; Z87.891 Personal history of nicotine dependence; Y92.019 Unspecified place in single-family (private) house as the place of occurrence of the external cause
CPT/HCPCS: 80053; 85025; 96367; 96372; 96375; 96411; 96413; 99214; J1100; J1200; J1453; J2469; J2506; J3475; J3480; J3490; J7030; J7040; J7050; J9000; J9060; J9260; J9360

== ENCOUNTER 2022-11-18 11:36 | Inpatient (IN) | payer MEDICAID, SELFPAY ==
[2022-11-18 11:47] VITALS: BMI 32.9
--- NOTE | 2022-11-18 12:05 | P.HP_ITS ---
Providers/Chief Complaint Admitting Physician: Rogerio Cano MD Primary Care Provider: Jericho Conroy MD Chief Complaint: nurtopenia, bladder cancer History of Present Illness Emmanuel Corral is a 57 year old female who has been sent from Dr. Cano's clinic for neutropenia. Patient is afebrile. She carries history of bladder cancer with locally advanced to lymph nodes evident with CT, patient carries history of dementia, her last chemotherapy session was last week. Patient is not able provide any significant history, most of the history has been taken from her sister who is at the bedside Patient experiencing nausea vomiting and diarrhea, family has not noticed any febrile events, she is independent, eats regular food. Review of Systems General: Reports: ROS unobtainable due to mental status Medications/Allergies Home Medications Medication Instructions Recorded Confirmed Last Taken Type atorvastatin 10 mg tablet 10 mg PO DAILY@08 05/30/20 11/18/22 11/07/22 History bisacodyl 10 mg rectal suppository 10 mg MD DAILY PRN Constipation 05/30/20 11/18/22 11/07/22 History bisacodyl 5 mg tablet,delayed 10 mg PO DAILY PRN Constipation 05/30/20 11/18/22 11/04/22 History release hydrocodone 5 mg-acetaminophen 325 1 tab PO Q8H PRN Pain 05/30/20 11/18/22 11/07/22 History mg tablet levothyroxine 100 mcg tablet 100 mcg PO QAM 05/30/20 11/18/22 11/07/22 History lorazepam 0.5 mg tablet 0.5 mg PO TID@09,14,21 05/30/20 11/18/22 11/08/22 06:00 History magnesium hydroxide 400 mg/5 mL 30 ml PO DAILY PRN Constipation 05/30/20 11/18/22 11/06/22 History oral suspension (Milk of Magnesia) nystatin 100,000 unit/gram topical See Rx Instructions .Route .COMPLEX 05/30/20 11/18/22 05/30/20 History cream pantoprazole 20 mg tablet,delayed 20 mg PO QAM 05/30/20 11/18/22 11/07/22 History release insulin aspart U-100 100 unit/mL See Rx Instructions .Route 06/07/20 11/18/22 11/07/22 Rx subcutaneous solution (Novolog .COMPLEX #10 mL U-100 Insulin aspart) acetaminophen 650 mg 650 mg PO Q6H PRN Pain 05/11/22 11/18/22 11/07/22 History tablet,extended release aluminum-mag hydroxide-simethicone 10 ml PO Q4H PRN Indigestion 05/11/22 11/18/22 Unknown History 400 mg-400 mg-40 mg/5 mL oral susp aspirin 81 mg tablet,delayed 81 mg PO DAILY@08 05/11/22 11/18/22 11/04/22 History release furosemide 80 mg tablet (Lasix) 80 mg PO DAILY@08 05/11/22 11/18/22 11/07/22 History hydroxyzine HCl 25 mg tablet 25 mg PO TID@,,05/11/22 11/18/22 11/07/22 History insulin detemir U-100 100 unit/mL 35 unit SUBCUT BEDTIME 05/11/22 11/18/2210/23 History subcutaneous solution (Levemir U-100 Insulin) magnesium oxide 400 mg PO BID 05/11/22 11/18/22 11/07/22 History metolazone 2.5 mg tablet 2.5 mg PO QAM 05/11/22 11/18/22 11/07/22 History metoprolol tartrate 25 mg tablet 12.5 mg PO BID 05/11/22 11/18/22 11/07/22 History olopatadine 0.1 % eye drops 1 drp ophthalmic (eye) BID 05/11/22 11/18/22 11/07/22 History polyethylene glycol 3350 17 gram 17 g PO QAM 05/11/22 11/18/22 11/07/22 History oral powder packet (Miralax) potassium chloride 20 mEq 40 meq PO BID@08,13,20 05/11/22 11/18/22 11/07/22 History tablet,extended release sennosides 8.6 mg tablet (senna) 8.6 mg PO QAM 05/11/22 11/18/22 11/07/22 History sitagliptin phosphate 50 mg tablet 25 mg PO DAILY@08 05/11/22 11/18/22 11/07/22 History (Januvia) lactulose 10 gram/15 mL (15 mL) 15 ml PO DAILY PRN constipation 05/13/22 11/18/22 Unknown Rx oral solution #750 mL ondansetron HCl 4 mg tablet 4 mg PO Q4H PRN nausea and 06/29/22 11/18/22 Unknown Rx vomiting #30 tabs phenazopyridine 200 mg tablet 200 mg PO TID PRN pain 6 doses #30 06/29/22 11/18/22 11/07/22 Rx (Pyridium) tabs albuterol sulfate 1.25 mg/3 mL 1.25 mg inhalation QID 11/05/22 11/18/22 11/07/22 History solution for nebulization prochlorperazine maleate 10 mg 10 mg PO Q4H PRN Mild Nausea #30 11/09/22 11/18/22 Unknown Rx tablet (Compazine) tabs Allergies Allergy/AdvReac Type Severity Reaction Status Date / Time No Known Allergies Allergy Verified 11/18/22 10:33 PFSH Acute PFSH: Medical History DELORES (acute kidney injury) Anxiety B12 deficiency Bladder cancer Cataract Chronic kidney disease COPD (chronic obstructive pulmonary disease) Dementia Depression Epilepsy GERD (gastroesophageal reflux disease) History of 2019 novel coronavirus disease (COVID-19) (05/2020) with associated myocarditis/pericarditis History of DVT (deep vein thrombosis) Hydronephrosis, right Hypertension Hypothyroidism Insulin dependent type 2 diabetes mellitus Intellectual disability Intussusception 2nd part of duodenum Mild intermittent asthma Mixed hyperlipidemia Presence of IVC filter Ventral hernia (04/2022) Incarcerated ventral hernia with proximal small bowel obstruction Vitamin D deficiency Surgical History H/O hernia repair ABDOMINAL History of ankle surgery History of cholecystectomy Port-A-Cath in place S/P insertion of inferior vena caval filter Family History Grandmother Cancer Breast, lung, cervical Mother , AT AGE 26 Gunshot wound Father , AT AGE 65 Pneumonia Social History Smoking and tobacco status: former smoker Alcohol intake: never Substance/Drug Use: never Marital status: Single Current occupational status: disabled Vitals/I&O/Wt Weight last 48 hrs Weight 73.981 kg Physical Exam Narrative: Appears stated age Selectively challenge Answering simple question yes and no Abdomen soft Currently on room air Nonfocal neuro exam S1, S2 Mild erythema around Mediport Skin is dry A&P Assessment and plan (1) Neutropenia: (2) Dementia: (3) COPD (chronic obstructive pulmonary disease): (4) Insulin dependent type 2 diabetes mellitus: (5) Depression: (6) Cognitive impairment: (7) Chronic kidney disease: (8) Bladder cancer: Plan Severe neutropenia Chemotherapy-induced Start cefepime for pseudomonal coverage and vancomycin for MRSA coverage Request blood cultures We will take 1 culture from her port Reverse isolation Bladder cancer Locally advanced to lymph nodes Getting chemotherapy, seen Dr. Cano last chemotherapy last week Patient also received Neulasta History of dementia without acute exacerbation History of diabetes we will keep on consistent carb diet along insulin, patient takes 35 units of Levemir at home would use Lantus 25 units Hypothyroidism continue levothyroxine Constipation:. Use of laxatives Patient has intellectual/cognitive challenges with behavioral disturbances Continue anxiolytics History of small bowel obstruction, with neutropenia Patient's sister, Maria Teresa Sousa, is Mrs. Lovett's guardian, phone number [phone] Full code Patient is from a intermediate Attestations Medical Necessity Statement*: More than 2 midnights anticipated Diagnoses Neutropenia D70.9 Dementia F03.90 COPD (chronic obstructive pulmonary disease) J44.9 Insulin dependent type 2 diabetes mellitus E11.9; Z79.4 Depression F32.A Cognitive impairment R41.89 Chronic kidney disease N18.9 Bladder cancer C67.9
--- NOTE | 2022-11-18 12:35 | PC.PHAR ---
Pt is showing some signs of possible DELORES will monitor SCR daily and adjust dose accordingly. Patient: Floor: Age: 57 yo Serum creatinine: 2.4 mg/dL Height: 59.1 Inches Weight (kg): 74 IBW (kg): 44.82 Dosing wt(kg): 74 Estimated Creatinine clearance (ml/min): 18.3 CRCL method: Cockcroft and Gault using ibw(default). Drug selected: Vancomycin Vd (liters): 51.8 (factor used: 0.7 L/kg) Justen (hr-1): 0.020 Half life (hrs): 34.66 CLvanco=?? 1.036 L/hr Recommended dose: 1000 mg Interval: 48 hrs Infusion time (hrs): 1 Predicted peak (mcg/mL): 31.0 Predicted trough (mcg/mL): 12.11 Total body weight is being used for vancomycin dosing. Recommendations: Give Vancomycin 1000 mg q 48 hrs with an expected Cpeak of 31.0 mcg/ml and an expected Ctrough of 12.11 mcg/ml AUC 0-24 /KEIKO Data: KEIKO 0.5 mcg/mL:?? AUC/KEIKO:? 965.3 KEIKO 1.0 mcg/mL:?? AUC/KEIKO:? 482.6 --------- KEIKO 1.5 mcg/mL:?? AUC/KEIKO:? 321.8 KEIKO 2.0 mcg/mL:?? AUC/KEIKO:? 241.3 Renal dosing of other antibiotics (review renal dosing of other medications and list guidelines here): Thank you for the consult, will continue to follow. Signature:Rajesh Castillo PharmD
[2022-11-18] MEDS: cefepime 2,000 MG in sodium chloride 0.9% (plus) 50 ML 100 MG IV (13:29)
[2022-11-18] MEDS: potassium chloride ER 20 mEq Tablet 40 MEQ PO (13:30)
[2022-11-18] MEDS: LORazepam 0.5 mg Tablet PO ×2 (13:30→21:32)
[2022-11-18 13:40] LABS: Lactate (Lactic Acid level) 1.7 mmol/L (0.5-2.2)
[2022-11-18 13:43] LABS: C Reactive Protein 105.5 mg/L (0.0-4.9)
[2022-11-18 13:49] LABS: Procalcitonin 6.43 ng/mL (0-0.5)
[2022-11-18] MEDS: vancomycin 1,000 MG in sodium chloride 0.9% 250 ML 250 MG IV (14:03)
[2022-11-18 14:43] VITALS: BP 92/56; PULSE 114; RESP 17; TEMP 36.4; O2SAT 94
[2022-11-18] MEDS: ondansetron 2 mg/ML SDV 2 mL 4 MG IVP (16:37)
[2022-11-18 17:24] LABS: Glucose Point of Care 262 mg/dL (70-110)
[2022-11-18 17:33] VITALS: BP 98/66; PULSE 121; RESP 17; TEMP 36.9; O2SAT 91
[2022-11-18] MEDS: insulin lispro 100 unit/1 mL SUBCUT (18:17)
[2022-11-18] MEDS: acetaminophen 500 mg Tablet PO (18:18)
[2022-11-18] MEDS: magnesium oxide 400 mg tablet PO (18:18)
[2022-11-18] MEDS: sodium chloride 0.9% 1,000 ML 75 ML IV (19:39)
--- NOTE | 2022-11-18 20:14 | XRR_ITS ---
PROCEDURE INFORMATION: Exam: XR Chest Exam date and time: 11/18/2022 7:21 PM Age: 57 years old Clinical indication: Fever and other: Neutropenia; Patient HX: Fever and neutropenia; PT is in reverse isolation TECHNIQUE: Imaging protocol: Radiologic exam of the chest. Views: 1 view. COMPARISON: CT chest abdpel [id number] 11/05/2022 10:26 AM FINDINGS: Tubes, catheters and devices: Left-sided Port-A-Cath. Lungs: Unremarkable. No consolidation. Pleural spaces: Unremarkable. No pleural effusion. No pneumothorax. Heart/Mediastinum: Unremarkable. No cardiomegaly. Bones/joints: Unremarkable. XR/XR chest 1V portable [id number] IMPRESSION: Negative for infiltrate.
[2022-11-18 20:40] VITALS: BP 76/50; PULSE 55; RESP 16; TEMP 37.2; O2SAT 99
[2022-11-18 21:17] LABS: Glucose Point of Care 165 mg/dL (70-110)
--- NOTE | 2022-11-18 21:19 | P.EN_ITS ---
Event Note Event Note: Called with low blood pressure. Ordered bolus of normal saline. Order chest x- ray. Ordered urinalysis and Riley. Nurse to call me if blood pressure does not come up. I physically went up to evaluate the patient. I did not see any evidence of fluid overload currently. Discussed plan with patient, and sister who was present. \
[2022-11-18] MEDS: sodium chloride 0.9% 500 ML 999 ML IV (21:31)
[2022-11-18] MEDS: metoprolol tartrate 25 mg Tablet 12.5 MG PO (21:31)
[2022-11-18 22:30] VITALS: BP 76/54
[2022-11-19] VITALS (51 sets, daily range): BP systolic 68–126; BP diastolic 37–75; PULSE 100–129; RESP 12–28; TEMP 36.4–38.5; O2SAT 87–98
[2022-11-19] MEDS: acetaminophen 500 mg Tablet PO ×2 (01:02→20:17)
[2022-11-19] MEDS: sodium chloride 0.9% 500 ML 999 ML IV (01:03)
[2022-11-19 01:20] LABS: Bilirubin Urine Neg (Negative); Blood Urine 3+ (Negative); Glucose Urine UA Trace (Normal); Ketones Urine 1+ (Negative); Leukocyte Esterase Urine Trace (Negative); Nitrate Urine Negative (Negative); Protein Urine 3+ (Negative); Specific Gravity, Urine 1.015 (1.005-1.030); Urine Appearance Cloudy (CLEAR); Urine Color Amber (Yellow); Urobilinogen Urine Neg (Negative); pH Urine 6 (5-7)
[2022-11-19 01:25] LABS: Bacteria Urine 2+ /hpf; RBC Urine TOO NUMEROUS TO CNT /hpf (0-2); WBC Urine 15-25 /hpf (0-5)
[2022-11-19 01:26] LABS: Add Urine Culture? No; Mucus Urine 2+ /hpf
[2022-11-19] MEDS: cefepime 2,000 MG in sodium chloride 0.9% (plus) 50 ML 100 MG IV ×2 (01:33→12:04)
[2022-11-19] MEDS: sodium chloride 0.9% 1,000 ML 999 ML IV (01:50)
--- NOTE | 2022-11-19 01:59 | PC.NURSE ---
Received from Chatwala, report received from Karlie. Patient resting in bed, axilla temp 99.4, HR 117 on monitoring tech, blood pressure 84/50 with 2nd 500mL NS bolus infusing. Patient oriented to person only. Dr. Conroy to room to see patient. Orders given for a 1L normal saline bolus and levophed if needed. Dr. Conroy states that is her normal mental state with a history of dementia.
[2022-11-19] MEDS: sodium chloride 0.9% 1,000 ML 75 ML IV ×2 (03:33→18:01)
[2022-11-19 03:50] LABS: Anion Gap 16.9 (5-19); Blood Urea Nitrogen 67 mg/dL (6-20); Calcium 7.1 mg/dL (8.5-10.5); Carbon Dioxide 21 mmol/L (22-29); Chloride 100 mmol/L (98-107); Glomerular Filtration Rate 24.3 mL/min (90-130); Glucose 287 mg/dL (65-115); Magnesium 1.6 mg/dL (1.7-2.3); Osmolality Calculated 310 mOsm/kg (285-295); Sodium 135 mmol/L (136-145)
[2022-11-19 03:53] LABS: Potassium 2.9 mmol/L (3.5-5.1)
[2022-11-19 04:15] LABS: Hematocrit 26.2 % (37.0-47.0); Hemoglobin 8.5 g/dL (11.5-15.3); Lymphocytes # 0.3 10^3/uL (0.8-4.8); Lymphocytes % 69.4 %; Mean Corpuscular HGB Conc 32.4 g/dL (30.0-36.0); Mean Corpuscular Hemoglobin 27.2 pg (28.0-34.0); Mean Platelet Volume 11.3 fL (7.4-10.4); Monocytes # 0.1 10^3/uL (0.2-0.9); Monocytes % 14.3 %; Neutrophils % 10.2 %; Nucleated Red Blood Cells % 0 %; Platelet Count 33 10^3/cmm (130-400); Red Blood Count 3.12 10^6/uL (4.1-5.3); Red Cell Distribution Width 14.1 % (12.1-15.1)
[2022-11-19 04:17] LABS: Slide Review Slide Review Perform
[2022-11-19 04:19] LABS: Neutrophils # 0.05 10^3/uL (1.8-7.7); White Blood Count 0.5 10^3/uL (4.0-10.0)
[2022-11-19] MEDS: magnesium sulfate premix 2 GM/50 ML PIGGYBACK IV (04:27)
[2022-11-19] MEDS: lidocaine 1% 5 ML in potassium chloride premix 100 ML 25 ML IV (05:33)
[2022-11-19] MEDS: levothyroxine 100 mcg Tablet PO (06:20)
--- NOTE | 2022-11-19 06:46 | PC.NURSE ---
0145 Gave report to ICU nurse and transferred patient to ICU. Called ICU to remind nurse to call family member at 0230. ICU nurse reports I will let her nurse know. at this time.
--- NOTE | 2022-11-19 07:19 | PC.PHAR ---
Addendum entered by Kami James 11/19/22 09:01: medications entered are meds from the pts mar- wrote rx on compazine 10mg q4h prn that medication wasnt on med list from [facility] Original Note: pt is from [facility] [phone]-milagros rizzo fax mar and tar
[2022-11-19 07:34] LABS: Glucose Point of Care 322 mg/dL (70-110)
[2022-11-19] MEDS: insulin lispro 100 unit/1 mL SUBCUT ×3 (07:55→21:34)
[2022-11-19] MEDS: ondansetron 2 mg/ML SDV 2 mL 4 MG IVP ×3 (09:34→21:20)
--- NOTE | 2022-11-19 10:17 | P.PN_ITS ---
Subjective Subjective: Patient was transferred to ICU for septic shock requiring vasopressors Overnight events noted Spoke with Dr. Thorpe and Dr. Cano this morning, Dr. Thorpe has not recommended nephrostomy tube for her hydronephrosis because of her aggressive lymphadenopathy, Dr. Cano agrees with Dr. Thorpe's assessment at this point, Dr. Cano is stating that she should be managed conservatively with medicine for now & surgical option might not be feasible considering her quality of life and multiple comorbid conditions Spoke with her guardian who is at the bedside in the ICU, ICU nurse updated Sister who is at the bedside is stating that they might lean towards hospice care in near future but for now they are okay with medical management, I discussed goals of care again she is not sure about her goals of care yet but leaning towards DNR/DNI, she would like to discuss further with the rest of the family members and then update us Patient experiencing multiple episodes of diarrhea, requesting C. difficile She is in reverse isolation Vitals/I&O/Wt Last Vital Signs Temp 99.3 F 11/19/22 04:00 Pulse 124 H 11/19/22 08:59 Resp 21 H 11/19/22 08:59 BP 101/73 11/19/22 08:59 Pulse Ox 97 11/19/22 08:04 O2 Del Method Room Air 11/19/22 08:04 11/18/22 11/19/22 11/19/22 22:59 06:59 14:59 Intake Total 870 / 920 1904.730 / 2824.730 Balance 870 / 920 1904.730 / 2824.730 Weight last 48 hrs Weight 73.981 kg Physical Exam Narrative: Septic exam Good capillary refill Patient is awake and alert able to answer simple questions She was asking for ice chips, she was endorsing feeling thirsty Clinically looks slightly dehydrated S1, S2 sinus tachycardia Abdomen soft No audible stridor or wheezing Patient currently is on room air Riley catheter draining yellow-colored urine Data 11/19/22 02:59 11/19/22 02:59 Micro: Microbiology 11/18/22 13:08 Blood Culture - Preliminary Blood 11/18/22 12:50 Blood Culture - Preliminary Blood SPECIMEN COLLECTED A&P Assessment and plan (1) Neutropenia: (2) Dementia: (3) Pancytopenia: (4) COPD (chronic obstructive pulmonary disease): (5) Insulin dependent type 2 diabetes mellitus: (6) Hypothyroidism: (7) Incarcerated ventral hernia: (8) Cognitive impairment: (9) Hydronephrosis: (10) Chronic kidney disease: (11) Bladder cancer: (12) Septic shock: Plan Septic shock Sepsis criteria met with fever, leukopenia, tachycardia lactic acid is normal endorgan damage with abnormal creatinine Source of infection UTI Patient has received septic bolus overnight She is back fever around midnight at that point she was diagnosed with septic shock Transfer to ICU, requiring vasopressors This morning we are able to wean her vasopressors off to only 2 mics She is still tachycardic, I have asked ICU nurse to let me know if her heart rate stays above 110 then we will try another fluid bolus with 500 mL Overnight febrile event noted Blood cultures taken Abnormal UA noted that most likely is a source of infection Currently patient is on vancomycin and cefepime for MRSA and pseudomonal coverage, in case of recurrent febrile episodes I would escalate her antibiotics to meropenem along vancomycin, at this point secondary to bone marrow suppression I would avoid carbapenems Hydronephrosis related to lymphadenopathy Underlying bladder cancer Locally advanced cancer to lymph nodes Aggressive lymphadenopathy Dr. Thorpe has not recommended nephrostomy tube Dr. Cano recommended medical management Family does not want any surgical/aggressive intervention as well They might opt for hospice care down the road For now we are treating medically and keeping patient full code, goals of care discussed as well, guardian/sister at the bedside would like to discuss further with rest of the family members and update as later today versus tomorrow Diarrhea Send C. difficile Send CMV panel3 Hypokalemia: Repleted Hypomagnesemia: Repleted Electrolyte imbalance related to diarrhea Goals of care discussed with the family At least 10 to 15 minutes were spent with the family members further discussion, Spoke with 2 physicians regarding this patient's poor prognosis and acute condition Pancytopenia related to chemotherapy Patient has received Neulasta her last chemotherapy session was last week I would avoid DVT prophylaxis because of thrombocytopenia For neutropenia she is in reverse isolation Intellectual disability/challenges: Patient is able to answer simple questions She was asking for ice chips Full code for now Patient is on dysphagia diet As per the family she was eating regular food but she is edentulous and she directly swallows solids Guarded prognosis: Most likely patient will stay until this week and Attestations Medical Necessity Statement*: Continue ICU management Diagnoses Neutropenia D70.9 Dementia F03.90 Pancytopenia D61.818 COPD (chronic obstructive pulmonary disease) J44.9 Insulin dependent type 2 diabetes mellitus E11.9; Z79.4 Hypothyroidism E03.9 Incarcerated ventral hernia K43.6 Cognitive impairment R41.89 Hydronephrosis N13.30 Chronic kidney disease N18.9 Bladder cancer C67.9 Septic shock A41.9; R65.21
[2022-11-19 11:14] LABS: Glucose Point of Care 302 mg/dL (70-110)
[2022-11-19] MEDS: lactated ringers 500 ML 999 ML IV (12:04)
--- NOTE | 2022-11-19 12:35 | PC.NURSE ---
Patient has been getting out of bed and attempting to walk around room. This nurse attempted to educate patient and she stated, You fucking bitch! multiple times.
[2022-11-19 16:49] LABS: Potassium 2.6 mmol/L (3.5-5.1)
[2022-11-19] MEDS: lidocaine 1% 5 ML in potassium chloride premix 100 ML 26.25 ML IV (16:54)
[2022-11-19 17:07] LABS: Glucose Point of Care 127 mg/dL (70-110)
[2022-11-19 17:44] LABS: Anion Gap 16.6 (5-19); Blood Urea Nitrogen 50 mg/dL (6-20); Calcium 7.7 mg/dL (8.5-10.5); Carbon Dioxide 22 mmol/L (22-29); Chloride 108 mmol/L (98-107); Glucose 97 mg/dL (65-115); Osmolality Calculated 311 mOsm/kg (285-295); Sodium 144 mmol/L (136-145)
[2022-11-19 17:46] LABS: Potassium 2.6 mmol/L (3.5-5.1)
--- NOTE | 2022-11-19 18:18 | PC.NURSE ---
Pt has been unable to take PO mediations due to multiple episodes of emesis.
[2022-11-19] MEDS: LORazepam 0.5 mg Tablet PO (20:17)
--- NOTE | 2022-11-19 20:54 | PC.NURSE ---
Grace May form [facility] called for update on patient. Updated on current vital signs and plan of care.
[2022-11-19 21:36] LABS: Glucose Point of Care 300 mg/dL (70-110)
[2022-11-20] VITALS (29 sets, daily range): BP systolic 85–138; BP diastolic 48–85; PULSE 100–120; RESP 14–32; TEMP 36.8–38.1; O2SAT 64–99
[2022-11-20] MEDS: cefepime 2,000 MG in sodium chloride 0.9% (plus) 50 ML 100 MG IV ×2 (00:45→12:50)
[2022-11-20] MEDS: ondansetron 2 mg/ML SDV 2 mL 4 MG IVP (03:34)
[2022-11-20 04:53] LABS: Hemoglobin 8.5 g/dL (11.5-15.3); Mean Corpuscular HGB Conc 31.5 g/dL (30.0-36.0); Mean Corpuscular Hemoglobin 27.2 pg (28.0-34.0); Mean Corpuscular Volume 86.3 fl (81-99); Mean Platelet Volume 11.2 fL (7.4-10.4); Red Blood Count 3.13 10^6/uL (4.1-5.3)
[2022-11-20 05:04] LABS: Anion Gap 18.5 (5-19); Blood Urea Nitrogen 42 mg/dL (6-20); Calcium 7.8 mg/dL (8.5-10.5); Carbon Dioxide 18 mmol/L (22-29); Chloride 109 mmol/L (98-107); Glucose 266 mg/dL (65-115); Osmolality Calculated 316 mOsm/kg (285-295); Sodium 143 mmol/L (136-145)
[2022-11-20 05:23] LABS: White Blood Count 0.4 10^3/uL (4.0-10.0)
[2022-11-20 05:24] LABS: Platelet Count 17 10^3/cmm (130-400)
[2022-11-20 05:30] LABS: Potassium 2.5 mmol/L (3.5-5.1)
[2022-11-20] MEDS: acetaminophen 500 mg Tablet PO (05:43)
[2022-11-20] MEDS: potassium chloride ER 20 mEq Tablet 40 MEQ PO ×2 (05:43→08:11)
[2022-11-20] MEDS: levothyroxine 100 mcg Tablet PO (05:43)
[2022-11-20] MEDS: sodium chloride 0.9% 1,000 ML 75 ML IV ×2 (06:23→20:20)
[2022-11-20] MEDS: LORazepam 0.5 mg Tablet PO ×3 (08:11→20:20)
[2022-11-20] MEDS: magnesium oxide 400 mg tablet PO (08:11)
[2022-11-20] MEDS: insulin lispro 100 unit/1 mL SUBCUT ×3 (08:12→20:33)
[2022-11-20 08:17] LABS: Glucose Point of Care 332 mg/dL (70-110)
[2022-11-20 09:06] LABS: Total Cells Counted 100 (0-100)
[2022-11-20 09:07] LABS: Absolute Segmented Neutrophil 0.1 10/cmm (1.6-7.1); Eosinophils 12 %; Lymphocytes 74 %; Lymphocytes Absolute 0.3 10^3/cmm (1.2-3.4); Platelet Estimate Decreased (Normal); Segmented Neutrophils 14 %
[2022-11-20 09:09] LABS: Absolute Neutrophil 0.1 10^3/cmm (1.4-6.5)
[2022-11-20 11:36] LABS: Glucose Point of Care 164 mg/dL (70-110)
[2022-11-20] MEDS: vancomycin 1,000 MG in sodium chloride 0.9% 250 ML 250 MG IV (14:21)
--- NOTE | 2022-11-20 16:04 | PM.PN ---
Subjective Subjective: Denies any pain or problem this morning. Reports that she has been resting well. No events overnight per nursing. Vitals/I&O/Wt Last Vital Signs Temp 99.3 F 11/20/22 14:00 Pulse 109 H 11/20/22 14:00 Resp 29 H 11/20/22 14:00 BP 106/76 11/20/22 14:00 Pulse Ox 94 11/20/22 11:00 O2 Del Method Room Air 11/20/22 14:00 11/20/22 11/20/22 11/20/22 06:59 14:59 22:59 Intake Total 1277.5 / 2626.56 270 / 270 Output Total 1450 / 2400 Balance -172.5 / 226.56 270 / 270 Weight last 48 hrs Weight 166 lb 14.4 oz Physical Exam Narrative: General: Cooperative patient in no apparent distress. Well developed. HEENT: Normocephalic, Atraumatic. External ears normal. Nasal passages patent without drainage. MMM. Heart: RRR. Resp: LCTA. No respiratory distress, no use of accessory muscles. Abd: Soft, non-tender. Non-distended. Extremities: No edema. Skin: No rash or lesions on exposed areas. Urinary Catheter Management: Riley: Cath Placed During This Visit: yes Reason for Continuing Indwelling Catheter: Accurate Measurement of Urinary Output in Critically Ill Patients Urinary Catheter Date of Insertion: 11/19/22 Data 11/20/22 03:40 11/20/22 03:40 Micro: Microbiology 11/19/22 13:30 C.difficile Toxin B Gene (PCR) - Final Stool 11/18/22 23:41 Urine Culture - Preliminary Urine Catheterized Gram Negative Rods 11/18/22 12:50 Blood Culture - Preliminary Blood NEGATIVE TO DATE A&P Assessment and plan (1) Neutropenia: (2) Dementia: (3) Pancytopenia: (4) COPD (chronic obstructive pulmonary disease): (5) Insulin dependent type 2 diabetes mellitus: (6) Hypothyroidism: (7) Incarcerated ventral hernia: (8) Cognitive impairment: (9) Hydronephrosis: (10) Chronic kidney disease: (11) Bladder cancer: (12) Septic shock: Plan 57-year-old female with a past medical history of bladder cancer on chemotherapy, admitted for UTI sepsis with shock. Continue close ICU monitoring. She is on reverse isolation due to severe neutropenia. Septic shock has resolved. She is no longer on pressors. Sepsis criteria met with fever, leukopenia, tachycardia lactic acid is normal endorgan damage with abnormal creatinine Source of infection UTI. UCx: Gram-negative rods. ID and susceptibilities are pending. Blood cultures show 1 out of 4 bottles with GPC in clusters. C. difficile was negative. She is currently on vancomycin and cefepime. She was febrile earlier this morning, but this has currently resolved. She has had no further temperatures today. WBC count down to 0.4, platelet count at 17. Continue to avoid pharmaceutical anticoagulation. Hydronephrosis related to lymphadenopathy Underlying bladder cancer Locally advanced cancer to lymph nodes Aggressive lymphadenopathy Dr. Thorpe has not recommended nephrostomy tube Dr. Cano recommended medical management Family does not want any surgical/aggressive intervention as well They might opt for hospice care down the road For now we are treating medically and keeping patient full code, goals of care discussed as well, guardian/sister at the bedside would like to discuss further with rest of the family members and update as later today versus tomorrow Hypokalemia: Repleted Hypomagnesemia: Repleted Electrolyte imbalance related to diarrhea Pancytopenia related to chemotherapy Patient has received Neulasta her last chemotherapy session was last week For neutropenia she is in reverse isolation Intellectual disability/challenges: Patient is able to answer simple questions She was asking for [employer] Code Status: Full IVF: NS at 75 DVT PPx: None GI PPx: None ABx: Vancomycin, cefepime Diet: Dysphagia Discharge plan: TBD Attestations Medical Necessity Statement*: Patient will need continued ICU monitoring and treatment for severe pancytopenia, UTI treatment with IV antibiotics, and positive blood and urine cultures. Coding Level of Care Code Acute Code for Chg Fwd Moderate MDM includes number and complexity of problems actively addressed during encounter, amount and/or complexity of data reviewed/ordered and described risk of complication, morbidity or mortality of management as documented Diagnoses Neutropenia D70.9 Dementia F03.90 Pancytopenia D61.818 COPD (chronic obstructive pulmonary disease) J44.9 Insulin dependent type 2 diabetes mellitus E11.9; Z79.4 Hypothyroidism E03.9 Incarcerated ventral hernia K43.6 Cognitive impairment R41.89 Hydronephrosis N13.30 Chronic kidney disease N18.9 Bladder cancer C67.9 Septic shock A41.9; R65.21
[2022-11-20 17:54] LABS: Glucose Point of Care 139 mg/dL (70-110)
[2022-11-20 20:44] LABS: Glucose Point of Care 174 mg/dL (70-110)
[2022-11-21] VITALS (23 sets, daily range): BP systolic 81–116; BP diastolic 51–82; PULSE 94–116; RESP 12–35; TEMP 36.7–37.2; O2SAT 91–100
[2022-11-21] MEDS: cefepime 2,000 MG in sodium chloride 0.9% (plus) 50 ML 100 MG IV ×2 (00:34→15:43)
[2022-11-21] MEDS: ondansetron 2 mg/ML SDV 2 mL 4 MG IVP (04:07)
[2022-11-21] MEDS: levothyroxine 100 mcg Tablet PO (05:28)
[2022-11-21 05:57] LABS: Basophils % 1.4 %; Hematocrit 25.3 % (37.0-47.0); Lymphocytes # 0.4 10^3/uL (0.8-4.8); Lymphocytes % 57.5 %; Mean Corpuscular HGB Conc 31.6 g/dL (30.0-36.0); Mean Corpuscular Hemoglobin 26.8 pg (28.0-34.0); Mean Corpuscular Volume 84.6 fl (81-99); Monocytes # 0.1 10^3/uL (0.2-0.9); Monocytes % 8.2 %; Neutrophils % 20.6 %; Nucleated Red Blood Cells % 0 %; Red Blood Count 2.99 10^6/uL (4.1-5.3); Red Cell Distribution Width 14.1 % (12.1-15.1)
[2022-11-21 06:11] LABS: Albumin Level 2.2 g/dL (3.5-5.2); Blood Urea Nitrogen 31 mg/dL (6-20); Calcium 7.8 mg/dL (8.5-10.5); Carbon Dioxide 18 mmol/L (22-29); Chloride 111 mmol/L (98-107); Glomerular Filtration Rate 33.2 mL/min (90-130); Glucose 198 mg/dL (65-115); Magnesium 1.8 mg/dL (1.7-2.3); Phosphorus 2.3 mg/dL (2.5-4.5); Sodium 144 mmol/L (136-145)
[2022-11-21] MEDS: potassium chloride ER 20 mEq Tablet 40 MEQ PO ×2 (06:44→07:56)
[2022-11-21 07:31] LABS: Glucose Point of Care 202 mg/dL (70-110)
[2022-11-21] MEDS: insulin lispro 100 unit/1 mL SUBCUT ×2 (07:56→13:22)
[2022-11-21] MEDS: magnesium oxide 400 mg tablet PO (07:56)
[2022-11-21] MEDS: LORazepam 0.5 mg Tablet PO ×3 (07:56→20:06)
[2022-11-21 08:22] LABS: Slide Review Slide Review Perform
[2022-11-21 08:24] LABS: Neutrophils # 0.15 10^3/uL (1.8-7.7); Platelet Count 6 10^3/cmm (130-400); White Blood Count 0.7 10^3/uL (4.0-10.0)
[2022-11-21] MEDS: lidocaine 1% 5 ML in potassium chloride premix 100 ML 26.25 ML IV ×2 (09:59→14:25)
[2022-11-21 10:52] LABS: Glucose Point of Care 143 mg/dL (70-110)
--- NOTE | 2022-11-21 11:44 | P.PN_ITS ---
Subjective Subjective: This morning patient was asking if she could be released from the hospital Her platelets are extremely low I requested 2 units For diarrhea C. difficile is negative I will give her Imodium Vitals/I&O/Wt Last Vital Signs Temp 98.0 F 11/21/22 08:00 Pulse 102 H 11/21/22 08:00 Resp 23 H 11/21/22 08:00 BP 116/82 11/21/22 08:00 Pulse Ox 94 11/21/22 08:00 O2 Del Method Room Air 11/21/22 07:29 11/20/22 11/21/22 11/21/22 22:59 06:59 14:59 Intake Total 1670 / 1940 / 1990 480 / 480 Output Total 1150 / 1150 1050 / 2200 300 / 300 Balance 520 / 790 -1000 / -210 180 / 180 Weight last 48 hrs Weight 75.07 kg Weight 75.705 kg Physical Exam Narrative: Patient is awake and alert Able to answer questions No active distress Riley catheter draining blood-tinged urine Abdomen soft bowel sound present Awake and alert Currently on room air Hemodynamically stable Urinary Catheter Management: Riley: Cath Placed During This Visit: yes Reason for Continuing Indwelling Catheter: Accurate Measurement of Urinary Output in Critically Ill Patients Urinary Catheter Date of Insertion: 11/19/22 Data 11/21/22 04:00 11/21/22 04:00 Micro: Microbiology 11/18/22 23:41 Urine Culture - Final Urine Catheterized Gram Negative Rods 11/19/22 13:30 C.difficile Toxin B Gene (PCR) - Final Stool A&P Assessment and plan (1) Septic shock: (2) Pancytopenia: (3) Neutropenia: (4) Dementia: (5) COPD (chronic obstructive pulmonary disease): (6) Insulin dependent type 2 diabetes mellitus: (7) Cognitive impairment: (8) Mass of bladder: (9) Chronic kidney disease: (10) Bladder cancer: Plan Septic shock: Resolved Pancytopenia: We will give her 2 units of platelets Still neutropenic Continue reverse isolation No febrile events today Due to worsening of thrombocytopenia will discontinue vancomycin, for her UTI continue cefepime for now Diarrhea: Imodium can be used today C. difficile negative Levothyroxine for hypothyroidism at 100 mics to be continued Hypomagnesemia: Magnesium repleted with p.o. regimen Hypokalemia related to diarrhea: 80 mEq KCl given We will discuss with her family members if they have decided about her goals of care and long-term care plan I think she might need until Tuesday or Tuesday before we start seeing improvement in her pancytopenia in order to send her back to her facility Full code Patient is edentulous that is why she is on dysphagia diet DVT prophylaxis contraindicated Cancer bladder with lymphadenopathy hydronephrosis, chronic, no plan for surgical intervention, patient carries guarded prognosis, family was leaning towards hospice care in case of further worsening Attestations 2 Medical Necessity Statement*: Continue medical management Diagnoses Septic shock A41.9; R65.21 Pancytopenia D61.818 Neutropenia D70.9 Dementia F03.90 COPD (chronic obstructive pulmonary disease) J44.9 Insulin dependent type 2 diabetes mellitus E11.9; Z79.4 Cognitive impairment R41.89 Mass of bladder N32.89 Chronic kidney disease N18.9 Bladder cancer C67.9
[2022-11-21] MEDS: loperamide 2 mg Capsule 4 MG PO (13:22)
--- NOTE | 2022-11-21 14:11 | PC.NURSE ---
Pt was transferred to [facility] via bed on room air with platelets transfusing. All belongings taken and placed in room. Family aware.
[2022-11-21] MEDS: sodium chloride 0.9% (100 ml) 100 ML 150 ML (14:29)
[2022-11-21] MEDS: loperamide 2 mg Capsule PO (15:12)
[2022-11-21 16:43] LABS: Glucose Point of Care 77 mg/dL (70-110)
[2022-11-21] MEDS: cholestyramine powder 4 gm Pkt PO (17:21)
--- NOTE | 2022-11-21 18:11 | PC.NURSE ---
Nurse travis and I went into change patient and found that she had pulled out her port access. ICU nurse and leader writer looked for peripheral iv access but could not find a good vein. Received order from Dr. Rust to place PICC. automobile body repair supervisor called and order placed. automobile body repair supervisor will call PICC specialists to come place line.
--- NOTE | 2022-11-21 18:12 | PC.NURSE ---
Patient refused 1800 magnesium and called the tech and life insurance underwriter ashish and said I want to get out of here.
--- NOTE | 2022-11-21 20:31 | XRR_ITS ---
PROCEDURE INFORMATION: Exam: XR Chest Exam date and time: 11/21/2022 8:44 PM Age: 57 years old Clinical indication: Device placement; Picc; Additional info: Picc line placement TECHNIQUE: Imaging protocol: Radiologic exam of the chest. Views: 1 view. COMPARISON: CR (CHEST, ) 11/18/2022 7:21 PM FINDINGS: Tubes, catheters and devices: A chronic left subclavian venous access port ends at the cavoatrial junction. A new right arm PICC ends in the mid right atrium. The catheter could be retracted by [address] it at the cavoatrial junction. Lungs: The lungs are clear. Pleural spaces: Unremarkable. No pleural effusion. No pneumothorax. Heart/Mediastinum: Unremarkable. No cardiomegaly. Bones/joints: Unremarkable. XR/XR chest 1V portable [id number] IMPRESSION: New right arm PICC ends in the right atrium. Suggest retracting by 5 cm
--- NOTE | 2022-11-21 20:47 | PC.NURSE ---
COnsulted by house charge for picc placement. Consent obtained by myself an family. RUE scanned with US an the brachial vein was the best option. Vein was straight, 4 mm, an free of visible clot. Pt draped in usual sterile fashion. Using real time US lidocaine injected, vein accessed, an picc floated into position. Chest xray obtained an waiting on tip confirmation. No bleeding no hematoma. EBL less then 5 ml. Pt arm circumference is 25 cm at 10 cm above the ac fossa.
[2022-11-21 21:02] LABS: Glucose Point of Care 170 mg/dL (70-110)
--- NOTE | 2022-11-21 21:19 | XRR_ITS ---
PROCEDURE INFORMATION: Exam: XR Chest Exam date and time: 11/21/2022 9:26 PM Age: 57 years old Clinical indication: Device placement; Patient HX: Re-adjusted picc line; Additional info: Picc line placement TECHNIQUE: Imaging protocol: Radiologic exam of the chest. Views: 1 view. COMPARISON: CR (CHEST, ) 11/21/2022 8:44 PM FINDINGS: Tubes, catheters and devices: Since the recent prior study the right arm PICC has been retracted and now ends at the cavoatrial junction which is normal. The chronic left subclavian venous access port also ends at cavoatrial junction. Lungs: The lungs are clear. Pleural spaces: Unremarkable. No pleural effusion. No pneumothorax. Heart/Mediastinum: Unremarkable. No cardiomegaly. Bones/joints: Unremarkable. XR/XR chest 1V portable [id number] IMPRESSION: Retracted PICC, now ending at the cavoatrial junction.
--- NOTE | 2022-11-21 21:34 | PC.NURSE ---
Picc pulled back 5 cm an xray obtained. Waiting on xray confirmation.
--- NOTE | 2022-11-21 22:30 | PC.NURSE ---
Phone call placed to Dr. Sheth regarding re-establishment of patient's IV access via new PICC line insertion. Reported that patient received 2 KcL IVPB and 1.5 bags of platelets prior to patient disconnecting her IV's from her implanted port earlier on day shift. Orders received to recheck BPM and start IVF.
[2022-11-21] MEDS: sodium chloride 0.9% 1,000 ML 75 ML IV (22:45)
[2022-11-21 23:24] LABS: Anion Gap 13.8 (5-19); Blood Urea Nitrogen 24 mg/dL (6-20); Carbon Dioxide 20 mmol/L (22-29); Chloride 108 mmol/L (98-107); Glomerular Filtration Rate 38.8 mL/min (90-130); Glucose 177 mg/dL (65-115); Osmolality Calculated 296 mOsm/kg (285-295); Sodium 139 mmol/L (136-145)
[2022-11-21 23:26] LABS: Potassium 2.8 mmol/L (3.5-5.1)
[2022-11-22] VITALS (9 sets, daily range): BP systolic 102–124; BP diastolic 61–76; PULSE 70–106; RESP 14–27; TEMP 36.3–36.8; O2SAT 94–97
[2022-11-22] MEDS: lidocaine 1% 5 ML in potassium chloride premix 100 ML 26.25 ML IV (00:11)
[2022-11-22] MEDS: potassium chloride ER 20 mEq Tablet 40 MEQ PO ×2 (00:12→08:38)
[2022-11-22] MEDS: acetaminophen 500 mg Tablet PO ×2 (00:38→17:27)
[2022-11-22] MEDS: cefepime 2,000 MG in sodium chloride 0.9% (plus) 50 ML 100 MG IV ×2 (04:06→17:12)
[2022-11-22 04:08] LABS: Basophils % 0.7 %; Hematocrit 24.1 % (37.0-47.0); Hemoglobin 7.8 g/dL (11.5-15.3); Lymphocytes # 0.8 10^3/uL (0.8-4.8); Lymphocytes % 51.7 %; Mean Corpuscular HGB Conc 32.4 g/dL (30.0-36.0); Mean Corpuscular Hemoglobin 27.4 pg (28.0-34.0); Mean Corpuscular Volume 84.6 fl (81-99); Mean Platelet Volume 10.8 fL (7.4-10.4); Monocytes # 0.1 10^3/uL (0.2-0.9); Monocytes % 7.9 %; Neutrophils % 17.2 %; Nucleated Red Blood Cells % 0 %; Red Blood Count 2.85 10^6/uL (4.1-5.3); Red Cell Distribution Width 14.1 % (12.1-15.1); White Blood Count 1.5 10^3/uL (4.0-10.0)
[2022-11-22 04:13] LABS: Neutrophils # 0.26 10^3/uL (1.8-7.7); Platelet Count 23 10^3/cmm (130-400)
[2022-11-22 04:24] LABS: Anion Gap 11.6 (5-19); Blood Urea Nitrogen 22 mg/dL (6-20); Calcium 7.9 mg/dL (8.5-10.5); Carbon Dioxide 22 mmol/L (22-29); Chloride 109 mmol/L (98-107); Glomerular Filtration Rate 38.8 mL/min (90-130); Glucose 146 mg/dL (65-115); Osmolality Calculated 294 mOsm/kg (285-295); Potassium 3.6 mmol/L (3.5-5.1); Sodium 139 mmol/L (136-145)
[2022-11-22 04:37] LABS: Slide Review Slide Review Perform
--- NOTE | 2022-11-22 05:16 | PC.NURSE ---
Hair pulling. Throughout shift is has been noted that patient manager story and tugs hair leaving clumps and strands on bed and floor. It is noted that patient has significantly this patches of all around her head. Patient's sister stated last evening before leaving for the night that patient has an ongoing habit of creating bald spots.
[2022-11-22] MEDS: levothyroxine 100 mcg Tablet PO (05:39)
[2022-11-22 06:32] LABS: Glucose Point of Care 132 mg/dL (70-110)
[2022-11-22] MEDS: LORazepam 0.5 mg Tablet PO ×2 (08:38→21:46)
[2022-11-22] MEDS: magnesium oxide 400 mg tablet PO ×2 (08:38→17:27)
[2022-11-22] MEDS: cholestyramine powder 4 gm Pkt PO ×2 (08:50→17:27)
--- NOTE | 2022-11-22 11:19 | P.PN_ITS ---
Subjective Subjective: Spoke with her guardian Maria Teresa Sousa She is stating that family has not made a decision yet, she is stating that for now they will allow us to treat her medically and discharge her back when she is stable they might change her to hospice when she is at the correction community development manager updated No fever since yesterday White count count 1.5 C. difficile negative Blood cultures negative Urine culture showing gram-negative ander Patient answer simple questions Able to make eye contact Arousable Vitals/I&O/Wt Last Vital Signs Temp 98.2 F 11/22/22 07:07 Pulse 98 11/22/22 07:07 Resp 18 11/22/22 07:07 BP 105/61 11/22/22 07:07 Pulse Ox 94 11/22/22 07:07 O2 Del Method Room Air 11/22/22 07:07 11/21/22 11/22/22 11/22/22 22:59 06:59 14:59 Intake Total 645.063 / 1230.063 100 / 1330.063 360 / 360 Output Total 700 / 1000 1000 / 2000 Balance -54.937 / 230.063 -900 / -669.937 360 / 360 Weight last 48 hrs Weight 0 g Weight 75.07 kg Physical Exam Narrative: Patient is cooperative and pleasant Resting comfortably Currently on room air Hemodynamically stable Mediport site skin hyperemia noted without any purulent drainage Stage I decubitus ulcer Riley catheter in place Abdomen soft S1, S2 No audible stridor or wheezing Nonfocal neuro Urinary Catheter Management: Riley: Cath Placed During This Visit: yes Reason for Continuing Indwelling Catheter: Accurate Measurement of Urinary Output in Critically Ill Patients Urinary Catheter Date of Insertion: 11/19/22 Data 11/22/22 03:28 11/22/22 03:28 Micro: Microbiology 11/18/22 23:41 Urine Culture - Final Urine Catheterized Gram Negative Rods A&P Assessment and plan (1) Septic shock: (2) Pancytopenia: (3) Neutropenia: (4) COPD (chronic obstructive pulmonary disease): (5) Insulin dependent type 2 diabetes mellitus: (6) Dementia: (7) Bladder wall thickening: (8) Incarcerated ventral hernia: (9) Mass of bladder: (10) Cognitive impairment: (11) Hydronephrosis: (12) Chronic kidney disease: (13) Bladder cancer: Plan Septic shock: Resolved Gram-positive cocci in clusters on blood culture preliminary report Urine culture showing gram-negative ander Afebrile since Tuesday Continue cefepime for now Vancomycin discontinued Pancytopenia Vancomycin was discontinued for risk of worsening of thrombocytopenia She has not spiked fever since discontinuation of vancomycin Cultures remain negative to date We will follow-up with final report Neutrophil level rising No active bleeding Patient not on DVT prophylaxis because of thrombocytopenia UTI: Gram-negative rods Currently on cefepime Diarrhea: You can use Imodium, C. difficile negative Added cholestyramine We will give her a dose of Decadron as Full code Ms. Maria Teresa Sousa stating that family has not made a decision regarding her goals of care or hospice care yet we will continue treating her medically, Dr. Jerome Thorpe recommended conservative management Hypotension: Patient requires IV fluid hydration on and off because of her recurrent diarrhea, she also has low albumin, will give her 1 bag of albumin today DVT prophylaxis: SCDs Reverse isolation Replenish potassium and p.o. regimen DELORES related to septic shock: Creatinine coming back to baseline, will keep Riley catheter in for now I spoke with her guardian Maria Teresa Sousa Attestations Medical Necessity Statement*: Continue medical management Diagnoses Septic shock A41.9; R65.21 Pancytopenia D61.818 Neutropenia D70.9 COPD (chronic obstructive pulmonary disease) J44.9 Insulin dependent type 2 diabetes mellitus E11.9; Z79.4 Dementia F03.90 Bladder wall thickening N32.89 Incarcerated ventral hernia K43.6 Mass of bladder N32.89 Cognitive impairment R41.89 Hydronephrosis N13.30 Chronic kidney disease N18.9 Bladder cancer C67.9
[2022-11-22] MEDS: sodium chloride 0.9% 1,000 ML 75 ML IV (12:28)
[2022-11-22] MEDS: dexamethasone 10 mg/mL INJ IVP (12:28)
[2022-11-22] MEDS: potassium chloride oral liq 20 mEq/15 mL UDC 40 MEQ PO (12:28)
[2022-11-22] MEDS: albumin 12.5 GM/50 ML VIAL IV (12:32)
[2022-11-22 12:34] LABS: Glucose Point of Care 193 mg/dL (70-110)
[2022-11-22 16:55] LABS: Cytomegalovirus Antibody (IGM) <30.00 AU/mL
[2022-11-22 16:56] LABS: Glucose Point of Care 341 mg/dL (70-110)
[2022-11-22] MEDS: insulin lispro 100 unit/1 mL SUBCUT ×2 (17:13→22:14)
[2022-11-22 21:24] LABS: Glucose Point of Care 279 mg/dL (70-110)
[2022-11-23] VITALS (13 sets, daily range): BP systolic 102–178; BP diastolic 56–83; PULSE 88–109; RESP 15–22; TEMP 36.3–37.1; O2SAT 95–99
[2022-11-23] MEDS: sodium chloride 0.9% 1,000 ML 75 ML IV ×2 (02:08→16:46)
[2022-11-23] MEDS: cefepime 2,000 MG in sodium chloride 0.9% (plus) 50 ML 100 MG IV ×2 (03:29→16:47)
[2022-11-23 04:08] LABS: Hematocrit 27.1 % (37.0-47.0); Hemoglobin 8.5 g/dL (11.5-15.3); Mean Corpuscular HGB Conc 31.4 g/dL (30.0-36.0); Mean Corpuscular Hemoglobin 27.1 pg (28.0-34.0); Mean Corpuscular Volume 86.3 fl (81-99); Mean Platelet Volume 11.5 fL (7.4-10.4); Red Blood Count 3.14 10^6/uL (4.1-5.3); Red Cell Distribution Width 14.3 % (12.1-15.1); White Blood Count 1.7 10^3/uL (4.0-10.0)
[2022-11-23 04:31] LABS: Anion Gap 17.7 (5-19); Blood Urea Nitrogen 25 mg/dL (6-20); Calcium 8.2 mg/dL (8.5-10.5); Carbon Dioxide 17 mmol/L (22-29); Chloride 112 mmol/L (98-107); Creatinine Clr Calc Pharmacy 0; Glomerular Filtration Rate 46.3 mL/min (90-130); Glucose 244 mg/dL (65-115); Osmolality Calculated 306 mOsm/kg (285-295); Potassium 4.7 mmol/L (3.5-5.1); Sodium 142 mmol/L (136-145)
[2022-11-23 05:17] LABS: Slide Review Slide Review Perform
[2022-11-23 05:19] LABS: Absolute Segmented Neutrophil 0.9 10/cmm (1.6-7.1); Eosinophils 0 %; Lymphocytes 40 %; Lymphocytes Absolute 0.7 10^3/cmm (1.2-3.4); Monocytes Absolute 0.1 10^3/cmm (0.1-0.6); Platelet Count 17 10^3/cmm (130-400); Segmented Neutrophils 50 %; Total Cells Counted 100 (0-100)
[2022-11-23 05:20] LABS: Absolute Neutrophil 0.9 10^3/cmm (1.4-6.5); Platelet Estimate Decreased (Normal)
[2022-11-23] MEDS: levothyroxine 100 mcg Tablet PO (06:45)
[2022-11-23 06:50] LABS: Glucose Point of Care 249 mg/dL (70-110)
[2022-11-23] MEDS: insulin lispro 100 unit/1 mL SUBCUT (08:35)
--- NOTE | 2022-11-23 11:05 | PM.PN ---
Subjective Subjective: Patient clinically doing well, neutrophil count improving Platelet count is still below 20,000 Requested 2 units I will likely discharge her once platelet count above 40,000 at least This theatre manager updated Urine culture showing gram-negative ander blood culture showing contamination Vitals/I&O/Wt Last Vital Signs Temp 97.4 F L 11/23/22 04:00 Pulse 93 11/23/22 05:13 Resp 18 11/23/22 08:00 BP 123/60 11/23/22 04:00 Pulse Ox 96 11/23/22 04:00 O2 Del Method Room Air 11/23/22 08:00 11/22/22 11/23/22 11/23/22 22:59 06:59 14:59 Intake Total 650 / 2300 1000 / 3300 60 / 60 Output Total 1075 / 1800 750 / 2550 Balance -425 / 500 250 / 750 60 / 60 Weight last 48 hrs Weight 0 g Physical Exam Narrative: Hyperemia around port slightly better today Oriented to herself Asking for soda No new focal deficit Abdomen soft S1, S2 Hemodynamically stable Currently on room air Urinary Catheter Management: Riley: Cath Placed During This Visit: yes Reason for Continuing Indwelling Catheter: Accurate Measurement of Urinary Output in Critically Ill Patients Urinary Catheter Date of Insertion: 11/19/22 Data 11/23/22 03:47 11/23/22 03:47 Micro: Microbiology 11/18/22 13:08 Blood Culture - Preliminary Blood Staphylococcus sp coag neg A&P Assessment and plan (1) Septic shock: (2) Pancytopenia: (3) Neutropenia: (4) Dementia: (5) COPD (chronic obstructive pulmonary disease): (6) Insulin dependent type 2 diabetes mellitus: (7) Anxiety: (8) Cognitive impairment: (9) Hydronephrosis: (10) Chronic kidney disease: (11) Bladder cancer: Plan Septic shock: Resolved Pancytopenia: Improving Blood cultures negative Urine culture showing gram-negative ander Currently on cefepime Afebrile Thrombocytopenia, platelets still around 17,000, request 2 unit of platelets Most likely she will build to go back to her facility tomorrow She is full code, family might decide to go with hospice once she is back at the shelter Patient is asking for soda Hyperglycemia Adjust insulin Dysphagia diet DELORES related septic shock: Improving, creatinine 1.2 today Diarrhea: Resolving, C. difficile negative Attestations Medical Necessity Statement*: Likely discharge tomorrow Diagnoses Septic shock A41.9; R65.21 Pancytopenia D61.818 Neutropenia D70.9 Dementia F03.90 COPD (chronic obstructive pulmonary disease) J44.9 Insulin dependent type 2 diabetes mellitus E11.9; Z79.4 Anxiety F41.9 Cognitive impairment R41.89 Hydronephrosis N13.30 Chronic kidney disease N18.9 Bladder cancer C67.9
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
[2022-11-23] MEDS: sodium chloride 0.9% (100 ml) 100 ML (16:43)
[2022-11-23 16:46] LABS: Glucose Point of Care 111 mg/dL (70-110)
--- NOTE | 2022-11-23 17:25 | PM.CONSULT ---
Providers/Reason For Consult Consulting Physician/Specialty*: Dr. Shant Diaz, DO/General surgery Reason for Consult*: Infected Mediport Attending Physician: Bereket Rust MD Primary Care Provider: Jericho Conroy MD History of Present Illness History of Present Illness Emmanuel Corral is a 57 year old female with dementia, pancytopenia, bladder cancer and sepsis from UTI who is currently being treated in the hospital for sepsis. HPI and review of systems are limited secondary to patient's dementia. Medicine consulted me due to a possible infected Mediport. Review of Systems General: Reports: ROS unobtainable due to medical condition Medications/Allergies Home Medications Medication Instructions Recorded Confirmed Last Taken Type atorvastatin 10 mg tablet 10 mg PO DAILY@05/30/20 11/19/22 11/07/22 History bisacodyl 10 mg rectal suppository 10 mg GA DAILY PRN Constipation 05/30/20 11/19/22 11/07/22 History bisacodyl 5 mg tablet,delayed 10 mg PO DAILY PRN Constipation 05/30/20 11/19/22 11/04/22 History release hydrocodone 5 mg-acetaminophen 325 1 tab PO Q4H PRN Pain 05/30/20 11/19/22 11/07/22 History mg tablet levothyroxine 100 mcg tablet 100 mcg PO DAILY@05/30/20 11/19/22 11/07/22 History lorazepam 0.5 mg tablet 0.5 mg PO TID@09,14,21 05/30/20 11/19/22 11/08/22 06:00 History magnesium hydroxide 400 mg/5 mL 30 ml PO DAILY PRN Constipation 05/30/20 11/19/22 11/06/22 History oral suspension (Milk of Magnesia) nystatin 100,000 unit/gram topical See Rx Instructions .Route .COMPLEX 05/30/20 11/19/22 05/30/20 History cream pantoprazole 20 mg tablet,delayed 20 mg PO DAILY@05/30/20 11/19/22 11/07/22 History release insulin aspart U-100 100 unit/mL See Rx Instructions .Route 06/07/20 11/19/22 11/07/22 Rx subcutaneous solution (Novolog .COMPLEX #10 mL U-100 Insulin aspart) acetaminophen 650 mg 650 mg PO Q6H PRN Pain 05/11/22 11/19/22 11/07/22 History tablet,extended release aluminum-mag hydroxide-simethicone 10 ml PO Q4H PRN Indigestion 05/11/22 11/19/22 Unknown History 400 mg-400 mg-40 mg/5 mL oral susp furosemide 80 mg tablet (Lasix) 80 mg PO DAILY@08 05/11/22 11/19/22 11/07/22 History hydroxyzine HCl 25 mg tablet 25 mg PO TID@,,05/11/22 11/19/22 11/07/22 History magnesium oxide 400 mg PO BID@08,20 05/11/22 11/19/22 11/07/22 History metolazone 2.5 mg tablet 2.5 mg PO DAILY@05/11/22 11/19/22 11/07/22 History metoprolol tartrate 25 mg tablet 12.5 mg PO BID@,05/11/22 11/19/22 11/07/22 History olopatadine 0.1 % eye drops 1 drp ophthalmic (eye) BID 05/11/22 11/19/22 11/07/22 History polyethylene glycol 3350 17 gram 17 g PO DAILY@05/11/22 11/19/22 11/07/22 History oral powder packet (Miralax) potassium chloride 20 mEq 40 meq PO BID 05/11/22 11/19/22 11/07/22 History tablet,extended release sennosides 8.6 mg tablet (senna) 8.6 mg PO DAILY@05/11/22 11/19/22 11/07/22 History lactulose 10 gram/15 mL (15 mL) 15 ml PO DAILY PRN constipation 05/13/22 11/19/22 Unknown Rx oral solution #750 mL ondansetron HCl 4 mg tablet 4 mg PO Q4H PRN nausea and 06/29/22 11/19/22 Unknown Rx vomiting #30 tabs prochlorperazine maleate 10 mg 10 mg PO Q4H PRN Mild Nausea #30 11/09/22 11/19/22 Unknown Rx tablet (Compazine) tabs insulin aspart U-100 100 unit/mL See Rx Instructions .Route .COMPLEX 11/19/22 11/19/22 Unknown History subcutaneous solution (Novolog U-100 Insulin aspart) insulin detemir U-100 100 unit/mL 40 unit SUBCUT BEDTIME@20 11/19/22 11/19/22 Unknown History (3 mL) subcutaneous pen (Levemir FlexPen) loperamide 2 mg tablet See Rx Instructions .Route .COMPLEX 11/19/22 11/19/22 Unknown History phenazopyridine 200 mg tablet 200 mg PO Q8H PRN Bladder Spasms 11/19/22 11/19/22 Unknown History (Pyridium) sitagliptin phosphate 25 mg tablet 25 mg PO DAILY@08 11/19/22 11/19/22 Unknown History (Januvia) Allergies Allergy/AdvReac Type Severity Reaction Status Date / Time No Known Allergies Allergy Verified 11/18/22 10:33 Current Medications Generic Name Dose Route Start Last Admin Trade Name Freq PRN Reason Stop Dose Admin Acetaminophen 500 mg 11/18/22 12:05 11/22/22 17:27 Acetaminophen 500 Mg Tablet PO 500 mg Q4H PRN Administration fever Cholestyramine Resin 4 gm 11/21/22 18:00 11/24/22 08:10 Cholestyramine Powder 4 Gm Pkt PO Not Given BID BRYSON Cefepime HCl 2,000 mg/ Sodium 50 mls @ 100 mls/hr 11/18/22 13:00 11/24/22 04:19 Chloride IV Infused Q12H BRYSON Infusion Protocol Sodium Chloride 1,000 mls @ 75 mls/hr 11/21/22 22:45 11/24/22 03:14 Sodium Chloride 0.9% IV 75 mls/hr .[id number] BRYSON Administration Insulin Human Lispro 0 unit 11/18/22 18:00 11/24/22 08:03 Insulin Lispro 100 Unit/1 Ml SUBCUT Not Given TIDWM BRYSON Protocol Insulin Human Lispro 0 unit 11/19/22 21:31 11/23/22 20:56 Insulin Lispro 100 Unit/1 Ml SUBCUT Not Given BEDTIME BRYSON Protocol Levothyroxine Sodium 100 mcg 11/19/22 06:00 11/24/22 04:43 Levothyroxine 100 Mcg Tablet PO 100 mcg QAM BRYSON Administration Loperamide HCl 2 mg 11/21/22 14:32 11/21/22 15:12 Loperamide 2 Mg Capsule PO 2 mg QID PRN Administration DIARRHEA Lorazepam 0.5 mg 11/22/22 21:00 11/24/22 08:05 Lorazepam 0.5 Mg Tablet PO 0.5 mg TID BRYSON Administration Magnesium Oxide 400 mg 11/18/22 18:00 11/24/22 08:10 Magnesium Oxide 400 Mg Tablet PO 400 mg BID BRYSON Administration Ondansetron HCl 4 mg 11/18/22 12:05 11/23/22 21:46 Ondansetron 2 Mg/Ml Sdv 2 Ml IVP 4 mg Q6H PRN Administration NAUSEA AND VOMITING Potassium Chloride 40 meq 11/19/22 09:00 11/24/22 08:10 Potassium Chloride Er 20 Meq Tablet PO 40 meq DAILY BRYSON Administration Senna 8.6 mg 11/19/22 06:00 11/24/22 04:43 Sennosides 8.6 Mg Tablet PO Not Given QAM BRYSON Senna/Docusate Sodium 1 tab 11/19/22 09:00 11/24/22 08:10 Sennosides-Docusate Tablet PO Not Given DAILY BRYSON PFSH Acute PFSH: Medical History DELORES (acute kidney injury) Anxiety B12 deficiency Bladder cancer Cataract Chronic kidney disease COPD (chronic obstructive pulmonary disease) Dementia Depression Epilepsy GERD (gastroesophageal reflux disease) History of 2019 novel coronavirus disease (COVID-19) (05/2020) with associated myocarditis/pericarditis History of DVT (deep vein thrombosis) Hydronephrosis, right Hypertension Hypothyroidism Insulin dependent type 2 diabetes mellitus Intellectual disability Intussusception 2nd part of duodenum Mild intermittent asthma Mixed hyperlipidemia Presence of IVC filter Ventral hernia (04/2022) Incarcerated ventral hernia with proximal small bowel obstruction Vitamin D deficiency Surgical History H/O hernia repair ABDOMINAL History of ankle surgery History of cholecystectomy Port-A-Cath in place S/P insertion of inferior vena caval filter Family History Grandmother Cancer Breast, lung, cervical Mother , AT AGE 26 Gunshot wound Father , AT AGE 65 Pneumonia Social History Smoking and tobacco status: former smoker Alcohol intake: never Substance/Drug Use: never Marital status: Single Current occupational status: disabled Vitals/I&O/Wt Last Vital Signs Temp 98.0 F 11/24/22 11:35 Pulse 95 11/24/22 11:35 Resp 18 11/24/22 11:35 BP 124/72 11/24/22 11:35 Pulse Ox 96 11/24/22 11:35 O2 Del Method Room Air 11/24/22 11:35 11/23/22 11/24/22 11/24/22 22:59 06:59 14:59 Intake Total 1877 / 1937 955 / 2892 Output Total 1600 / 1600 1600 / 3200 Balance 277 / 337 -645 / -308 Physical Exam Narrative: General : Patient is well developed , in mild distress Head : Normal cephalic, a-traumatic. Ears : Pinnae and external canal are normal. Hearing is normal. Eyes : PERRLA, Sclera and injection are normal. No conjunctival discharge. Nose : Mucous membranes are without erythema. Throat : buccal mucosa is normal, gums are without significant recession or hypertrophy. Lungs : Equal chest rise bilaterally, no use of accessory muscles, trachea is midline. Cor : Rate and rhythm are normal. Abdomen : Soft, ND, NT, no g/r/m Skin: There is tenderness and blanching erythema over a left-sided Mediport Extremities : No edema, no cyanosis or clubbing, dorsalis pedis pulses are present bilaterally, non-tender to palpation of calves. Upper extremities are normal bilaterally. Back : non-tender to palpation, no CVA tenderness. Urinary Catheter Management: Riley: Cath Placed During This Visit: yes Reason for Continuing Indwelling Catheter: Acute Urinary Retention or Obstruction Urinary Catheter Date of Insertion: 11/19/22 Data 11/24/22 03:53 11/23/22 03:47 Micro: Microbiology 11/18/22 12:50 Blood Culture - Final Blood NO GROWTH AFTER 5 DAYS 11/18/22 13:08 Blood Culture - Final Blood Staphylococcus epidermidis A&P Assessment and plan (1) Local infection due to Port-A-Cath: Plan Mediport removal The risk and benefits of procedure, including but not limited to, bleeding, infection, scar, numbness, pain were explained to the family. They are understanding of the risks and wished to proceed. Coding Level of Care Code Acute Code for [facility] Fwd Diagnoses Local infection due to Port-A-Cath T80.103A
[2022-11-23] MEDS: magnesium oxide 400 mg tablet PO (18:01)
[2022-11-23] MEDS: LORazepam 0.5 mg Tablet PO (20:47)
[2022-11-23 21:01] LABS: Glucose Point of Care 173 mg/dL (70-110)
[2022-11-23] MEDS: ondansetron 2 mg/ML SDV 2 mL 4 MG IVP (21:46)
--- NOTE | 2022-11-23 21:52 | PC.NURSE ---
Patient had episode of vomiting after taking night medications. Patients sister had fed her diner one hour prior. Patient was cleaned up and medicated with zofran at this time.
[2022-11-24] VITALS (12 sets, daily range): BP systolic 101–148; BP diastolic 53–80; PULSE 88–108; RESP 15–24; TEMP 36.1–37.1; O2SAT 94–100
[2022-11-24] MEDS: cefepime 2,000 MG in sodium chloride 0.9% (plus) 50 ML 100 MG IV ×2 (03:13→15:04)
[2022-11-24] MEDS: sodium chloride 0.9% 1,000 ML 75 ML IV (03:14)
[2022-11-24 04:25] LABS: Hematocrit 27.3 % (37.0-47.0); Hemoglobin 8.3 g/dL (11.5-15.3); Mean Corpuscular HGB Conc 30.4 g/dL (30.0-36.0); Mean Corpuscular Hemoglobin 26.3 pg (28.0-34.0); Mean Corpuscular Volume 86.4 fl (81-99); Mean Platelet Volume 11.2 fL (7.4-10.4); Platelet Count 103 10^3/cmm (130-400); Red Blood Count 3.16 10^6/uL (4.1-5.3); Red Cell Distribution Width 14.2 % (12.1-15.1); White Blood Count 3.4 10^3/uL (4.0-10.0)
[2022-11-24] MEDS: levothyroxine 100 mcg Tablet PO (04:43)
[2022-11-24 04:50] LABS: Slide Review Slide Review Perform
[2022-11-24 04:51] LABS: Total Cells Counted 100 (0-100)
[2022-11-24 04:52] LABS: Eosinophils 0 %
[2022-11-24 04:53] LABS: Absolute Neutrophil 1.4 10^3/cmm (1.4-6.5); Absolute Segmented Neutrophil 1.4 10/cmm (1.6-7.1); Lymphocytes 42 %; Lymphocytes Absolute 1.4 10^3/cmm (1.2-3.4); Monocytes Absolute 0.4 10^3/cmm (0.1-0.6); Platelet Estimate Decreased (Normal); Segmented Neutrophils 41 %
[2022-11-24 06:31] LABS: Glucose Point of Care 153 mg/dL (70-110)
[2022-11-24] MEDS: LORazepam 0.5 mg Tablet PO ×2 (08:05→15:05)
[2022-11-24] MEDS: magnesium oxide 400 mg tablet PO (08:10)
[2022-11-24] MEDS: potassium chloride ER 20 mEq Tablet 40 MEQ PO (08:10)
[2022-11-24 10:58] LABS: Glucose Point of Care 161 mg/dL (70-110)
--- NOTE | 2022-11-24 11:54 | W.PM.OPSUD ---
Surgery/Procedure H&P Update DATE OF PROCEDURE: November 24, 2022 DATE H&P PERFORMED: 11/23/22 H&P UPDATE INFORMATION: I have reviewed H&P completed within last 30 days, I have examined patient prior to procedure and No changes to prior documentation PLANNED PROCEDURE: Operation Date: 11/24/22 13:10 Proposed Procedures p Portacath Removal(Not Applicable) - Shant Diaz DO
--- NOTE | 2022-11-24 12:00 | PM.DCS ---
Discharge Providers Date of Admission: 11/18/22 11:36 Date of Discharge: November 24, 2022 Attending Provider at Admission: Rogerio aCno MD Attending Provider at Discharge: Bereket Rust MD Primary Care Provider: Jericho Conroy MD Diagnoses at Discharge Discharge Diagnosis (1) Local infection due to Port-A-Cath: Status: Acute Reason for Visit Reason for Visit: nurtopenia, bladder cancer Hospital Course Hospital Course 57-year female with history of bladder cancer with local advancement to lymph nodes with right-sided hydronephrosis, patient is intellectually challenged, was sent from Dr. Cano's clinic for concern of neutropenia, at the time of admission she was afebrile however around midnight she started spiking fever she was sent to ICU for low blood pressure she was diagnosed with septic shock, she remained in ICU for about 2 days we were able to wean off vasopressors, patient was given 4 units of platelets for severe thrombocytopenia, patient had received Neulasta a week ago before her direct admit to [facility]. She was given broad-spectrum antibiotics, blood culture showing contamination, urine culture showing gram-negative ander, she only had couple of episode of febrile events, she does have erythema around Mediport site, Dr. Diaz was consulted to remove the Mediport, I discussed this case with Dr. Thorpe and Dr. Cano who agreed with palliative/hospice care. Total family meetings conducted, her guardian is planning to get her treated with antibiotics during this visit and then they will decide whether they will opt for hospice care when she is back at her half-way. Her platelet count at the time of discharge 103, hemoglobin 8.3, white count 3.4, neutropenia improved, blood culture showing Staph epidermidis, urine culture showing gram-negative ander I will give her cefpodoxime at the time of discharge, patient remained full code throughout hospitalization, family will decide further about her goals of care and hospice care once she is back at the half-way. They were agreeable for port removal. Her port site is erythematous, tender to touch. Physical Exam Narrative: Patient is cooperative and pleasant Tender area around Mediport Abdomen soft Euvolemic Patient is not irritable at this point S1, S2 Able to move her extremities Urinary Catheter Management: Riley: Cath Placed During This Visit: yes Reason for Continuing Indwelling Catheter: Acute Urinary Retention or Obstruction Urinary Catheter Date of Insertion: 11/19/22 Discharge Data Studies Completed and Pending Completed Studies During Hospitalization Category Date Time Status CXRP [XR chest 1V portable [id number]] Stat Exams 11/21/22 20:31 Completed CXRP [XR chest 1V portable [id number]] Stat Exams 11/21/22 21:19 Completed XR chest 1V portable [id number] Routine Exams 11/18/22 20:14 Completed Pending at discharge Category Date Time Status Stool Culture, Bacterial [Enteric Bacterial Panel by Lab 11/21/22 14:32 Uncollected PCR] Routine Radiology Impressions Chest X-Ray 11/21/22 21:19 IMPRESSION: Retracted PICC, now ending at the cavoatrial junction. Laboratory Results WBC 3.4 10^3/uL (4.0-10.0) L 11/24/22 03:53 RBC 3.16 10^6/uL (4.1-5.3) L 11/24/22 03:53 Hgb 8.3 g/dL (11.5-15.3) L 11/24/22 03:53 Hct 27.3 % (37.0-47.0) L 11/24/22 03:53 MCV 86.4 fl (81-99) 11/24/22 03:53 MCH 26.3 pg (28.0-34.0) L 11/24/22 03:53 MCHC 30.4 g/dL (30.0-36.0) 11/24/22 03:53 RDW 14.2 % (12.1-15.1) 11/24/22 03:53 Plt Count 103 10^3/cmm (130-400) L D 11/24/22 03:53 MPV 11.2 fL (7.4-10.4) H 11/24/22 03:53 Neut % (Auto) 17.2 % 11/22/22 03:28 Lymph % (Auto) Not Reportable 11/24/22 03:53 Stark % (Auto) Not Reportable 11/24/22 03:53 Eos % (Auto) 0.0 % 11/22/22 03:28 Baso % (Auto) 0.7 % 11/22/22 03:28 Neut # (Auto) Feed Mixer 11/23/22 03:47 Lymph # (Auto) Not Reportable 11/24/22 03:53 Stark # (Auto) Not Reportable 11/24/22 03:53 Eos # (Auto) 0.0 10^3/uL (0.0-0.8) 11/22/22 03:28 Baso # (Auto) 0.0 10^3/uL (0.0-0.1) 11/22/22 03:28 Nucleated RBC % (auto) 0 % 11/22/22 03:28 Total Counted 100 (0-100) 11/24/22 03:53 Atypical Lymphs % 0.0 % (0-5) 11/24/22 03:53 Absolute Neutrophils 1.4 10^3/cmm (1.4-6.5) 11/24/22 03:53 Segmented Neutrophils 41 % 11/24/22 03:53 Abs Segm Neuts (Man) 1.4 10/cmm (1.6-7.1) L 11/24/22 03:53 Band Neutrophils 0.0 % 11/24/22 03:53 Abs Band Neuts (Man) 0.0 10^3/cmm (0.0-1.2) 11/24/22 03:53 Absolute Lymphocytes 1.4 10^3/cmm (1.2-3.4) 11/24/22 03:53 Lymphocytes (Manual) 42 % 11/24/22 03:53 Monocytes (Manual) 12.0 % 11/24/22 03:53 Absolute Monocytes 0.4 10^3/cmm (0.1-0.6) 11/24/22 03:53 Eosinophils (Manual) 0 % 11/24/22 03:53 Absolute Eosinophils 0.0 10^3/cmm (0.0-0.7) 11/24/22 03:53 Basophils (Manual) 0.0 % 11/24/22 03:53 Absolute Basophils 0.0 10^3/cmm (0.0-0.2) 11/24/22 03:53 Metamyelocytes 1.0 % 11/24/22 03:53 Myelocytes 4.0 % 11/24/22 03:53 Promyelocytes 1.0 % 11/23/22 03:47 Nucleated RBCs # 0.0 /100WBC 11/22/22 03:28 Platelet Estimate Decreased (Normal) L 11/24/22 03:53 Sodium 142 mmol/L (136-145) 11/23/22 03:47 Potassium 4.7 mmol/L (3.5-5.1) 11/23/22 03:47 Chloride 112 mmol/L (98-107) H 11/23/22 03:47 Carbon Dioxide 17 mmol/L (22-29) L 11/23/22 03:47 Anion Gap 17.7 (5-19) 11/23/22 03:47 BUN 25 mg/dL (6-20) H 11/23/22 03:47 Creatinine 1.2 mg/dL (0.5-0.9) H 11/23/22 03:47 GFR Calculation 46.3 mL/min (90-130) L 11/23/22 03:47 Glucose 244 mg/dL (65-115) H 11/23/22 03:47 POC Glucose 161 mg/dL (70-110) H 11/24/22 10:54 Calculated Osmolality 306 mOsm/kg (285-295) H 11/23/22 03:47 Lactate 1.7 mmol/L (0.5-2.2) 11/18/22 13:08 Calcium 8.2 mg/dL (8.5-10.5) L 11/23/22 03:47 Phosphorus 2.3 mg/dL (2.5-4.5) L 11/21/22 04:00 Magnesium 1.8 mg/dL (1.7-2.3) 11/21/22 04:00 C-Reactive Protein 105.5 mg/L (0.0-4.9) H 11/18/22 13:08 Albumin 2.2 g/dL (3.5-5.2) L 11/21/22 04:00 Procalcitonin 6.43 ng/mL (0-0.5) H 11/18/22 13:08 Urine Color Milla (Yellow) 11/18/22 23:41 Urine Appearance Cloudy (CLEAR) A 11/18/22 23:41 Urine pH 6 (5-7) 11/18/22 23:41 Ur Specific [place] 1.015 (1.005-1.030) 11/18/22 23:41 Urine Protein 3+ (Negative) H 11/18/22 23:41 Urine Glucose (UA) Trace (Normal) H 11/18/22 23:41 Urine Ketones 1+ (Negative) H 11/18/22 23:41 Urine Blood 3+ (Negative) H 11/18/22 23:41 Urine Nitrate Negative (Negative) 11/18/22 23:41 Urine Bilirubin Neg (Negative) 11/18/22 23:41 Urine Urobilinogen Neg mg/dL (Negative) 11/18/22 23:41 Ur Leukocyte Esterase Trace (Negative) H 11/18/22 23:41 Urine RBC Too numerous to cnt /hpf (0-2) H 11/18/22 23:41 Urine WBC 15-25 /hpf (0-5) H 11/18/22 23:41 Ur Squamous Epith Cells 5-10 /hpf (0-5) H 11/18/22 23:41 Amorphous Sediment Not Reportable 11/18/22 23:41 Urine Bacteria 2+ /hpf (NONE) H 11/18/22 23:41 Urine Mucus 2+ /hpf 11/18/22 23:41 CMV IgG Ab 6.20 U/mL H 11/19/22 02:59 CMV IgM Ab <30.00 AU/mL 11/19/22 02:59 Blood Type A Negative 11/21/22 10:42 Rho(D) Type Negative 11/21/22 10:42 Vitals Last Vital Signs Temp 98.0 F 11/24/22 11:35 Pulse 95 11/24/22 11:35 Resp 18 11/24/22 11:35 BP 124/72 11/24/22 11:35 Pulse Ox 96 11/24/22 11:35 O2 Del Method Room Air 11/24/22 11:35 Discharge Plan Discharge Patient Disposition: Xfer SNF Condition: Stable Prescriptions: New cefpodoxime 200 mg tablet 200 mg PO BID Qty: 10 0RF Rx Instructions: must administer with a meal/food loperamide 2 mg Capsule 2 mg PO QID PRN (Reason: Diarrhea) Qty: 20 0RF Continued ondansetron HCl 4 mg tablet 4 mg PO Q4H PRN (Reason: nausea and vomiting) Qty: 30 0RF pantoprazole 20 mg Tablet,Delayed Release (Dr/Ec) 20 mg PO DAILY@06 lorazepam 0.5 mg Tablet 0.5 mg PO TID@09,14,21 magnesium hydroxide [Milk of Magnesia] 400 mg/5 mL Suspension 30 ml PO DAILY PRN (Reason: Constipation) bisacodyl 10 mg Suppository 10 mg FL DAILY PRN (Reason: Constipation) atorvastatin 10 mg Tablet 10 mg PO DAILY@08 hydrocodone-acetaminophen 5-325 mg Tablet 1 tab PO Q4H PRN (Reason: Pain) levothyroxine 100 mcg Tablet 100 mcg PO DAILY@08 nystatin 100,000 unit/gram Cream See Rx Instructions .ROUTE .COMPLEX Rx Instructions: APPLY TO YAN AREA AND ABDOMINAL TOPICALLY EVERY 8 HOURS PRN RASH (CLEANSE AREA WITH SOAP AND WATER PAT DRY AND APPLY CREAM bisacodyl 5 mg Tablet,Delayed Release (Dr/Ec) 10 mg PO DAILY PRN (Reason: Constipation) insulin aspart U-100 [Novolog U-100 Insulin aspart] 100 unit/mL Solution See Rx Instructions .ROUTE .COMPLEX Qty: 10 0RF Rx Instructions: INJECT PER SLIDING SCALE BEFORE MEALS 150-200=4 UNITS 201-250=6 UNITS 251-300=8 UNITS 301-350=10 UNITS 351-400=12 UNITS 401-450= 15 UNITS 451-500=15 UNITS prochlorperazine maleate [Compazine] 10 mg tablet 10 mg PO Q4H PRN (Reason: Mild Nausea) Qty: 30 3RF acetaminophen 650 mg Tablet Extended Release 650 mg PO Q6H PRN (Reason: Pain) hydroxyzine HCl 25 mg Tablet 25 mg PO TID@,,21 alum-mag hydroxide-simeth 400-400-40 mg/5 mL Suspension 10 ml PO Q4H PRN (Reason: Indigestion) metoprolol tartrate 25 mg Tablet 12.5 mg PO BID@08,20 Rx Instructions: hold for sbp less than 100 or pulse less than 60 magnesium oxide 400 mg magnesium Tablet 400 mg PO BID@08,20 sennosides [senna] 8.6 mg Tablet 8.6 mg PO DAILY@08 polyethylene glycol 3350 [Miralax] 17 gram Powder In Packet 17 g PO DAILY@08 olopatadine 0.1 % Drops 1 drp OPHTHALMIC (EYE) BID Rx Instructions: separate doses by at least 6-8 hours lactulose 10 gram/15 mL (15 mL) solution 15 ml PO DAILY PRN (Reason: constipation) Qty: 750 1RF loperamide 2 mg Tablet See Rx Instructions .ROUTE .COMPLEX Rx Instructions: take one capsule po as needed for loose stools after each loose stool max 6 tabs in 24 hours Novolog U-100 Insulin aspart 100 unit/mL Solution See Rx Instructions .ROUTE .COMPLEX Rx Instructions: inject 5 units before meals for elevated cbg give an additional 5 units with ss order before each meal Levemir FlexPen 100 unit/mL (3 mL) Insulin Pen 40 unit SUBCUT BEDTIME@20 Pyridium 200 mg tablet 200 mg PO Q8H PRN (Reason: Bladder Spasms) Changed furosemide [Lasix] 80 mg Tablet 20 mg PO DAILY@08 Qty: 30 0RF potassium chloride 20 mEq Tablet Extended Release 20 meq PO DAILY Qty: 30 0RF Discontinued metolazone 2.5 mg Tablet 2.5 mg PO DAILY@08 Januvia 25 mg Tablet 25 mg PO DAILY@08 Referrals: [facility] [Outside] Patient Instructions: Opioid Safety Discharge Attestations Time Spent in Discharge Care*: greater than 30 min Quality Metrics Clinical Quality Measures [ No reported AMI, CVA or VTE this stay] Coding Level of Care Code Acute Code for [facility] Fwd Diagnoses Local infection due to Port-A-Cath T80.212A
[2022-11-24] MEDS: sodium chloride 0.9% 1,000 ML 30 ML IV (13:16)
--- NOTE | 2022-11-24 13:22 | PC.NURSE ---
to surgery for removal of port-a-cath via bed at this time
[2022-11-24] MEDS: lidocaine-epi 2% 20 mL INJ 10 ML INJECTION (13:33)
--- NOTE | 2022-11-24 13:41 | P.OP_ITS ---
Operative Report Date of procedure: November 24, 2022 Pre-op diagnosis: Sepsis with Mediport in place Post-op diagnosis: same Procedure done: Mediport removal Specimens removed/disposition: Mediport. Catheter tip sent for culture Surgeon: Dr. Shant Diaz DO Anesthesia: MAC Estimated blood loss (mL): 5 Complications: None apparent Brief History: This is a 57-year-old female who presented to the hospital septic. She has a Mediport in place and was found to have a UTI. There is some irritation of the skin overlying the catheter that appears to be from a bandage placed there. Infection cannot be ruled out. The family wanted to make her hospice anyway and the hospitalist requested Mediport removal. The risk and benefits were explained and documented. Procedure: Patient was taken to the operating room and her right chest was prepped and draped in a sterile manner. 1% lidocaine with epinephrine was infiltrated around the MediPort and catheter. Using a 15 blade the previous incision was opened, the subcutaneous tissue was divided using electrocautery and MediPort along the catheter was dissected free from the surrounding subcutaneous tissue and removed entirely. The wound was irrigated with saline, hemostasis ensured with electrocautery. A figure of 8 stitch was placed in the catheter tunnel w ith 3-0 Vicryl. The catheter tip was sent for culture. Skin was closed with 3- 0 nylon in an interrupted fashion. 4x4 and sterile dressings were used as a pressure dressing. The patient was transferred to the recovery room in stable condition.
--- NOTE | 2022-11-24 14:22 | PC.NURSE ---
return from surgery s/p removal of port-a-cath at 1400.report received.pt is alert and awake and states i want to go home now .vss.left upper chest drsg is dry and intact.plan is for pt to return to [facility] later today.pt's family is considering palliative or hospice care.
--- NOTE | 2022-11-24 15:14 | ANE.PACU2 ---
Inpatient post-anesthesia follow up: Airway intact: Yes Vital signs: Temperature 97.9 F Pulse Rate 105 Respiratory Rate 20 Blood Pressure 116/61 Pulse Oximetry 96 Oxygen Delivery Me thod Room Air Oxygen Flow Rate Fraction of Inspir ed Oxygen Hydration adequate: Yes Nausea and vomiting: No Pain level: 1 Mental status: Baseline
--- NOTE | 2022-11-24 18:06 | PC.NURSE ---
report phoned to radha at [facility] here and will transport pt at this time
== END 2022-11-24 18:08 | disposition skilled nursing facility (03) | DRG 808 ==
LOC: MEDSURG 11:54 → ICU 11-19 01:26 → CSU 11-21 13:29
PROVIDERS: Family Medicine; Internal Medicine; Student in an Organized Health Care Education/Training Program; Surgery; Admitting Provider Internal Medicine Medical Oncology; PCP Internal Medicine; Visit Provider Internal Medicine
PROC: 0JPT0WZ Removal of Totally Implantable Vascular Access Device from Trunk Subcutaneous Tissue and Fascia, Open Approach (ICD-10-PCS; CPT 36589; principal; 2022-11-24 13:00)
DX: D70.1 Agranulocytosis secondary to cancer chemotherapy (principal); A41.2 Sepsis due to unspecified staphylococcus; R65.21 Severe sepsis with septic shock; C77.9 Secondary and unspecified malignant neoplasm of lymph node, unspecified; N39.0 Urinary tract infection, site not specified; N13.30 Unspecified hydronephrosis; N17.9 Acute kidney failure, unspecified; K43.6 Other and unspecified ventral hernia with obstruction, without gangrene; C67.9 Malignant neoplasm of bladder, unspecified; F79 Unspecified intellectual disabilities; I95.9 Hypotension, unspecified; D69.6 Thrombocytopenia, unspecified; Z66 Do not resuscitate; D61.810 Antineoplastic chemotherapy induced pancytopenia; E83.42 Hypomagnesemia; E87.5 Hyperkalemia; K59.00 Constipation, unspecified; Z87.891 Personal history of nicotine dependence; Z95.828 Presence of other vascular implants and grafts; E78.2 Mixed hyperlipidemia; J44.9 Chronic obstructive pulmonary disease, unspecified; J45.20 Mild intermittent asthma, uncomplicated; E03.9 Hypothyroidism, unspecified; Z86.718 Personal history of other venous thrombosis and embolism; K21.9 Gastro-esophageal reflux disease without esophagitis; G40.909 Epilepsy, unspecified, not intractable, without status epilepticus; F32.A Depression, unspecified; E11.22 Type 2 diabetes mellitus with diabetic chronic kidney disease; I12.9 Hypertensive chronic kidney disease with stage 1 through stage 4 chronic kidney disease, or unspecified chronic kidney disease; N18.9 Chronic kidney disease, unspecified; F03.90 Unspecified dementia, unspecified severity, without behavioral disturbance, psychotic disturbance, mood disturbance, and anxiety; Z79.4 Long term (current) use of insulin; Z79.891 Long term (current) use of opiate analgesic
CPT/HCPCS: 36415; 36416; 36430; 36569; 36591; 36592; 71045; 80048; 80053; 80069; 81001; 82962; 83605; 83735; 84132; 84145; 85007; 85025; 86140; 86900; 87040; 87070; 87075; 87077; 87086; 87186; 87205; 87493; 96372; 96376; 99214; J0692; J1100; J1815; J2405; J2704; J2930; J3370; J3475; J3480; J7030; J7040; J7050; J7060; J7120; P9035; P9037; P9047